=== PATIENT | female | born 1935 | race Caucasian/White ===

== ENCOUNTER 2019-06-01 08:58 | Outpatient (CLI) | payer MEDICARE, SELFPAY ==
--- NOTE | ~2019-06-01 | MM_ITS ---
EXAMINATION: MM screening corwin BI w jem HISTORY: Screening mammogram, history of ductal carcinoma in situ of the left breast. TECHNIQUE: Craniocaudal and mediolateral oblique 3-D tomosynthesis images were obtained and synthetic 2-D images were generated. CAD analysis was submitted and interpreted. COMPARISON: 05/30/2018, 12/28/2016, 07/21/2016 BREAST PARENCHYMAL COMPOSITION: There are scattered areas of fibroglandular density. FINDINGS: There is subtle architectural distortion in the left breast at the site of lumpectomy. Ther e is no evidence of suspicious mass, calcification, or architectural distortion to suggest malignancy in either breast. There has been no suspicious interval change. IMPRESSION: 1. No mammographic evidence of malignancy. 2. Recommend routine screening mammography while the patient remains in good health. BI-RADS Category 2: Benign finding(s). Reviewed, dictated and finalized at location A. [employer] IMPRESSION: 1. No mammographic evidence of malignancy. 2. Recommend routine screening mammography while the patient remains in good he alth. BI-RADS Category 2: Benign finding(s).
== END 2019-06-01 08:59 | disposition home or self-care (01) ==
LOC: ANHIMG 09:01
PROVIDERS: PCP Internal Medicine; Visit Provider Internal Medicine Hematology & Oncology
DX: Z12.31 Encounter for screening mammogram for malignant neoplasm of breast (principal)
CPT/HCPCS: 77063; 77067

== ENCOUNTER 2019-06-14 13:04 | Outpatient (CLI) | payer MEDICARE, SELFPAY ==
[2019-06-14 13:23] LABS: Basophils Absolute Auto 0.1 K/mm3 (0.0-0.1); Eosinophils Absolute Auto 0.2 K/mm3 (0-0.3); Hematocrit 38.2 % (37.0-47.0); Hemoglobin 12.6 g/dL (12.0-15.0); Immature Granulocyte Absolute 0.03 K/mm3 (0.00-0.031); Immature Granulocyte Percent A 0.3 % (0-0.5); Lymphocytes Absolute Auto 2.51 K/mm3 (0.9-3.2); Lymphocytes Percent Auto 27.3 % (18.3-44.2); Mean Corpuscular Hemoglobin 30.6 pg (26-34); Mean Corpuscular Volume 92.7 fl (80-100); Monocytes Absolute Auto 0.7 K/mm3 (0.1-0.6); Monocytes Percent Auto 7.7 % (2.6-8.5); Neutrophils Absolute Auto 5.7 K/mm3 (1.3-6.7); Neutrophils Percent Auto 61.7 % (45.5-73.1); Platelet Count Result 317 k/mm3 (150-375); Red Blood Count 4.12 M/mm3 (4.2-5.4); Red Cell Distribution Width 13.1 % (11.5-14.5); White Blood Count 9.2 K/mm3 (4.5-10.0)
[2019-06-14 13:26] LABS: Blood Urea Nitrogen 15 mg/dL (8-26); Carbon Dioxide 26 mmol/L (22-30); Chloride 102 mmol/L (98-109); Estimated Glomerular Filt Rate 53; Glucose 138 mg/dL (70-105); Potassium 3.7 mmol/L (3.5-4.9); Sodium 140 mmol/L (138-146)
[2019-06-14 17:23] LABS: Alanine Aminotransferase 18 U/L (4-35); Albumin Level 4.2 g/dL (3.5-5.1); Alkaline Phosphatase 43 U/L (38-126); Aspartate Amino Transferase 25 U/L (14-36); Bilirubin,Total 0.3 mg/dL (0.2-1.3); Blood Urea Nitrogen 15 mg/dL (7-17); Calcium 9.9 mg/dL (8.4-10.2); Carbon Dioxide 25 mmol/L (22-30); Chloride 100 mmol/L (98-107); Estimated Glomerular Filt Rate 60; Glucose 134 mg/dL (65-105); Potassium 4.1 mmol/L (3.4-5.0); Sodium 139 mmol/L (137-145)
== END 2019-06-14 13:05 | disposition home or self-care (01) ==
LOC: ANHLAB 13:07
PROVIDERS: PCP Internal Medicine; Visit Provider Internal Medicine Hematology & Oncology
DX: D05.12 Intraductal carcinoma in situ of left breast (principal)
CPT/HCPCS: 36415; 80048; 80053; 85025

== ENCOUNTER 2019-12-16 08:50 | Emergency (ER) | payer MEDICARE, SELFPAY ==
--- NOTE | 2019-12-16 08:54 | ED.GENADULT ---
HPI - General Adult General Chief complaint: Urogenital-Female Stated complaint: POS UTI Time Seen by Provider: 12/16/19 08:54 Source: patient Mode of arrival: ambulatory Limitations: no limitations History of Present Illness HPI narrative: 84-year-old female patient presents to the [facility] with complaints of urinary symptoms that started this morning. Patient states that she noticed that her blood was sent to the [facility]. Patient states she has had urgency, frequency and burning with urination. Patient denies any low back pain, fevers, body aches or chills. Related Data Home Medications Medication Instructions Recorded Confirmed albuterol sulfate [ProAir HFA] 2 puff INHALATION QID PRN 05/11/19 12/16/19 aspirin 81 mg PO DAILY 05/11/19 12/16/19 azelastine 137 mcg INTRANASAL Q12H 05/11/19 12/16/19 calcium carbonate [Calcium 600] 600 mg PO BID 05/11/19 12/16/19 cetirizine 10 mg PO QAM 05/11/19 12/16/19 diltiazem HCl [Cardizem CD] 120 mg PO DAILY 05/11/19 12/16/19 epinephrine [EpiPen] 0.3 mg IM PRN 05/11/19 12/16/19 esomeprazole magnesium [Nexium] 20 mg PO DAILY 05/11/19 12/16/19 fexofenadine 180 mg PO DAILY 05/11/19 12/16/19 isosorbide mononitrate 60 mg PO DAILY 05/11/19 12/16/19 magnesium oxide 250 mg PO BID 05/11/19 12/16/19 montelukast 10 mg PO DAILY 05/11/19 12/16/19 nitroglycerin 0.4 mg SUBLINGUAL Q5M PRN 05/11/19 12/16/19 tamoxifen 20 mg PO DAILY 05/11/19 12/16/19 Allergies Allergy/AdvReac Type Severity Reaction Status Date / Time bacitracin Allergy Unknown Unknown Verified 12/16/19 08:52 fentanyl Allergy Unknown Vomiting Verified 12/16/19 08:52 grass pollen Allergy Unknown Unknown Verified 12/16/19 08:52 Iodinated Contrast Media Allergy Unknown Stopped Verified 12/16/19 08:52 Breathing meperidine Allergy Unknown Unknown Verified 12/16/19 08:52 mold Allergy Unknown Unknown Verified 12/16/19 08:52 morphine Allergy Unknown Unknown Verified 12/16/19 08:52 neomycin Allergy Unknown RASH Unverified 12/16/19 08:52 Opioids-Meperidine and Allergy Unknown VOMITING Unverified 12/16/19 08:52 Related polymyxin B Allergy Unknown Unknown Verified 12/16/19 08:52 propoxyphene Allergy Unknown Unknown Verified 12/16/19 08:52 Contrast Media Allergy Severe Anaphylactic Uncoded 12/16/19 08:52 Shock ENVIRONMENTAL Allergy Unknown Unknown Uncoded 12/16/19 08:52 Review of Systems Review of Systems: Narrative: CONSTITUTIONAL: Denies fever, chills, or sweats. EYES: Denies visual changes, redness, or discharge. ENT: Denies rhinorrhea, congestion, sore throat, or otalgia. CARDIOVASCULAR: Denies chest pain, palpitations, or edema. RESPIRATORY: Denies cough or dyspnea. GASTROINTESTINAL: Denies abdominal pain, nausea, vomiting, or diarrhea. GENITOURINARY: Positive dysuria with hematuria. SKIN: Denies rash or itching. MUSCULOSKELETAL: Denies back pain, joint pain, or myalgia. NEUROLOGIC: Denies headache, numbness, or weakness. PSYCHIATRIC: Denies anxiety or depression. [facility] Past Medical History Medical History Angina at rest Asthma Bronchitis GERD (gastroesophageal reflux disease) Hypertension Peripheral neuropathy Pneumonia Seizures Surgical History Surgical History H/O cardiac catheterization H/O lumpectomy History of left-sided breast cancer History of appendectomy Hx of tonsillectomy Family History Family History Sibling Family history of allergic disorder Family history of malignant neoplasm Family history of diabetes mellitus in first degree relative Social History Social History Smoking status: Never smoker Alcohol intake: current Gender identity (if verbalized by the patient): Female Comments At the time of my signature I agree with nursing past medical history, surgical, soci
[2019-12-16 08:58] VITALS: BP 142/93; PULSE 85; RESP 16; TEMP 36.6; O2SAT 100
== END 2019-12-16 09:40 | disposition home or self-care (01) ==
PROVIDERS: Emergency Provider Nurse Practitioner Family; PCP Internal Medicine
DX: N30.01 Acute cystitis with hematuria (principal); I20.9 Angina pectoris, unspecified; J45.909 Unspecified asthma, uncomplicated; K21.9 Gastro-esophageal reflux disease without esophagitis; I10 Essential (primary) hypertension; G62.9 Polyneuropathy, unspecified; Z85.3 Personal history of malignant neoplasm of breast
CPT/HCPCS: 81003; 87086; 87088; 99213; G0463

== ENCOUNTER 2020-03-04 09:21 | Outpatient (CLI) | payer MEDICARE, SELFPAY ==
[2020-03-04 09:36] LABS: Basophils Absolute Auto 0.1 K/mm3 (0.0-0.1); Basophils Percent Auto 0.9 % (0.2-1.2); Eosinophils Absolute Auto 0.1 K/mm3 (0-0.3); Eosinophils Percent Auto 1.6 % (0-4.4); Hemoglobin 12.7 g/dL (12.0-15.0); Immature Granulocyte Absolute 0.02 K/mm3 (0.00-0.031); Immature Granulocyte Percent A 0.3 % (0-0.5); Lymphocytes Absolute Auto 2.48 K/mm3 (0.9-3.2); Lymphocytes Percent Auto 32.8 % (18.3-44.2); Mean Corpuscular HGB Conc 32.6 g/dl (32-36); Mean Corpuscular Hemoglobin 30.1 pg (26-34); Mean Corpuscular Volume 92.4 fl (80-100); Monocytes Absolute Auto 0.8 K/mm3 (0.1-0.6); Monocytes Percent Auto 10.7 % (2.6-8.5); Neutrophils Absolute Auto 4.1 K/mm3 (1.3-6.7); Neutrophils Percent Auto 53.7 % (45.5-73.1); Platelet Count Result 294 k/mm3 (150-375); Red Blood Count 4.22 M/mm3 (4.2-5.4); Red Cell Distribution Width 13.2 % (11.5-14.5); White Blood Count 7.6 K/mm3 (4.5-10.0)
[2020-03-04 09:39] LABS: Blood Urea Nitrogen 16 mg/dL (8-26); Carbon Dioxide 25 mmol/L (22-30); Chloride 105 mmol/L (98-109); Estimated Glomerular Filt Rate 53; Glucose 124 mg/dL (70-105); Potassium 4.2 mmol/L (3.5-4.9); Sodium 141 mmol/L (138-146)
[2020-03-04 11:23] LABS: Alanine Aminotransferase 15 U/L (4-35); Albumin Level 4.2 g/dL (3.5-5.1); Alkaline Phosphatase 42 U/L (38-126); Anion Gap 7 mmol/L (8-16); Aspartate Amino Transferase 25 U/L (14-36); Bilirubin,Total 0.3 mg/dL (0.2-1.3); Blood Urea Nitrogen 16 mg/dL (7-17); Calcium 9.3 mg/dL (8.4-10.2); Carbon Dioxide 29 mmol/L (22-30); Chloride 105 mmol/L (98-107); Estimated Glomerular Filt Rate 60; Glucose 124 mg/dL (65-105); Potassium 4.5 mmol/L (3.4-5.0); Sodium 141 mmol/L (137-145)
== END 2020-03-04 09:22 | disposition home or self-care (01) ==
LOC: ANHLAB 09:24
PROVIDERS: PCP Internal Medicine; Visit Provider Internal Medicine Hematology & Oncology
DX: D05.12 Intraductal carcinoma in situ of left breast (principal)
CPT/HCPCS: 36415; 80048; 80053; 85025

== ENCOUNTER 2020-05-21 13:31 | Outpatient (CLI) | payer MEDICARE, SELFPAY | END 2020-05-21 13:32 | disposition home or self-care (01) | LOC: ANHAUDIO 13:33 | PROVIDERS: PCP Internal Medicine; Visit Provider Internal Medicine | DX: H91.90 Unspecified hearing loss, unspecified ear (principal) | CPT/HCPCS: 99199 ==

== ENCOUNTER 2020-06-06 12:55 | Outpatient (CLI) | payer MEDICARE, SELFPAY | END 2020-06-06 12:56 | disposition home or self-care (01) | PROVIDERS: PCP Internal Medicine; Visit Provider Internal Medicine | DX: H91.90 Unspecified hearing loss, unspecified ear (principal) | CPT/HCPCS: 92557; 92567 ==

== ENCOUNTER 2020-08-25 07:30 | Outpatient (CLI) | payer MEDICARE, SELFPAY ==
--- NOTE | ~2020-08-25 | MM_ITS ---
EXAMINATION: MM screening corwin BI w jem HISTORY: Screening TECHNIQUE: Craniocaudal and mediolateral oblique 3-D tomosynthesis images were obtained and synthetic 2-D images were generated. CAD analysis was submitted and interpreted. COMPARISON: Comparison to multiple prior studies sequentially, with oldest reviewed study dated 08/2018. BREAST PARENCHYMAL COMPOSITION: Breast composed of scattered areas of fibroglandular density. FINDINGS: There is a developing mass in the lower inner quadrant of the right breast, located superfi cially and posteriorly. The left breast is stable without evidence for malignancy. IMPRESSION: 1. Developing right breast mass. 2. Additional mammographic views and possible breast ultrasound are recommended. BI-RADS Category 0: Incomplete: Needs additional imaging evaluation. Reviewed, dictated and finalized at location A. IMPRESSION: 1. Developing right breast mass. 2. Additional mammographic views and possible breast ultrasound are recommended . BI-RADS Category 0: Incomplete: Needs additional imaging evaluation.
== END 2020-08-25 07:31 | disposition home or self-care (01) ==
LOC: ANHIMG 07:33
PROVIDERS: PCP Internal Medicine; Visit Provider Internal Medicine Hematology & Oncology
DX: Z12.31 Encounter for screening mammogram for malignant neoplasm of breast (principal); R92.8 Other abnormal and inconclusive findings on diagnostic imaging of breast
CPT/HCPCS: 77063; 77067

== ENCOUNTER 2020-09-30 12:41 | Outpatient (CLI) | payer MEDICARE, SELFPAY ==
--- NOTE | ~2020-09-30 | MMUS_ITS ---
EXAMINATION: MM diagnostic mammo unilat RT, US breast RT limited HISTORY: Developing right breast mass reported in lower inner quadrant on 09/11/2020 screening mammogr am examination TECHNIQUE: Additional 3-D tomosynthesis images of the right breast with overlying skin marker were pe rformed and synthetic 2-D images were generated. CAD analysis was submitted and interpreted. High res olution targeted lower inner quadrant right breast ultrasound was performed. COMPARISON: 09/11/2020 bilateral digital screening mammogram FINDINGS: MAMMOGRAPHIC FINDINGS: There is a superficial circumscribed at least 9 mm mammographic opacity at the posterior aspect of th e lower inner quadrant of the right breast. Differential diagnosis includes cyst, sebaceous cyst, fib roadenoma, lymph node. Targeted ultrasound correlation was performed. ULTRASOUND: At the area of clinical complaint at 3:00 10 cm from the nipple there is a parallel circumscribed 9.6 x 5.5 x 11.2 mm hypoechoic lesion with peripheral color flow vascular signal at one margin and with through transmission and posterior enhancement. Consider fibroadenoma or lymph node. Ultrasound-guide d biopsy is recommended. IMPRESSION: 1. Circumscribed 3:00 11 mm hypoechoic mass with mild vascularity, with through transmission and post erior enhancement 2. Ultrasound-guided biopsy is recommended for right breast 3:00 lesion BI-RADS Category 4A: Suspicious abnormality; biopsy should be considered Dr. Stark telephoned the report and ultrasound-guided biopsy recommendation on 09/30/2020 at 1448 hours to [facility]. Reviewed, dictated and finalized at location A. IMPRESSION: 1. Circumscribed 3:00 11 mm hypoechoic mass with mild vascularity, with through transmission and posterior enhancement 2. Ultrasound-guided biopsy is recommended for right breast 3:00 lesion BI-RADS Category 4A: Suspicious abnormality; biopsy should be considered Dr. Stark telephoned the report and ultrasound-guided biopsy recommendation on at 1448 hours to [facility]. IMPRESSION: 1. Circumscribed 3:00 11 mm hypoechoic mass with mild vascularity, with through transmission and posterior enhancement 2. Ultrasound-guided biopsy is recommended for right breast 3:00 lesion BI-RADS Category 4A: Suspicious abnormality; biopsy should be considered Dr. Stark telephoned the report and ultrasound-guided biopsy recommendation on at 1448 hours to [facility].
== END 2020-09-30 12:42 | disposition home or self-care (01) ==
PROVIDERS: PCP Internal Medicine; Visit Provider Internal Medicine Hematology & Oncology
DX: R92.8 Other abnormal and inconclusive findings on diagnostic imaging of breast (principal)
CPT/HCPCS: 76642; 77065

== ENCOUNTER 2020-10-07 09:39 | Outpatient (CLI) | payer MEDICARE, SELFPAY ==
--- NOTE | ~2020-10-07 | US_ITS ---
EXAMINATION: Consultation US HISTORY: Patient presents for biopsy of a mass at the 3:00 location of the right breast. TECHNIQUE: Limited right breast ultrasound was performed at the 3:00 location 10 cm from the nipple. FINDINGS: There is a 10 mm x 5 mm oval, circumscribed, parallel, hypoechoic mass with no posterior fe atures or internal vascularity at the 3:00 location 10 cm from the nipple. With a standoff pad, a tra ct in the skin is demonstrated. Findings are most consistent with a sebaceous cyst. IMPRESSION: Sonographic findings consistent with a sebaceous cyst of the right breast. Clinical follow-up is janine mmended. BI-RADS Category 2: Benign finding(s). Reviewed, dictated and finalized at location A. IMPRESSION: Sonographic findings consistent with a sebaceous cyst of the right breast. Clin ical follow-up is recommended. BI-RADS Category 2: Benign finding(s).
== END 2020-10-07 09:40 | disposition home or self-care (01) ==
PROVIDERS: PCP Internal Medicine; Visit Provider Internal Medicine Hematology & Oncology
DX: R92.8 Other abnormal and inconclusive findings on diagnostic imaging of breast (principal)
CPT/HCPCS: 99199

== ENCOUNTER 2021-03-04 16:35 | Emergency (ER) | payer MEDICARE, SELFPAY ==
[2021-03-04 16:46] VITALS: BP 124/60; PULSE 80; RESP 16; TEMP 36.2; O2SAT 99
--- NOTE | 2021-03-04 16:46 | ED.ANIMALBIT ---
HPI - Animal Bite General Chief Complaint: Animal Bite Stated Complaint: DOG BITE TO NOSE Source: patient and RN notes reviewed Mode of arrival: ambulatory History of Present Illness HPI narrative: This is a 85-year-old female that presented to urgent care after being bit by a dog on Tuesday. Patient notes that the dog bit her was the size of a [place]. She notes while she was playing with the dog the dog got anxious when owners came around in bed to her in the face she does have a small healed puncture wound to the base of her nose. There is no obvious signs and symptoms of infection she noted that after the bite she bled a lot she also notes that dog has had his rabies shots. Patient has cleaned the site with soap and water .the patient denies SOB, CP, palpitation, extremity numbness, lightheadedness, dizziness, constipation, diarrhea, chills, or fever. She is here for tetanus shot MD complaint: animal bite Animal: dog Description of animal: household pet Mechanism: bite Location: face Related Data Home Medications Medication Instructions Recorded Confirmed albuterol sulfate [ProAir HFA] 2 puff INHALATION QID PRN 05/11/19 12/26/20 aspirin 81 mg PO DAILY 05/11/19 12/26/20 azelastine 137 mcg INTRANASAL Q12H 05/11/19 12/26/20 calcium carbonate [Calcium 600] 600 mg PO BID 05/11/19 12/26/20 cetirizine 10 mg PO QAM 05/11/19 12/26/20 diltiazem HCl [Cardizem CD] 120 mg PO DAILY 05/11/19 12/26/20 epinephrine [EpiPen] 0.3 mg IM PRN 05/11/19 12/26/20 esomeprazole magnesium [Nexium] 20 mg PO DAILY 05/11/19 12/26/20 fexofenadine 180 mg PO DAILY 05/11/19 12/26/20 isosorbide mononitrate 60 mg PO DAILY 05/11/19 12/26/20 magnesium oxide 250 mg PO BID 05/11/19 12/26/20 montelukast 10 mg PO DAILY 05/11/19 12/26/20 nitroglycerin 0.4 mg SUBLINGUAL Q5M PRN 05/11/19 12/26/20 tamoxifen 20 mg PO DAILY 05/11/19 12/26/20 citalopram 10 mg tablet 10 mg PO DAILY PRN 12/26/20 12/26/20 Allergies Allergy/AdvReac Type Severity Reaction Status Date / Time bacitracin Allergy Unknown Unknown Verified 12/26/20 11:03 fentanyl Allergy Unknown Vomiting Verified 12/26/20 11:03 grass pollen Allergy Unknown Unknown Verified 12/26/20 11:03 Iodinated Contrast Media Allergy Unknown Stopped Verified 12/26/20 11:03 Breathing meperidine Allergy Unknown Unknown Verified 12/26/20 11:03 mold Allergy Unknown Unknown Verified 12/26/20 11:03 morphine Allergy Unknown Unknown Verified 12/26/20 11:03 neomycin Allergy Unknown RASH Verified 12/26/20 11:03 Opioids-Meperidine and Allergy Unknown VOMITING Verified 12/26/20 11:03 Related polymyxin B Allergy Unknown Unknown Verified 12/26/20 11:03 propoxyphene Allergy Unknown Unknown Verified 12/26/20 11:03 Contrast Media Allergy Severe Anaphylactic Uncoded 08/08/20 10:59 Shock ENVIRONMENTAL Allergy Unknown Unknown Uncoded 08/08/20 10:59 Review of Systems Review of Systems: A 14 organ system Review of Systems was performed and pertinent positives included in the HPI, otherwise remaining ROS is negative. [facility] Past Medical History Medical History Angina at rest Anxiety Asthma Bronchitis GERD (gastroesophageal reflux disease) Hyperlipidemia Hypertension Peripheral neuropathy Pneumonia Seizures Surgical History Surgical History H/O cardiac catheterization H/O lumpectomy History of left-sided breast cancer H/O myomectomy 1977 H/O: hysterectomy 1977 History of appendectomy 1950 History of conization of cervix History of eye surgery 2020 Hx of tonsillectomy [place] teeth removed Family History Family History Sibling Family history of allergic disorder Family history of malignant neoplasm Family history of diabetes mellitus in first degree relative Diabetes mellitus Mother Breast cancer Father Cerebrovascular accident Gr
[2021-03-04] MEDS: TETANUS,DIPHTHERIA,AC PERTUSSIS ADULT (0.5 ML) BOOSTRIX IM (17:07)
== END 2021-03-04 17:12 | disposition home or self-care (01) ==
PROVIDERS: Emergency Provider Nurse Practitioner; PCP Internal Medicine
DX: S01.23XA Puncture wound without foreign body of nose, initial encounter (principal); W54.0XXA Bitten by dog, initial encounter; Z23 Encounter for immunization; I20.9 Angina pectoris, unspecified; F41.9 Anxiety disorder, unspecified; J45.909 Unspecified asthma, uncomplicated; K21.9 Gastro-esophageal reflux disease without esophagitis; E78.5 Hyperlipidemia, unspecified; I10 Essential (primary) hypertension; G40.909 Epilepsy, unspecified, not intractable, without status epilepticus; G62.9 Polyneuropathy, unspecified; Z85.3 Personal history of malignant neoplasm of breast; Z79.82 Long term (current) use of aspirin
CPT/HCPCS: 90471; 90715; 99212; G0463

== ENCOUNTER 2021-03-11 12:49 | Emergency (ER) | payer MEDICARE, SELFPAY ==
[2021-03-11 12:57] VITALS: BP 101/57; PULSE 92; RESP 16; TEMP 36.6; O2SAT 98
--- NOTE | 2021-03-11 13:08 | ED.URI ---
HPI - URI/Sore Throat General Chief Complaint: Upper Respiratory Infection Stated Complaint: SINUS CONGESTION/COUGH Time Seen by Provider: 03/11/21 13:00 Source: patient, family and RN notes reviewed History of Present Illness HPI Narrative: Patient is an 85-year-old female who presents the urgent care with a family friend with complaints of chronic allergies. Patient states it started 2 days ago and she has been taking her normal Zyrtec, Mallory and Flonase nasal spray. Patient states that she has chronic seasonal allergies and this is just like they have always been in the past . Patient has had of the [employer] vaccine and the Covid booster. Patient states that she has not been exposed to anyone with Covid however there was a concern. Patient denies of any fevers, nausea, vomiting. No other acute complaints. No acute distress noted. Patient aware of the plan of care. Some parts of this dictation were generated by voice recognition software and may contain typographical and/or grammatical inaccuracies. Related Data Home Medications Medication Instructions Recorded Confirmed albuterol sulfate [ProAir HFA] 2 puff INHALATION QID PRN 05/11/19 12/26/20 aspirin 81 mg PO DAILY 05/11/19 12/26/20 azelastine 137 mcg INTRANASAL Q12H 05/11/19 12/26/20 calcium carbonate [Calcium 600] 600 mg PO BID 05/11/19 12/26/20 cetirizine 10 mg PO QAM 05/11/19 12/26/20 diltiazem HCl [Cardizem CD] 120 mg PO DAILY 05/11/19 12/26/20 epinephrine [EpiPen] 0.3 mg IM PRN 05/11/19 12/26/20 esomeprazole magnesium [Nexium] 20 mg PO DAILY 05/11/19 12/26/20 fexofenadine 180 mg PO DAILY 05/11/19 12/26/20 isosorbide mononitrate 60 mg PO DAILY 05/11/19 12/26/20 magnesium oxide 250 mg PO BID 05/11/19 12/26/20 montelukast 10 mg PO DAILY 05/11/19 12/26/20 nitroglycerin 0.4 mg SUBLINGUAL Q5M PRN 05/11/19 12/26/20 tamoxifen 20 mg PO DAILY 05/11/19 12/26/20 citalopram 10 mg tablet 10 mg PO DAILY PRN 12/26/20 12/26/20 Allergies Allergy/AdvReac Type Severity Reaction Status Date / Time bacitracin Allergy Unknown Unknown Verified 12/26/20 11:03 fentanyl Allergy Unknown Vomiting Verified 12/26/20 11:03 grass pollen Allergy Unknown Unknown Verified 12/26/20 11:03 Iodinated Contrast Media Allergy Unknown Stopped Verified 12/26/20 11:03 Breathing meperidine Allergy Unknown Unknown Verified 12/26/20 11:03 mold Allergy Unknown Unknown Verified 12/26/20 11:03 morphine Allergy Unknown Unknown Verified 12/26/20 11:03 neomycin Allergy Unknown RASH Verified 12/26/20 11:03 Opioids-Meperidine and Allergy Unknown VOMITING Verified 12/26/20 11:03 Related polymyxin B Allergy Unknown Unknown Verified 12/26/20 11:03 propoxyphene Allergy Unknown Unknown Verified 12/26/20 11:03 Contrast Media Allergy Severe Anaphylactic Uncoded 08/08/20 10:59 Shock ENVIRONMENTAL Allergy Unknown Unknown Uncoded 08/08/20 10:59 Review of Systems Review of Systems: CONSTITUTIONAL: Denies fever, chills, or sweats. EYES: Denies visual changes, redness, or discharge. ENT: Reports of rhinorrhea, sinus congestion and postnasal drainage CARDIOVASCULAR: Denies chest pain, palpitations, or edema. RESPIRATORY: Reports a mild cough without dyspnea GASTROINTESTINAL: Denies abdominal pain, nausea, vomiting, or diarrhea. GENITOURINARY: Denies dysuria or hematuria. SKIN: Denies rash or itching. MUSCULOSKELETAL: Denies back pain, joint pain, or myalgia. NEUROLOGIC: Denies headache, numbness, or weakness. All other systems reviewed are negative, except as documented in HPI. [facility] Past Medical History Medical History Angina at rest Anxiety Asthma Bronchitis GERD (gastroesophageal reflux disease) Hyperlipidemia Hypertension Peripheral neuropathy Pneumonia Seizures Surgical History Surgical History H/O cardiac catheterization H/O lumpectomy History of left-sided breast cancer H/O myomectomy
== END 2021-03-11 13:21 | disposition home or self-care (01) ==
PROVIDERS: Emergency Provider Nurse Practitioner Family; PCP Internal Medicine
DX: J30.2 Other seasonal allergic rhinitis (principal); J45.909 Unspecified asthma, uncomplicated; K21.9 Gastro-esophageal reflux disease without esophagitis; E78.5 Hyperlipidemia, unspecified; I10 Essential (primary) hypertension; G62.9 Polyneuropathy, unspecified; Z85.3 Personal history of malignant neoplasm of breast
CPT/HCPCS: 99213; G0463

== ENCOUNTER 2021-07-20 16:46 | Emergency (ER) | payer MEDICARE, SELFPAY ==
[2021-07-20] VITALS (13 sets, daily range): BP systolic 144–171; BP diastolic 69–86; PULSE 74–90; RESP 13–21; TEMP 36.6; O2SAT 94–100
--- NOTE | ~2021-07-20 | CT_ITS ---
EXAMINATION: CT brain wo con DATE: 07/20/2021 17:47 INDICATION: Altered level of consciousness. Dysphasic. TECHNIQUE: Computed tomography (CT) of the head was performed without intravenous contrast. The mA wa s adjusted according to patient size. Iterative reconstruction technique was employed. Exam dose: 60 5.33 mGy-cm total exam DLP. COMPARISON: 03/24/2018 MRI brain/brainstem FINDINGS: There are prominent carotid siphon internal carotid artery calcifications. No intracranial mass lesion or hemorrhage or cerebrovascular accident. No midline shift or mass effec t. There is prominent cerebral and cerebellar volume loss. No subdural or epidural hematoma. No fracture or bone destruction of the cranial vault. The mastoid air cells and included paranasal si nuses are normally developed and aerated. IMPRESSION: Cerebral atherosclerosis and chronic small vessel ischemic changes of cerebral white mat ter Cerebral and cerebellar prominent volume loss No acute intracranial finding Reviewed, dictated and finalized at [facility]. Reviewed, dictated and finalized at location A. IMPRESSION: Cerebral atherosclerosis and chronic small vessel ischemic changes of cerebral white matter Cerebral and cerebellar prominent volume loss No acute intracranial finding
--- NOTE | ~2021-07-20 | XR_ITS ---
XR chest 2V DATE: 07/20/2021 17:53 INDICATION: Weakness TECHNIQUE: AP and lateral views COMPARISON: 01/22/2019 PA and lateral chest FINDINGS: Cardiomegaly. Aortic calcification and unfolding. No hilar or mediastinal enlargement. No pulmonary infiltrate or consolidation, pleural effusion or pulmonary vascular congestion or pneumo thorax. Diffuse osteopenia. Chronic mild anterior wedging of mid to upper thoracic vertebral bodies. IMPRESSION: No active pulmonary disease Cardiomegaly Aortic atherosclerosis Osteopenia Reviewed, dictated and finalized at location A.
--- NOTE | 2021-07-20 17:18 | ECG_ITS ---
Measurements Intervals [place] Rate: 77 P: [place]: 0 QRS: 19 QRSD: 80 T: 42 QT: 389 QTc: 442 Interpretive Statements SINUS RHYTHM WITH FREQUENT PACS NONSPECIFIC ST SEGMENT CHANGES COMPARED TO ECG 01/22/2019 23:15:36 MORE ATRIAL ECTOPIC ACTIVITY IS NOTED Electronically Signed On 07-21-2021 17:05:10 CDT by Sourav Wilson M.D.
[2021-07-20 17:31] LABS: Basophils Absolute Auto 0.1 K/mm3 (0.0-0.1); Eosinophils Absolute Auto 0.2 K/mm3 (0-0.3); Eosinophils Percent Auto 2.1 % (0-4.4); Hematocrit 35.9 % (37.0-47.0); Hemoglobin 11.7 g/dL (12.0-15.0); Immature Granulocyte Absolute 0.02 K/mm3 (0.00-0.031); Immature Granulocyte Percent A 0.2 % (0-0.5); Lymphocytes Absolute Auto 2.58 K/mm3 (0.9-3.2); Lymphocytes Percent Auto 31.3 % (18.3-44.2); Mean Corpuscular HGB Conc 32.6 g/dl (32-36); Mean Corpuscular Hemoglobin 30.7 pg (26-34); Mean Corpuscular Volume 94.2 fl (80-100); Monocytes Absolute Auto 1.1 K/mm3 (0.1-0.6); Monocytes Percent Auto 13.6 % (2.6-8.5); Neutrophils Absolute Auto 4.3 K/mm3 (1.3-6.7); Neutrophils Percent Auto 51.8 % (45.5-73.1); Platelet Count Result 290 k/mm3 (150-375); Red Blood Count 3.81 M/mm3 (4.2-5.4); Red Cell Distribution Width 13.6 % (11.5-14.5); White Blood Count 8.2 K/mm3 (4.5-10.0)
[2021-07-20 17:43] LABS: Alanine Aminotransferase 18 U/L (4-35); Alkaline Phosphatase 45 U/L (38-126); Anion Gap 5 mmol/L (8-16); Aspartate Amino Transferase 35 U/L (14-36); Bilirubin,Total 0.2 mg/dL (0.2-1.3); Blood Urea Nitrogen 20 mg/dL (7-17); Calcium 8.7 mg/dL (8.4-10.2); Carbon Dioxide 27 mmol/L (22-30); Chloride 105 mmol/L (98-107); Estimated Glomerular Filt Rate 59; Glucose 104 mg/dL (65-110); Potassium 4.1 mmol/L (3.4-5.0); Sodium 137 mmol/L (137-145)
--- NOTE | 2021-07-20 18:24 | ED.GENADULT ---
HPI - General Adult General Chief complaint: Unspecified Stated complaint: weakness Time Seen by Provider: 07/20/21 17:48 Source: patient and family Mode of arrival: EMS Limitations: no limitations History of Present Illness HPI narrative: This is an 86-year-old female that presents to the emergency department for confusion. Reports she has trouble with word finding. This has been going on for months. She has not been evaluated for this before as she has been somewhat isolated due to the pandemic. She had some dental work today and felt a little more off than usual which prompted her to be seen today. No other concerns. Denies vision changes, or focal numbness or weakness. Related Data Home Medications Medication Instructions Recorded Confirmed albuterol sulfate [ProAir HFA] 2 puff INHALATION QID PRN 05/11/19 07/07/21 aspirin 81 mg PO DAILY 05/11/19 07/07/21 azelastine 137 mcg INTRANASAL Q12H 05/11/19 07/07/21 calcium carbonate [Calcium 600] 600 mg PO BID 05/11/19 07/07/21 cetirizine 10 mg PO QAM 05/11/19 07/07/21 diltiazem HCl [Cardizem CD] 120 mg PO DAILY 05/11/19 07/07/21 epinephrine [EpiPen] 0.3 mg IM PRN 05/11/19 07/07/21 esomeprazole magnesium [Nexium] 20 mg PO DAILY 05/11/19 07/07/21 fexofenadine 180 mg PO DAILY 05/11/19 07/07/21 isosorbide mononitrate 60 mg PO DAILY 05/11/19 07/07/21 magnesium oxide 250 mg PO BID 05/11/19 07/07/21 montelukast 10 mg PO DAILY 05/11/19 07/07/21 nitroglycerin 0.4 mg SUBLINGUAL Q5M PRN 05/11/19 07/07/21 tamoxifen 20 mg PO DAILY 05/11/19 07/07/21 citalopram 10 mg tablet 10 mg PO DAILY PRN 12/26/20 07/07/21 Allergies Allergy/AdvReac Type Severity Reaction Status Date / Time bacitracin Allergy Unknown Unknown Verified 07/07/21 14:33 fentanyl Allergy Unknown Vomiting Verified 07/07/21 14:33 grass pollen Allergy Unknown Unknown Verified 07/07/21 14:33 Iodinated Contrast Media Allergy Unknown Stopped Verified 07/07/21 14:33 Breathing meperidine Allergy Unknown Unknown Verified 07/07/21 14:33 mold Allergy Unknown Unknown Verified 07/07/21 14:33 morphine Allergy Unknown Unknown Verified 07/07/21 14:33 neomycin Allergy Unknown RASH Verified 07/07/21 14:33 Opioids-Meperidine and Allergy Unknown VOMITING Verified 07/07/21 14:33 Related polymyxin B Allergy Unknown Unknown Verified 07/07/21 14:33 propoxyphene Allergy Unknown Unknown Verified 07/07/21 14:33 Contrast Media Allergy Severe Anaphylactic Uncoded 08/08/20 10:59 Shock ENVIRONMENTAL Allergy Unknown Unknown Uncoded 08/08/20 10:59 Review of Systems Review of Systems: CONSTITUTIONAL: Denies fever EYES: Denies visual changes CARDIOVASCULAR: Denies chest pain RESPIRATORY: Denies dyspnea. GASTROINTESTINAL: Denies vomiting GENITOURINARY: Denies dysuria NEUROLOGIC: Denies headache, numbness, or weakness. All systems reviewed & are unremarkable except as noted in HPI and below PMFSH Past Medical History Medical History Angina at rest Anxiety Asthma Bronchitis GERD (gastroesophageal reflux disease) Hyperlipidemia Hypertension Peripheral neuropathy Pneumonia Seizures Surgical History Surgical History H/O cardiac catheterization H/O lumpectomy History of left-sided breast cancer H/O myomectomy 1977 H/O: hysterectomy 1977 History of appendectomy 1950 History of conization of cervix History of eye surgery 2020 Hx of tonsillectomy [place] teeth removed Family History Family History Sibling Family history of allergic disorder Family history of malignant neoplasm Family history of diabetes mellitus in first degree relative Diabetes mellitus Mother Breast cancer Father Cerebrovascular accident Grandparent Diabetes mellitus Son Hodgkins disease Social History Social History (Reviewed 07/07/21 @ 14:34 by Caryl Frias
[2021-07-20 18:38] LABS: Add Urine Microscopic? YES; Appearance Urine Clear (Clear); Bacteria Urine Trace /hpf; Bilirubin Urine Negative (Negative); Blood Urine 1+ (Negative); Color Urine Straw (Yellow); Glucose Urine UA Negative (Negative); Ketones Urine Negative (Negative); Leukocyte Esterase Ur Negative LEU/UL (Negative); Mucus Urine Rare /lpf; Nitrate Urine Negative (Negative); Protein Urine Negative (Negative); RBC Urine 0-2 /hpf (0-2); Specific Grav Ur 1.008 (1.001-1.035); Squamous Epithelial Cell Urine Rare /hpf (Few); Urobilinogen Urine Negative mg/dL (<2.0); WBC Urine 0-3 /hpf
== END 2021-07-20 21:05 | disposition home or self-care (01) ==
PROVIDERS: Emergency Provider Emergency Medicine; PCP Internal Medicine
DX: R41.82 Altered mental status, unspecified (principal); J45.909 Unspecified asthma, uncomplicated; E78.5 Hyperlipidemia, unspecified; I10 Essential (primary) hypertension; G62.9 Polyneuropathy, unspecified; K21.9 Gastro-esophageal reflux disease without esophagitis; Z87.01 Personal history of pneumonia (recurrent); Z79.82 Long term (current) use of aspirin; I49.1 Atrial premature depolarization; I67.2 Cerebral atherosclerosis; I70.0 Atherosclerosis of aorta; I51.7 Cardiomegaly; M85.88 Other specified disorders of bone density and structure, other site
CPT/HCPCS: 36415; 70450; 71046; 80053; 81001; 85025; 93005; 99284

== ENCOUNTER 2021-10-16 10:32 | Outpatient (CLI) | payer MEDICARE, SELFPAY ==
[2021-10-16 11:21] LABS: Basophils Absolute Auto 0.1 K/mm3 (0.0-0.1); Basophils Percent Auto 1.1 % (0.2-1.2); Eosinophils Absolute Auto 0.1 K/mm3 (0-0.3); Eosinophils Percent Auto 0.9 % (0-4.4); Hemoglobin 12.4 g/dL (12.0-15.0); Immature Granulocyte Absolute 0.02 K/mm3 (0.00-0.031); Immature Granulocyte Percent A 0.3 % (0-0.5); Lymphocytes Absolute Auto 2.02 K/mm3 (0.9-3.2); Lymphocytes Percent Auto 26.7 % (18.3-44.2); Mean Corpuscular HGB Conc 31.8 g/dl (32-36); Mean Corpuscular Hemoglobin 30.1 pg (26-34); Mean Corpuscular Volume 94.7 fl (80-100); Monocytes Absolute Auto 0.9 K/mm3 (0.1-0.6); Monocytes Percent Auto 11.5 % (2.6-8.5); Neutrophils Absolute Auto 4.5 K/mm3 (1.3-6.7); Neutrophils Percent Auto 59.5 % (45.5-73.1); Platelet Count Result 299 k/mm3 (150-375); Red Blood Count 4.12 M/mm3 (4.2-5.4); Red Cell Distribution Width 13.5 % (11.5-14.5); White Blood Count 7.6 K/mm3 (4.5-10.0)
[2021-10-16 11:24] LABS: Blood Urea Nitrogen 17 mg/dL (8-26); Carbon Dioxide 26 mmol/L (22-30); Chloride 105 mmol/L (98-109); Estimated Glomerular Filt Rate 59; Glucose 97 mg/dL (70-105); Ionized Calcium (POC) 1.26 mmol/L (1.11-1.31); Potassium 4.2 mmol/L (3.5-4.9); Sodium 141 mmol/L (138-146)
[2021-10-16 13:22] LABS: Alanine Aminotransferase 17 U/L (6-35); Alkaline Phosphatase 45 U/L (38-126); Anion Gap 6 mmol/L (8-16); Aspartate Amino Transferase 25 U/L (14-36); Bilirubin,Total 0.2 mg/dL (0.2-1.3); Blood Urea Nitrogen 18 mg/dL (7-17); Calcium 8.9 mg/dL (8.4-10.2); Carbon Dioxide 25 mmol/L (22-30); Chloride 107 mmol/L (98-107); Estimated Glomerular Filt Rate > 60; Glucose 94 mg/dL (65-110); Potassium 4.2 mmol/L (3.4-5.0); Sodium 138 mmol/L (137-145)
== END 2021-10-16 10:33 | disposition home or self-care (01) ==
LOC: ANHLAB 10:34
PROVIDERS: PCP Internal Medicine; Visit Provider Internal Medicine Hematology & Oncology
DX: D05.12 Intraductal carcinoma in situ of left breast (principal)
CPT/HCPCS: 36415; 80047; 80053; 85025

== ENCOUNTER 2021-12-22 09:41 | Outpatient (CLI) | payer MEDICARE, SELFPAY ==
--- NOTE | ~2021-12-22 | MM_ITS ---
EXAMINATION: MM screening corwin BI w jem HISTORY: Screening mammogram, history of breast cancer TECHNIQUE: Craniocaudal and mediolateral oblique 3-D tomosynthesis images were obtained and synthetic 2-D images were generated. CAD analysis was submitted and interpreted. COMPARISON: 09/30/2020, 08/25/2020, 06/01/2019, 05/30/2018 BREAST PARENCHYMAL COMPOSITION: There are scattered areas of fibroglandular density. FINDINGS: RIGHT BREAST: There is a possible mass in the middle third of the central breast. LEFT BREAST: There is no suspicious mass, calcification, or architectural distortion to suggest malig rayray. There has been no significant interval change. IMPRESSION: 1. Possible right breast mass 2. Additional mammographic views and possible breast ultrasound are recommended. BI-RADS Category 0: Incomplete: Needs additional imaging evaluation. Reviewed, dictated and finalized at location A. IMPRESSION: 1. Possible right breast mass 2. Additional mammographic views and possible breast ultrasound are recommended . BI-RADS Category 0: Incomplete: Needs additional imaging evaluation.
== END 2021-12-22 09:42 | disposition home or self-care (01) ==
LOC: ANHIMG 09:43
PROVIDERS: PCP Internal Medicine; Visit Provider Internal Medicine Hematology & Oncology
DX: Z12.31 Encounter for screening mammogram for malignant neoplasm of breast (principal); R92.8 Other abnormal and inconclusive findings on diagnostic imaging of breast
CPT/HCPCS: 77063; 77067

== ENCOUNTER 2022-01-12 12:37 | Outpatient (CLI) | payer MEDICARE, SELFPAY ==
--- NOTE | ~2022-01-12 | MMUS_ITS ---
EXAMINATION: MM diagnostic corwin RT w jem, US breast RT limited HISTORY: Possible right breast mass TECHNIQUE: Additional 3-D tomosynthesis images of the right breast were performed and synthetic 2-D i mages were generated. CAD analysis was submitted and interpreted. High resolution limited right breas t ultrasound was performed. COMPARISON: 12/22/2021, 09/30/2020, 08/25/2020, 06/01/2019 FINDINGS: MAMMOGRAPHIC FINDINGS: There is a persistent asymmetry in the middle third of the inner right breast with spot compression. No definite architectural distortion or associated calcification are identified. ULTRASOUND: No sonographic correlate is identified for the right breast asymmetry. Again seen is a stable circums cribed mass of the far posterior breast. IMPRESSION: 1. Probably benign right breast asymmetry. 2. Recommend 6 month follow-up right diagnostic mammogram and possible ultrasound. BI-RADS category 3, probably benign findings. Reviewed, dictated and finalized at location A. IMPRESSION: 1. Probably benign right breast asymmetry. 2. Recommend 6 month follow-up right diagnostic mammogram and possible ultrasou nd. BI-RADS category 3, probably benign findings.
== END 2022-01-12 12:38 | disposition home or self-care (01) ==
PROVIDERS: PCP Internal Medicine; Visit Provider Internal Medicine
DX: R92.8 Other abnormal and inconclusive findings on diagnostic imaging of breast (principal); R60.1 Generalized edema
CPT/HCPCS: 76642; 77061; 77065; G0279

== ENCOUNTER 2022-02-04 10:03 | Outpatient (CLI) | payer MEDICARE, SELFPAY ==
--- NOTE | ~2022-02-04 | US_ITS ---
EXAMINATION:US venous doppler LE LT INDICATION:Leg edema TECHNIQUE: Multiple grayscale, color flow and Doppler images of the left lower extremity deep venous systems were obtained and reviewed. COMPARISON:No prior studies for comparison. FINDINGS: The common femoral, superficial femoral and popliteal veins demonstrate normal respiratory variation, augmentation and compressibility. Color flow is also seen within the posterior tibial, pe roneal, greater saphenous and profunda veins. IMPRESSION: 1: No lower extremity deep venous thrombosis. Reviewed, dictated and finalized at location A.
== END 2022-02-04 10:04 | disposition home or self-care (01) ==
PROVIDERS: PCP Internal Medicine; Visit Provider Internal Medicine Cardiovascular Disease
DX: R60.0 Localized edema (principal)
CPT/HCPCS: 93971

== ENCOUNTER 2022-06-11 09:33 | Inpatient (IN) | payer MEDICARE, SELFPAY ==
[2022-06-11] VITALS (27 sets, daily range): BP systolic 102–163; BP diastolic 42–94; PULSE 58–82; RESP 12–22; TEMP 36.1–37.1; O2SAT 96–100; BMI 25.0
--- NOTE | ~2022-06-11 | XR_ITS ---
XR hip RT 2V w AP pelvis 06/13/2022 10:30 Indication: Right hip pain Procedure: 3 views right hip Comparison: No prior studies for comparison. Findings: Pelvic rings are intact. There is a healed left superior pubic ramus fracture. Osteopenia. Mild osteoarthritis of the hips. No acute fracture or traumatic malalignment. Impression: 1: No acute fracture. Reviewed, dictated and finalized at location A. O TECHNICIAN Impression: 1: No acute fracture.
--- NOTE | ~2022-06-11 | US_ITS ---
EXAMINATION:US venous doppler LE BI INDICATION:Lower extremity edema TECHNIQUE: Multiple grayscale, color flow and Doppler images of the right and left lower extremity de ep venous systems were obtained and reviewed. COMPARISON:02/04/2022 FINDINGS: The common femoral, superficial femoral and popliteal veins demonstrate normal respiratory variation, augmentation and compressibility. Color flow is also seen within the posterior tibial, pe roneal, greater saphenous and profunda veins. IMPRESSION: 1: No lower extremity deep venous thrombosis. Reviewed, dictated and finalized at location A. CAL COORDINATOR PESTICIDE USE
--- NOTE | ~2022-06-11 | XR_ITS ---
EXAMINATION: XR chest 2V DATE: 06/11/2022 13:33 INDICATION: Weakness TECHNIQUE: AP and lateral views of the chest are obtained. COMPARISON: 07/20/2021 FINDINGS: There are small pleural effusions. There appears to be a loculated component on the left. T here are minimal bibasilar airspace opacities. No pneumothorax is identified. The cardiomediastinal s ilhouette is stable. There is moderate thoracic spondylosis. IMPRESSION: 1. Small pleural effusions. 2. Bibasilar airspace opacity, consistent with atelectasis versus pneumonia. Reviewed, dictated and finalized at location B. OSCIENTIST
--- NOTE | ~2022-06-11 | CT_ITS ---
EXAMINATION: CT brain wo con DATE: 06/11/2022 12:08 INDICATION: Left facial weakness. Cerebral vascular accident. TECHNIQUE: Computed tomography (CT) of the head was performed without intravenous contrast. The mA wa s adjusted according to patient size. Iterative reconstruction technique was employed. The dose-lengt h product was 605.33 mGy-cm. COMPARISON: Head CT 07/20/2021 FINDINGS: There is diffuse brain volume loss. There are scattered areas of low attenuation in the cer ebral white matter, which is within normal limits for the patient's age. There is no intracranial hem orrhage, acute infarction, or abnormal intracranial mass lesion. The ventricles are normal in size. T here is mild mucosal thickening in the paranasal sinuses. The mastoid air cells are normal. There are likely changes of ocular lens replacement surgeries. IMPRESSION: 1. Normal aging brain. Reviewed, dictated and finalized at location A. ER PILER IMPRESSION: 1. Normal aging brain.
--- NOTE | ~2022-06-11 | NM_ITS ---
EXAMINATION: NM avinash stress w perfusion DATE: 06/14/2022 10:59 LAN SPECIALIST INDICATION: Chest pain TECHNIQUE: Rest images were obtained following intravenous administration of 10.8 mCi Tc99m tetrofosm in (Myoview). The patient was infused intravenously with Lexiscan (regadenoson). Then, 35.3 mCi Tc99m tetrofosmin (Myoview) was administered intravenously, and stress images were obtained. Data was janine nstructed into short axis and horizontal and vertical long axis SPECT images. Gated SPECT images were also obtained. COMPARISON: None. FINDINGS: There is no definite reversible or fixed perfusion abnormality to suggest ischemia or infar ction. There is no segmental wall motion abnormality. Left ventricular ejection fraction measures 8 4%. IMPRESSION: 1. No definite ischemia or infarct. 2. Normal left ventricular ejection fraction measuring 84%. Reviewed, dictated and finalized at location B. SPECIALIST
--- NOTE | 2022-06-11 09:53 | ECG_ITS ---
Measurements Intervals [place] Rate: 77 P: 90 CT: 149 QRS: -9 QRSD: 80 T: -2 QT: 350 QTc: 398 Interpretive Statements SINUS RHYTHM WITH OCCASIONAL SUPRAVENTRICULAR PREMATURE COMPLEXES POOR R-WAVE PROGRESSION NONSPECIFIC T-WAVE ABNORMALITY ABNORMAL ECG COMPARED TO ECG 07/20/2021 17:26:05 NO SIGNIFICANT CHANGES Electronically Signed On 06-11-2022 15:28:40 [employer]EMAN by Sourav Wilson M.D.
[2022-06-11 10:32] LABS: Basophils Absolute Auto 0.1 K/mm3 (0.0-0.1); Basophils Percent Auto 1.5 % (0.2-1.2); Eosinophils Absolute Auto 0.3 K/mm3 (0-0.3); Eosinophils Percent Auto 3.5 % (0-4.4); Hematocrit 38.4 % (37.0-47.0); Hemoglobin 12.6 g/dL (12.0-15.0); Immature Granulocyte Absolute 0.03 K/mm3 (0.00-0.031); Immature Granulocyte Percent A 0.4 % (0-0.5); Lymphocytes Absolute Auto 1.72 K/mm3 (0.9-3.2); Lymphocytes Percent Auto 22.9 % (18.3-44.2); Mean Corpuscular HGB Conc 32.8 g/dl (32-36); Mean Corpuscular Hemoglobin 30.4 pg (26-34); Mean Corpuscular Volume 92.8 fl (80-100); Monocytes Absolute Auto 0.7 K/mm3 (0.1-0.6); Neutrophils Absolute Auto 4.7 K/mm3 (1.3-6.7); Neutrophils Percent Auto 62.7 % (45.5-73.1); Platelet Count Result 347 k/mm3 (150-375); Red Blood Count 4.14 M/mm3 (4.2-5.4); Red Cell Distribution Width 13.7 % (11.5-14.5); White Blood Count 7.5 K/mm3 (4.5-10.0)
[2022-06-11 10:44] LABS: Alanine Aminotransferase 24 U/L (6-35); Albumin Level 4.3 g/dL (3.5-5.1); Alkaline Phosphatase 44 U/L (38-126); Anion Gap 5 mmol/L (8-16); Aspartate Amino Transferase 31 U/L (14-36); Bilirubin,Total 0.4 mg/dL (0.2-1.3); Blood Urea Nitrogen 25 mg/dL (7-17); Calcium 8.7 mg/dL (8.4-10.2); Carbon Dioxide 26 mmol/L (22-30); Chloride 105 mmol/L (98-107); Estimated CRCL calculation 22 ml/min; Estimated Glomerular Filt Rate 39; Glucose 95 mg/dL (65-110); Potassium 4.3 mmol/L (3.4-5.0); Prothrombin Time 13.1 Seconds (11.1-14.7); Sodium 136 mmol/L (137-145)
[2022-06-11 10:45] LABS: Partial Thromboplastin Time 28.8 SECONDS (22.3-36.8)
[2022-06-11 10:55] LABS: Troponin I < 0.012 ng/mL (0.000-0.034)
--- NOTE | 2022-06-11 11:50 | ED.GENADULT ---
HPI - General Adult General Chief complaint: Chest Pain Stated complaint: cp last night none at this time Time Seen by Provider: 06/11/22 09:50 History of Present Illness HPI narrative: 86-year-old female with history of hypertension presented to the emergency department for evaluation of chest pain last night. Patient states that she was attempting to adjust the pillows to elevate her feet and she felt that this required some exertion. In response to that exertion she states she had onset of substernal chest pain and tightness that did radiate up to her jaw. Patient denies any current chest pain or tightness. Patient denies any current shortness of breath. Patient states she has had persistent leg edema over the last 3 months and they have been doing doses of Lasix. Patient was also concerned of having some drooping the left eyelid but denies any facial droop or other neurologic symptoms. Patient does have history of hypertension, high cholesterol. Patient does follow-up with Dr. Medina for cardiology. Patient has no prior history of CT. Related Data Home Medications Medication Instructions Recorded Confirmed albuterol sulfate 90 mcg/actuation 2 puff inhalation QID PRN 05/11/19 06/11/22 aerosol inhaler (ProAir HFA) Shortness Of Breath aspirin 81 mg chewable tablet 81 mg PO DAILY 05/11/19 06/11/22 azelastine 137 mcg (0.1 %) nasal 137 mcg intranasal Q12H 05/11/19 06/11/22 spray aerosol calcium carbonate 600 mg calcium 600 mg PO BID 05/11/19 06/11/22 (1,500 mg) tablet (Calcium) cetirizine 10 mg capsule 10 mg PO QAM 05/11/19 06/11/22 diltiazem HCl 120 mg 120 mg PO DAILY 05/11/19 06/11/22 capsule,extended release 24 hr (Cardizem CD) epinephrine 0.3 mg/0.3 mL 0.3 mg IM PRN 05/11/19 06/11/22 injection, auto-injector (EpiPen) isosorbide mononitrate 60 mg 60 mg PO DAILY 05/11/19 06/11/22 tablet,extended release 24 hr montelukast 10 mg tablet 10 mg PO DAILY 05/11/19 06/11/22 nitroglycerin 0.4 mg sublingual 0.4 mg sublingual Q5M PRN Chest 05/11/19 06/11/22 tablet Pain tamoxifen 20 mg tablet 20 mg PO DAILY 05/11/19 06/11/22 bupropion HCl 150 mg 24 hr tablet, 150 mg PO QAM 08/28/21 06/11/22 extended release fluticasone 100 mcg-salmeterol 50 1 inh inhalation Q12H 08/28/21 06/11/22 mcg/dose blistr powdr for inhalation (Advair Diskus) Allergies Allergy/AdvReac Type Severity Reaction Status Date / Time bacitracin Allergy Unknown Unknown Verified 06/11/22 10:01 fentanyl Allergy Unknown Vomiting Verified 06/11/22 10:01 grass pollen Allergy Unknown Unknown Verified 06/11/22 10:01 Iodinated Contrast Media Allergy Unknown Stopped Verified 06/11/22 10:01 Breathing meperidine Allergy Unknown Unknown Verified 06/11/22 10:01 mold Allergy Unknown Unknown Verified 06/11/22 10:01 morphine Allergy Unknown Unknown Verified 06/11/22 10:01 neomycin Allergy Unknown RASH Verified 06/11/22 10:01 Opioids-Meperidine and Allergy Unknown VOMITING Verified 06/11/22 10:01 Related polymyxin B Allergy Unknown Unknown Verified 06/11/22 10:01 propoxyphene Allergy Unknown Unknown Verified 06/11/22 10:01 Contrast Media Allergy Severe Anaphylactic Uncoded 06/11/22 10:01 Shock ENVIRONMENTAL Allergy Unknown Unknown Uncoded 06/11/22 10:01 Review of Systems Review of Systems: CONSTITUTIONAL: Denies fever, chills, or sweats. EYES: Denies visual changes, redness, or discharge. ENT: Denies rhinorrhea, congestion, sore throat, or otalgia. CARDIOVASCULAR: See HPI RESPIRATORY: Denies cough or dyspnea. GASTROINTESTINAL: Denies abdominal pain, nausea, vomiting, or diarrhea. GENITOURINARY: Denies dysuria or hematuria. SKIN: Denies rash or itching. MUSCULOSKELETAL: Denies back pain, joint pain, or myalgia. NEUROLOGIC: See HPI [facility] Past Medical History Medical History (Updated 06/11/22 @ 19:06 by Esa Dutton MD) Angina at rest Anxiety Asthma Bronchitis GERD (gastroesophageal reflux disease) History of shingles Hyperlipid
[2022-06-11 13:24] LABS: Troponin I < 0.012 ng/mL (0.000-0.034)
[2022-06-11 14:04] LABS: NT Pro B Type Natriuretic Pept 1700 pg/mL (19.9-100)
--- NOTE | 2022-06-11 14:05 | PM.IMHP ---
H&P: HPI History of Present Illness Date/Time: 06/11/22 14:05 Chief Complaint: Chest pain Narrative: This is an 86-year-old female patient who has a history of hypertension and hyperlipidemia. The patient stated that she had chest pain yesterday the only lasted for few minutes and it radiated to her total yesterday. She has no further complaints of any chest pain at this time. Her friend convinced her to come to the emergency room to be evaluated today. ( The patient stated that she has had a cardiac catheterization in the past but had no intervention) The patient recently had 2+ pitting edema to her lower extremities and she was given Lasix for 5 days which appeared to help and then she continued to have edema she was given an additional 5 more days of Lasix which she stated did not help at all. Patient denies having any history of having congestive heart failure. Her chest x-ray today shows small pleural effusion. Bibasilar airspace opacities consistent with atelectasis versus pneumonia. She also had head CT today that showed normal aging brain. Her creatinine is 1.3 and her last known was normal with a BUN of 25. GFR is now 39 and it was 59. However the only change has been that she has had 10 days of Lasix. Her BNP is 1700. Her last cardiac catheterization was on 05/14/2019 with no intervention. The patient had an echo at that time that showed impaired diastolic relaxation grade 1 with the EF around 65-70%. The patient was noted to have diffuse spasm in the mid to distal LAD. EKG today showed sinus rhythm with occasional supraventricular premature complexes. Poor R-wave progression. Her D-dimer was noted to be 0.60 sodium 136. Cardiac enzymes nonreactive x2. The patient was given a low-dose aspirin in the emergency room. The patient is being admitted to observation status on the date of service of 06/11/2022. Review of Systems Review of Systems: see HPI All systems reviewed & are unremarkable except as noted in HPI and below Constitutional: Constitutional: Reports as per HPI and Reports no additional constitutional complaints Eyes: Eyes: Reports as per HPI and Reports no additional eye complaints ENT: Reports system reviewed and no additional complaints, except as documented and Reports Normal hearing present Cardiovascular: Cardiovascular: Reports no additional cardiovascular complaints Respiratory: Respiratory: Reports no additional respiratory complaints and Reports no additional respiratory complaints Gastrointestinal: Gastrointestinal: Reports as per HPI and Reports no additional gastrointestinal complaints Musculoskeletal: Musculoskeletal: Reports no additional musculoskeletal complaints Integumentary/Breasts: Skin/Breast: Reports system reviewed and no additional complaints, except as docu and Reports as per HPI Neurologic: Reports system reviewed and no additional complaints, except as documented, Reports as per HPI and Reports Normal hearing present Psychiatric: Psychiatric: Reports no additional psychiatric complaints and Reports as per HPI Endocrine: Endocrine: Reports no additional endocrine complaints Hematologic/Lymphatic: Hematologic/Lymphatic: Reports no additional hematologic/lymphatic complaints Allergic/Immunologic: Allergic/Immunologic: Reports no additional allergic/immunologic complaints [facility] Past Medical History Medical History (Updated 06/11/22 @ 17:33 by Yue Sterling NP) 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
--- NOTE | 2022-06-11 15:02 | ADMGEN ---
This patient, Marina Bowling, was admitted to IMU Room 231-01. Patient/family oriented to hospital policies and general routines including ID bracelet, bed and alarms, visiting hours, pain management, procedures, bathroom and other care routines, personal items, smoking policy, room service/diet, and visiting hours. Information on how to activate the Rapid Response Team has been discussed. Patient/Family are encouraged to report perceived risks to care and to ask questions if they do not understand what they are told or what they should do.
[2022-06-11] MEDS: AZELASTINE HCL NASAL 0.1% 137 MCG/SPR 30 ML BTL 1 SPRAY NASAL (21:06)
[2022-06-11] MEDS: ACETAMINOPHEN 325 MG TABLET 650 MG PO (22:02)
[2022-06-12] VITALS (9 sets, daily range): BP systolic 110–149; BP diastolic 47–57; PULSE 52–84; RESP 12–20; TEMP 36.2–36.8; O2SAT 95–99
--- NOTE | 2022-06-12 | ECHO_ITS ---
Patient Info Name: Marina Bowling Age: 86 years : 1935 Gender: Female Ht: 62 in Wt: 137 lbs BSA: 1.66 m2 HR: 64 bpm Heart Rhythm: Sinus Rhythm Technical Quality: Good Exam Date: 06/12/2022 10:43 AM Exam Location: [facility] Pulmonary Patient Status: Inpatient Admit Date: 06/11/2022 Staff Ordering Physician: Yue Sterling NP Commercial Litigation Paralegal: Vianney Delgado RDCS Attending Provider: Marti Nicholas MD Referring Physician: Asher WHITE; Exam Type: CA echo doppler color flow Study Info Indications R07.9 - Chest pain, unspecified Complete two-dimensional, color flow and Doppler transthoracic echocardiogram is performed. Summary 1. Complete two-dimensional, color flow and Doppler transthoracic echocardiogram is performed. 2. Left ventricular chamber dimension is normal. 3. Left ventricular systolic function is normal, estimated at 60-65%. 4. There is no increased left ventricular wall thickness. 5. The left ventricular diastolic function is grade I diastolic dysfunction. 6. There is trace mitral valve regurgitation. 7. There is no aortic valve stenosis. Left Ventricle Left ventricular chamber dimension is normal. Left ventricular systolic function is normal, estimated at 60-65%. There is no increased left ventricular wall thickness. The left ventricular diastolic function is grade I diastolic dysfunction. Right Ventricle Right ventricular chamber dimension is normal. Right ventricular systolic function is normal. Left Atria Left atrial chamber dimension is normal. Right Atria Right atrial chamber dimension is normal. Aortic Valve The aortic valve is not well visualized. There is no aortic valve stenosis. There is trace aortic valve regurgitation. Pulmonic Valve The pulmonic valve is not well visualized. There is mild pulmonic regurgitation. Mitral Valve The mitral valve has thickened leaflets. There is trace mitral valve regurgitation. The mitral valve annulus is mildly calcified. Tricuspid Valve The tricuspid valve leaflets are normal. There is trace tricuspid valve regurgitation. No pulmonary hypertension, estimated pulmonary arterial systolic pressure is 21 mmHg. Pericardium/Pleural The pericardium appears normal. There is small pericardial effusion. Inferior Vena Cava Normal inferior vena cava with >50% collapse upon inspiration consistent with normal right atrial pressure, 5 mmHg. Aorta The aortic root size at the sinus of Valsalva is normal. Left Ventricular Outflow Tract Name Value Normal LVOT 2D LVOT Diameter 2.0 cm LVOT Doppler LVOT Peak Gradient 3 mmHg LVOT Mean Gradient 1 mmHg LVOT VTI 26 cm LVOT VTI/AV VTI Ratio 1.0 LVOT Stroke Volume 80 ml Pulmonic Valve Name Value Normal PV Doppler
[2022-06-12 06:11] LABS: Basophils Absolute Auto 0.1 K/mm3 (0.0-0.1); Basophils Percent Auto 1.3 % (0.2-1.2); Eosinophils Absolute Auto 0.3 K/mm3 (0-0.3); Eosinophils Percent Auto 4.2 % (0-4.4); Hematocrit 37.5 % (37.0-47.0); Hemoglobin 11.8 g/dL (12.0-15.0); Immature Granulocyte Absolute 0.02 K/mm3 (0.00-0.031); Immature Granulocyte Percent A 0.3 % (0-0.5); Lymphocytes Absolute Auto 1.83 K/mm3 (0.9-3.2); Lymphocytes Percent Auto 26.4 % (18.3-44.2); Mean Corpuscular HGB Conc 31.5 g/dl (32-36); Mean Corpuscular Volume 98.4 fl (80-100); Mean Platelet Volume 9.2 fl (7.4-10.4); Monocytes Absolute Auto 0.7 K/mm3 (0.1-0.6); Monocytes Percent Auto 10.5 % (2.6-8.5); Neutrophils Percent Auto 57.3 % (45.5-73.1); Platelet Count Result 284 k/mm3 (150-375); Red Blood Count 3.81 M/mm3 (4.2-5.4); Red Cell Distribution Width 13.7 % (11.5-14.5); White Blood Count 6.9 K/mm3 (4.5-10.0)
[2022-06-12 06:23] LABS: Alanine Aminotransferase 21 U/L (6-35); Albumin Level 3.4 g/dL (3.5-5.1); Alkaline Phosphatase 34 U/L (38-126); Anion Gap 3 mmol/L (8-16); Aspartate Amino Transferase 26 U/L (14-36); Bilirubin,Total 0.5 mg/dL (0.2-1.3); Blood Urea Nitrogen 20 mg/dL (7-17); Calcium 8.1 mg/dL (8.4-10.2); Carbon Dioxide 23 mmol/L (22-30); Chloride 109 mmol/L (98-107); Estimated CRCL calculation 25 ml/min; Estimated Glomerular Filt Rate 47; Glucose 89 mg/dL (65-110); Magnesium 2.3 mg/dL (1.6-2.3); Potassium 4.2 mmol/L (3.4-5.0); Sodium 135 mmol/L (137-145)
[2022-06-12] MEDS: AZELASTINE HCL NASAL 0.1% 137 MCG/SPR 30 ML BTL 1 SPRAY NASAL ×2 (09:11→20:32)
[2022-06-12] MEDS: ASPIRIN 81 MG CHEWABLE TABLET PO (09:11)
[2022-06-12] MEDS: TAMOXIFEN CITRATE (*CHEMO) 10 MG TABLET 20 MG PO (09:12)
[2022-06-12] MEDS: ENOXAPARIN 30 MG/0.3 ML SYRINGE SUB-Q (09:12)
[2022-06-12] MEDS: buPROPion HCL XL (24 HR) 150 MG TABCR PO (09:12)
[2022-06-12] MEDS: MONTELUKAST SODIUM 10 MG TABLET PO (09:12)
[2022-06-12] MEDS: ISOSORBIDE MONONITRATE 60 MG TAB.ER.24H PO (10:13)
--- NOTE | 2022-06-12 13:17 | PM.IMPN ---
Progress Note: A&P Assessment and Plan (1) Chest pain: Code(s): R07.9 - Chest pain, unspecified Status: Acute Assessment and Plan: Cardiac enzymes have been nonreactive x2 so far The patient has a history of Prinzmetal's angina and is on Imdur -continue to trend cardiac enzymes. -her pain started yesterday briefly and radiated to her upper neck. -the patient had a cardiac catheterization in 2019 and had no intervention at that time. -a stress test has been ordered for her. -of echo has been ordered for her as well. -the patient continues with an aspirin. -the patient no longer has any chest pain. 06/12/2022 interval history: 86-year-old female with dementia and confused presented with complaint of exertional chest unfortunately patient remains confused unable to provide detailed review of symptoms, patient 2 sets of cardiac enzymes are negative there are no acute changes on EKG to further evaluate patient had a lower extremity venous Doppler negative for DVT, cardiac echo is pending and patient will have Lexiscan to further evaluate on Tuesday, will continue to monitor and further recommendation to follow. (2) Prinzmetal's angina: Code(s): I20.1 - Angina pectoris with documented spasm Status: Acute Assessment and Plan: -continue with daily aspirin -continue with imdur (3) Asthma: Code(s): J45.909 - Unspecified asthma, uncomplicated Status: Acute Assessment and Plan: Continue with inhalers Continue with Singulair (4) Anxiety: Code(s): F41.9 - Anxiety disorder, unspecified Status: Acute Assessment and Plan: Continue with bupropion (5) Hypertension: Code(s): I10 - Essential (primary) hypertension Status: Acute Assessment and Plan: Continue with Cardizem Subjective Date/time seen: 06/12/22 13:17 Chest pain HPI-Narrative: This is an 86-year-old female patient who has a history of hypertension and hyperlipidemia.? The patient stated that she had chest pain yesterday the only lasted for few minutes and it radiated to her total yesterday.? She has no further complaints of any chest pain at this time.? Her friend convinced her to come to the emergency room to be evaluated today. ( The patient stated that she has had a cardiac catheterization in the past but had no intervention)? The patient recently had 2+ pitting edema to her lower extremities and she was given Lasix for 5 days which appeared to help and then she continued to have edema she was given an additional 5 more days of Lasix which she stated did not help at all.? Patient denies having any history of having congestive heart failure.? Her chest x-ray today shows small pleural effusion.? Bibasilar airspace opacities consistent with atelectasis versus pneumonia.? She also had head CT today that showed normal aging brain.? Her creatinine is 1.3 and her last known was normal with a BUN of 25.? GFR is now 39 and it was 59.? However the only change has been that she has had 10 days of Lasix.? Her BNP is 1700.? Her last cardiac catheterization was on 05/14/2019 with no intervention.? The patient had an echo at that time that showed impaired diastolic relaxation grade 1 with the EF around 65-70%.? The patient was noted to have diffuse spasm in the mid to distal LAD. EKG today showed sinus rhythm with occasional supraventricular premature complexes.? Poor R-wave progression.? Her D-dimer was noted to be 0.60 sodium 136.? Cardiac enzymes nonreactive x2.? The patient was given a low-dose aspirin in the emergency room. 06/12/2022 interval history: 86-year-old female with dementia and confused presented with complaint of exertional chest unfortunately patient remains confused unable to provide detailed review of symptoms, patient 2 sets of cardiac enzymes are negative there are no acute changes on EKG to further evaluate patient had a lower extremity venous Doppler negative for DVT, cardiac echo is pending and p
[2022-06-12] MEDS: ACETAMINOPHEN 325 MG TABLET 650 MG PO (18:34)
[2022-06-13] VITALS (8 sets, daily range): BP systolic 160–167; BP diastolic 69–70; PULSE 53–92; RESP 14–20; TEMP 36.5–36.6; O2SAT 98–99
[2022-06-13] MEDS: ACETAMINOPHEN 325 MG TABLET 650 MG PO ×2 (03:36→21:41)
[2022-06-13 06:14] LABS: Hematocrit 37.6 % (37.0-47.0); Hemoglobin 12.2 g/dL (12.0-15.0); Mean Corpuscular HGB Conc 32.4 g/dl (32-36); Mean Corpuscular Hemoglobin 30.4 pg (26-34); Mean Corpuscular Volume 93.8 fl (80-100); Mean Platelet Volume 9.3 fl (7.4-10.4); Platelet Count Result 280 k/mm3 (150-375); Red Blood Count 4.01 M/mm3 (4.2-5.4); Red Cell Distribution Width 13.4 % (11.5-14.5); White Blood Count 8.3 K/mm3 (4.5-10.0)
[2022-06-13 06:35] LABS: Anion Gap 5 mmol/L (8-16); Blood Urea Nitrogen 17 mg/dL (7-17); Carbon Dioxide 19 mmol/L (22-30); Chloride 110 mmol/L (98-107); Estimated CRCL calculation 31 ml/min; Estimated Glomerular Filt Rate 52; Glucose 102 mg/dL (65-110); Magnesium 2.4 mg/dL (1.6-2.3); Potassium 4.5 mmol/L (3.4-5.0); Sodium 134 mmol/L (137-145)
[2022-06-13] MEDS: ASPIRIN 81 MG CHEWABLE TABLET PO (09:04)
[2022-06-13] MEDS: buPROPion HCL XL (24 HR) 150 MG TABCR PO (09:04)
[2022-06-13] MEDS: AZELASTINE HCL NASAL 0.1% 137 MCG/SPR 30 ML BTL 1 SPRAY NASAL ×2 (09:04→21:38)
[2022-06-13] MEDS: TAMOXIFEN CITRATE (*CHEMO) 10 MG TABLET 20 MG PO (09:04)
[2022-06-13] MEDS: ENOXAPARIN 30 MG/0.3 ML SYRINGE SUB-Q (09:04)
[2022-06-13] MEDS: MONTELUKAST SODIUM 10 MG TABLET PO (09:04)
[2022-06-13] MEDS: ISOSORBIDE MONONITRATE 60 MG TAB.ER.24H PO (09:04)
--- NOTE | 2022-06-13 13:35 | PM.IMPN ---
Progress Note: A&P Assessment and Plan (1) Chest pain: Code(s): R07.9 - Chest pain, unspecified Status: Acute Assessment and Plan: Cardiac enzymes have been nonreactive x2 so far The patient has a history of Prinzmetal's angina and is on Imdur -continue to trend cardiac enzymes. -her pain started yesterday briefly and radiated to her upper neck. -the patient had a cardiac catheterization in 2019 and had no intervention at that time. -a stress test has been ordered for her. -of echo has been ordered for her as well. -the patient continues with an aspirin. -the patient no longer has any chest pain. 06/13/2022 interval history: 86-year-old female with dementia and confused presented with complaint of exertional chest unfortunately patient remains confused unable to provide detailed review of symptoms, patient 2 sets of cardiac enzymes are negative there are no acute changes on EKG to further evaluate patient had a lower extremity venous Doppler negative for DVT, cardiac echo is pending and patient will have Lexiscan to further evaluate on Tuesday, today patient complains of right hip pain denies any trauma to further evaluate hip x-ray was did not show any acute bony fracture patient does have osteoarthritis, will continue to monitor and further recommendation to follow. (2) Prinzmetal's angina: Code(s): I20.1 - Angina pectoris with documented spasm Status: Acute Assessment and Plan: -continue with daily aspirin -continue with imdur (3) Asthma: Code(s): J45.909 - Unspecified asthma, uncomplicated Status: Acute Assessment and Plan: Continue with inhalers Continue with Singulair (4) Anxiety: Code(s): F41.9 - Anxiety disorder, unspecified Status: Acute Assessment and Plan: Continue with bupropion (5) Hypertension: Code(s): I10 - Essential (primary) hypertension Status: Acute Assessment and Plan: Continue with Cardizem Subjective Date/time seen: 06/13/22 13:35 Cardiac enzymes have been nonreactive x2 so far The patient has a history of Prinzmetal's angina and is on Imdur -continue to trend cardiac enzymes. -her pain started yesterday briefly and radiated to her upper neck. -the patient had a cardiac catheterization in 2019 and had no intervention at that time. -a stress test has been ordered for her. -of echo has been ordered for her as well. -the patient continues with an aspirin. -the patient no longer has any chest pain. 06/13/2022 interval history: 86-year-old female with dementia and confused presented with complaint of exertional chest unfortunately patient remains confused unable to provide detailed review of symptoms, patient 2 sets of cardiac enzymes are negative there are no acute changes on EKG to further evaluate patient had a lower extremity venous Doppler negative for DVT, cardiac echo is pending and patient will have Lexiscan to further evaluate on Tuesday, today patient complains of right hip pain denies any trauma to further evaluate hip x-ray was did not show any acute bony fracture patient does have osteoarthritis, will continue to monitor and further recommendation to follow. Review of Systems Review of Systems: ROS unobtainable: Yes unobtainable due to mental status Exam Narrative: elderly frail Patient is comfortable, NAD HEENT: eyes are clear and none icteric LUNGS: normal respiratory effort ABD: not distended Lower extremities: no edema SKIN: nonjaundiced Neuro: grossly intact confused. Objective Data Vital Signs Vital Signs: Vital Signs - 24 hr 06/12/22 16:00 06/12/22 20:37 06/13/22 00:00 Temperature 98 F Pulse Rate 65 61 61 Respiratory Rate 18 Blood Pressure 114/56 L Pulse Oximetry 95 06/12/22 20:00 06/13/22 04:00 06/13/22 05:52 Temperature 97.9 F Pulse Rate 82 53 L 72 Respiratory Rate 20 Blood Pressure 167/69 H Pulse Oximetry 98 06/13/22 08:00 Temperature Puls
[2022-06-14] VITALS: PULSE 87
[2022-06-14 04:00] VITALS: PULSE 58
[2022-06-14 05:50] LABS: Hematocrit 35.8 % (37.0-47.0); Hemoglobin 11.6 g/dL (12.0-15.0); Mean Corpuscular HGB Conc 32.4 g/dl (32-36); Mean Corpuscular Hemoglobin 30.9 pg (26-34); Mean Corpuscular Volume 95.5 fl (80-100); Mean Platelet Volume 9.1 fl (7.4-10.4); Platelet Count Result 290 k/mm3 (150-375); Red Blood Count 3.75 M/mm3 (4.2-5.4); Red Cell Distribution Width 13.4 % (11.5-14.5); White Blood Count 8.4 K/mm3 (4.5-10.0)
[2022-06-14 05:53] LABS: Anion Gap 5 mmol/L (8-16); Blood Urea Nitrogen 14 mg/dL (7-17); Calcium 8.2 mg/dL (8.4-10.2); Carbon Dioxide 25 mmol/L (22-30); Chloride 107 mmol/L (98-107); Estimated CRCL calculation 31 ml/min; Estimated Glomerular Filt Rate 52; Glucose 108 mg/dL (65-110); Magnesium 2.1 mg/dL (1.6-2.3); Potassium 4.3 mmol/L (3.4-5.0); Sodium 137 mmol/L (137-145)
[2022-06-14 08:00] VITALS: PULSE 60
[2022-06-14] MEDS: AZELASTINE HCL NASAL 0.1% 137 MCG/SPR 30 ML BTL 1 SPRAY NASAL (11:00)
[2022-06-14] MEDS: ASPIRIN 81 MG CHEWABLE TABLET PO (11:00)
[2022-06-14] MEDS: buPROPion HCL XL (24 HR) 150 MG TABCR PO (11:00)
[2022-06-14] MEDS: ISOSORBIDE MONONITRATE 60 MG TAB.ER.24H PO (11:01)
[2022-06-14] MEDS: ENOXAPARIN 30 MG/0.3 ML SYRINGE SUB-Q (11:01)
[2022-06-14] MEDS: MONTELUKAST SODIUM 10 MG TABLET PO (11:02)
[2022-06-14] MEDS: TAMOXIFEN CITRATE (*CHEMO) 10 MG TABLET 20 MG PO (11:02)
[2022-06-14 12:00] VITALS: PULSE 63
[2022-06-14 14:00] VITALS: BP 123/59; PULSE 70; RESP 16; TEMP 37.3; O2SAT 98
--- NOTE | 2022-06-14 15:22 | PM.DS ---
DS: Admitting Diagnosis Discharge Date 06/14/2022 Admitting Diagnosis chest pain DS: Discharge Diagnosis Discharge Diagnosis (1) Chest pain: Code(s): R07.9 - Chest pain, unspecified Status: Acute Assessment and Plan: Cardiac enzymes have been nonreactive x2 so far The patient has a history of Prinzmetal's angina and is on Imdur -continue to trend cardiac enzymes. -her pain started yesterday briefly and radiated to her upper neck. -the patient had a cardiac catheterization in 2019 and had no intervention at that time. -a stress test has been ordered for her. -of echo has been ordered for her as well. -the patient continues with an aspirin. -the patient no longer has any chest pain. 06/13/2022 interval history: 86-year-old female with dementia and confused presented with complaint of exertional chest unfortunately patient remains confused unable to provide detailed review of symptoms, patient 2 sets of cardiac enzymes are negative there are no acute changes on EKG to further evaluate patient had a lower extremity venous Doppler negative for DVT, cardiac echo is pending and patient will have Lexiscan to further evaluate on Tuesday, today patient complains of right hip pain denies any trauma to further evaluate hip x-ray was did not show any acute bony fracture patient does have osteoarthritis, will continue to monitor and further recommendation to follow. (2) Prinzmetal's angina: Code(s): I20.1 - Angina pectoris with documented spasm Status: Acute Assessment and Plan: -continue with daily aspirin -continue with imdur (3) Asthma: Code(s): J45.909 - Unspecified asthma, uncomplicated Status: Acute Assessment and Plan: Continue with inhalers Continue with Singulair (4) Anxiety: Code(s): F41.9 - Anxiety disorder, unspecified Status: Acute Assessment and Plan: Continue with bupropion (5) Hypertension: Code(s): I10 - Essential (primary) hypertension Status: Acute Assessment and Plan: Continue with Cardizem DS: Summary Hospital Course Reason for hospitalization: Chest pain Narrative: This is an 86-year-old female patient who has a history of hypertension and hyperlipidemia.? The patient stated that she had chest pain yesterday the only lasted for few minutes and it radiated to her total yesterday.? She has no further complaints of any chest pain at this time.? Her friend convinced her to come to the emergency room to be evaluated today. ( The patient stated that she has had a cardiac catheterization in the past but had no intervention)? The patient recently had 2+ pitting edema to her lower extremities and she was given Lasix for 5 days which appeared to help and then she continued to have edema she was given an additional 5 more days of Lasix which she stated did not help at all.? Patient denies having any history of having congestive heart failure.? Her chest x-ray today shows small pleural effusion.? Bibasilar airspace opacities consistent with atelectasis versus pneumonia.? She also had head CT today that showed normal aging brain.? Her creatinine is 1.3 and her last known was normal with a BUN of 25.? GFR is now 39 and it was 59.? However the only change has been that she has had 10 days of Lasix.? Her BNP is 1700.? Her last cardiac catheterization was on 05/14/2019 with no intervention.? The patient had an echo at that time that showed impaired diastolic relaxation grade 1 with the EF around 65-70%.? The patient was noted to have diffuse spasm in the mid to distal LAD. EKG today showed sinus rhythm with occasional supraventricular premature complexes.? Poor R-wave progression.? Her D-dimer was noted to be 0.60 sodium 136.? Cardiac enzymes nonreactive x2.? The patient was given a low-dose aspirin in the emergency room.? The patient is being admitted to observation status on the date of service of 06/11/2022. Hospital Course: 86-year-old female with dem
--- NOTE | 2022-06-14 17:13 | EST_ITS ---
Patient Info Name: Marina Bowling Age: 86 years : 1935 Gender: Female Ht: 62 in Wt: 137 lbs BSA: 1.66 m2 HR: 60 bpm BP: 143 / 78 mmHg Heart Rhythm: Sinus Rhythm Exam Date: 06/14/2022 9:32 AM Exam Location: [facility] Stress Patient Status: Inpatient Admit Date: 06/12/2022 Staff Ordering Physician: Yue Sterling NP Attending Provider: Marti Nicholas MD Exercise Technologist: Liv Curtis, CT Nurse: AVINASH BARBOSA Exam Type: CA stress avinash w NM Study Info Indications R07.9 - Chest pain, unspecified A regadenoson stress test was performed. Summary 1. Sinus rhythm with poor R-wave progression. 2. No diagnostic ST segment changes following Lexiscan injection. 3. Clinically and electrocardiographically negative Lexiscan stress test. 4. Myocardial perfusion imaging study to be dictated by Radiology. Protocol: Lexiscan Stress ECG Details Stage: REST Duration (min): 0 min : 49 sec HR (bpm): 61 SBP (mmHg): 143 DBP (mmHg): 78 Stage: REST Duration (min): 4 min : 33 sec HR (bpm): 61 SBP (mmHg): 143 DBP (mmHg): 78 Stage: STAGE 1 Duration (min): 0 min : 59 sec HR (bpm): 86 SBP (mmHg): 141 DBP (mmHg): 72 Stage: RECOVERY Duration (min): 1 min : 0 sec HR (bpm): 97 SBP (mmHg): 141 DBP (mmHg): 72 Stage: RECOVERY Duration (min): 2 min : 0 sec HR (bpm): 98 SBP (mmHg): 141 DBP (mmHg): 72 Stage: RECOVERY Duration (min): 3 min : 0 sec HR (bpm): 92 SBP (mmHg): 163 DBP (mmHg): 70 Stage: RECOVERY Duration (min): 4 min : 0 sec HR (bpm): 87 SBP (mmHg): 163 DBP (mmHg): 70 Stage: RECOVERY Duration (min): 4 min : 58 sec HR (bpm): 86 SBP (mmHg): 152 DBP (mmHg): 58 Rest HR: 61 bpm Peak HR: 101 bpm Rest Sys BP: 143 mmHg Peak Sys BP: 163 mmHg Max Pred HR: 133 bpm % Max Pred HR: 76 % Target HR: 113 bpm Max RPP: 16,463 bpm*mmHg Total Time: 1 min : 0 sec Rest Arce BP: 78 mmHg Peak Arce BP: 70 mmHg Total Dose: 0.4 mg Resting ECG Sinus rhythm with poor R-wave progression. Stress ECG No diagnostic ST segment changes following Lexiscan injection. Report Signatures
== END 2022-06-14 17:00 | DRG 311 ==
LOC: ANHED 10:17 → ANHIMU 13:54 → ANH3MED 06-12 15:08
PROVIDERS: Nurse Practitioner; Admitting Provider Family Medicine; Emergency Provider Emergency Medicine; PCP Internal Medicine; Visit Provider Family Medicine
DX: I20.1 Angina pectoris with documented spasm (principal); I10 Essential (primary) hypertension; K21.9 Gastro-esophageal reflux disease without esophagitis; E78.5 Hyperlipidemia, unspecified; G62.9 Polyneuropathy, unspecified; F41.9 Anxiety disorder, unspecified; J45.909 Unspecified asthma, uncomplicated; F03.90 Unspecified dementia, unspecified severity, without behavioral disturbance, psychotic disturbance, mood disturbance, and anxiety; Z98.49 Cataract extraction status, unspecified eye; Z85.3 Personal history of malignant neoplasm of breast; Z90.49 Acquired absence of other specified parts of digestive tract; Z90.710 Acquired absence of both cervix and uterus; Z79.82 Long term (current) use of aspirin
CPT/HCPCS: 36415; 70450; 71046; 73502; 78452; 80048; 80053; 83735; 83880; 84443; 84484; 85025; 85027; 85380; 85610; 85730; 93005; 93017; 93306; 93970; 96372; 99285; A9270; A9502; G0378; J1650; J2785

== ENCOUNTER → 2022-07-27 09:04 | Outpatient (CLI) | payer MEDICARE, SELFPAY ==
--- NOTE | ~2022-07-27 | MMUS_ITS ---
EXAMINATION: MM diagnostic corwin RT w jem, US breast RT complete HISTORY: Six-month follow-up of probably benign right breast asymmetry TECHNIQUE: Additional 3-D tomosynthesis images of were performed and synthetic 2-D images were genera carla. CAD analysis was submitted and interpreted. High resolution breast ultrasound was performed. COMPARISON: 01/12/2022 diagnostic right mammogram and limited right breast ultrasound examination BREAST PARENCHYMAL COMPOSITION: The breasts are heterogeneously dense, which may obscure small masses . FINDINGS: MAMMOGRAPHIC FINDINGS: No interval suspicious mass, architectural distortion, malignant calcification, skin thickening or re traction is evident. ULTRASOUND: 3:00 9.5 cm from nipple: Parallel circumscribed complex 6.3 x 10.5 x 12.7 mm lesion with through cole smission posterior enhancement, with minimal internal vascularity. This has increased in size since , at which time it measured 5.5 x 9.6 x 11.2 mm. Given the interval increase in size, consider ultrasound-guided biopsy. IMPRESSION: 1. Mild interval increase size of right breast 3:00 lesion 2. Consider ultrasound-guided biopsy of slightly enlarged right breast mass at 3:00 BI-RADS category 4, suspicious findings. Reviewed, dictated and finalized at location A. IMPRESSION: 1. Mild interval increase size of right breast 3:00 lesion 2. Consider ultrasound-guided biopsy of slightly enlarged right breast mass at 3:00 BI-RADS category 4, suspicious findings.
== END ==
PROVIDERS: PCP Internal Medicine; Visit Provider Internal Medicine Hematology & Oncology
DX: R92.8 Other abnormal and inconclusive findings on diagnostic imaging of breast (principal); D05.12 Intraductal carcinoma in situ of left breast
CPT/HCPCS: 76641; 77061; 77065; G0279

== ENCOUNTER 2022-07-28 10:54 | Outpatient (CLI) | payer MEDICARE, SELFPAY ==
[2022-07-28 11:13] LABS: Basophils Absolute Auto 0.1 K/mm3 (0.0-0.1); Basophils Percent Auto 0.8 % (0.2-1.2); Eosinophils Absolute Auto 0.1 K/mm3 (0-0.3); Eosinophils Percent Auto 0.8 % (0-4.4); Hematocrit 37.4 % (37.0-47.0); Immature Granulocyte Absolute 0.02 K/mm3 (0.00-0.031); Immature Granulocyte Percent A 0.2 % (0-0.5); Lymphocytes Absolute Auto 1.56 K/mm3 (0.9-3.2); Lymphocytes Percent Auto 18.6 % (18.3-44.2); Mean Corpuscular HGB Conc 32.1 g/dl (32-36); Mean Corpuscular Hemoglobin 30.7 pg (26-34); Mean Corpuscular Volume 95.7 fl (80-100); Mean Platelet Volume 9.2 fl (7.4-10.4); Monocytes Absolute Auto 0.8 K/mm3 (0.1-0.6); Monocytes Percent Auto 9.2 % (2.6-8.5); Neutrophils Absolute Auto 5.9 K/mm3 (1.3-6.7); Neutrophils Percent Auto 70.4 % (45.5-73.1); Platelet Count Result 321 k/mm3 (150-375); Red Blood Count 3.91 M/mm3 (4.2-5.4); Red Cell Distribution Width 13.8 % (11.5-14.5); White Blood Count 8.4 K/mm3 (4.5-10.0)
[2022-07-28 12:06] LABS: Alanine Aminotransferase 21 U/L (6-35); Albumin Level 4.2 g/dL (3.5-5.1); Alkaline Phosphatase 48 U/L (38-126); Anion Gap 5 mmol/L (8-16); Aspartate Amino Transferase 26 U/L (14-36); Bilirubin,Total 0.4 mg/dL (0.2-1.3); Blood Urea Nitrogen 25 mg/dL (7-17); Calcium 8.9 mg/dL (8.4-10.2); Carbon Dioxide 29 mmol/L (22-30); Chloride 105 mmol/L (98-107); Estimated Glomerular Filt Rate 39; Glucose 105 mg/dL (65-110); Potassium 4.6 mmol/L (3.4-5.0); Sodium 139 mmol/L (137-145)
== END 2022-07-28 10:55 | disposition home or self-care (01) ==
LOC: ANHLAB 10:57
PROVIDERS: PCP Internal Medicine; Visit Provider Internal Medicine Hematology & Oncology
DX: D05.12 Intraductal carcinoma in situ of left breast (principal)
CPT/HCPCS: 36415; 80053; 85025

== ENCOUNTER 2022-11-19 12:35 | Inpatient (IN) | payer MEDICARE, SELFPAY ==
[2022-11-19] VITALS (7 sets, daily range): BP systolic 100–133; BP diastolic 52–70; PULSE 67–87; RESP 16–18; TEMP 36.4–36.8; O2SAT 98–100; BMI 27.3
--- NOTE | ~2022-11-19 | CT_ITS ---
EXAMINATION: CT pelvis wo con, CT hip LT wo con DATE: 11/19/2022 16:46 INDICATION: Left hip pain after fall TECHNIQUE: Computed tomography (CT) of the pelvis and left hip was performed without intravenous cont rast. The dose-length product was 604.22 (accession [id number]), 368.77 (accession [id number] ) mGy-cm. Automated exposure control and iterative reconstruction technique were employed. COMPARISON: None FINDINGS: There is severe lower lumbar spondylosis characterized by disc narrowing and grade 2 spondy lolisthesis at L4-5 secondary to facet hypertrophy. There is a pessary device in the pelvis. There is atherosclerosis. Small sclerotic lesion of the left ilium, likely benign bone island. Sacroiliac goldy nts are symmetric. No acute abnormality of the sacrum. The hips are symmetric with mild osteoarthriti s. No acute fracture or traumatic malalignment. IMPRESSION: 1. No acute fracture. Reviewed, dictated and finalized at location A. IMPRESSION: 1. No acute fracture. IMPRESSION: 1. No acute fracture.
--- NOTE | ~2022-11-19 | CT_ITS ---
EXAMINATION: CT brain wo con DATE: 11/19/2022 13:50 INDICATION: Altered mental status. Urinary tract infection. Frequent falls. TECHNIQUE: Computed tomography (CT) of the head was performed without intravenous contrast. Sagittal and coronal reconstructions were performed. The mA was adjusted according to patient size. Iterative reconstruction technique was employed. The dose-length product was 605.33 mGy-cm. COMPARISON: head CT dated 06/11/2022 FINDINGS: No fracture. No acute intracranial hemorrhage, acute infarction or abnormal extra axial fluid collect ion. There is mild scattered white matter hypoattenuation consistent with chronic small vessel ischem ic disease. Symmetric prominence of the sulci and subarachnoid spaces overlying the convexities consi stent with moderate age-appropriate diffuse cerebral volume loss. Ventricles are normal and symmetric . No mass/mass effect. Changes of bilateral intraocular lens replacement. The orbits and mastoid air cells are normal. Mild mucosal thickening the bilateral ethmoid and maxillary sinuses. IMPRESSION: 1. No fracture or acute intracranial process. 2. Age-related changes including moderate diffuse volume loss and mild scattered white matter hypoatt enuation consistent with chronic small vessel schema disease. Reviewed, dictated and finalized at location A. IMPRESSION: 1. No fracture or acute intracranial process. 2. Age-related changes including moderate diffuse volume loss and mild scattere d white matter hypoattenuation consistent with chronic small vessel schema dise ase.
--- NOTE | ~2022-11-19 | XR_ITS ---
XR chest 1V DATE: 11/19/2022 13:56 INDICATION: Confusion TECHNIQUE: AP chest COMPARISON: June 11, 2021 AP and lateral chest FINDINGS: This is a limited rotated single AP view. Cardiomegaly. Aortic calcification. No hilar or m ediastinal enlargement is evident. Minimal right and mild left basilar atelectasis or infiltrate is suggested. The lungs otherwise appea r clear. No pleural effusion or pulmonary vascular congestion or pneumothorax is detected. Osteopenia. IMPRESSION: Minimal right and mild left basilar infiltrate or atelectasis is suggested Cardiomegaly, aortic atherosclerosis Reviewed, dictated and finalized at location B. IMPRESSION: Minimal right and mild left basilar infiltrate or atelectasis is eugene ggested Cardiomegaly, aortic atherosclerosis
--- NOTE | ~2022-11-19 | MR_ITS ---
EXAMINATION: MR brain/brain stem wo con DATE: 11/21/2022 07:23 INDICATION: Altered mental status. TECHNIQUE: Magnetic resonance imaging (MRI) of the brain and brainstem was performed without intraven ous contrast. COMPARISON: Brain MRI 03/24/2018, head CT 11/19/2022 FINDINGS: There is chronic diffuse brain volume loss. There are scattered areas of nonspecific increa sed T2-weighted signal intensity in the cerebral white matter and juan. There is no intracranial hemo rrhage, acute infarction, or abnormal intracranial mass lesion. The ventricles are normal in size. Th ere are likely changes of ocular lens replacement surgeries. There is mild mucosal thickening in the paranasal sinuses. The mastoid air cells are normal. IMPRESSION: 1. Moderate nonspecific cerebral white matter disease and pontine disease, which likely represents ch ronic small vessel ischemic disease, worsened from 03/24/2018. Reviewed, dictated and finalized at location E. IMPRESSION: 1. Moderate nonspecific cerebral white matter disease and pontine disease, whic h likely represents chronic small vessel ischemic disease, worsened from 2017.
--- NOTE | 2022-11-19 12:44 | ECG_ITS ---
Measurements Intervals [place] Rate: 83 P: 25 MS: 150 QRS: -3 QRSD: 78 T: 32 QT: 344 QTc: 404 Interpretive Statements SINUS RHYTHM BORDERLINE R WAVE PROGRESSION, ANTERIOR LEADS CONSIDER INFERIOR INFARCT, AGE INDETERMINATE BORDERLINE ST-T WAVE ABNORMALITY- HIGH LATERAL LEADS BASELINE ARTIFACT- I, II, AVR, AVL, V3, V6 ABNORMAL ECG COMPARED TO ECG 06/11/2022 09:59:08 NO SIGNIFICANT CHANGES Electronically Signed On 11-19-2022 19:55:06 CDT by Jovan Yang D.O.
[2022-11-19 13:12] LABS: Basophils Absolute Auto 0.1 K/mm3 (0.0-0.1); Basophils Percent Auto 0.7 % (0.2-1.2); Eosinophils Absolute Auto 0.2 K/mm3 (0-0.3); Eosinophils Percent Auto 1.2 % (0-4.4); Hematocrit 33.6 % (37.0-47.0); Immature Granulocyte Absolute 0.03 K/mm3 (0.00-0.031); Immature Granulocyte Percent A 0.2 % (0-0.5); Lymphocytes Absolute Auto 1.42 K/mm3 (0.9-3.2); Lymphocytes Percent Auto 11.4 % (18.3-44.2); Mean Corpuscular HGB Conc 32.7 g/dl (32-36); Mean Corpuscular Hemoglobin 30.2 pg (26-34); Mean Corpuscular Volume 92.3 fl (80-100); Mean Platelet Volume 10.2 fl (7.4-10.4); Monocytes Absolute Auto 1.1 K/mm3 (0.1-0.6); Monocytes Percent Auto 8.7 % (2.6-8.5); Neutrophils Absolute Auto 9.7 K/mm3 (1.3-6.7); Neutrophils Percent Auto 77.8 % (45.5-73.1); Platelet Count Result 289 k/mm3 (150-375); Red Blood Count 3.64 M/mm3 (4.2-5.4); Red Cell Distribution Width 14.1 % (11.5-14.5); White Blood Count 12.5 K/mm3 (4.5-10.0)
--- NOTE | 2022-11-19 13:15 | ED.AMS ---
HPI - Altered Mental Status General Chief Complaint: Altered Mental Status Stated Complaint: Altered mental status Time Seen by Provider: 11/19/22 13:15 Source: patient and EMS Mode of arrival: EMS History of Present Illness HPI narrative: 87 years old white female came from assisting living with a chief complaint is waking up this morning unable to walk, and probably confused. After arrival to the ED I had a phone call from the assisted living reporting that patient went see her family physician yesterday and had x-ray of the pelvis which showed left superior pubic ramus fracture. The nurse at the senior care was not sure if the patient had a fall or not. Patient is awake, alert and oriented x4, denying any pain except at the left groin area. She denies any fever, chills, nausea, vomiting, headache, neck pain back pain. Patient arrived with a report of left hip and pelvis x-ray which was done on November 10, 2022 and showed Cortical irregularity left superior pubic ramus likely representing an acute fracture. Further evaluation of the pelvis and left hip with CT scan would be advised to evaluate further. Mild degenerative osteoarthritis of the bilateral hips and SI joints, and degenerative disc disease of the lumbar spine. Obviously the report from assisting living that the patient had x-ray yesterday is different than the x-ray report came with the patient which was done on November 11, 2019. Related Data Home Medications Medication Instructions Recorded Confirmed albuterol sulfate 90 mcg/actuation 2 puff inhalation QID PRN 05/11/19 11/04/22 aerosol inhaler (ProAir HFA) Shortness Of Breath aspirin 81 mg chewable tablet 81 mg PO DAILY 05/11/19 11/04/22 calcium carbonate 600 mg calcium 600 mg PO BID 05/11/19 11/04/22 (1,500 mg) tablet (Calcium) cetirizine 10 mg capsule 10 mg PO QAM 05/11/19 11/04/22 epinephrine 0.3 mg/0.3 mL 0.3 mg IM PRN 05/11/19 11/04/22 injection, auto-injector (EpiPen) isosorbide mononitrate 60 mg 60 mg PO DAILY 05/11/19 11/04/22 tablet,extended release 24 hr montelukast 10 mg tablet 10 mg PO DAILY 05/11/19 11/04/22 nitroglycerin 0.4 mg sublingual 0.4 mg sublingual Q5M PRN Chest 05/11/19 11/04/22 tablet Pain tamoxifen 20 mg tablet 20 mg PO DAILY 05/11/19 11/04/22 bupropion HCl 150 mg 24 hr tablet, 150 mg PO QAM 08/28/21 11/04/22 extended release fluticasone 100 mcg-salmeterol 50 1 inh inhalation Q12H 08/28/21 11/04/22 mcg/dose blistr powdr for inhalation (Advair Diskus) coenzyme Q10 200 mg capsule (Co 200 mg PO DAILY 07/21/22 11/04/22 Q-10) lisinopril 20 mg tablet 20 mg PO DAILY 07/21/22 11/04/22 magnesium 250 mg tablet 250 mg PO DAILY 07/21/22 11/04/22 memantine 5 mg tablet 5 mg PO QAM 07/21/22 11/04/22 multivitamin 1 tablet PO DAILY 07/21/22 11/04/22 omega 0-bwm-kph-fish oil 1,000 mg 1 cap PO DAILY 07/21/22 11/04/22 (120 mg-180 mg) capsule (Fish Oil) propylene glycol 0.6 % eye drops 1 drp EACH EYE DAILY PRN 07/21/22 11/04/22 (Systane Balance) Allergies Allergy/AdvReac Type Severity Reaction Status Date / Time bacitracin Allergy Unknown Unknown Verified 11/04/22 10:12 fentanyl Allergy Unknown Vomiting Verified 11/04/22 10:12 grass pollen Allergy Unknown Unknown Verified 11/04/22 10:12 Iodinated Contrast Media Allergy Unknown Stopped Verified 11/04/22 10:12 Breathing meperidine Allergy Unknown Unknown Verified 11/04/22 10:12 mold Allergy Unknown Unknown Verified 11/04/22 10:12 morphine Allergy Unknown Unknown Verified 11/04/22 10:12 neomycin Allergy Unknown RASH Verified 11/04/22 10:12 Opioids-Meperidine and Allergy Unknown VOMITING Verified 11/04/22 10:12 Related polymyxin B Allergy Unknown Unknown Verified 11/04/22 10:12 propoxyphene Allergy Unknown Unknown Verified 11/04/22 10:12 Contrast Media Allergy Severe Anaphylactic Uncoded 11/04/22 10:12 Shock ENVIRONMENTAL Allergy Unknown Unknown Uncoded 11/04/22 10:12 Review of Systems Review of Systems: All systems reviewed
[2022-11-19 13:18] LABS: Appearance Urine Clear (Clear); Bilirubin Urine Negative (Negative); Blood Urine Negative (Negative); Color Urine Yellow (Yellow); Glucose Urine UA Negative (Negative); Ketones Urine 1+ mg/dL (Negative); Leukocyte Esterase Ur Negative LEU/UL (Negative); Nitrate Urine Negative (Negative); Protein Urine Negative (Negative); Urobilinogen Urine 0.2 mg/dL (<2.0); pH Urine 5.5 (5.0-9.0)
--- NOTE | 2022-11-19 13:26 | PC.NURSE ---
PCP called to update on pt condition, stating she has potential pubic fx. states she will fax over reports.
[2022-11-19 13:27] LABS: Add Urine Microscopic? NO
[2022-11-19] MEDS: SODIUM CHLORIDE 0.9% IV 1,000 ML 500 ML IV CONT (13:28)
[2022-11-19 13:29] LABS: INR 1.1; Partial Thromboplastin Time 27.9 SECONDS (22.3-36.8); Prothrombin Time 14.4 Seconds (11.1-14.7)
[2022-11-19 13:41] LABS: Alanine Aminotransferase 31 U/L (6-35); Albumin Level 3.4 g/dL (3.5-5.1); Alkaline Phosphatase 29 U/L (38-126); Anion Gap 6 mmol/L (8-16); Aspartate Amino Transferase 67 U/L (14-36); Bilirubin,Total 0.5 mg/dL (0.2-1.3); Blood Urea Nitrogen 34 mg/dL (7-17); Calcium 7.9 mg/dL (8.4-10.2); Carbon Dioxide 22 mmol/L (22-30); Chloride 105 mmol/L (98-107); Estimated CRCL calculation 23 ml/min; Estimated Glomerular Filt Rate 39; Glucose 91 mg/dL (65-110); Potassium 4.3 mmol/L (3.4-5.0); Sodium 133 mmol/L (137-145)
--- NOTE | 2022-11-19 17:13 | PCCCNOTE ---
Called to ED for short term NH placement. Pt has fx pelvis and is having difficulty walking. Pt velazquez MCR A&B with no 3 night stay. I called son Domenic BYERS ([phone]) to discuss situation. He is not in this area but has family and friends in area. After discussing it he called friends and his wish is either [facility], [facility], or [place] as his first choices. He does not want [place]. [place] per day at [facility] is 225/day. Do to late start pt will be placed in obs for placement.
--- NOTE | 2022-11-19 18:09 | PC.NURSE ---
Pt visitor at bedside, Aurelia Goel, states she is a family friend that often visits the pt and can be reached at [phone].
--- NOTE | 2022-11-19 18:24 | ADMGEN ---
This patient, Marina Bowling, was admitted to Medical Room 258-. Patient/family oriented to hospital policies and general routines including ID bracelet, bed and alarms, visiting hours, pain management, procedures, bathroom and other care routines, personal items, smoking policy, room service/diet, and visiting hours. Information on how to activate the Rapid Response Team has been discussed. Patient/Family are encouraged to report perceived risks to care and to ask questions if they do not understand what they are told or what they should do.
--- NOTE | 2022-11-19 19:31 | PC.NURSE ---
call to [facility] to get med list for pt
--- NOTE | 2022-11-19 20:02 | PM.IMHP ---
H&P: HPI History of Present Illness Date/Time: 11/19/22 20:02 Chief Complaint: Altered mental status Narrative: This is an 79-year-old female patient who comes from [facility] living with complaints of not being able to walk. She was also confused. The ED provider called the program assistant living and they explained that the patient was seen by her primary care doctor yesterday and had an x-ray for effort pelvis. This showed left superior pubic ramus fracture. Patient had no witnessed fall. Patient is awake and answering questions. Her white count was 12.5 H&H is 11.0 and 33.6. Sodium is 133. BUN is 34 creatinine 1.3. GFR 39. Calcium 7.9. Head CT was read asNo fracture or acute intracranial process. 2. Age-related changes including moderate diffuse volume loss and mild scattered white matter hypoattenuation consistent with chronic small vessel schema disease. Chest x-ray was read asMinimal right and mild left basilar infiltrate or atelectasis is suggested Cardiomegaly, aortic atherosclerosis. Hip CT no acute fracture. Pelvis CT was read as no acute fracture. Chest x-ray was read asMinimal right and mild left basilar infiltrate or atelectasis is suggested Cardiomegaly, aortic atherosclerosis? Head CT read as?No fracture or acute intracranial process. 2. Age-related changes including moderate diffuse volume loss and mild scattered white matter hypoattenuation consistent with chronic small vessel schema disease. The report from today was very different from the report that the patient had with her from November 10, 2022(Patient arrived with a report of left hip and pelvis x-ray which was done on November 10, 2022 and showed Cortical irregularity left superior pubic ramus likely representing an acute fracture.? Further evaluation of the pelvis and left hip with CT scan would be advised to evaluate further. Mild degenerative osteoarthritis of the bilateral hips and SI joints, and degenerative disc disease of the lumbar spine.) The patient is not complaining of any discomfort at this time. The patient was given Tylenol and IV fluids in the emergency room. The patient was placed in observation status on the date of service is 11/19/2022 Review of Systems Review of Systems: All systems reviewed & are unremarkable except as noted in HPI and below Constitutional: Constitutional: Reports as per HPI and Reports no additional constitutional complaints Eyes: Eyes: Reports as per HPI and Reports no additional eye complaints ENT: Reports system reviewed and no additional complaints, except as documented and Reports Normal hearing present Cardiovascular: Cardiovascular: Reports no additional cardiovascular complaints Respiratory: Respiratory: Reports no additional respiratory complaints and Reports no additional respiratory complaints Gastrointestinal: Gastrointestinal: Reports as per HPI and Reports no additional gastrointestinal complaints Musculoskeletal: Musculoskeletal: Reports no additional musculoskeletal complaints Integumentary/Breasts: Skin/Breast: Reports system reviewed and no additional complaints, except as docu and Reports as per HPI Neurologic: Reports system reviewed and no additional complaints, except as documented, Reports as per HPI and Reports Normal hearing present Psychiatric: Psychiatric: Reports no additional psychiatric complaints and Reports as per HPI Endocrine: Endocrine: Reports no additional endocrine complaints Hematologic/Lymphatic: Hematologic/Lymphatic: Reports no additional hematologic/lymphatic complaints Allergic/Immunologic: Allergic/Immunologic: Reports no additional allergic/immunologic complaints [facility] Past Medical History Medical History Angina at rest Anxiety Asthma Bronchitis Dementia GERD (gastroesophageal reflux disease) History of shingles Hyperlipidemia Hypertension Peripheral neuropathy Pneumonia Prinzmetal's angina Seizures Surgical Histo
[2022-11-20 04:35] VITALS: BP 113/89; PULSE 79; RESP 18; TEMP 36.6; O2SAT 95
[2022-11-20 10:15] VITALS: BP 144/58; PULSE 74; RESP 16; O2SAT 99
[2022-11-20] MEDS: MEMANTINE 5 MG TABLET PO ×2 (10:19→18:56)
[2022-11-20] MEDS: buPROPion HCL XL (24 HR) 150 MG TABCR 300 MG PO (10:19)
[2022-11-20] MEDS: ISOSORBIDE MONONITRATE 30 MG TAB.ER.24H 60 MG PO (10:19)
[2022-11-20] MEDS: MONTELUKAST SODIUM 10 MG TABLET PO (10:19)
[2022-11-20] MEDS: LORATADINE 10 MG TABLET PO (10:20)
[2022-11-20] MEDS: OMEGA 3 POLYUNSAT FATTY ACIDS 1 GM CAP PO (10:20)
[2022-11-20] MEDS: MAGNESIUM OXIDE 200 MG TABLET PO (10:20)
[2022-11-20] MEDS: lisinopriL 20 MG TABLET PO (10:20)
[2022-11-20] MEDS: FUROSEMIDE 20 MG TABLET PO (10:20)
[2022-11-20] MEDS: MULTIVITAMINS THERAPEUTIC TAB (*BKC) 1 TABLET PO (10:21)
[2022-11-20] MEDS: ASPIRIN 81 MG CHEWABLE TABLET PO (10:21)
[2022-11-20] MEDS: TAMOXIFEN CITRATE (*CHEMO) 10 MG TABLET 20 MG PO (10:31)
[2022-11-20] MEDS: ARTIFICIAL TEARS OPHTH SOLN 15 ML BOTTLE 1 DROP EACH EYE (11:53)
--- NOTE | 2022-11-20 13:55 | PM.IMPN ---
Progress Note: A&P Assessment and Plan (1) Unable to ambulate: Code(s): R26.2 - Difficulty in walking, not elsewhere classified Status: Acute Assessment and Plan: CT pelvis w/o fx CT brain with volume loss Neuro exam nonfocal 11/20 MRI brain PT/OT (2) TRISTIN (acute kidney injury): Code(s): N17.9 - Acute kidney failure, unspecified Status: Acute Assessment and Plan: Possibly due to dehydration due to decreased mobility, furosemide, lisinopril, ibuprofen 11/20 check FEurea, give IV NS 75 ml/hr x 1 liter, f/u renal panel (3) Hypertension: Qualifiers: Hypertension type: unspecified Qualified Code(s): I10 - Essential (primary) hypertension Code(s): I10 - Essential (primary) hypertension Status: Acute Assessment and Plan: Hold furosemide and lisinopril due to TRISTIN Monitor BP (4) Asthma: Qualifiers: Asthma persistence: unspecified Asthma complication type: unspecified Asthma severity: unspecified severity Qualified Code(s): J45.909 - Unspecified asthma, uncomplicated Code(s): J45.909 - Unspecified asthma, uncomplicated Status: Acute Assessment and Plan: Continue albuterol.continue singular (5) Anemia: Qualifiers: Anemia type: unspecified type Qualified Code(s): D64.9 - Anemia, unspecified Code(s): D64.9 - Anemia, unspecified Status: Acute Assessment and Plan: Check iron, B12, stool for blood (6) Prinzmetal's angina: Code(s): I20.1 - Angina pectoris with documented spasm Status: Acute Assessment and Plan: Continue isosorbide mononitrate (7) Anxiety: Code(s): F41.9 - Anxiety disorder, unspecified Status: Acute Assessment and Plan: Continue bupropion Subjective Date/time seen: 11/20/22 13:55 Interval history: 87-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 She does not recall passing out or hitting her head. Her son is at bedside and states her mental status seems to be at baseline. Her other son, Myke, was on the phone on speaker and concurred with that. Since her 1st fall she had been taking Advil, she thinks only one but is unsure. She also takes Lasix and lisinopril. Today she has been out of bed once to transfer and denied pain at that time. Tolerated diet. She denies any other pain. However short-term memory is poor. Her son recalls that there was another memory medicine that had been tried and it gave her nightmares so they stopped that drug. Exam Narrative: HEENT: PERRL, sclerae nonicteric, pharyngeal mucosa pink and intact NECK: No JVD, adenopathy, or thyromegaly CHEST: Clear to auscultation. Normal effort. HEART: NL S1/S2, regular, no murmur ABDOMEN: BS+, soft, nontender, no mass, no bruits EXTREMITIES: No cyanosis, edema, or clubbing NEUROLOGIC: CN intact and symmetric to inspection, tone and strength symmetric, DTR's 2+ BTK, trace ankles, symmetric, Babinski's negative. Speech hesitant with word finding issues but well articulated. MUSCULOSKELETAL: Tone and strength symmetric. PSYCH: Alert. Oriented to person. Objective Data Vital Signs Vital Signs: Vital Signs - 24 hr 11/19/22 14:29 11/19/22 16:59 11/19/22 17:54 Temperature Pulse Rate 80 79 71 Respiratory Rate 17 17 17 Blood Pressure 126/64 133/69 115/54 L Pulse Oximetry 100 100 98 Oxygen Delivery 11/19/22 18:03 11/19/22 19:52 11/19/22 20:00 Temperature 98.3 F Pulse Rate 67 75 75 Respiratory Rate 16 18 18 Blood Pressure 100/70 104/52 L Pulse Oximetry 98 100 100 Oxygen Delivery Room Air 11/20/22 04:35 11/20/22 10:15 11/20/22 10:20 Temperature 97.9 F Pulse Rate 79 74 Respiratory Rate 18 16 Blood Pressure 113/89 144/58 H Pulse Oximetry 95 99
[2022-11-20 14:00] VITALS: BP 112/59; PULSE 87; RESP 18; TEMP 36.6; O2SAT 100
[2022-11-20 14:57] LABS: Hematocrit 34.3 % (37.0-47.0); Hemoglobin 11.3 g/dL (12.0-15.0); Mean Corpuscular HGB Conc 32.9 g/dl (32-36); Mean Corpuscular Hemoglobin 30.8 pg (26-34); Mean Corpuscular Volume 93.5 fl (80-100); Platelet Count Result 296 k/mm3 (150-375); Red Blood Count 3.67 M/mm3 (4.2-5.4); Red Cell Distribution Width 13.9 % (11.5-14.5); White Blood Count 8.9 K/mm3 (4.5-10.0)
[2022-11-20 15:26] LABS: Albumin Level 3.5 g/dL (3.5-5.1); Anion Gap 7 mmol/L (8-16); Blood Urea Nitrogen 26 mg/dL (7-17); Calcium 8.5 mg/dL (8.4-10.2); Carbon Dioxide 24 mmol/L (22-30); Chloride 105 mmol/L (98-107); Estimated CRCL calculation 23 ml/min; Estimated Glomerular Filt Rate 39; Glucose 131 mg/dL (65-110); Phosphorus 4.1 mg/dL (2.5-4.5); Potassium 4.4 mmol/L (3.4-5.0); Sodium 136 mmol/L (137-145)
[2022-11-20] MEDS: DEXTROSE 5%/0.9% SOD CHL 1,000 ML 75 ML IV CONT (15:36)
[2022-11-20 15:40] LABS: Iron 40 ug/dL (37-170)
[2022-11-20 15:50] LABS: Percent Iron Saturation 14 % (20-50)
[2022-11-20 15:52] LABS: Procalcitonin 0.1 ng/mL
[2022-11-20 16:31] LABS: Folic Acid > 20.0 ng/mL (2.76->20)
[2022-11-20 20:00] VITALS: PULSE 93; RESP 18; O2SAT 97
[2022-11-20] MEDS: FLUTICASONE/SALMETEROL 45-21 MCG INHALER 1 PUFF 2 PUFF INHALATION (20:44)
[2022-11-20 20:50] VITALS: BP 113/77; PULSE 93; RESP 18; TEMP 36.5; O2SAT 97
[2022-11-21 00:01] LABS: Creatinine Urine 51.1 mg/dL; Urea Random Urine 430 MG/DL
[2022-11-21 05:51] LABS: Hematocrit 29.7 % (37.0-47.0); Hemoglobin 9.8 g/dL (12.0-15.0); Mean Corpuscular Hemoglobin 30.8 pg (26-34); Mean Corpuscular Volume 93.4 fl (80-100); Mean Platelet Volume 9.1 fl (7.4-10.4); Platelet Count Result 275 k/mm3 (150-375); Red Blood Count 3.18 M/mm3 (4.2-5.4); Red Cell Distribution Width 13.9 % (11.5-14.5); White Blood Count 7.8 K/mm3 (4.5-10.0)
[2022-11-21 06:00] VITALS: BP 104/47; PULSE 71; RESP 18; TEMP 36.7; O2SAT 96
[2022-11-21 06:04] LABS: Albumin Level 3.1 g/dL (3.5-5.1); Anion Gap 3 mmol/L (8-16); Blood Urea Nitrogen 20 mg/dL (7-17); Calcium 8.1 mg/dL (8.4-10.2); Carbon Dioxide 24 mmol/L (22-30); Chloride 110 mmol/L (98-107); Estimated CRCL calculation 27 ml/min; Estimated Glomerular Filt Rate 47; Glucose 109 mg/dL (65-110); Phosphorus 3.9 mg/dL (2.5-4.5); Potassium 4.1 mmol/L (3.4-5.0); Sodium 137 mmol/L (137-145)
[2022-11-21] MEDS: FLUTICASONE/SALMETEROL 45-21 MCG INHALER 1 PUFF 2 PUFF INHALATION (08:11)
[2022-11-21 08:14] VITALS: O2SAT 98
--- NOTE | 2022-11-21 09:28 | PC.NURSE ---
called son Domenic to ask about patient code status. Explained full code, modified code, and DNR to son. Patient is still not oriented so I am not comfortable reviewing this with her. Son is to call me back by 11 am.
[2022-11-21 09:34] VITALS: BP 134/58; PULSE 73; RESP 16; O2SAT 100
[2022-11-21] MEDS: MULTIVITAMINS THERAPEUTIC TAB (*BKC) 1 TABLET PO (09:38)
[2022-11-21] MEDS: TAMOXIFEN CITRATE (*CHEMO) 10 MG TABLET 20 MG PO (09:38)
[2022-11-21] MEDS: buPROPion HCL XL (24 HR) 150 MG TABCR 300 MG PO (09:38)
[2022-11-21] MEDS: ASPIRIN 81 MG CHEWABLE TABLET PO (09:39)
[2022-11-21] MEDS: MEMANTINE 5 MG TABLET PO ×2 (09:39→18:19)
[2022-11-21] MEDS: LORATADINE 10 MG TABLET PO (09:39)
[2022-11-21] MEDS: ISOSORBIDE MONONITRATE 30 MG TAB.ER.24H 60 MG PO (09:39)
[2022-11-21] MEDS: ARTIFICIAL TEARS OPHTH SOLN 15 ML BOTTLE 1 DROP EACH EYE (09:39)
[2022-11-21] MEDS: MONTELUKAST SODIUM 10 MG TABLET PO (09:39)
--- NOTE | 2022-11-21 11:47 | PM.IMPN ---
Progress Note: A&P Assessment and Plan (1) Unable to ambulate: Code(s): R26.2 - Difficulty in walking, not elsewhere classified Status: Acute Assessment and Plan: CT pelvis w/o fx CT brain with volume loss Neuro exam nonfocal 11/20 MRI ordered and completed 11/21 with results pending Suspect a combination of dehydration, TRISTIN, soft tissue injury, and dementia Seems to be improving with hydration, PT/OT, time PT/OT (2) TRISTIN (acute kidney injury): Code(s): N17.9 - Acute kidney failure, unspecified Status: Acute Assessment and Plan: Possibly due to dehydration due to decreased mobility, furosemide, lisinopril, ibuprofen 11/20 creatinine 1.3, check FEurea, give IV NS 75 ml/hr x 1 liter 11/21 creatinine decreased to 1.1 (baseline is 1.0) (3) Hypertension: Qualifiers: Hypertension type: unspecified Qualified Code(s): I10 - Essential (primary) hypertension Code(s): I10 - Essential (primary) hypertension Status: Acute Assessment and Plan: Hold furosemide and lisinopril due to TRISTIN 11/21/22 BP 130/58 off lisinopril and furosemide (4) Asthma: Qualifiers: Asthma severity: unspecified severity Asthma persistence: unspecified Asthma complication type: unspecified Qualified Code(s): J45.909 - Unspecified asthma, uncomplicated Code(s): J45.909 - Unspecified asthma, uncomplicated Status: Acute Assessment and Plan: Continue albuterol.continue singular (5) Anemia: Qualifiers: Anemia type: unspecified type Qualified Code(s): D64.9 - Anemia, unspecified Code(s): D64.9 - Anemia, unspecified Status: Acute Assessment and Plan: Hgb 11/20 11.3, 11/21 9.8 (after hydration) Iron in low NL range with low %sat and transferring in low NL range, suggesting ACD, ferritin pending B12 in low NL range, folate NL, MMA pending Stool for occult blood pending (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 She does not recall passing out or hitting her head. Since her 1st fall she had been taking Advil, she thinks only one but is unsure. She also takes Lasix and lisinopril. All of these are currently on hold as of 11/20/22. At the her facility, there was another memory medicine that was tried and it gave her nightmares so they stopped that drug. She tolerates memantine. Tolerated diet today. Tolerating ambulating to BR with assist from PCT. She denies any other pain, sob, gi/gu issues, bleeding, or weakness. However short-term memory is poor. Review of Systems Review of Systems: All systems reviewed & are unremarkable except as noted in HPI and below Exam Narrative: HEENT: PERRL, sclerae nonicteric, pharyngeal mucosa pink and intact NECK: No JVD, adenopathy, or thyromegaly CHEST: Clear to auscultation. Normal effort. HEART: NL S1/S2, regular, no murmur ABDOMEN: BS+, soft, nontender, no mass, no bruits EXTREMITIES: No cyanosis, edema, or clubbing NEUROLOGIC: CN intact and symmetric to inspection, tone and strength symmetric, DTR's 2+ BTK, trace ankles, symmetric, Babinski's negative. FTN intact. Speech hesitant with word finding issues but well articulated. MUSCULOSKELETAL: Tone and strength symmetric. PSYCH: Alert. Oriented to person. Objective Data Vital Signs Vital Signs: Vital Signs - 24 hr 11/20/22 15:09 11/20/22 15:25 11/20/22 14:00 Temperature 97.9
[2022-11-21 14:00] VITALS: BP 119/50; PULSE 76; RESP 16; TEMP 36.6; O2SAT 98
[2022-11-21 20:00] VITALS: PULSE 80; RESP 17; O2SAT 97
[2022-11-21] MEDS: ACETAMINOPHEN 325 MG TABLET 650 MG PO (21:39)
[2022-11-21 22:00] VITALS: BP 142/60; PULSE 80; RESP 17; TEMP 36.9; O2SAT 97
[2022-11-22 04:53] VITALS: BP 115/47; PULSE 62; RESP 17; TEMP 36.5; O2SAT 96
[2022-11-22 05:37] LABS: Albumin Level 3.2 g/dL (3.5-5.1); Anion Gap 1 mmol/L (8-16); Blood Urea Nitrogen 15 mg/dL (7-17); Calcium 8.4 mg/dL (8.4-10.2); Carbon Dioxide 25 mmol/L (22-30); Chloride 108 mmol/L (98-107); Estimated CRCL calculation 25 ml/min; Estimated Glomerular Filt Rate 42; Glucose 94 mg/dL (65-110); Phosphorus 4.1 mg/dL (2.5-4.5); Potassium 4.1 mmol/L (3.4-5.0); Sodium 134 mmol/L (137-145)
[2022-11-22 05:44] LABS: Hematocrit 32.9 % (37.0-47.0); Hemoglobin 10.5 g/dL (12.0-15.0); Mean Corpuscular HGB Conc 31.9 g/dl (32-36); Mean Corpuscular Hemoglobin 29.7 pg (26-34); Mean Corpuscular Volume 92.9 fl (80-100); Mean Platelet Volume 9.2 fl (7.4-10.4); Platelet Count Result 299 k/mm3 (150-375); Red Blood Count 3.54 M/mm3 (4.2-5.4); Red Cell Distribution Width 13.8 % (11.5-14.5); White Blood Count 7.8 K/mm3 (4.5-10.0)
--- NOTE | 2022-11-22 07:54 | P.PNIM_ITS ---
Progress Note: A&P Assessment and Plan (1) Unable to ambulate: Code(s): R26.2 - Difficulty in walking, not elsewhere classified Status: Acute Assessment and Plan: * Presented to the ED with complaints of inability to ambulate * CT pelvis w/o fx * CT brain with volume loss * Neuro exam nonfocal * 11/20 MRI moderate cerebral white matter disease and pontine disease worsened since 03/24/18 * Suspect a combination of dehydration, TRISTIN, soft tissue injury, and dementia * Seems to be improving with hydration, PT/OT (2) TRISTIN (acute kidney injury): Code(s): N17.9 - Acute kidney failure, unspecified Status: Acute Assessment and Plan: * Possibly due to dehydration due to decreased mobility, furosemide, lisinopril, ibuprofen * 11/20 creatinine 1.3, check FEurea, give IV NS 75 ml/hr x 1 liter * 11/21 creatinine decreased to 1.1 (baseline is 1.0) * Continues to be elevated at 1.20 * Continue to trend * Continue IV fluids * trend urine output * Stable (3) Hypertension: Qualifiers: Hypertension type: unspecified Qualified Code(s): I10 - Essential (primary) hypertension Code(s): I10 - Essential (primary) hypertension Status: Acute Assessment and Plan: * Hold furosemide and lisinopril due to TRISTIN * 11/21/22 BP 130/58 off lisinopril and furosemide * BP remains stable at 115/47 * Continue to trend BP * Restart home medication as appropriate (4) Asthma: Qualifiers: Asthma complication type: unspecified Asthma persistence: unspecified Asthma severity: unspecified severity Qualified Code(s): J45.909 - Unspecified asthma, uncomplicated Code(s): J45.909 - Unspecified asthma, uncomplicated Status: Acute Assessment and Plan: * Continue albuterol and singular * Stable * Saturations above 90% (5) Anemia: Qualifiers: Anemia type: unspecified type Qualified Code(s): D64.9 - Anemia, unspecified Code(s): D64.9 - Anemia, unspecified Status: Acute Assessment and Plan: * Hgb 11/20 11.3, 11/21 9.8, 11/22 10.5 * Iron in low NL range with low %sat and transferring in low NL range, suggesting ACD, ferritin pending * B12 in low NL range, folate NL, MMA pending * Stool for occult blood still not collected * Continue to trend H/H * Transfuse as indicated (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 She does not recall passing out or hitting her head. Since her 1st fall she had been taking Advil, she thinks only one
--- NOTE | 2022-11-22 07:54 | PM.IMPN ---
Progress Note: A&P Assessment and Plan (1) Unable to ambulate: Code(s): R26.2 - Difficulty in walking, not elsewhere classified Status: Acute Assessment and Plan: Presented to the ED with complaints of inability to ambulate CT pelvis w/o fx CT brain with volume loss Neuro exam nonfocal 11/20 MRI moderate cerebral white matter disease and pontine disease worsened since 03/24/18 Suspect a combination of dehydration, TRISTIN, soft tissue injury, and dementia Seems to be improving with hydration, PT/OT (2) TRISTIN (acute kidney injury): Code(s): N17.9 - Acute kidney failure, unspecified Status: Acute Assessment and Plan: Possibly due to dehydration due to decreased mobility, furosemide, lisinopril, ibuprofen 11/20 creatinine 1.3, check FEurea, give IV NS 75 ml/hr x 1 liter 11/21 creatinine decreased to 1.1 (baseline is 1.0) Continues to be elevated at 1.20 Continue to trend Continue IV fluids trend urine output Stable (3) Hypertension: Qualifiers: Hypertension type: unspecified Qualified Code(s): I10 - Essential (primary) hypertension Code(s): I10 - Essential (primary) hypertension Status: Acute Assessment and Plan: Hold furosemide and lisinopril due to TRISTIN 11/21/22 BP 130/58 off lisinopril and furosemide BP remains stable at 115/47 Continue to trend BP Restart home medication as appropriate (4) Asthma: Qualifiers: Asthma complication type: unspecified Asthma persistence: unspecified Asthma severity: unspecified severity Qualified Code(s): J45.909 - Unspecified asthma, uncomplicated Code(s): J45.909 - Unspecified asthma, uncomplicated Status: Acute Assessment and Plan: Continue albuterol and singular Stable Saturations above 90% (5) Anemia: Qualifiers: Anemia type: unspecified type Qualified Code(s): D64.9 - Anemia, unspecified Code(s): D64.9 - Anemia, unspecified Status: Acute Assessment and Plan: Hgb 11/20 11.3, 11/21 9.8, 11/22 10.5 Iron in low NL range with low %sat and transferring in low NL range, suggesting ACD, ferritin pending B12 in low NL range, folate NL, MMA pending Stool for occult blood still not collected Continue to trend H/H Transfuse as indicated (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 She does not recall passing out or hitting her head. Since her 1st fall she had been taking Advil, she thinks only one but is unsure. She also takes Lasix and lisinopril. All of these are currently on hold as of 11/20/22. At the her facility, there was another memory medicine that was tried and it gave her nightmares so they stopped that drug. She tolerates memantine. Tolerated diet today. Tolerating ambulating to BR with assist from PCT. She denies any other pain, sob, gi/gu issues, bleeding, or weakness. However short-term memory is poor. 11/20/22? 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
[2022-11-22] MEDS: LORATADINE 10 MG TABLET PO (08:49)
[2022-11-22] MEDS: buPROPion HCL XL (24 HR) 150 MG TABCR 300 MG PO (08:49)
[2022-11-22] MEDS: MONTELUKAST SODIUM 10 MG TABLET PO (08:49)
[2022-11-22] MEDS: ISOSORBIDE MONONITRATE 30 MG TAB.ER.24H 60 MG PO (08:49)
[2022-11-22] MEDS: ASPIRIN 81 MG CHEWABLE TABLET PO (08:49)
[2022-11-22] MEDS: MEMANTINE 5 MG TABLET PO (08:49)
[2022-11-22] MEDS: MULTIVITAMINS THERAPEUTIC TAB (*BKC) 1 TABLET PO (08:49)
[2022-11-22] MEDS: TAMOXIFEN CITRATE (*CHEMO) 10 MG TABLET 20 MG PO (08:49)
[2022-11-22] MEDS: FLUTICASONE PROPIONATE 0.05% NA SPR 16 GM BTL (*BKC) 2 SPRAY NASAL (08:50)
[2022-11-22 09:10] VITALS: PULSE 68; RESP 18; O2SAT 97
[2022-11-22] MEDS: FLUTICASONE/SALMETEROL 45-21 MCG INHALER 1 PUFF 2 PUFF INHALATION (09:10)
--- NOTE | 2022-11-22 12:25 | P.DS_ITS ---
DS: Admitting Diagnosis Discharge Date 11/22/22 1200 Admitting Diagnosis TRISTIN, Generalized weakness DS: Discharge Diagnosis Discharge Diagnosis (1) Unable to ambulate: Code(s): R26.2 - Difficulty in walking, not elsewhere classified Status: Acute Assessment and Plan: * Presented to the ED with complaints of inability to ambulate * CT pelvis w/o fx * CT brain with volume loss * Neuro exam nonfocal * 11/20 MRI moderate cerebral white matter disease and pontine disease worsened since 03/24/18 * Suspect a combination of dehydration, TRISTIN, soft tissue injury, and dementia * Seems to be improving with hydration, PT/OT (2) TRISTIN (acute kidney injury): Code(s): N17.9 - Acute kidney failure, unspecified Status: Acute Assessment and Plan: * Possibly due to dehydration due to decreased mobility, furosemide, lisinopril, ibuprofen * 11/20 creatinine 1.3, check FEurea, give IV NS 75 ml/hr x 1 liter * 11/21 creatinine decreased to 1.1 (baseline is 1.0) * Continues to be elevated at 1.20 * Continue to trend * Continue IV fluids * trend urine output * Stable (3) Hypertension: Qualifiers: Hypertension type: unspecified Qualified Code(s): I10 - Essential (primary) hypertension Code(s): I10 - Essential (primary) hypertension Status: Acute Assessment and Plan: * Hold furosemide and lisinopril due to TRISTIN * 11/21/22 BP 130/58 off lisinopril and furosemide * BP remains stable at 115/47 * Continue to trend BP * Restart home medication as appropriate (4) Asthma: Qualifiers: Asthma complication type: unspecified Asthma persistence: unspecified Asthma severity: unspecified severity Qualified Code(s): J45.909 - Unspecified asthma, uncomplicated Code(s): J45.909 - Unspecified asthma, uncomplicated Status: Acute Assessment and Plan: * Continue albuterol and singular * Stable * Saturations above 90% (5) Anemia: Qualifiers: Anemia type: unspecified type Qualified Code(s): D64.9 - Anemia, unspecified Code(s): D64.9 - Anemia, unspecified Status: Acute Assessment and Plan: * Hgb 11/20 11.3, 11/21 9.8, 11/22 10.5 * Iron in low NL range with low %sat and transferring in low NL range, suggesting ACD, ferritin pending * B12 in low NL range, folate NL, MMA pending * Stool for occult blood still not collected * Continue to trend H/H * Transfuse as indicated (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 Head CT was performed and showed no acute fracture or intracranial process, chest x-ray was performed showed minimal right and mild left bibasilar infiltrates suggesting cardiomegaly, hip CT showed no acute fracture, pelvic CT showed no acute fracture, b
--- NOTE | 2022-11-22 12:25 | PM.DS ---
DS: Admitting Diagnosis Discharge Date 11/22/22 1200 Admitting Diagnosis TRISTIN, Generalized weakness DS: Discharge Diagnosis Discharge Diagnosis (1) Unable to ambulate: Code(s): R26.2 - Difficulty in walking, not elsewhere classified Status: Acute Assessment and Plan: Presented to the ED with complaints of inability to ambulate CT pelvis w/o fx CT brain with volume loss Neuro exam nonfocal 11/20 MRI moderate cerebral white matter disease and pontine disease worsened since 03/24/18 Suspect a combination of dehydration, TRISTIN, soft tissue injury, and dementia Seems to be improving with hydration, PT/OT (2) TRISTIN (acute kidney injury): Code(s): N17.9 - Acute kidney failure, unspecified Status: Acute Assessment and Plan: Possibly due to dehydration due to decreased mobility, furosemide, lisinopril, ibuprofen 11/20 creatinine 1.3, check FEurea, give IV NS 75 ml/hr x 1 liter 11/21 creatinine decreased to 1.1 (baseline is 1.0) Continues to be elevated at 1.20 Continue to trend Continue IV fluids trend urine output Stable (3) Hypertension: Qualifiers: Hypertension type: unspecified Qualified Code(s): I10 - Essential (primary) hypertension Code(s): I10 - Essential (primary) hypertension Status: Acute Assessment and Plan: Hold furosemide and lisinopril due to TRISTIN 11/21/22 BP 130/58 off lisinopril and furosemide BP remains stable at 115/47 Continue to trend BP Restart home medication as appropriate (4) Asthma: Qualifiers: Asthma complication type: unspecified Asthma persistence: unspecified Asthma severity: unspecified severity Qualified Code(s): J45.909 - Unspecified asthma, uncomplicated Code(s): J45.909 - Unspecified asthma, uncomplicated Status: Acute Assessment and Plan: Continue albuterol and singular Stable Saturations above 90% (5) Anemia: Qualifiers: Anemia type: unspecified type Qualified Code(s): D64.9 - Anemia, unspecified Code(s): D64.9 - Anemia, unspecified Status: Acute Assessment and Plan: Hgb 11/20 11.3, 11/21 9.8, 11/22 10.5 Iron in low NL range with low %sat and transferring in low NL range, suggesting ACD, ferritin pending B12 in low NL range, folate NL, MMA pending Stool for occult blood still not collected Continue to trend H/H Transfuse as indicated (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 Head CT was performed and showed no acute fracture or intracranial process, chest x-ray was performed showed minimal right and mild left bibasilar infiltrates suggesting cardiomegaly, hip CT showed no acute fracture, pelvic CT showed no acute fracture, brain MRI showed moderate cerebral white matter disease and pontine disease representing small-vessel disease worsened from 03/24/2018. Patient has worked with PT and OT and has been able to walk around and is doing well. It was noted the patient did have an TRISTIN and fluids were given. Currently kidney function is near baseline at 1.20 creatinine. Anemia labs were performed and are stable at this time. H&H is also 10.5/32.9. Son and [id number] are both present in the room and feel comfortable for the patient to return back to [facility] for rehab. Currently she is denying any chest pain, shortness a breath, norris
[2022-11-22] MEDS: ACETAMINOPHEN 325 MG TABLET 650 MG PO (13:44)
[2022-11-25 05:44] LABS: Methylmalonic Acid 153 nmol/L (87-318)
== END 2022-11-22 14:00 | DRG 556 ==
LOC: ANHED 17:19 → ANH2MED 17:50
PROVIDERS: Internal Medicine; Admitting Provider Chiropractor; Emergency Provider Emergency Medicine; PCP Internal Medicine; Visit Provider Nurse Practitioner
DX: R26.2 Difficulty in walking, not elsewhere classified (principal); N17.9 Acute kidney failure, unspecified; I20.1 Angina pectoris with documented spasm; I10 Essential (primary) hypertension; J45.909 Unspecified asthma, uncomplicated; E86.0 Dehydration; E78.5 Hyperlipidemia, unspecified; D64.9 Anemia, unspecified; K21.9 Gastro-esophageal reflux disease without esophagitis; G62.9 Polyneuropathy, unspecified; F03.90 Unspecified dementia, unspecified severity, without behavioral disturbance, psychotic disturbance, mood disturbance, and anxiety; F41.9 Anxiety disorder, unspecified; Z79.810 Long term (current) use of selective estrogen receptor modulators (SERMs); Z79.82 Long term (current) use of aspirin; Z85.3 Personal history of malignant neoplasm of breast
CPT/HCPCS: 36415; 70450; 70551; 71045; 72192; 73700; 80053; 80069; 81003; 82570; 82607; 82728; 82746; 83540; 83550; 83921; 84145; 84443; 84540; 85025; 85027; 85610; 85730; 87040; 93005; 94640; 96360; 97110; 97116; 97161; 97165; 97530; 97535; 99285; A9270; G0378; J7030; J7042

== ENCOUNTER 2022-11-26 11:15 | Emergency (ER) | payer MEDICARE, SELFPAY ==
[2022-11-26] VITALS (7 sets, daily range): BP systolic 150–156; BP diastolic 62–89; PULSE 21–86; RESP 17–20; TEMP 36.7; O2SAT 97–100
--- NOTE | ~2022-11-26 | CT_ITS ---
Non-contrast Head CT History: Trauma COMPARISON: 11/11/2022 Technique: Axial non-contrast imaging of the brain was performed. Dose reduction technique was used on this scan by utilizing automated exposure control and iterative reconstruction technique. The dose -length product (DLP) was 605.33 mGy-cm. Findings: There is no evidence of intracranial hemorrhage, mass lesion, or acute infarct. Brain par enchyma appears normal. The ventricles and subarachnoid spaces are dilated. The calvarium appears n ormal. The visualized paranasal sinuses and mastoid air cells are clear. Impression: No acute abnormality seen. Mild generalized atrophy. Reviewed, dictated and finalized at location . Impression: No acute abnormality seen. Mild generalized atrophy.
--- NOTE | ~2022-11-26 | XR_ITS ---
EXAMINATION: XR hip LT 2V w AP pelvis DATE: 11/26/2022 12:38 INDICATION: Left hip pain. TECHNIQUE: An anteroposterior view of the pelvis and 2 views of left hip were obtained. COMPARISON: Pelvis radiograph 06/13/2022 FINDINGS: There is lumbar dextrocurvature and severe spondylosis. No fracture. There is mild osteoart hritis of the hips. IMPRESSION: 1. Mild osteoarthritis of the hips. Reviewed, dictated and finalized at location B.
--- NOTE | 2022-11-26 12:26 | ED.FALL ---
HPI - Fall General Chief Complaint: Fall Stated Complaint: AMS, GLF Time Seen by Provider: 11/26/22 11:23 History of Present Illness HPI Narrative: 87-year-old female presented the emergency department from a local memory care unit for evaluation after having a ground-level fall. Patient does recall a fall but denies any significant pain or injury from the fall. Patient was unsure if she struck her head but states she did strike her left hip. Patient reports he does have chronic pain in that left hip. Related Data Home Medications Medication Instructions Recorded Confirmed albuterol sulfate 90 mcg/actuation 2 puff inhalation QID PRN 05/11/19 11/19/22 aerosol inhaler (ProAir HFA) Shortness Of Breath aspirin 81 mg chewable tablet 81 mg PO DAILY 05/11/19 11/19/22 cetirizine 10 mg capsule 10 mg PO QAM 05/11/19 11/19/22 epinephrine 0.3 mg/0.3 mL 0.3 mg IM PRN PRN Allergic Symptoms 05/11/19 11/20/22 injection, auto-injector (EpiPen) isosorbide mononitrate 60 mg 60 mg PO DAILY 05/11/19 11/19/22 tablet,extended release 24 hr montelukast 10 mg tablet 10 mg PO DAILY 05/11/19 11/19/22 nitroglycerin 0.4 mg sublingual 0.4 mg sublingual Q5M PRN Chest 05/11/19 11/19/22 tablet Pain tamoxifen 20 mg tablet 20 mg PO DAILY 05/11/19 11/19/22 bupropion HCl 150 mg 24 hr tablet, 300 mg PO QAM 08/28/21 11/19/22 extended release fluticasone 100 mcg-salmeterol 50 1 inh inhalation Q12H 08/28/21 11/20/22 mcg/dose blistr powdr for inhalation (Advair Diskus) coenzyme Q10 200 mg capsule (Co 200 mg PO DAILY 07/21/22 11/19/22 Q-10) lisinopril 20 mg tablet 20 mg PO DAILY 07/21/22 11/19/22 magnesium 250 mg tablet 250 mg PO BID 07/21/22 11/20/22 memantine 5 mg tablet 5 mg PO BID 07/21/22 11/19/22 multivitamin 1 tablet PO DAILY 07/21/22 11/19/22 omega 3-nbm-dmt-fish oil 1,000 mg 1 cap PO DAILY 07/21/22 11/19/22 (120 mg-180 mg) capsule (Fish Oil) propylene glycol 0.6 % eye drops 1 drp EACH EYE DAILY 07/21/22 11/19/22 (Systane Balance) calcium carbonate 600 mg-vitamin 1 tablet PO DAILY 11/19/22 11/19/22 D3 10 mcg (400 unit) tablet (Calcium 600 + D(3)) fluticasone propionate 50 2 spray intranasal QAM 11/20/22 11/20/22 mcg/actuation nasal spray,suspension Allergies Allergy/AdvReac Type Severity Reaction Status Date / Time bacitracin Allergy Unknown Unknown Verified 11/19/22 19:30 fentanyl Allergy Unknown Vomiting Verified 11/19/22 19:30 grass pollen Allergy Unknown Unknown Verified 11/19/22 19:30 Iodinated Contrast Media Allergy Unknown Stopped Verified 11/19/22 19:30 Breathing meperidine Allergy Unknown Unknown Verified 11/19/22 19:30 mold Allergy Unknown Unknown Verified 11/19/22 19:30 morphine Allergy Unknown Unknown Verified 11/19/22 19:30 neomycin Allergy Unknown RASH Verified 11/19/22 19:30 Opioids-Meperidine and Allergy Unknown VOMITING Verified 11/19/22 19:30 Related polymyxin B Allergy Unknown Unknown Verified 11/19/22 19:30 propoxyphene Allergy Unknown Unknown Verified 11/19/22 19:30 Contrast Media Allergy Severe Anaphylactic Uncoded 11/19/22 19:30 Shock ENVIRONMENTAL Allergy Unknown Unknown Uncoded 11/19/22 19:30 Review of Systems Review of Systems: All systems reviewed & are unremarkable except as noted in HPI and below PMFSH Past Medical History Medical History Angina at rest Anxiety Asthma Bronchitis Dementia GERD (gastroesophageal reflux disease) History of shingles Hyperlipidemia Hypertension Peripheral neuropathy Pneumonia Prinzmetal's angina Seizures Surgical History Surgical History Cataract extraction status H/O cardiac catheterization H/O lumpectomy History of left-sided breast cancer H/O myomectomy 1977 H/O: hysterectomy 1977 History of appendectomy 1950 History of conization of cervix History of eye surgery 2020 History of removal of pigmented skin lesion
[2022-11-26 12:27] LABS: Basophils Absolute Auto 0.1 K/mm3 (0.0-0.1); Eosinophils Absolute Auto 0.3 K/mm3 (0-0.3); Eosinophils Percent Auto 2.7 % (0-4.4); Hematocrit 31.2 % (37.0-47.0); Hemoglobin 10.1 g/dL (12.0-15.0); Immature Granulocyte Absolute 0.03 K/mm3 (0.00-0.031); Immature Granulocyte Percent A 0.3 % (0-0.5); Lymphocytes Absolute Auto 1.71 K/mm3 (0.9-3.2); Lymphocytes Percent Auto 18.4 % (18.3-44.2); Mean Corpuscular HGB Conc 32.4 g/dl (32-36); Mean Corpuscular Hemoglobin 30.3 pg (26-34); Mean Corpuscular Volume 93.7 fl (80-100); Mean Platelet Volume 8.9 fl (7.4-10.4); Monocytes Absolute Auto 1.1 K/mm3 (0.1-0.6); Monocytes Percent Auto 11.7 % (2.6-8.5); Neutrophils Absolute Auto 6.1 K/mm3 (1.3-6.7); Neutrophils Percent Auto 65.9 % (45.5-73.1); Platelet Count Result 323 k/mm3 (150-375); Red Blood Count 3.33 M/mm3 (4.2-5.4); Red Cell Distribution Width 13.9 % (11.5-14.5); White Blood Count 9.3 K/mm3 (4.5-10.0)
[2022-11-26 12:31] LABS: Appearance Urine Clear (Clear); Bacteria Urine None Seen /hpf; Bilirubin Urine Negative (Negative); Blood Urine Negative (Negative); Color Urine Yellow (Yellow); Glucose Urine UA Negative (Negative); Ketones Urine Trace mg/dL (Negative); Leukocyte Esterase Ur 2+ LEU/UL (Negative); Nitrate Urine Negative (Negative); Non Pathogenic Casts 0-2; Protein Urine Negative (Negative); RBC Urine 0-2 /hpf (0-2); Specific Grav Ur 1.013 (1.001-1.035); Squamous Epithelial Cell Urine Occasional /hpf (Few); Urobilinogen Urine 0.2 mg/dL (<2.0)
[2022-11-26 12:36] LABS: Add Urine Microscopic? YES
[2022-11-26 12:38] LABS: Alanine Aminotransferase 44 U/L (6-35); Albumin Level 3.9 g/dL (3.5-5.1); Alkaline Phosphatase 38 U/L (38-126); Anion Gap 6 mmol/L (8-16); Aspartate Amino Transferase 47 U/L (14-36); Bilirubin,Total 0.4 mg/dL (0.2-1.3); Blood Urea Nitrogen 27 mg/dL (7-17); Calcium 8.5 mg/dL (8.4-10.2); Carbon Dioxide 25 mmol/L (22-30); Chloride 102 mmol/L (98-107); Estimated CRCL calculation 25 ml/min; Estimated Glomerular Filt Rate 42; Glucose 95 mg/dL (65-110); Potassium 4.5 mmol/L (3.4-5.0); Sodium 133 mmol/L (137-145)
--- NOTE | 2022-11-26 13:04 | PC.NURSE ---
Rachel at [facility] updated about patient progress.
--- NOTE | 2022-11-26 13:08 | PC.NURSE ---
Patient ambulated around nurses station with +1 assist.
--- NOTE | 2022-11-26 13:18 | PC.NURSE ---
Updated Shanti JOHNS at [facility] regarding patient return.
== END 2022-11-26 14:17 ==
PROVIDERS: Emergency Provider Emergency Medicine; PCP Nurse Practitioner Family
DX: S79.912A Unspecified injury of left hip, initial encounter (principal); J45.909 Unspecified asthma, uncomplicated; F03.90 Unspecified dementia, unspecified severity, without behavioral disturbance, psychotic disturbance, mood disturbance, and anxiety; E78.5 Hyperlipidemia, unspecified; I10 Essential (primary) hypertension; G62.9 Polyneuropathy, unspecified; K21.9 Gastro-esophageal reflux disease without esophagitis; F41.9 Anxiety disorder, unspecified; Z87.01 Personal history of pneumonia (recurrent); Z98.49 Cataract extraction status, unspecified eye; Z90.710 Acquired absence of both cervix and uterus; R82.998 Other abnormal findings in urine; M16.0 Bilateral primary osteoarthritis of hip; W18.30XA Fall on same level, unspecified, initial encounter
CPT/HCPCS: 36415; 70450; 73502; 80053; 81001; 85025; 87086; 87088; 99284

== ENCOUNTER 2022-12-05 10:26 | Observation (INO) | payer MEDICARE, SELFPAY ==
[2022-12-05] VITALS (13 sets, daily range): BP systolic 119–155; BP diastolic 60–99; PULSE 79–92; RESP 12–24; TEMP 36.2–37.3; O2SAT 94–100; BMI 27.2
--- NOTE | ~2022-12-05 | MR_ITS ---
EXAMINATION: MR brain/brain stem wo con DATE: 12/06/2022 13:55 INDICATION: Altered mental status. TECHNIQUE: Magnetic resonance imaging (MRI) of the brain and brainstem was performed without intraven ous contrast. COMPARISON: Brain MRI 11/21/2022 FINDINGS: There is diffuse brain volume loss. There are scattered areas of nonspecific increased T2-w eighted signal intensity in the cerebral white matter and juan. There is no intracranial hemorrhage, acute infarction, or abnormal intracranial mass lesion. The ventricles are normal in size. There is m ild mucosal thickening in the paranasal sinuses. There are likely changes of ocular lens replacement surgeries. The mastoid air cells are normal. IMPRESSION: 1. Stable moderate nonspecific cerebral white matter disease and pontine disease, which likely repres ents chronic small vessel ischemic disease. Reviewed, dictated and finalized at location A. IMPRESSION: 1. Stable moderate nonspecific cerebral white matter disease and pontine diseas e, which likely represents chronic small vessel ischemic disease.
--- NOTE | ~2022-12-05 | US_ITS ---
EXAMINATION: US venous doppler [facility] DATE: 12/06/2022 10:35 INDICATION: Bilateral lower limb edema TECHNIQUE: Montgomery scale images without and with compression and Doppler images of the bilateral lower e xtremity veins were obtained. COMPARISON: 06/12/2022 FINDINGS: The right common femoral vein, profunda femoral vein, femoral vein, popliteal vein, peroneal trunk, p osterior tibial veins, and greater saphenous vein are patent. The left common femoral vein, profunda femoral vein, femoral vein, popliteal vein, peroneal trunk, po sterior tibial veins, and greater saphenous vein are patent. IMPRESSION: 1. Patent bilateral lower extremity veins. No evidence of deep venous thrombosis. Reviewed, dictated and finalized at location B. IMPRESSION: 1. Patent bilateral lower extremity veins. No evidence of deep venous thrombosi s.
--- NOTE | ~2022-12-05 | XR_ITS ---
EXAMINATION: XR hand RT min 3V INDICATION: Left hand pain TECHNIQUE: Three views of the left hand are obtained. COMPARISON: None available FINDINGS: Bone alignment is normal. There is no fracture. There is moderate osteoarthritis at the fir st carpometacarpal joint. Mild osteoarthritis is noted in multiple interphalangeal joints. IMPRESSION: 1. No acute osseous abnormality. Reviewed, dictated and finalized at location A.
--- NOTE | ~2022-12-05 | CT_ITS ---
EXAMINATION: CT brain wo con INDICATION: Headache COMPARISON: 11/26/2022 TECHNIQUE: Standard unenhanced head CT. The dose-length product (DLP) was 605.33 mGy-cm. The mA was a djusted according to patient size. Iterative reconstruction technique was employed. FINDINGS: There is no acute intraparenchymal hemorrhage. No evidence of mass lesion. No evidence of a cute infarction. There is mild periventricular and subcortical hypodensity probably related to small vessel ischemic disease. There is mild prominence of the sulci and ventricles related to cerebral atr ophy. Intracranial calcified cerebral atherosclerosis is noted. There are no extra-axial collections. There is no mass effect or midline shift. Changes in the globes are likely from ocular lens surgery. The visualized sinuses and mastoid air cells are well aerated. IMPRESSION: 1. No acute intracranial abnormality. 2. Age related findings. Reviewed, dictated and finalized at location A.
--- NOTE | ~2022-12-05 | US_ITS ---
EXAMINATION: US carotid duplex BI DATE: 12/06/2022 10:35 INDICATION: vertigo TECHNIQUE: Grayscale, color Doppler, and pulsed Doppler images of the cervical carotid arteries were obtained. The degree of vessel stenosis is placed in one of the following categories: normal, <50%, 5 0-69%, >=70% but less than near-occlusion, near-occlusion, or total occlusion. Note that percent sten osis relative to normal distal artery lumen diameter is indirectly measured from velocity measurement s as described by Roberto, et al. Radiology 2003; 229:340-346. COMPARISON: 03/24/2018 FINDINGS: RIGHT: The right common carotid artery (CCA) peak systolic velocity (PSV) is 52 cm/s. The right internal car otid artery (ICA) PSV is 64 cm/s. The right ICA end-diastolic velocity (EDV) is 13 cm/s. The right IC A/CCA PSV ratio is 1.2. Grayscale and color Doppler images yield an estimate of <50% diameter reducti on from plaque in the ICA. The external carotid artery (ECA) PSV is 65 cm/s. There is antegrade flow in the right vertebral artery. LEFT: The left CCA PSV is 64 cm/s. The left ICA PSV is 58 cm/s. The left ICA EDV is 14 cm/s. The left ICA/C CA PSV ratio is 0.9. Grayscale and color Doppler images yield an estimate of <50% diameter reduction from plaque in the ICA. The ECA PSV is 78 cm/s. There is antegrade flow in the left vertebral artery. IMPRESSION: 1. <50% stenosis in the right internal carotid artery. 2. <50% stenosis in the left internal carotid artery. Reviewed, dictated and finalized at location A.
--- NOTE | ~2022-12-05 | CT_ITS ---
EXAMINATION: CT cervical spine wo con DATE: 12/05/2022 11:30 INDICATION: Neck pain TECHNIQUE: Computed tomography (CT) of the cervical spine was performed without intravenous contrast. The dose-length product (DLP) was 89.96 mGy-cm. Automated exposure control and iterative reconstruct ion technique were employed. COMPARISON: None FINDINGS: There are 2 mm of anterolisthesis of C4 on C5, C6 and C7 and C7 on T1. The vertebral body h eights are maintained. There is severe loss of intervertebral disc space height at C5-6 and C6-7. The odontoid process is intact. Small degenerative osteophytes project from the anterior endplates of mu ltiple vertebral bodies. There is multilevel severe facet and uncovertebral joint osteoarthritis. IMPRESSION: 1. Severe cervical spondylosis without acute findings. Reviewed, dictated and finalized at location A.
--- NOTE | ~2022-12-05 | XR_ITS ---
EXAMINATION: XR knee LT min 4V DATE: 12/05/2022 11:00 INDICATION: Left knee pain TECHNIQUE: Four views of the left knee were obtained. COMPARISON: None. FINDINGS: Alignment is normal. No fracture or osteochondral lesion. Subtle linear calcification in th e medial joint space likely represents calcification of the meniscus. There is mild tricompartmental osteoarthritis characterized by tiny marginal osteophytes. No joint effusion/synovitis. Soft tissues are unremarkable. IMPRESSION: 1. No acute osseous abnormality. Reviewed, dictated and finalized at location A.
--- NOTE | 2022-12-05 10:41 | ECG_ITS ---
Measurements Intervals [place] Rate: 82 P: -24 SD: 150 QRS: -9 QRSD: 80 T: 21 QT: 344 QTc: 404 Interpretive Statements SINUS RHYTHM POSSIBLE ANTERIOR MYOCARDIAL INFARCTION , PROBABLY OLD [30 ms Q WAVE IN V3/V4, OR R < 0.2 mV IN V4] NONSPECIFIC T-WAVE ABNORMALITY ABNORMAL ECG COMPARED TO ECG 11/19/2022 12:45:57 NO SIGNIFICANT CHANGES Electronically Signed On 12-05-2022 12:10:36 CDT by Jay Medina M.D.
--- NOTE | 2022-12-05 11:02 | ED.FALL ---
HPI - Fall General Chief Complaint: Fall <Shalini Morel PA-C - Last Filed: 12/05/22 16:38> Stated Complaint: witnessed fall <CHARLEY Cohen Last Filed: 12/05/22 16:38> Source: patient, EMS, RN notes reviewed and old records reviewed <Shalini Morel PA-C - Last Filed: 12/05/22 16:38> Mode of arrival: EMS <CHARLEY Cohen Last Filed: 12/05/22 16:38> Limitations: dementia <CHARLEY Cohen Last Filed: 12/05/22 16:38> History of Present Illness HPI Narrative: Patient is an 87-year-old female who presents to the ED via EMS with report of a fall. Patient is a resident at [facility]. She has history of dementia and is a poor historian at baseline. Per EMS and skilled nursing staff, patient was sitting at the dining room table with her boyfriend this morning when she fell asleep in her recliner and fell forward out of the chair. She did hit her head and sustained a small contusion to her forehead. No LOC. She was sent here for further evaluation. Patient is unable to tell me exactly how the fall occurred. She complains of mild pain to her left knee, denies any other areas of pain or injury. She does have several areas of bruising from recent falls. <Shalini Morel PA-C - Last Filed: 12/05/22 16:38> Related Data Home Medications: Home Medications Medication Instructions Recorded Confirmed albuterol sulfate 90 mcg/actuation 2 puff inhalation QID PRN 05/11/19 11/19/22 aerosol inhaler (ProAir HFA) Shortness Of Breath aspirin 81 mg chewable tablet 81 mg PO DAILY 05/11/19 11/19/22 cetirizine 10 mg capsule 10 mg PO QAM 05/11/19 11/19/22 epinephrine 0.3 mg/0.3 mL 0.3 mg IM PRN PRN Allergic Symptoms 05/11/19 11/20/22 injection, auto-injector (EpiPen) isosorbide mononitrate 60 mg 60 mg PO DAILY 05/11/19 11/19/22 tablet,extended release 24 hr montelukast 10 mg tablet 10 mg PO DAILY 05/11/19 11/19/22 nitroglycerin 0.4 mg sublingual 0.4 mg sublingual Q5M PRN Chest 05/11/19 11/19/22 tablet Pain tamoxifen 20 mg tablet 20 mg PO DAILY 05/11/19 11/19/22 bupropion HCl 150 mg 24 hr tablet, 300 mg PO QAM 08/28/21 11/19/22 extended release fluticasone 100 mcg-salmeterol 50 1 inh inhalation Q12H 08/28/21 11/20/22 mcg/dose blistr powdr for inhalation (Advair Diskus) coenzyme Q10 200 mg capsule (Co 200 mg PO DAILY 07/21/22 11/19/22 Q-10) lisinopril 20 mg tablet 20 mg PO DAILY 07/21/22 11/19/22 magnesium 250 mg tablet 250 mg PO BID 07/21/22 11/20/22 memantine 5 mg tablet 5 mg PO BID 07/21/22 11/19/22 multivitamin 1 tablet PO DAILY 07/21/22 11/19/22 omega 6-pbe-wda-fish oil 1,000 mg 1 cap PO DAILY 07/21/22 11/19/22 (120 mg-180 mg) capsule (Fish Oil) propylene glycol 0.6 % eye drops 1 drp EACH EYE DAILY 07/21/22 11/19/22 (Systane Balance) calcium carbonate 600 mg-vitamin 1 tablet PO DAILY 11/19/22 11/19/22 D3 10 mcg (400 unit) tablet (Calcium 600 + D(3)) fluticasone propionate 50 2 spray intranasal QAM 11/20/22 11/20/22 mcg/actuation nasal spray,suspension <Shalini Morel PA-C - Last Filed: 12/05/22 16:38> Allergies/Adverse Reactions: Allergies Allergy/AdvReac Type Severity Reaction Status Date / Time bacitracin Allergy Unknown Unknown Verified 11/19/22 19:30 fentanyl Allergy Unknown Vomiting Verified 11/19/22 19:30 grass pollen Allergy Unknown Unknown Verified 11/19/22 19:30 Iodinated Contrast Media Allergy Unknown Stopped Verified 11/19/22 19:30 Breathing meperidine Allergy Unknown Unknown Verified 11/19/22 19:30 mold Allergy Unknown Unknown Verified 11/19/22 19:30 morphine Allergy Unknown Unknown Verified 11/19/22 19:30 neomycin Allergy Unknown RASH Verified 11/19/22 19:30 Opioids-Meperidine and Allergy Unknown VOMITING Verified 11/19/22 19:30 Related polymyxin B Allergy Unknown Unknown Verified 11/19/22 19:30 propoxyphene Allergy Unknown Unknown Verified 11/19/22 19:30 C
[2022-12-05 12:01] LABS: Basophils Absolute Auto 0.1 K/mm3 (0.0-0.1); Basophils Percent Auto 0.7 % (0.2-1.2); Eosinophils Absolute Auto 0.1 K/mm3 (0-0.3); Eosinophils Percent Auto 0.6 % (0-4.4); Hematocrit 30.8 % (37.0-47.0); Immature Granulocyte Absolute 0.03 K/mm3 (0.00-0.031); Immature Granulocyte Percent A 0.3 % (0-0.5); Lymphocytes Absolute Auto 1.06 K/mm3 (0.9-3.2); Lymphocytes Percent Auto 9.5 % (18.3-44.2); Mean Corpuscular HGB Conc 32.5 g/dl (32-36); Mean Corpuscular Hemoglobin 30.6 pg (26-34); Mean Corpuscular Volume 94.2 fl (80-100); Mean Platelet Volume 8.9 fl (7.4-10.4); Monocytes Absolute Auto 1.2 K/mm3 (0.1-0.6); Monocytes Percent Auto 11.1 % (2.6-8.5); Neutrophils Absolute Auto 8.7 K/mm3 (1.3-6.7); Neutrophils Percent Auto 77.8 % (45.5-73.1); Platelet Count Result 362 k/mm3 (150-375); Red Blood Count 3.27 M/mm3 (4.2-5.4); Red Cell Distribution Width 13.9 % (11.5-14.5); White Blood Count 11.2 K/mm3 (4.5-10.0)
[2022-12-05 12:12] LABS: Appearance Urine Clear (Clear); Bilirubin Urine Negative (Negative); Blood Urine Negative (Negative); Color Urine Yellow (Yellow); Glucose Urine UA Negative (Negative); Ketones Urine 1+ mg/dL (Negative); Leukocyte Esterase Ur Negative LEU/UL (Negative); Nitrate Urine Negative (Negative); Protein Urine Negative (Negative); Specific Grav Ur 1.014 (1.001-1.035); Urobilinogen Urine 0.2 mg/dL (<2.0); pH Urine 5.5 (5.0-9.0)
[2022-12-05 12:14] LABS: Add Urine Microscopic? NO
[2022-12-05 12:14] LABS: Alanine Aminotransferase 35 U/L (6-35); Albumin Level 3.8 g/dL (3.5-5.1); Alkaline Phosphatase 38 U/L (38-126); Anion Gap 4 mmol/L (8-16); Aspartate Amino Transferase 40 U/L (14-36); Bilirubin,Total 0.6 mg/dL (0.2-1.3); Blood Urea Nitrogen 20 mg/dL (7-17); Calcium 8.7 mg/dL (8.4-10.2); Carbon Dioxide 24 mmol/L (22-30); Chloride 100 mmol/L (98-107); Estimated Glomerular Filt Rate 42; Glucose 108 mg/dL (65-110); Potassium 4.3 mmol/L (3.4-5.0); Sodium 128 mmol/L (137-145)
[2022-12-05] MEDS: SODIUM CHLORIDE 0.9% IV 1,000 ML 999 ML IV CONT (12:46)
[2022-12-05 16:44] LABS: Anion Gap 3 mmol/L (8-16); Blood Urea Nitrogen 18 mg/dL (7-17); Calcium 8.4 mg/dL (8.4-10.2); Carbon Dioxide 24 mmol/L (22-30); Chloride 104 mmol/L (98-107); Estimated Glomerular Filt Rate 52; Glucose 100 mg/dL (65-110); Potassium 4.5 mmol/L (3.4-5.0); Sodium 131 mmol/L (137-145)
--- NOTE | 2022-12-05 17:55 | PM.IMHP ---
H&P: HPI History of Present Illness Date/Time: 12/05/22 16:30 Chief Complaint: Fall. Narrative: This is a pleasant 87-year-old female with history of dementia, hypertension, asthma, anxiety, and breast cancer who presented to the emergency department via EMS from [facility] for evaluation after a witnessed fall. The patient provides the following history however she is a bit forgetful and some of the following is supplemented via a review of her EMR. She was admitted to the hospital 2 weeks ago with acute kidney injury after presenting with confusion and difficulties walking. With hydration her renal function improved and she was up and ambulating without issue. She was seen in the ED several days after discharge for evaluation after a ground level fall where imaging of her head and hip/pelvis were negative. She was able to be discharged back to the facility and it sounds as though she has had several falls since that time. The patient believe her falls are due to a spinning sensation that she has been feeling with standing and looking down. Today however she slid out of her chair at the dining room table after falling asleep. With further questioning she does mention that she falls asleep easily, sometimes while reading or after eating. She has no known history of sleep apnea but was told that her oxygen levels drop at nighttime and she is supposed to be started on oxygen while sleeping. She has some mild discomfort of her right hand from a fall the other day but has no other complaints at the time my evaluation. She denies headache, visual changes, facial droop, difficulties speaking and swallowing, focal weakness, paresthesias, chest and pleuritic pain, shortness a breath, nausea, vomiting, diarrhea, and dysuria. She was afebrile on arrival to the emergency department with stable vital signs. Labs were significant for a WBC count of 11.2, stable hemoglobin/hematocrit, sodium 128, BUN 20, creatinine 1.20. UA was unremarkable aside from 1+ ketones. CT of the head and neck did not show any acute findings. Right hand and left knee x-rays did not show any acute findings. She received a L of normal saline in the ED and she is being admitted for further treatment evaluation of hyponatremia and frequent falls. Review of Systems Review of Systems: Twelve systems were reviewed. She denies fever, chills, and sweats. No recent cold or flu symptoms. Denies dysuria. No nausea, vomiting, or diarrhea. She has chronic lower extremity edema which she states is unchanged. Except as documented, all other systems were reviewed and are negative. [facility] Past Medical History Medical History (Updated 12/05/22 @ 20:13 by Akiko Bonds PA-C) Anxiety Asthma Dementia Gastroesophageal reflux disease History of left breast cancer History of shingles Hyperlipidemia Hypertension Peripheral neuropathy Pneumonia Prinzmetal's angina Seizures Surgical History Surgical History (Updated 12/05/22 @ 20:08 by Akiko Bonds PA-C) History of appendectomy (1950) History of bilateral cataract extraction History of cardiac catheterization History of conization of cervix History of hysterectomy (1977) History of lumpectomy of left breast History of removal of pigmented skin lesion History of tonsillectomy History of wisdom tooth extraction Family History Family History Sibling Family history of allergic disorder Family history of malignant neoplasm Family history of diabetes mellitus in first degree relative Diabetes mellitus Mother Breast cancer Father Cerebrovascular accident Grandparent Diabetes mellitus Son Hodgkins disease Social History Social History (Updated 12/05/22 @ 20:09 by Akiko Bonds PA-C) Social History: Surrogate medical decision maker: Domenic Julio, malissa. Code status: Full code. Smoking status: Never smoker Alcohol intake: current Juan
--- NOTE | 2022-12-05 18:13 | ADMGEN ---
This patient, Marina Bowling, was admitted to [facility] Surg Room 305-01. Patient/family oriented to hospital policies and general routines including ID bracelet, bed and alarms, visiting hours, pain management, procedures, bathroom and other care routines, personal items, smoking policy, room service/diet, and visiting hours. Information on how to activate the Rapid Response Team has been discussed. Patient/Family are encouraged to report perceived risks to care and to ask questions if they do not understand what they are told or what they should do.
[2022-12-05 20:41] LABS: Creatinine Urine 111.1 mg/dL; Sodium Urine Random 25 meq/L
[2022-12-05] MEDS: ACETAMINOPHEN 325 MG TABLET 650 MG PO (22:56)
[2022-12-05 23:23] LABS: Urea Random Urine 305 MG/DL
[2022-12-06] VITALS (12 sets, daily range): BP systolic 109–152; BP diastolic 40–87; PULSE 51–102; RESP 14–22; TEMP 36.4–36.8; O2SAT 94–98; BMI 27.3
[2022-12-06 06:36] LABS: Hematocrit 35.7 % (37.0-47.0); Hemoglobin 10.9 g/dL (12.0-15.0); Mean Corpuscular HGB Conc 30.5 g/dl (32-36); Mean Corpuscular Hemoglobin 30.5 pg (26-34); Mean Platelet Volume 9.5 fl (7.4-10.4); Platelet Count Result 330 k/mm3 (150-375); Red Blood Count 3.57 M/mm3 (4.2-5.4); Red Cell Distribution Width 13.8 % (11.5-14.5); White Blood Count 7.6 K/mm3 (4.5-10.0)
--- NOTE | 2022-12-06 10:01 | PCOTNOTE ---
Attempted to see pt. for occupational therapy evaluation. Pt. not present in room at this time. Nursing aware. Following.
--- NOTE | 2022-12-06 11:27 | PM.IMPN ---
Progress Note: A&P Assessment and Plan (1) Hyponatremia: Code(s): E87.1 - Hypo-osmolality and hyponatremia Status: Acute Assessment and Plan: Improving on IVF (2) Frequent falls: Code(s): R29.6 - Repeated falls Status: Acute Assessment and Plan: PT/OT pending (3) Vertigo: Code(s): R42 - Dizziness and giddiness Status: Acute (4) Hypersomnolence: Code(s): G47.10 - Hypersomnia, unspecified Status: Acute Assessment and Plan: ApneaLink (5) Hypertension: Qualifiers: Hypertension type: unspecified Qualified Code(s): I10 - Essential (primary) hypertension Code(s): I10 - Essential (primary) hypertension Status: Acute Assessment and Plan: Blood pressure reviewed 12/06 (6) Dementia: Qualifiers: Dementia behavioral or psychological symptom: unspecified whether behavioral, psychotic, or mood disturbance or anxiety Dementia severity: unspecified severity Dementia type: unspecified type Qualified Code(s): F03.90 - Unspecified dementia, unspecified severity, without behavioral disturbance, psychotic disturbance, mood disturbance, and anxiety Code(s): F03.90 - Unspecified dementia, unspecified severity, without behavioral disturbance, psychotic disturbance, mood disturbance, and anxiety Status: Acute Assessment and Plan: Monitor, stable (7) Asthma: Qualifiers: Asthma complication type: unspecified Asthma persistence: unspecified Asthma severity: unspecified severity Qualified Code(s): J45.909 - Unspecified asthma, uncomplicated Code(s): J45.909 - Unspecified asthma, uncomplicated Status: Acute Assessment and Plan: Does not appear to be in exacerbation Plan DVT prophylaxis with SCDs GI prophylaxis not indicated Code status full code Subjective Date/time seen: 12/06/22 11:27 Interval history: 87-year-old female with history of dementia, hypertension and breast cancer among other comorbidities is presenting from assisted living facility after having a witnessed fall. No overnight events noted. No chest pain or shortness of breath. No nausea, vomiting or diarrhea. No fevers or chills. Review of Systems Review of Systems: ROS unobtainable: Yes unobtainable due to mental status Exam Narrative: General: No acute distress, alert and oriented per baseline HEENT: Atraumatic, normocephalic, mucous membranes moist CV: Regular rate and rhythm, S1, S2 Lungs: Clear to auscultation bilaterally, no rales or crackles noted, no wheezes, good air entry Abdomen: Soft, nontender, nondistended Extremities: Normal to inspection Skin: No rashes noted, no lesions or wounds seen Psych: Euthymic, normal affect Objective Data Vital Signs Vital Signs: Vital Signs - 24 hr 12/05/22 12:02 12/05/22 13:07 12/05/22 14:00 Temperature 97.3 F L Pulse Rate 86 79 80 Respiratory Rate 20 15 16 Blood Pressure 148/75 H 136/74 142/68 H Pulse Oximetry 99 Oxygen Delivery 12/05/22 14:09 12/05/22 14:26 12/05/22 14:31 Temperature Pulse Rate 92 86 89 Respiratory Rate 19 24 H 17 Blood Pressure 119/62 155/76 H 130/89 Pulse Oximetry Oxygen Delivery 12/05/22 15:15 12/05/22 16:00 12/05/22 14:36 Temperature 97.8 F 97.2 F L Pulse Rate 79 90 Respiratory Rate 18 12 Blood Pressure 128/86 134/99 H Pulse Oximetry 97 100 Oxygen Delivery Room Air 12/05/22 20:48 12/05/22 22:28 12/05/22 20:35 Temperature 99.1 F Pulse Rate 80 Respiratory Rate 16 Blood Pressure 132/66 Pulse Oximetry 99 94 Oxygen Delivery Room Air Room Air 12/06/22 00:00 12/06/22 04:00 12/06/22 06:00 Temperature 97.5 F L Pulse Rate 89 74 70 Respiratory Rate 16 Blood Pressure 152/87 H Pulse Oximetry 94 Oxygen Delivery 12/06/22 09:22 12/06/22 08:00 Temperature Pulse Rate 70 Respiratory Rate Blood Pressure
[2022-12-06 11:59] LABS: Anion Gap 6 mmol/L (8-16); Blood Urea Nitrogen 14 mg/dL (7-17); Calcium 8.5 mg/dL (8.4-10.2); Carbon Dioxide 26 mmol/L (22-30); Chloride 101 mmol/L (98-107); Estimated CRCL calculation 34 ml/min; Estimated Glomerular Filt Rate 59; Glucose 126 mg/dL (65-110); Magnesium 2.6 mg/dL (1.6-2.3); Potassium 4.3 mmol/L (3.4-5.0); Sodium 133 mmol/L (137-145)
[2022-12-07] VITALS: PULSE 82
[2022-12-07 04:00] VITALS: PULSE 72
[2022-12-07 05:14] VITALS: BP 131/65; PULSE 72; RESP 17; TEMP 36.7; O2SAT 99
[2022-12-07 06:14] LABS: Basophils Absolute Auto 0.1 K/mm3 (0.0-0.1); Basophils Percent Auto 0.9 % (0.2-1.2); Eosinophils Absolute Auto 0.2 K/mm3 (0-0.3); Immature Granulocyte Absolute 0.02 K/mm3 (0.00-0.031); Immature Granulocyte Percent A 0.2 % (0-0.5); Lymphocytes Absolute Auto 1.49 K/mm3 (0.9-3.2); Lymphocytes Percent Auto 17.4 % (18.3-44.2); Mean Corpuscular HGB Conc 32.3 g/dl (32-36); Mean Corpuscular Hemoglobin 30.7 pg (26-34); Mean Corpuscular Volume 95.1 fl (80-100); Monocytes Absolute Auto 1.1 K/mm3 (0.1-0.6); Monocytes Percent Auto 12.8 % (2.6-8.5); Neutrophils Absolute Auto 5.7 K/mm3 (1.3-6.7); Neutrophils Percent Auto 66.7 % (45.5-73.1); Platelet Count Result 404 k/mm3 (150-375); Red Blood Count 3.26 M/mm3 (4.2-5.4); Red Cell Distribution Width 13.8 % (11.5-14.5); White Blood Count 8.5 K/mm3 (4.5-10.0)
[2022-12-07 06:22] LABS: Potassium 4.5 mmol/L (3.4-5.0)
[2022-12-07 06:23] LABS: Alanine Aminotransferase 30 U/L (6-35); Albumin Level 3.3 g/dL (3.5-5.1); Alkaline Phosphatase 35 U/L (38-126); Anion Gap 5 mmol/L (8-16); Aspartate Amino Transferase 32 U/L (14-36); Bilirubin,Total 0.5 mg/dL (0.2-1.3); Blood Urea Nitrogen 14 mg/dL (7-17); Calcium 8.2 mg/dL (8.4-10.2); Carbon Dioxide 26 mmol/L (22-30); Chloride 104 mmol/L (98-107); Estimated CRCL calculation 31 ml/min; Estimated Glomerular Filt Rate 52; Glucose 96 mg/dL (65-110); Sodium 135 mmol/L (137-145)
[2022-12-07 08:00] VITALS: PULSE 69
--- NOTE | 2022-12-07 10:22 | PM.IMPN ---
Progress Note: A&P Assessment and Plan (1) Hyponatremia: Code(s): E87.1 - Hypo-osmolality and hyponatremia Status: Acute Assessment and Plan: resolved (2) Frequent falls: Code(s): R29.6 - Repeated falls Status: Acute Assessment and Plan: PT/OT stable for d/c (3) Vertigo: Code(s): R42 - Dizziness and giddiness Status: Acute (4) Hypersomnolence: Code(s): G47.10 - Hypersomnia, unspecified Status: Acute Assessment and Plan: ApneaLink (5) Hypertension: Qualifiers: Hypertension type: unspecified Qualified Code(s): I10 - Essential (primary) hypertension Code(s): I10 - Essential (primary) hypertension Status: Acute Assessment and Plan: Blood pressure reviewed 12/07 (6) Dementia: Qualifiers: Dementia behavioral or psychological symptom: unspecified whether behavioral, psychotic, or mood disturbance or anxiety Dementia severity: unspecified severity Dementia type: unspecified type Qualified Code(s): F03.90 - Unspecified dementia, unspecified severity, without behavioral disturbance, psychotic disturbance, mood disturbance, and anxiety Code(s): F03.90 - Unspecified dementia, unspecified severity, without behavioral disturbance, psychotic disturbance, mood disturbance, and anxiety Status: Acute Assessment and Plan: Monitor, stable (7) Asthma: Qualifiers: Asthma severity: unspecified severity Asthma persistence: unspecified Asthma complication type: unspecified Qualified Code(s): J45.909 - Unspecified asthma, uncomplicated Code(s): J45.909 - Unspecified asthma, uncomplicated Status: Acute Assessment and Plan: Does not appear to be in exacerbation Plan DVT prophylaxis with SCDs GI prophylaxis not indicated Code status full code Subjective Date/time seen: 12/07/22 10:22 Interval history: 87-year-old female with history of dementia, hypertension and breast cancer among other comorbidities is presenting from assisted living facility after having a witnessed fall. No overnight events noted. No chest pain or shortness of breath. No nausea, vomiting or diarrhea. No fevers or chills. Review of Systems Review of Systems: 12 point review of systems was assessed and was negative except as noted in the HPI Exam Narrative: General: No acute distress, alert and oriented per baseline HEENT: Atraumatic, normocephalic, mucous membranes moist CV: Regular rate and rhythm, S1, S2 Lungs: Clear to auscultation bilaterally, no rales or crackles noted, no wheezes, good air entry Abdomen: Soft, nontender, nondistended Extremities: Normal to inspection Skin: No rashes noted, no lesions or wounds seen Psych: Euthymic, normal affect Objective Data Vital Signs Vital Signs: Vital Signs - 24 hr 12/06/22 12:00 12/06/22 14:00 12/06/22 16:00 Temperature 97.7 F Pulse Rate 88 92 102 H Respiratory Rate 14 Blood Pressure 122/53 L Pulse Oximetry 97 Oxygen Delivery 12/06/22 16:51 12/06/22 20:00 12/06/22 20:06 Temperature 97.5 F L 98.3 F 98.3 F Pulse Rate 51 L 73 96 Respiratory Rate 14 17 20 Blood Pressure 113/48 L 144/72 H 124/64 Pulse Oximetry 96 98 96 Oxygen Delivery 12/06/22 20:07 12/06/22 21:16 12/06/22 20:00 Temperature 98.3 F 98.3 F Pulse Rate 93 73 Respiratory Rate 22 H 17 Blood Pressure 109/40 L 144/72 H Pulse Oximetry 97 98 Oxygen Delivery Room Air 12/07/22 05:14 12/06/22 20:00 12/07/22 00:00 Temperature 98.1 F Pulse Rate 72 86 82 Respiratory Rate 17 Blood Pressure 131/65 Pulse Oximetry 99 Oxygen Delivery 12/07/22 04:00 Temperature Pulse Rate 72 Respiratory Rate Blood Pressure Pulse Oximetry Oxygen Delivery Intake/Output Intake/Output: Intake & Output 12/04/22 12/05/22 12/06/22 12/07/22 23:59 23:59 23:59 23:59 Intake Total 1050 6
--- NOTE | 2022-12-07 10:25 | PM.DS ---
DS: Admitting Diagnosis Discharge Date 12/07/22 Admitting Diagnosis fall DS: Discharge Diagnosis Discharge Diagnosis (1) Hyponatremia: Code(s): E87.1 - Hypo-osmolality and hyponatremia Status: Acute Assessment and Plan: resolved (2) Frequent falls: Code(s): R29.6 - Repeated falls Status: Acute Assessment and Plan: PT/OT stable for d/c (3) Vertigo: Code(s): R42 - Dizziness and giddiness Status: Acute (4) Hypersomnolence: Code(s): G47.10 - Hypersomnia, unspecified Status: Acute Assessment and Plan: ApneaLink (5) Hypertension: Qualifiers: Hypertension type: unspecified Qualified Code(s): I10 - Essential (primary) hypertension Code(s): I10 - Essential (primary) hypertension Status: Acute Assessment and Plan: Blood pressure reviewed 12/07 (6) Dementia: Qualifiers: Dementia behavioral or psychological symptom: unspecified whether behavioral, psychotic, or mood disturbance or anxiety Dementia severity: unspecified severity Dementia type: unspecified type Qualified Code(s): F03.90 - Unspecified dementia, unspecified severity, without behavioral disturbance, psychotic disturbance, mood disturbance, and anxiety Code(s): F03.90 - Unspecified dementia, unspecified severity, without behavioral disturbance, psychotic disturbance, mood disturbance, and anxiety Status: Acute Assessment and Plan: Monitor, stable (7) Asthma: Qualifiers: Asthma complication type: unspecified Asthma persistence: unspecified Asthma severity: unspecified severity Qualified Code(s): J45.909 - Unspecified asthma, uncomplicated Code(s): J45.909 - Unspecified asthma, uncomplicated Status: Acute Assessment and Plan: Does not appear to be in exacerbation Plan DVT prophylaxis with SCDs GI prophylaxis not indicated Code status full code DS: Summary Hospital Course Hospital Course: 87-year-old female with history of dementia, hypertension and breast cancer among other comorbidities is presenting from assisted living facility after having a witnessed fall. Hyponatremia noted, resolved with IV fluids. PT/OT eval completed, patient deemed stable for discharge. Please see above and med rec for details. Time Spent with Patient Time attestation: Total time spent providing and/or coordinating discharge services: Exam Narrative: General: No acute distress, alert and oriented per baseline HEENT: Atraumatic, normocephalic, mucous membranes moist CV: Regular rate and rhythm, S1, S2 Lungs: Clear to auscultation bilaterally, no rales or crackles noted, no wheezes, good air entry Abdomen: Soft, nontender, nondistended Extremities: Normal to inspection Skin: No rashes noted, no lesions or wounds seen Psych: Euthymic, normal affect DS: Data Data Completed and Pending Labs on day of discharge: Labs from last 24 hours 12/07/22 12/06/22 05:22 09:53 WBC 8.5 RBC 3.26 L Hgb 10.0 L Hct 31.0 L MCV 95.1 MCH 30.7 MCHC 32.3 RDW 13.8 Plt Count 404 H MPV 9.0 Immature Gran % (Auto) 0.2 Neut % (Auto) 66.7 Lymph % (Auto) 17.4 L Braxton % (Auto) 12.8 H Eos % (Auto) 2.0 Baso % (Auto) 0.9 Lymph # (Auto) 1.49 Braxton # (Auto) 1.1 H Eos # (Auto) 0.2 Baso # (Auto) 0.1 Abs Immat Gran (auto) 0.02 Absolute Neuts (auto) 5.7 Absolute Nucleated RBC 0.0 Nucleated RBC % 0.0 Sodium 135 L 133 L Potassium 4.5 4.3 Chloride 104 101 Carbon Dioxide 26 26 Anion Gap 5 L 6 L BUN 14 14 Creatinine 1.00 0.90 Estim Creat Clear Calc 31 34 Estimated GFR 52 L 59 Glucose 96 126 H Calcium 8.2 L 8.5 Magnesium 2.6 H Total Bilirubin 0.5 AST 32 ALT 30 Alkaline Phosphatase 35 L Total Protein 6.0 L Albumin 3.3 L Discharge Plan Discharge Attending physician on discharge: Mary Keene
[2022-12-08 13:23] LABS: Osmolality, Urine 420 mOsm/kg (50-1200)
== END 2022-12-07 14:20 ==
LOC: ANHED 14:20 → ANH3MEDSUR 16:38
PROVIDERS: Physician Assistant; Admitting Provider Chiropractor; Emergency Provider Physician Assistant; PCP Nurse Practitioner Family; Visit Provider Student in an Organized Health Care Education/Training Program
DX: E87.1 Hypo-osmolality and hyponatremia (principal); S09.90XA Unspecified injury of head, initial encounter; G47.10 Hypersomnia, unspecified; W07.XXXA Fall from chair, initial encounter; F03.90 Unspecified dementia, unspecified severity, without behavioral disturbance, psychotic disturbance, mood disturbance, and anxiety; R29.6 Repeated falls; I10 Essential (primary) hypertension; I65.23 Occlusion and stenosis of bilateral carotid arteries; R60.0 Localized edema; R42 Dizziness and giddiness; E78.5 Hyperlipidemia, unspecified; J45.909 Unspecified asthma, uncomplicated; F41.9 Anxiety disorder, unspecified; K21.9 Gastro-esophageal reflux disease without esophagitis; G62.9 Polyneuropathy, unspecified; I20.1 Angina pectoris with documented spasm; Z85.3 Personal history of malignant neoplasm of breast; Z79.51 Long term (current) use of inhaled steroids; Z79.82 Long term (current) use of aspirin; Z79.810 Long term (current) use of selective estrogen receptor modulators (SERMs)
CPT/HCPCS: 36415; 70450; 70551; 72125; 73130; 73564; 80048; 80053; 81003; 82570; 83735; 83930; 83935; 84300; 84443; 84540; 85025; 85027; 93005; 93880; 93970; 94762; 97161; 97165; 99285; A9270; G0378; J7030

== ENCOUNTER 2022-12-12 04:15 | Emergency (ER) | payer MEDICARE, SELFPAY ==
[2022-12-12] VITALS (27 sets, daily range): BP systolic 124–158; BP diastolic 58–115; PULSE 70–91; RESP 14–25; TEMP 36.7; O2SAT 98–100
--- NOTE | ~2022-12-12 | CT_ITS ---
EXAMINATION: CT cervical spine wo con DATE: 12/12/2022 05:36 INDICATION: Head injury. TECHNIQUE: Computed tomography (CT) of the cervical spine was performed without intravenous contrast. Automated exposure control and iterative reconstruction technique were employed. The dose-length pro duct was 116.94 mGy-cm. COMPARISON: CT cervical spine 12/05/2022 FINDINGS: There is mild scarring at the lung apices. There is 7 degrees levocurvature of cervicothora cic spine. There is 2 mm anterolisthesis of C4 on C5, C6 on C7, and C7 on T1. Vertebral body heights are normal. There is mildly decreased disc height at C2-C3, C3-C4, and C4-C5, severely decreased disc height at C5-C6 and C6-C7, and mildly decreased disc height at C7-T1. The following disc levels are specifically discussed: C2-C3: There is no uncovertebral joint osteoarthritis. There is severe bilateral facet joint osteoart hritis. There is no neural foraminal stenosis. There is no central canal stenosis. C3-C4: There is moderate bilateral uncovertebral joint osteoarthritis. There is severe bilateral face t joint osteoarthritis. There is mild bilateral neural foraminal stenosis. There is no central canal stenosis. C4-C5: There is moderate right and severe left uncovertebral joint osteoarthritis. There is severe bi lateral facet joint osteoarthritis. There is mild right and moderate left neural foraminal stenosis. There is no central canal stenosis. C5-C6: There is severe bilateral uncovertebral joint osteoarthritis. There is severe bilateral facet joint osteoarthritis. There is moderate right and mild left neural foraminal stenosis. There is mild central canal stenosis. C6-C7: There is severe bilateral uncovertebral joint osteoarthritis. There is severe bilateral facet joint osteoarthritis. There is mild bilateral neural foraminal stenosis. There is mild central canal stenosis. C7-T1: There is mild bilateral uncovertebral joint osteoarthritis. There is severe bilateral facet toney int osteoarthritis. There is moderate right and mild left neural foraminal stenosis. There is mild ce ntral canal stenosis. IMPRESSION: 1. No fracture. 2. Severe cervical spondylosis. Reviewed, dictated and finalized at location E.
--- NOTE | ~2022-12-12 | XR_ITS ---
EXAMINATION: XR chest 1V portable DATE: 12/12/2022 04:54 INDICATION: Weakness. TECHNIQUE: A single frontal view of the chest was obtained on 2 radiographs. COMPARISON: Chest one view 11/19/2022 FINDINGS: There is no pneumonia, pleural effusion, or pneumothorax. Cardiomegaly is noted. There are old healed left rib fractures. IMPRESSION: 1. Cardiomegaly. Reviewed, dictated and finalized at location A. IMPRESSION: 1. Cardiomegaly.
--- NOTE | ~2022-12-12 | CT_ITS ---
EXAMINATION: CT brain wo con DATE: 12/12/2022 05:31 INDICATION: Dizziness. Head injury. TECHNIQUE: Computed tomography (CT) of the head was performed without intravenous contrast. The mA wa s adjusted according to patient size. Iterative reconstruction technique was employed. The dose-lengt h product was 605.33 mGy-cm. COMPARISON: Head CT 12/05/2022 FINDINGS: There is diffuse brain volume loss. There is no intracranial hemorrhage, acute infarction, or abnormal intracranial mass lesion. The ventricles are normal in size. There is mild mucosal thicke mirna in the paranasal sinuses. The mastoid air cells are normal. There are likely changes of ocular l ens replacement surgeries. There is a superior scalp laceration. IMPRESSION: 1. Normal aging brain. Reviewed, dictated and finalized at location E. IMPRESSION: 1. Normal aging brain.
--- NOTE | 2022-12-12 04:24 | ECG_ITS ---
Measurements Intervals [place] Rate: 81 P: 44 [place]: 163 QRS: 0 QRSD: 73 T: 33 QT: 358 QTc: 417 Interpretive Statements SINUS RHYTHM POOR R-WAVE PROGRESSION BORDERLINE ECG COMPARED TO ECG 12/05/2022 10:50:30 NO SIGNIFICANT CHANGES Electronically Signed On 12-12-2022 7:17:30 CDT by Sourav Wilson M.D.
[2022-12-12 04:51] LABS: Basophils Absolute Auto 0.1 K/mm3 (0.0-0.1); Basophils Percent Auto 0.9 % (0.2-1.2); Eosinophils Absolute Auto 0.1 K/mm3 (0-0.3); Hematocrit 32.1 % (37.0-47.0); Hemoglobin 10.1 g/dL (12.0-15.0); Immature Granulocyte Absolute 0.04 K/mm3 (0.00-0.031); Immature Granulocyte Percent A 0.4 % (0-0.5); Lymphocytes Percent Auto 12.7 % (18.3-44.2); Mean Corpuscular HGB Conc 31.5 g/dl (32-36); Mean Corpuscular Hemoglobin 30.1 pg (26-34); Mean Corpuscular Volume 95.8 fl (80-100); Mean Platelet Volume 8.7 fl (7.4-10.4); Monocytes Percent Auto 9.7 % (2.6-8.5); Neutrophils Absolute Auto 7.7 K/mm3 (1.3-6.7); Neutrophils Percent Auto 75.3 % (45.5-73.1); Platelet Count Result 447 k/mm3 (150-375); Red Blood Count 3.35 M/mm3 (4.2-5.4); Red Cell Distribution Width 13.9 % (11.5-14.5); White Blood Count 10.2 K/mm3 (4.5-10.0)
[2022-12-12 05:01] LABS: Alanine Aminotransferase 40 U/L (6-35); Albumin Level 3.8 g/dL (3.5-5.1); Alkaline Phosphatase 50 U/L (38-126); Anion Gap 3 mmol/L (8-16); Aspartate Amino Transferase 40 U/L (14-36); Bilirubin,Total 0.6 mg/dL (0.2-1.3); Blood Urea Nitrogen 24 mg/dL (7-17); Calcium 8.7 mg/dL (8.4-10.2); Carbon Dioxide 25 mmol/L (22-30); Chloride 103 mmol/L (98-107); Estimated CRCL calculation 24 ml/min; Estimated Glomerular Filt Rate 39; Glucose 103 mg/dL (65-110); Lactic Acid Reflex 1.1 mmol/L (0.7-2.0); Magnesium 2.6 mg/dL (1.6-2.3); Potassium 4.3 mmol/L (3.4-5.0); Sodium 131 mmol/L (137-145)
[2022-12-12 05:14] LABS: NT Pro B Type Natriuretic Pept 2490 pg/mL (19.9-100); Troponin I 0.029 ng/mL (0.000-0.034)
[2022-12-12 05:34] LABS: Appearance Urine Clear (Clear); Bacteria Urine None Seen /hpf; Bilirubin Urine Negative (Negative); Blood Urine Negative (Negative); Color Urine Yellow (Yellow); Glucose Urine UA Negative (Negative); Ketones Urine 1+ mg/dL (Negative); Leukocyte Esterase Ur Negative LEU/UL (Negative); Need Manual Microscopic Reviewed; Nitrate Urine Negative (Negative); Non Pathogenic Casts 0-2; Protein Urine 1+ mg/dL (Negative); Specific Grav Ur 1.013 (1.001-1.035); Squamous Epithelial Cell Urine None seen /hpf (Few); Urobilinogen Urine 0.2 mg/dL (<2.0); WBC Urine 0-5 /hpf; pH Urine 6.5 (5.0-9.0)
[2022-12-12 05:35] LABS: Add Urine Microscopic? YES
--- NOTE | 2022-12-12 06:50 | ED.GENADULT ---
HPI - General Adult General Chief complaint: Fall Stated complaint: fall Time Seen by Provider: 12/12/22 04:18 History of Present Illness HPI narrative: Patient 87-year-old female who presents emergency department with chief complaint of head injury. Patient is from a local memory care unit and fell striking her head with a scalp laceration. The patient was found sitting on the floor and said that she had some episodes of feeling dizzy. Patient denies chest pain denies any other injuries. Related Data Home Medications Medication Instructions Recorded Confirmed albuterol sulfate 90 mcg/actuation 2 puff inhalation DAILY 05/11/19 12/06/22 aerosol inhaler (ProAir HFA) aspirin 81 mg chewable tablet 81 mg PO DAILY 05/11/19 12/06/22 cetirizine 10 mg capsule 10 mg PO 1200 05/11/19 12/06/22 epinephrine 0.3 mg/0.3 mL 0.3 mg IM PRN PRN Allergic Symptoms 05/11/19 12/06/22 injection, auto-injector (EpiPen) isosorbide mononitrate 60 mg 60 mg PO DAILY 05/11/19 12/06/22 tablet,extended release 24 hr montelukast 10 mg tablet 10 mg PO 1200 05/11/19 12/06/22 nitroglycerin 0.4 mg sublingual 0.4 mg sublingual Q5M PRN Chest 05/11/19 12/06/22 tablet Pain tamoxifen 20 mg tablet 20 mg PO DAILY 05/11/19 12/06/22 bupropion HCl 150 mg 24 hr tablet, 300 mg PO QAM 08/28/21 12/06/22 extended release coenzyme Q10 200 mg capsule (Co 200 mg PO 119907/21/22 12/06/22 Q-10) magnesium 250 mg tablet 250 mg PO BID 07/21/22 12/06/22 memantine 5 mg tablet 5 mg PO BID 07/21/22 12/06/22 multivitamin 1 tablet PO 119907/21/22 12/06/22 omega 1-jsm-eqq-fish oil 1,000 mg 1 cap PO 1200 07/21/22 12/06/22 (120 mg-180 mg) capsule (Fish Oil) propylene glycol 0.6 % eye drops 1 drp EACH EYE QID 07/21/22 12/06/22 (Systane Balance) calcium carbonate 600 mg-vitamin 1 tablet PO DAILY 11/19/22 12/06/22 D3 10 mcg (400 unit) tablet (Calcium 600 + D(3)) fluticasone propionate 50 2 spray intranasal QAM 11/20/22 12/06/22 mcg/actuation nasal spray,suspension Allergies Allergy/AdvReac Type Severity Reaction Status Date / Time bacitracin Allergy Unknown Unknown Verified 11/19/22 19:30 fentanyl Allergy Unknown Vomiting Verified 11/19/22 19:30 grass pollen Allergy Unknown Unknown Verified 11/19/22 19:30 Iodinated Contrast Media Allergy Unknown Stopped Verified 11/19/22 19:30 Breathing meperidine Allergy Unknown Unknown Verified 11/19/22 19:30 mold Allergy Unknown Unknown Verified 11/19/22 19:30 morphine Allergy Unknown Unknown Verified 11/19/22 19:30 neomycin Allergy Unknown RASH Verified 11/19/22 19:30 Opioids-Meperidine and Allergy Unknown VOMITING Verified 11/19/22 19:30 Related polymyxin B Allergy Unknown Unknown Verified 11/19/22 19:30 propoxyphene Allergy Unknown Unknown Verified 11/19/22 19:30 Contrast Media Allergy Severe Anaphylactic Uncoded 11/19/22 19:30 Shock ENVIRONMENTAL Allergy Unknown Unknown Uncoded 11/19/22 19:30 Review of Systems Review of Systems: A 10 system review of systems was completed on the patient and is negative except for what is stated in the HPI. Nursing and ancillary documentation was reviewed. [facility] Past Medical History Medical History Anxiety Asthma Dementia Gastroesophageal reflux disease History of left breast cancer History of shingles Hyperlipidemia Hypertension Peripheral neuropathy Pneumonia Prinzmetal's angina Seizures Surgical History Surgical History History of appendectomy (1950) History of bilateral cataract extraction History of cardiac catheterization History of conization of cervix History of hysterectomy (1977) History of lumpectomy of left breast History of removal of pigmented skin lesion History of tonsillectomy History of wisdom tooth extraction Family History Family History Sib
[2022-12-12 08:45] LABS: Troponin I 0.032 ng/mL (0.000-0.034)
== END 2022-12-12 09:30 ==
PROVIDERS: Emergency Medicine; Emergency Provider Student in an Organized Health Care Education/Training Program; PCP Nurse Practitioner Family
DX: S01.01XA Laceration without foreign body of scalp, initial encounter (principal); W19.XXXA Unspecified fall, initial encounter; E78.5 Hyperlipidemia, unspecified; I10 Essential (primary) hypertension; K21.9 Gastro-esophageal reflux disease without esophagitis
CPT/HCPCS: 12001; 36415; 70450; 71045; 72125; 80053; 81001; 83605; 83735; 83880; 84484; 85025; 93005; 99284

== ENCOUNTER 2023-02-15 08:57 | Inpatient (IN) | payer MEDICARE, SELFPAY ==
[2023-02-15] VITALS (20 sets, daily range): BP systolic 131–173; BP diastolic 67–83; PULSE 67–83; RESP 15–25; TEMP 35.8–36.4; O2SAT 77–100; BMI 22.9
--- NOTE | ~2023-02-15 | XR_ITS ---
AP view of the pelvis and AP and lateral views of the bilateral hips Clinical history: Pain Findings: No acute fracture or dislocation is seen. Osseous alignment is anatomic. Bilateral hip and SI joint spaces are preserved. Soft tissues are unremarkable. Impression: No significant abnormality is seen. Reviewed, dictated and finalized at location . Impression: No significant abnormality is seen.
--- NOTE | ~2023-02-15 | CT_ITS ---
Non-contrast Head CT History: Altered mental status COMPARISON: 12/12/2022 Technique: Axial non-contrast imaging of the brain was performed. Dose reduction technique was used on this scan by utilizing automated exposure control and iterative reconstruction technique. The dose -length product (DLP) was 605.33 mGy-cm. Findings: There is no evidence of intracranial hemorrhage, mass lesion, or acute infarct. Brain par enchyma appears normal. The ventricles and subarachnoid spaces are dilated. The calvarium appears n ormal. The visualized paranasal sinuses and mastoid air cells are clear. Impression: No acute abnormality seen. Mild to moderate generalized atrophy. Reviewed, dictated and finalized at location . Impression: No acute abnormality seen. Mild to moderate generalized atrophy.
--- NOTE | ~2023-02-15 | US_ITS ---
EXAMINATION:US venous doppler LE BI INDICATION:Leg swelling TECHNIQUE: Multiple grayscale, color flow and Doppler images of the right and left lower extremity de ep venous systems were obtained and reviewed. COMPARISON:12/06/2022 FINDINGS: The common femoral, superficial femoral and popliteal veins demonstrate normal respiratory variation, augmentation and compressibility. Color flow is also seen within the posterior tibial, pe roneal, greater saphenous and profunda veins. IMPRESSION: 1: No lower extremity deep venous thrombosis. Reviewed, dictated and finalized at location L.
--- NOTE | ~2023-02-15 | XR_ITS ---
EXAMINATION: XR chest 1V portable DATE: 02/15/2023 10:11 INDICATION: Stupor. Transient alteration of awareness. TECHNIQUE: frontal view of the chest was obtained. COMPARISON: Chest radiograph dated 12/12/2022 FINDINGS: Opacity medial right upper lung zone likely artifact of the esophagus to result from some rightward r otation of the patient. Airspace opacities at the medial right lower lung zone and along the right josef ng base. Left lung remains clear. No pulmonary edema, pneumothorax or left pleural effusion. And poss ible very small right pleural effusion. Cardiomegaly. Mild to moderate thoracic spondylosis. IMPRESSION: 1. Opacities in the right lower lung zone which could represent atelectasis or pneumonia. 2. Possible small right pleural effusion. 3. Cardiomegaly. Reviewed, dictated and finalized at location A.
--- NOTE | 2023-02-15 09:13 | ECG_ITS ---
Measurements Intervals [place] Rate: 68 P: -17 [place]: 138 QRS: -3 QRSD: 77 T: 18 QT: 388 QTc: 414 Interpretive Statements SINUS RHYTHM POOR R-WAVE PROGRESSION COMPARED TO ECG 12/12/2022 04:32:09 NO SIGNIFICANT CHANGES Electronically Signed On 02-15-2023 19:54:42 CDT by Desiree Cardona M.D.
[2023-02-15 09:40] LABS: Basophils Absolute Auto 0.1 K/mm3 (0.0-0.1); Basophils Percent Auto 0.7 % (0.2-1.2); Eosinophils Percent Auto 0.5 % (0-4.4); Hematocrit 38.6 % (37.0-47.0); Hemoglobin 11.8 g/dL (12.0-15.0); Immature Granulocyte Absolute 0.02 K/mm3 (0.00-0.031); Immature Granulocyte Percent A 0.2 % (0-0.5); Lymphocytes Absolute Auto 1.47 K/mm3 (0.9-3.2); Lymphocytes Percent Auto 17.1 % (18.3-44.2); Mean Corpuscular HGB Conc 30.6 g/dl (32-36); Mean Corpuscular Hemoglobin 28.3 pg (26-34); Mean Corpuscular Volume 92.6 fl (80-100); Mean Platelet Volume 9.6 fl (7.4-10.4); Monocytes Absolute Auto 0.8 K/mm3 (0.1-0.6); Monocytes Percent Auto 9.3 % (2.6-8.5); Neutrophils Absolute Auto 6.2 K/mm3 (1.3-6.7); Neutrophils Percent Auto 72.2 % (45.5-73.1); Platelet Count Result 348 k/mm3 (150-375); Red Blood Count 4.17 M/mm3 (4.2-5.4); Red Cell Distribution Width 16.2 % (11.5-14.5); White Blood Count 8.6 K/mm3 (4.5-10.0)
[2023-02-15 09:47] LABS: Appearance Urine Cloudy (Clear); Bacteria Urine None Seen /hpf; Bilirubin Urine Negative (Negative); Blood Urine Trace (Negative); Color Urine Yellow (Yellow); Glucose Urine UA Negative (Negative); Ketones Urine 2+ mg/dL (Negative); Leukocyte Esterase Ur Trace LEU/UL (Negative); Nitrate Urine Negative (Negative); Non Pathogenic Casts 0-2; Protein Urine Negative (Negative); RBC Urine 0-2 /hpf (0-2); Specific Grav Ur 1.015 (1.001-1.035); Squamous Epithelial Cell Urine None seen /hpf (Few); Urobilinogen Urine 0.2 mg/dL (<2.0); WBC Urine 0-5 /hpf; pH Urine 6.5 (5.0-9.0)
[2023-02-15 09:50] LABS: Add Urine Microscopic? YES
[2023-02-15 09:52] LABS: Alanine Aminotransferase 31 U/L (6-35); Albumin Level 3.7 g/dL (3.5-5.1); Alkaline Phosphatase 62 U/L (38-126); Anion Gap 8 mmol/L (8-16); Aspartate Amino Transferase 38 U/L (14-36); Bilirubin,Total 0.6 mg/dL (0.2-1.3); Blood Urea Nitrogen 25 mg/dL (7-17); Calcium 8.6 mg/dL (8.4-10.2); Carbon Dioxide 24 mmol/L (22-30); Chloride 105 mmol/L (98-107); Estimated CRCL calculation 34 ml/min; Estimated Glomerular Filt Rate 59; Glucose 88 mg/dL (65-110); INR 1.1; Partial Thromboplastin Time 32.2 SECONDS (22.3-36.8); Potassium 4.2 mmol/L (3.4-5.0); Prothrombin Time 14.6 Seconds (11.1-14.7); Sodium 137 mmol/L (137-145)
--- NOTE | 2023-02-15 10:30 | ED.AMS ---
HPI - Altered Mental Status General Chief Complaint: Altered Mental Status <Toshia Spangler PA-C - Last Filed: 02/15/23 13:00> Stated Complaint: AMS, lethargic <Toshia Spangler PA-C - Last Filed: 02/15/23 13:00> Time Seen by Provider: 02/15/23 09:13 <Toshia Spangler PA-C - Last Filed: 02/15/23 13:00> Source: patient <Toshia Spangler PA-C - Last Filed: 02/15/23 13:00> Mode of arrival: EMS <Toshia Spangler PA-C - Last Filed: 02/15/23 13:00> Limitations: dementia <Toshia Spangler PA-C - Last Filed: 02/15/23 13:00> History of Present Illness HPI narrative: This is an 87-year-old female that presents to the emergency department for altered mental status from assisted living facility. They reported she seemed more lethargic than usual today. Patient at baseline is alert and oriented to person. She reports bilateral hip pain. Otherwise has no complaints. <Toshia Spangler PA-C - Last Filed: 02/15/23 13:00> Related Data Home Medications: Home Medications Medication Instructions Recorded Confirmed albuterol sulfate 90 mcg/actuation 2 puff inhalation DAILY 05/11/19 02/15/23 aerosol inhaler (ProAir HFA) aspirin 81 mg chewable tablet 81 mg PO DAILY 05/11/19 02/15/23 cetirizine 10 mg capsule 10 mg PO 1200 05/11/19 02/15/23 isosorbide mononitrate 60 mg 60 mg PO DAILY 05/11/19 02/15/23 tablet,extended release 24 hr montelukast 10 mg tablet 10 mg PO 1200 05/11/19 02/15/23 tamoxifen 20 mg tablet 20 mg PO DAILY 05/11/19 02/15/23 bupropion HCl 150 mg 24 hr tablet, 300 mg PO QAM 08/28/21 02/15/23 extended release coenzyme Q10 200 mg capsule (Co 200 mg PO 1200 07/21/22 02/15/23 Q-10) magnesium 250 mg tablet 250 mg PO BID 07/21/22 02/15/23 memantine 5 mg tablet 5 mg PO BID 07/21/22 02/15/23 multivitamin 1 tablet PO 1200 07/21/22 02/15/23 omega 7-wya-uin-fish oil 1,000 mg 1 cap PO 1200 07/21/22 02/15/23 (120 mg-180 mg) capsule (Fish Oil) calcium carbonate 600 mg-vitamin 1 tablet PO DAILY 11/19/22 02/15/23 D3 10 mcg (400 unit) tablet (Calcium 600 + D(3)) fluticasone propionate 50 2 spray intranasal QAM 11/20/22 02/15/23 mcg/actuation nasal spray,suspension furosemide 20 mg tablet (Lasix) 20 mg PO DAILY PRN weight gain, 02/15/23 02/15/23 edema <Toshia Spangler PA-C - Last Filed: 02/15/23 13:00> Allergies/Adverse Reactions: Allergies Allergy/AdvReac Type Severity Reaction Status Date / Time bacitracin Allergy Unknown Unknown Verified 02/15/23 09:16 grass pollen Allergy Unknown Unknown Verified 02/15/23 09:16 Iodinated Contrast Media Allergy Unknown Stopped Verified 02/15/23 09:16 Breathing meperidine Allergy Unknown Unknown Verified 02/15/23 09:16 mold Allergy Unknown Unknown Verified 02/15/23 09:16 morphine Allergy Unknown Unknown Verified 02/15/23 09:16 neomycin Allergy Unknown RASH Verified 02/15/23 09:16 polymyxin B Allergy Unknown Unknown Verified 02/15/23 09:16 propoxyphene Allergy Unknown Unknown Verified 11/19/22 19:30 fentanyl AdvReac Unknown Vomiting Verified 02/15/23 12:04 Opioids-Meperidine and AdvReac Unknown VOMITING Verified 02/15/23 12:04 Related Contrast Media Allergy Severe Anaphylactic Uncoded 11/19/22 19:30 Shock ENVIRONMENTAL Allergy Unknown Unknown Uncoded 11/19/22 19:30 <Toshia Spangler PA-C - Last Filed: 02/15/23 13:00> Review of Systems Review of Systems: ROS unobtainable: Yes unobtainable due to medical condition <Toshia Spangler PA-C - Last Filed: 02/15/23 13:00> [facility] Past Medical History Medical History: Medical History Anxiety Asthma Dementia Gastroesophageal reflux disease History of left breast cancer History of shingles Hyperlipidemia Hypertension Peripheral neuropathy Pneumonia Prinzmetal's angina Seizures <Toshia Spangler PA-C - Last Filed: 02/15/23 13:00> Surgical History Surgical History: Surgical History (
[2023-02-15 11:24] LABS: Influenza A QL RT-PCR Negative (Negative); Influenza B QL RT-PCR Negative (Negative); SARS-CoV-2 RNA PCR Negative (Negative)
[2023-02-15 11:29] LABS: NT Pro B Type Natriuretic Pept 830 pg/mL (19.9-100)
[2023-02-15] MEDS: AZITHROMYCIN 500 MG/NS 250 ML 500 MG/250 ML BAG 250 MG IVPB (11:47)
--- NOTE | 2023-02-15 11:54 | PC.NURSE ---
deandra from [facility] updated on patient's admission and diagnosis
--- NOTE | 2023-02-15 16:32 | ADMGEN ---
This patient, Marina Bowling, was admitted to [facility] Surg Room [id number]. Patient/family oriented to hospital policies and general routines including ID bracelet, bed and alarms, visiting hours, pain management, procedures, bathroom and other care routines, personal items, smoking policy, room service/diet, and visiting hours. Information on how to activate the Rapid Response Team has been discussed. Patient/Family are encouraged to report perceived risks to care and to ask questions if they do not understand what they are told or what they should do.
--- NOTE | 2023-02-15 17:09 | PM.IMHP ---
H&P: HPI History of Present Illness Date/Time: 02/15/23 17:09 Chief Complaint: Fatigue Narrative: 87-year-old female presents here with altered mental status and increased lethargy with past medical history of dementia, GERD, breast cancer, HTN, HLD, neuropathy, and seizures. Patient presents here from her assisted living facility after staff noticed that patient was more altered. She is alert and orientated to self at baseline. Report given to EMS from the facility was that she appeared more lethargic today. Patient reports feeling more tired as well. Only discomfort she can identify is her IV site near her hand. Otherwise she does not endorse any other discomfort or pain. She denies fever, body aches, or chills. She is currently back to baseline, alert and orientated to self. Appears in good spirits. Otherwise cannot provide any further history due to mentation. HPI obtained from patient, chart review, and ED provider report. Review of Systems Review of Systems: All systems reviewed & are unremarkable except as noted in HPI and below PMFSH Past Medical History Medical History Anxiety Asthma Dementia Gastroesophageal reflux disease History of left breast cancer History of shingles Hyperlipidemia Hypertension Peripheral neuropathy Pneumonia Prinzmetal's angina Seizures Surgical History Surgical History History of appendectomy (1950) History of bilateral cataract extraction History of cardiac catheterization History of conization of cervix History of hysterectomy (1977) History of lumpectomy of left breast History of removal of pigmented skin lesion History of tonsillectomy History of wisdom tooth extraction Family History Family History Sibling Family history of allergic disorder Family history of malignant neoplasm Family history of diabetes mellitus in first degree relative Diabetes mellitus Mother Breast cancer Father Cerebrovascular accident Grandparent Diabetes mellitus Son Hodgkins disease Social History Social History Social History: Surrogate medical decision maker: Domenic Julio, malissa. Code status: Full code. Smoking status: Never smoker Alcohol intake: current Drinks per week: 1 Substance use: never Lack of Transportation: No Lack of Food: Never True Current Housing: I Have Housing Concerned About Future Housing: No Difficulty Paying Gas/Electric Bills: No Difficulty Paying for Meds: No Currently Unemployed: No Education: High School Diploma/GED Difficulty w/ Childcare or Family Care: No Additional living arrangements comments: Lives at [facility]. She had 3 sons, 1 has . Additional occupation/education comments: Retired nurse. Spiritual care concerns: No Meds Home Medications and Allergies Home Medications Medication Instructions Recorded Confirmed Type albuterol sulfate 90 mcg/actuation 2 puff inhalation DAILY 05/11/19 02/15/23 History aerosol inhaler (ProAir HFA) aspirin 81 mg chewable tablet 81 mg PO DAILY 05/11/19 02/15/23 History cetirizine 10 mg capsule 10 mg PO 1200 05/11/19 02/15/23 History isosorbide mononitrate 60 mg 60 mg PO DAILY 05/11/19 02/15/23 History tablet,extended release 24 hr montelukast 10 mg tablet 10 mg PO 1200 05/11/19 02/15/23 History tamoxifen 20 mg tablet 20 mg PO DAILY 05/11/19 02/15/23 History bupropion HCl 150 mg 24 hr tablet, 300 mg PO QAM 08/28/21 02/15/23 History extended release coenzyme Q10 200 mg capsule (Co 200 mg PO 1200 07/21/22 02/15/23 History Q-10) magnesium 250 mg tablet 250 mg PO BID 07/21/22 02/15/23 History memantine 5 mg tablet 5 mg PO BID 07/21/22 02/15/23 History multivitamin 1 tablet PO 1200
[2023-02-15] MEDS: CEFEPIME 2 GM/NS 50 ML 2 GM/50 ML BAG IVPB (20:54)
[2023-02-16] VITALS: BP 120/39; PULSE 73; RESP 18; TEMP 36.1; O2SAT 96
[2023-02-16 04:00] VITALS: BP 152/61; PULSE 76; RESP 18; TEMP 36; O2SAT 96
[2023-02-16 06:01] LABS: Hematocrit 36.4 % (37.0-47.0); Hemoglobin 11.1 g/dL (12.0-15.0); Mean Corpuscular HGB Conc 30.5 g/dl (32-36); Mean Corpuscular Hemoglobin 28.5 pg (26-34); Mean Corpuscular Volume 93.3 fl (80-100); Mean Platelet Volume 9.8 fl (7.4-10.4); Platelet Count Result 328 k/mm3 (150-375); Red Cell Distribution Width 16.4 % (11.5-14.5); White Blood Count 10.4 K/mm3 (4.5-10.0)
[2023-02-16 07:14] LABS: Anion Gap 6 mmol/L (8-16); Blood Urea Nitrogen 19 mg/dL (7-17); Calcium 8.6 mg/dL (8.4-10.2); Carbon Dioxide 22 mmol/L (22-30); Chloride 107 mmol/L (98-107); Estimated CRCL calculation 38 ml/min; Estimated Glomerular Filt Rate > 60; Glucose 84 mg/dL (65-110); Magnesium 2.2 mg/dL (1.6-2.3); Potassium 4.1 mmol/L (3.4-5.0); Sodium 135 mmol/L (137-145)
[2023-02-16 08:00] VITALS: BP 130/68; PULSE 75; RESP 16; TEMP 36.7; O2SAT 98
[2023-02-16] MEDS: NONFORMULARY NUTRITIONAL SUPPLEMENT 1 EACH XX (08:03)
[2023-02-16] MEDS: ENOXAPARIN 40 MG/0.4 ML SYRINGE SUB-Q (08:44)
[2023-02-16] MEDS: ASPIRIN 81 MG CHEWABLE TABLET PO (08:44)
[2023-02-16] MEDS: buPROPion HCL XL (24 HR) 150 MG TABCR 300 MG PO (08:44)
[2023-02-16] MEDS: MEMANTINE 5 MG TABLET PO ×2 (08:45→17:05)
[2023-02-16] MEDS: MAGNESIUM 13.5 MG TABLET (250 MG MAG GLUCONATE) PO ×2 (08:45→17:05)
[2023-02-16] MEDS: TAMOXIFEN CITRATE (*CHEMO) 10 MG TABLET 20 MG PO (08:45)
[2023-02-16] MEDS: ISOSORBIDE MONONITRATE 60 MG TAB.ER.24H PO (08:45)
[2023-02-16] MEDS: FLUTICASONE PROPIONATE 0.05% NA SPR 16 GM BTL (*BKC) 2 SPRAY NASAL (08:51)
--- NOTE | 2023-02-16 08:55 | P.PNIM_ITS ---
Progress Note: A&P Assessment and Plan (1) Pneumonia: Qualifiers: Laterality: right Lung location: lower lobe of lung Pneumonia type: due to unspecified organism Qualified Code(s): J18.9 - Pneumonia, unspecified organism Code(s): J18.9 - Pneumonia, unspecified organism Status: Acute Assessment and Plan: Patient presents with AMS and lethargy. * CXR 1. Opacities in the right lower lung zone which could represent atelect asis or pneumonia. 2. Possible small right pleural effusion. 3. Cardiomegaly. * sputum culture ordered * Viral PCR - negative for flu, RSV, COVID * continue home albuterol inhalers daily * Rocephin was changed to cefepime. Stop Rocephin. Resume azithromycin. * Follow-up on culture results. (2) Altered mental status: Qualifiers: Altered mental status type: unspecified Qualified Code(s): R41.82 - Altered mental status, unspecified Code(s): R41.82 - Altered mental status, unspecified Status: Acute Assessment and Plan: Patient presents with AMS.Head CT shows no acute abnormalities but does show mild -moderate generalized atrophy. She does have underlying dementia. Unclear on baseline mental status. continue to monitor. Neuro checks ordered (3) Fatigue: Code(s): R53.83 - Other fatigue Status: Acute Assessment and Plan: Patient with lethargy. * CBC: hgb 11.8, MCV 92.6 * faculty research physician: 0.9, previously 1.3 * glucose 88 * EKG Sinus rhythm Possible anterior VT of indeterminate age Compared to EKG on 12/12/2022 no significant changes * BNP 830, previously 2,490 * UA: cloudy, 2+ ketones, trace leuks. Did not prompt urine culture. * Blood cultures pending. * Hip/Pelvis CT: No significant abnormality seen * up with assistance and fall precautions * start PT and OT (4) Leg edema: Code(s): R60.0 - Localized edema Status: Acute Assessment and Plan: patient also has leg edema * BNP improved from prior * US venous - bilat LE: negative for DVT * continue diuresis: lasix PO Plan Breast cx: continue tamoxifen HTN: monitor bp. continue home - Imdur, aspirin, Lasix Arthritis: continue TYL prn Dementia: continue home Wellbutrin, memantine Diet: heart healthy GI Prophylaxis: not currently indicated DVT Prophylaxis: SCDs, Lovenox 40 Code Status: Full Code. Subjective Date/time seen: 02/16/23 08:55 Interval history: 87yo female with dementia and HTN here for AMS and lethargy. Assuming care. Chart reviewed. Patient is alert but confused. History is unreliable. Review of Systems Review of Systems: ROS unobtainable: Yes unobtainable due to mental status Exam Narrative: AF 98.1 130/68 75 16 98% ra Gen - NARD Chest - clear anteriroly and in the flanks. CV - RRR S1/S2 Abd - Soft, NT/ND, Positive BS Ext - trace pedal edema Neuro - Alert and oriented to her name and location ut not month, year or Ofelia name. Psych - Nml mood and affect. pleeasant and cooperative Skin - Warm and dry Objective Data Vital Signs Vital Signs: Vital Signs - 24 hr 02/15/23 09:02 02/15/23 09:11 02/15/23 09:15 Temperature 97.6 F Pulse Rate 70 67 Respiratory Rate 16 Blood Pressure 159/75 H Pulse Oximetry 100 100 Oxygen Delivery Room Air Room A
--- NOTE | 2023-02-16 08:55 | PM.IMPN ---
Progress Note: A&P Assessment and Plan (1) Pneumonia: Qualifiers: Laterality: right Lung location: lower lobe of lung Pneumonia type: due to unspecified organism Qualified Code(s): J18.9 - Pneumonia, unspecified organism Code(s): J18.9 - Pneumonia, unspecified organism Status: Acute Assessment and Plan: Patient presents with AMS and lethargy. CXR 1. Opacities in the right lower lung zone which could represent atelectasis or pneumonia. 2. Possible small right pleural effusion. 3. Cardiomegaly. sputum culture ordered Viral PCR - negative for flu, RSV, COVID continue home albuterol inhalers daily Rocephin was changed to cefepime. Stop Rocephin. Resume azithromycin. Follow-up on culture results. (2) Altered mental status: Qualifiers: Altered mental status type: unspecified Qualified Code(s): R41.82 - Altered mental status, unspecified Code(s): R41.82 - Altered mental status, unspecified Status: Acute Assessment and Plan: Patient presents with AMS.Head CT shows no acute abnormalities but does show mild -moderate generalized atrophy. She does have underlying dementia. Unclear on baseline mental status. continue to monitor. Neuro checks ordered (3) Fatigue: Code(s): R53.83 - Other fatigue Status: Acute Assessment and Plan: Patient with lethargy. CBC: hgb 11.8, MCV 92.6 band salvager: 0.9, previously 1.3 glucose 88 EKG Sinus rhythm Possible anterior NJ of indeterminate age Compared to EKG on 12/12/2022 no significant changes BNP 830, previously 2,490 UA: cloudy, 2+ ketones, trace leuks. Did not prompt urine culture. Blood cultures pending. Hip/Pelvis CT: No significant abnormality seen up with assistance and fall precautions start PT and OT (4) Leg edema: Code(s): R60.0 - Localized edema Status: Acute Assessment and Plan: patient also has leg edema BNP improved from prior US venous - bilat LE: negative for DVT continue diuresis: lasix PO Plan Breast cx: continue tamoxifen HTN: monitor bp. continue home - Imdur, aspirin, Lasix Arthritis: continue TYL prn Dementia: continue home Wellbutrin, memantine Diet: heart healthy GI Prophylaxis: not currently indicated DVT Prophylaxis: SCDs, Lovenox 40 Code Status: Full Code. Subjective Date/time seen: 02/16/23 08:55 Interval history: 87yo female with dementia and HTN here for AMS and lethargy. Assuming care. Chart reviewed. Patient is alert but confused. History is unreliable. Review of Systems Review of Systems: ROS unobtainable: Yes unobtainable due to mental status Exam Narrative: AF 98.1 130/68 75 16 98% ra Gen - NARD Chest - clear anteriroly and in the flanks. CV - RRR S1/S2 Abd - Soft, NT/ND, Positive BS Ext - trace pedal edema Neuro - Alert and oriented to her name and location ut not month, year or Ofelia name. Psych - Nml mood and affect. pleeasant and cooperative Skin - Warm and dry Objective Data Vital Signs Vital Signs: Vital Signs - 24 hr 02/15/23 09:02 02/15/23 09:11 02/15/23 09:15 Temperature 97.6 F Pulse Rate 70 67 Respiratory Rate 16 Blood Pressure 159/75 H Pulse Oximetry 100 100 Oxygen Delivery Room Air Room Air 02/15/23 10:15 02/15/23 10:19 02/15/23 10:20 Temperature Pulse Rate 68 77 74 Respiratory Rate 16 20 17 Blood Pressure 161/70 H 161/70 H Pulse Oximetry 98 77 L Oxygen Delivery 02/15/23 10:30 02/15/23 10:31 02/15/23 10:45 Temperature Pulse Rate 83 74 72 Respiratory Rate 25 H 18 19 Blood Pressure 159/83 H Pulse Oximetry 100 100 Oxygen Delivery 02/15/23 11:00 02/15/23 11:15 02/15/23 11:30 Temperature Pulse Rate 80 73 75 Respiratory Rate 18 17 15 Blood Pressure Pulse Oximetry Oxygen Delivery 02/15/23 11:45 02/15/23 11:50 02/15/23 11:51 Temperature Pulse Rate 76 81 74 Respiratory Rate 22
--- NOTE | 2023-02-16 10:44 | PC.NURSE ---
[employer] called [facility] and left voicemail in regards to patient's IV and PO antibiotics.
[2023-02-16] MEDS: CEFEPIME 2 GM/NS 50 ML 2 GM/50 ML BAG IVPB ×2 (11:13→19:55)
[2023-02-16] MEDS: AZITHROMYCIN 250 MG TABLET PO (11:13)
[2023-02-16] MEDS: MULTIVITAMINS THERAPEUTIC TAB (*BKC) 1 TABLET PO (11:17)
[2023-02-16] MEDS: LORATADINE 10 MG TABLET PO (11:17)
[2023-02-16] MEDS: OMEGA 3 POLYUNSAT FATTY ACIDS 1 GM CAP PO (11:17)
[2023-02-16] MEDS: MONTELUKAST SODIUM 10 MG TABLET PO (11:17)
[2023-02-16 12:00] VITALS: BP 139/63; PULSE 87; RESP 16; TEMP 37; O2SAT 100
--- NOTE | 2023-02-16 13:51 | PC.NURSE ---
Floor Space Allocator spoke with son Domenic via telephone and gave him on update on patient status
[2023-02-16 16:00] VITALS: BP 134/68; PULSE 86; RESP 18; TEMP 36.2; O2SAT 96
[2023-02-16 20:00] VITALS: BP 126/99; PULSE 83; PULSE 86; RESP 16; RESP 18; TEMP 36.2; O2SAT 96; O2SAT 99
[2023-02-17] VITALS: BP 100/60; PULSE 72; RESP 18; TEMP 36.5; O2SAT 93
[2023-02-17 04:00] VITALS: BP 133/54; PULSE 70; RESP 18; TEMP 36.2; O2SAT 94
[2023-02-17 08:00] VITALS: BP 150/72; PULSE 84; RESP 20; TEMP 36.7; O2SAT 100
[2023-02-17] MEDS: CEFEPIME 2 GM/NS 50 ML 2 GM/50 ML BAG IVPB (08:45)
[2023-02-17] MEDS: MAGNESIUM 13.5 MG TABLET (250 MG MAG GLUCONATE) PO ×2 (08:54→17:01)
[2023-02-17] MEDS: ISOSORBIDE MONONITRATE 60 MG TAB.ER.24H PO (08:54)
[2023-02-17] MEDS: MEMANTINE 5 MG TABLET PO ×2 (08:54→17:01)
[2023-02-17] MEDS: buPROPion HCL XL (24 HR) 150 MG TABCR 300 MG PO (08:54)
[2023-02-17] MEDS: ASPIRIN 81 MG CHEWABLE TABLET PO (08:54)
[2023-02-17] MEDS: TAMOXIFEN CITRATE (*CHEMO) 10 MG TABLET 20 MG PO (08:55)
[2023-02-17] MEDS: AZITHROMYCIN 250 MG TABLET PO (08:55)
[2023-02-17] MEDS: FLUTICASONE PROPIONATE 0.05% NA SPR 16 GM BTL (*BKC) 2 SPRAY NASAL (08:58)
[2023-02-17] MEDS: ENOXAPARIN 40 MG/0.4 ML SYRINGE SUB-Q (09:01)
[2023-02-17] MEDS: ALBUTEROL SULFATE (*SP) AEROSOL 1 PUFF 2 PUFF INHALATION (10:04)
[2023-02-17] MEDS: ACETAMINOPHEN 500 MG TABLET PO (10:44)
[2023-02-17 12:00] VITALS: BP 119/50; PULSE 85; RESP 18; TEMP 36.6; O2SAT 96
[2023-02-17] MEDS: MONTELUKAST SODIUM 10 MG TABLET PO (12:37)
[2023-02-17] MEDS: OMEGA 3 POLYUNSAT FATTY ACIDS 1 GM CAP PO (12:37)
[2023-02-17] MEDS: MULTIVITAMINS THERAPEUTIC TAB (*BKC) 1 TABLET PO (12:37)
--- NOTE | 2023-02-17 15:11 | PM.DS ---
DS: Admitting Diagnosis Discharge Date 02/17/23 Admitting Diagnosis AMS and lethargy DS: Discharge Diagnosis Discharge Diagnosis (1) Pneumonia: Qualifiers: Laterality: right Lung location: lower lobe of lung Pneumonia type: due to unspecified organism Qualified Code(s): J18.9 - Pneumonia, unspecified organism Code(s): J18.9 - Pneumonia, unspecified organism Status: Acute (2) Altered mental status: Qualifiers: Altered mental status type: unspecified Qualified Code(s): R41.82 - Altered mental status, unspecified Code(s): R41.82 - Altered mental status, unspecified Status: Acute (3) Fatigue: Code(s): R53.83 - Other fatigue Status: Acute (4) Leg edema: Code(s): R60.0 - Localized edema Status: Acute DS: Summary Hospital Course Reason for hospitalization: 87yo female with dementia and HTN here for AMS and lethargy. Please see H&P for details. Hospital Course: Patient presents with AMS. Head CT shows no acute abnormalities but does show mild -moderate generalized atrophy.? She does have underlying dementia.? Unclear on baseline mental status. CXR showing opacities in the right lower lung zone which could represent atelectasis or pneumonia and possible small right pleural effusion with CMG. Influenza, RSV, COVID PCR negative. Concern for PNA so started on IV abx. She did not have orthopnea or hypoxia. CBC with normal WBC and Hgb 11.8. Cr 0.9 but BUN 25. Cr previously 1.3. EKG showing no change from prior. She had leg edema but BNP 830 (previously 2490). UA: cloudy, 2+ ketones, trace leuks but this did not prompt urine culture. Blood cultures NGTD. Hip/Pelvis CT showing no significant abnormality seen. US venous doppler bilat LE negative for DVT. She had clinical improvement and remained stable. She did well with PT/OT. She was able to be discharged back to the assisted living on 02/17/23. Status at Discharge Cognitive/behavioral status at discharge: status Time Spent with Patient Time attestation: Total time spent providing and/or coordinating discharge services: 36 minutes Time spent: Greater than 30 minutes Exam Narrative: AF 97.8 119/50 85 18 96% ra Gen - NARD Chest - CTA bilaterally. nml RR CV - RRR S1/S2 Abd - Soft, NT/ND, Positive BS Ext - trace pedal edema Neuro - Alert but confused Psych - Nml mood and affect Skin - Warm and dry DS: Data Data Completed and Pending Labs on day of discharge: Preliminary micro results at discharge 02/16/23 08:44 Blood Culture - Preliminary Blood 02/16/23 08:59 Blood Culture - Preliminary Blood Discharge Plan Discharge Attending physician on discharge: Russ Adrian Consulting providers: Toshia Spangler Discharging Clinician: Russ Adrian Anticipated Discharge Date/Time: 02/17/23 15:22 Patient Disposition: NH [facility] Activity: as tolerated Diet: heart healthy Discharge Instructions: Check blood pressure 1 to 2 times a day. Record for the doctor's review. Take precautions to avoid falls. Rise slowly from a lying or sitting position. Pause before standing or walking. Check daily morning weights after voiding. Call the doctor if the patient gains more than 3 lb in 2 days or 5 lb in 1 week. Contact the doctor if the patient has any lightheadedness with standing or other worrisome symptoms. Avoid NSAIDs (ibuprofen, naproxen, Aleve). Tylenol is safe to take. Compression hose on in the morning and off at night. Follow-up with the provider at the facility. Thank you for using [facility] for your health care needs. Patient Instructions: Antibiotic Form Stand Alone Forms: General Discharge Information Follow-up/Referrals: Aydin,DOT Wagoner [Primary Care Provider] - Call for Appointment Discharge Medications: New cefdinir 300 mg capsule 300 mg PO Q12H Qty: 9 0RF azithromycin [Zithr
[2023-02-17 16:00] VITALS: BP 135/59; PULSE 79; RESP 20; TEMP 36.6; O2SAT 96
--- NOTE | 2023-02-22 09:26 | PC.NURSE ---
Blood cx show no growth. Dr. Nguyễn eubanks.
== END 2023-02-17 17:25 | DRG 195 ==
LOC: ANHED 11:46 → ANH3MEDSUR 12:24
PROVIDERS: Student in an Organized Health Care Education/Training Program; Admitting Provider Internal Medicine; Emergency Provider Physician Assistant; PCP Nurse Practitioner Family; Visit Provider Internal Medicine
DX: J18.9 Pneumonia, unspecified organism (principal); J45.909 Unspecified asthma, uncomplicated; I10 Essential (primary) hypertension; E78.5 Hyperlipidemia, unspecified; K21.9 Gastro-esophageal reflux disease without esophagitis; R60.0 Localized edema; F03.90 Unspecified dementia, unspecified severity, without behavioral disturbance, psychotic disturbance, mood disturbance, and anxiety; F41.9 Anxiety disorder, unspecified; Z20.822 Contact with and (suspected) exposure to COVID-19; Z85.3 Personal history of malignant neoplasm of breast; Z79.82 Long term (current) use of aspirin; Z79.810 Long term (current) use of selective estrogen receptor modulators (SERMs)
CPT/HCPCS: 36415; 70450; 71045; 73521; 80048; 80053; 81001; 83735; 83880; 85025; 85027; 85610; 85730; 87040; 87636; 93005; 93970; 94640; 96365; 96366; 96367; 96372; 96375; 97161; 97165; 99285; A9270; G0378; J0456; J0692; J0696; J1650

== ENCOUNTER 2023-03-14 15:32 | Emergency (ER) | payer MEDICARE, SELFPAY ==
--- NOTE | ~2023-03-14 | CT_ITS ---
EXAMINATION: CT brain wo con INDICATION: Head injury COMPARISON: 02/15/2023 TECHNIQUE: Standard unenhanced head CT. The dose-length product (DLP) was 605.33 mGy-cm. The mA was a djusted according to patient size. Iterative reconstruction technique was employed. FINDINGS: No acute intraparenchymal hemorrhage. No evidence of mass lesion. No evidence of acute infa rction. There is mild periventricular and subcortical hypodensity probably related to small vessel is chemic disease. There is mild prominence of the sulci and ventricles related to cerebral atrophy. Int racranial calcified cerebral atherosclerosis is noted. No extra-axial collections. No mass effect or midline shift. Changes in the globes are likely from ocular lens surgery. The visualized sinuses and mastoid air cells are well aerated. IMPRESSION: 1. No acute intracranial abnormality. 2. Age related findings. Reviewed, dictated and finalized at location F. Y ROLLER
--- NOTE | ~2023-03-14 | XR_ITS ---
XR hip LT 2V w AP pelvis 03/14/2023 16:32 Indication: Left hip pain Procedure: AP pelvis and 2 views left hip Comparison: 02/15/2023 Findings: Pelvic rings are intact. Mild osteoarthritis of the hips. There is heterotopic ossification adjacent to the proximal aspect of the left femur. No significant soft tissue abnormality. No foreig n bodies. No fracture or traumatic malalignment. Impression: 1: Mild osteoarthritis of the hips with heterotopic soft tissue ossification adjacent to the proximal aspect of the left femur medially. Reviewed, dictated and finalized at location B. RATING SUPERVISOR Impression: 1: Mild osteoarthritis of the hips with heterotopic soft tissue ossification ad jacent to the proximal aspect of the left femur medially.
[2023-03-14 15:32] VITALS: BP 193/92; PULSE 78; RESP 16; TEMP 36.7; O2SAT 100
--- NOTE | 2023-03-14 16:03 | ED.FALL ---
HPI - Fall General Chief Complaint: Fall Stated Complaint: fall - hip pain Time Seen by Provider: 03/14/23 15:53 Source: patient and other (charge entry clerk) Limitations: dementia History of Present Illness HPI Narrative: This is an 87 yo female who presents after report of a fall. She is complaining of left hip pain. Denies paresthesias, abdominal pain. Denies loss of consciousness. Denies being on anticoagulation. States she lives at home. Denies living at a nuring home but then states she lives with 1 or 2 other people, not family. History limited given patient's dementia. Did not present with long term documentation thus PMH/PSH and medications unknown except as reviewed in EMR. Related Data Home Medications Medication Instructions Recorded Confirmed albuterol sulfate 90 mcg/actuation 2 puff inhalation DAILY 05/11/19 02/15/23 aerosol inhaler (ProAir HFA) aspirin 81 mg chewable tablet 81 mg PO DAILY 05/11/19 02/15/23 cetirizine 10 mg capsule 10 mg PO 1200 05/11/19 02/15/23 isosorbide mononitrate 60 mg 60 mg PO DAILY 05/11/19 02/15/23 tablet,extended release 24 hr montelukast 10 mg tablet 10 mg PO 1200 05/11/19 02/15/23 tamoxifen 20 mg tablet 20 mg PO DAILY 05/11/19 02/15/23 bupropion HCl 150 mg 24 hr tablet, 300 mg PO QAM 08/28/21 02/15/23 extended release coenzyme Q10 200 mg capsule (Co 200 mg PO 119907/21/22 02/15/23 Q-10) magnesium 250 mg tablet 250 mg PO BID 07/21/22 02/15/23 memantine 5 mg tablet 5 mg PO BID 07/21/22 02/15/23 multivitamin 1 tablet PO 1200 07/21/22 02/15/23 omega 6-ato-kib-fish oil 1,000 mg 1 cap PO 1200 07/21/22 02/15/23 (120 mg-180 mg) capsule (Fish Oil) calcium carbonate 600 mg-vitamin 1 tablet PO DAILY 11/19/22 02/15/23 D3 10 mcg (400 unit) tablet (Calcium 600 + D(3)) fluticasone propionate 50 2 spray intranasal QAM 11/20/22 02/15/23 mcg/actuation nasal spray,suspension furosemide 20 mg tablet (Lasix) 20 mg PO DAILY PRN weight gain, 02/15/23 02/15/23 edema Allergies Allergy/AdvReac Type Severity Reaction Status Date / Time bacitracin Allergy Unknown Unknown Verified 03/14/23 15:42 grass pollen Allergy Unknown Unknown Verified 03/14/23 15:42 Iodinated Contrast Media Allergy Unknown Stopped Verified 03/14/23 15:42 Breathing meperidine Allergy Unknown Unknown Verified 03/14/23 15:42 mold Allergy Unknown Unknown Verified 03/14/23 15:42 morphine Allergy Unknown Unknown Verified 03/14/23 15:42 neomycin Allergy Unknown RASH Verified 03/14/23 15:42 polymyxin B Allergy Unknown Unknown Verified 03/14/23 15:42 propoxyphene Allergy Unknown Unknown Verified 03/14/23 15:42 fentanyl AdvReac Unknown Vomiting Verified 03/14/23 15:42 Opioids-Meperidine and AdvReac Unknown VOMITING Verified 02/28/23 10:41 Related Contrast Media Allergy Severe Anaphylactic Uncoded 02/28/23 10:41 Shock ENVIRONMENTAL Allergy Unknown Unknown Uncoded 02/28/23 10:41 PMFSH Past Medical History Medical History Anxiety Asthma Dementia Gastroesophageal reflux disease History of left breast cancer History of shingles Hyperlipidemia Hypertension Peripheral neuropathy Pneumonia Prinzmetal's angina Seizures Surgical History Surgical History History of appendectomy (1950) History of bilateral cataract extraction History of cardiac catheterization History of conization of cervix History of hysterectomy (1977) History of lumpectomy of left breast History of removal of pigmented skin lesion History of tonsillectomy History of wisdom tooth extraction Family History Family History Sibling Family history of allergic disorder Family history of malignant neoplasm Family history of diabetes mellitus in first degree relative Diabetes mellitus Mother Breast cancer Father Cerebrovascular accident Grandparent Diabetes me
[2023-03-14 17:19] LABS: Basophils Absolute Auto 0.1 K/mm3 (0.0-0.1); Basophils Percent Auto 0.8 % (0.2-1.2); Eosinophils Absolute Auto 0.1 K/mm3 (0-0.3); Eosinophils Percent Auto 1.8 % (0-4.4); Hematocrit 34.2 % (37.0-47.0); Hemoglobin 10.8 g/dL (12.0-15.0); Immature Granulocyte Absolute 0.02 K/mm3 (0.00-0.031); Immature Granulocyte Percent A 0.3 % (0-0.5); Lymphocytes Absolute Auto 1.99 K/mm3 (0.9-3.2); Lymphocytes Percent Auto 25.5 % (18.3-44.2); Mean Corpuscular HGB Conc 31.6 g/dl (32-36); Mean Corpuscular Hemoglobin 28.1 pg (26-34); Mean Corpuscular Volume 88.8 fl (80-100); Mean Platelet Volume 9.1 fl (7.4-10.4); Monocytes Absolute Auto 0.9 K/mm3 (0.1-0.6); Monocytes Percent Auto 10.9 % (2.6-8.5); Neutrophils Absolute Auto 4.8 K/mm3 (1.3-6.7); Neutrophils Percent Auto 60.7 % (45.5-73.1); Platelet Count Result 322 k/mm3 (150-375); Red Blood Count 3.85 M/mm3 (4.2-5.4); Red Cell Distribution Width 17.3 % (11.5-14.5); White Blood Count 7.8 K/mm3 (4.5-10.0)
[2023-03-14 17:29] LABS: Alanine Aminotransferase 20 U/L (6-35); Albumin Level 3.5 g/dL (3.5-5.1); Alkaline Phosphatase 62 U/L (38-126); Anion Gap 6 mmol/L (8-16); Aspartate Amino Transferase 26 U/L (14-36); Bilirubin,Total 0.4 mg/dL (0.2-1.3); Blood Urea Nitrogen 28 mg/dL (7-17); Calcium 8.5 mg/dL (8.4-10.2); Carbon Dioxide 24 mmol/L (22-30); Chloride 108 mmol/L (98-107); Estimated CRCL calculation 35 ml/min; Estimated Glomerular Filt Rate 52; Glucose 97 mg/dL (65-110); Potassium 4.3 mmol/L (3.4-5.0); Sodium 138 mmol/L (137-145)
[2023-03-14 17:56] LABS: Appearance Urine Clear (Clear); Bilirubin Urine Negative (Negative); Blood Urine Negative (Negative); Color Urine Yellow (Yellow); Glucose Urine UA Negative (Negative); Ketones Urine Negative (Negative); Leukocyte Esterase Ur Negative LEU/UL (Negative); Nitrate Urine Negative (Negative); Protein Urine Negative (Negative); Specific Grav Ur 1.021 (1.001-1.035); Urobilinogen Urine 0.2 mg/dL (<2.0)
[2023-03-14 18:11] LABS: Add Urine Microscopic? NO
[2023-03-14 18:12] LABS: Prothrombin Time 13.6 Seconds (11.1-14.7)
[2023-03-14 18:13] LABS: Partial Thromboplastin Time 32.1 SECONDS (22.3-36.8)
--- NOTE | 2023-03-14 19:15 | PC.NURSE ---
Assumed care of pt. Report from ANDREAS Shah. Pt awaiting EMS ride back home. Anxious to get back to facility. Convinced pt to get back into bed. Water provided.
[2023-03-14 19:20] VITALS: BP 163/84; PULSE 80; RESP 16; O2SAT 97
--- NOTE | 2023-03-14 19:27 | PC.NURSE ---
Attempted to give report to [facility] at this time. Spoke with corn sheller operator, who states someone will call back for report.
== END 2023-03-14 22:24 ==
PROVIDERS: Emergency Provider Student in an Organized Health Care Education/Training Program; PCP Nurse Practitioner Family
DX: S79.912A Unspecified injury of left hip, initial encounter (principal); F03.90 Unspecified dementia, unspecified severity, without behavioral disturbance, psychotic disturbance, mood disturbance, and anxiety; J45.909 Unspecified asthma, uncomplicated; E78.5 Hyperlipidemia, unspecified; I10 Essential (primary) hypertension; G62.9 Polyneuropathy, unspecified; K21.9 Gastro-esophageal reflux disease without esophagitis; F41.9 Anxiety disorder, unspecified; Z98.42 Cataract extraction status, left eye; Z98.41 Cataract extraction status, right eye; Z85.3 Personal history of malignant neoplasm of breast; Z87.01 Personal history of pneumonia (recurrent); Z90.710 Acquired absence of both cervix and uterus; Z79.82 Long term (current) use of aspirin; M16.0 Bilateral primary osteoarthritis of hip; W19.XXXA Unspecified fall, initial encounter
CPT/HCPCS: 36415; 70450; 73502; 80053; 81003; 85025; 85610; 85730; 99284

== ENCOUNTER 2023-11-20 05:54 | Emergency (ER) | payer MEDICARE, SELFPAY ==
--- NOTE | ~2023-11-20 | CT_ITS ---
EXAMINATION: CT brain wo con DATE: 11/20/2023 06:49 INDICATION: Fall. Head laceration. TECHNIQUE: Computed tomography (CT) of the head was performed without intravenous contrast. The mA wa s adjusted according to patient size. Iterative reconstruction technique was employed. Exam dose: 11 3.45 mGy-cm total exam DLP. COMPARISON: 03/14/2023 CT head FINDINGS: Examination is limited due to motion artifact despite 2 sets of images. There is symmetric prominent cerebral cortical atrophy. Cerebellar atrophy. Bilateral carotid siphon internal carotid artery calcifications. No intracranial mass lesion or hemorrhage or recent cerebrovascular accident is noted. Subacute or ch ronic left thalamic lacunar infarct is suggested. No midline shift or mass effect. No subdural or epidural hematoma is detected. No skull fracture is noted. Mild focal mucoperiosteal thickening of the maxillary sinuses, ethmoid air cells, small mucous retent ion and minimal focal mucoperiosteal thickening of the right sphenoid sinus. No paranasal sinus fluid levels. The mastoid air cells are normally developed and aerated. There are skin maci at a clinically reported laceration along the posterior right parietal area. N o coup or contrecoup intracranial injury is noted. No skull fracture is detected. IMPRESSION: Posterior right parietal scalp laceration; no coup or contrecoup intracranial injury is n oted. No skull fracture. Cerebral and cerebellar atrophy Intracranial cerebral atherosclerosis No acute intracranial finding is detected Reviewed, dictated and finalized at [facility]. Reviewed, dictated and finalized at location [facility]. IMPRESSION: Posterior right parietal scalp laceration; no coup or contrecoup in tracranial injury is noted. No skull fracture. Cerebral and cerebellar atrophy Intracranial cerebral atherosclerosis No acute intracranial finding is detected
--- NOTE | ~2023-11-20 | CT_ITS ---
EXAMINATION: CT cervical spine wo con DATE: 11/20/2023 06:49 INDICATION: Fall TECHNIQUE: Computed tomography (CT) of the cervical spine was performed without intravenous contrast. Automated exposure control and iterative reconstruction technique were employed. Exam dose: 113.45 mGy-cm total exam DLP. COMPARISON: 12/12/2022 CT cervical spine FINDINGS: Normal alignment at the atlantoaxial joints. C1 and C2 are normally aligned and the odontoid process is intact. There is 2 mm anterolisthesis at C4-5. There is severe degenerative disc disease at C5-6 and C6-7 there is 2 mm anterolisthesis at C6-7 and C7-T1. This prominent degenerative change at the facet joints throughout the cervical spine. Uncovertebral j oint spurring is noted particularly on the right at C3-4 and bilaterally at C5-6 and C6-7. No fracture or dislocation or locked facet Very large right pleural effusion. Smaller left pleural effusion. Probable old anterior right third rib fracture. IMPRESSION: Severe cervical spondylosis; no fracture, dislocation or locked facet is evident Very large right and smaller left pleural effusions Reviewed, dictated and finalized at [facility]. Reviewed, dictated and finalized at location [facility]. IMPRESSION: Severe cervical spondylosis; no fracture, dislocation or locked fa cet is evident Very large right and smaller left pleural effusions
[2023-11-20 05:57] VITALS: BP 162/73; PULSE 72; RESP 22; TEMP 36.5; O2SAT 95
--- NOTE | 2023-11-20 06:13 | ED.FALL ---
HPI - Fall General Chief Complaint: Fall Stated Complaint: fall, head injury Time Seen by Provider: 11/20/23 06:11 Source: patient and EMS Mode of arrival: EMS Limitations: dementia History of Present Illness HPI Narrative: Patient presents with a head laceration after an unwitnessed fall. Patient has dimension is at baseline alert and oriented x1. C-collar placed by EMS. Not on anticoagulation according to EMS is review medication list. Patient's dementia limits history. She denies any complaints. Related Data Home Medications Medication Instructions Recorded Confirmed albuterol sulfate 90 mcg/actuation 2 puff inhalation DAILY 05/11/19 11/10/23 aerosol inhaler (ProAir HFA) aspirin 81 mg chewable tablet 81 mg PO DAILY 05/11/19 11/10/23 cetirizine 10 mg capsule 10 mg PO 1200 05/11/19 11/10/23 isosorbide mononitrate 60 mg 60 mg PO DAILY 05/11/19 11/10/23 tablet,extended release 24 hr montelukast 10 mg tablet 10 mg PO 1200 05/11/19 11/10/23 tamoxifen 20 mg tablet 20 mg PO DAILY 05/11/19 11/10/23 bupropion HCl 150 mg 24 hr tablet, 300 mg PO QAM 08/28/21 11/10/23 extended release coenzyme Q10 200 mg capsule (Co 200 mg PO 1200 07/21/22 11/10/23 Q-10) magnesium 250 mg tablet 250 mg PO BID 07/21/22 11/10/23 memantine 5 mg tablet 5 mg PO BID 07/21/22 11/10/23 multivitamin 1 tablet PO 1200 07/21/22 11/10/23 omega 4-jld-ogo-fish oil 1,000 mg 1 cap PO 1200 07/21/22 11/10/23 (120 mg-180 mg) capsule (Fish Oil) calcium carbonate 600 mg-vitamin 1 tablet PO DAILY 11/19/22 11/10/23 D3 10 mcg (400 unit) tablet (Calcium 600 + D(3)) fluticasone propionate 50 2 spray intranasal QAM 11/20/22 11/10/23 mcg/actuation nasal spray,suspension furosemide 20 mg tablet (Lasix) 20 mg PO DAILY PRN weight gain, 02/15/23 11/10/23 edema Allergies Allergy/AdvReac Type Severity Reaction Status Date / Time bacitracin Allergy Unknown Unknown Verified 11/10/23 11:12 grass pollen Allergy Unknown Unknown Verified 11/10/23 11:12 Iodinated Contrast Media Allergy Unknown Stopped Verified 11/10/23 11:12 Breathing meperidine Allergy Unknown Unknown Verified 11/10/23 11:12 mold Allergy Unknown Unknown Verified 11/10/23 11:12 morphine Allergy Unknown Unknown Verified 11/10/23 11:12 neomycin Allergy Unknown RASH Verified 11/10/23 11:12 polymyxin B Allergy Unknown Unknown Verified 11/10/23 11:12 propoxyphene Allergy Unknown Unknown Verified 11/10/23 11:12 fentanyl AdvReac Unknown Vomiting Verified 11/10/23 11:12 Opioids-Meperidine and AdvReac Unknown VOMITING Verified 11/10/23 11:12 Related Contrast Media Allergy Severe Anaphylactic Uncoded 11/10/23 11:12 Shock ENVIRONMENTAL Allergy Unknown Unknown Uncoded 11/10/23 11:12 PMFSH Past Medical History Medical History Anxiety Asthma Dementia Gastroesophageal reflux disease History of left breast cancer History of shingles Hyperlipidemia Hypertension Peripheral neuropathy Pneumonia Prinzmetal's angina Seizures Surgical History Surgical History History of appendectomy (1950) History of bilateral cataract extraction History of cardiac catheterization History of conization of cervix History of hysterectomy (1977) History of lumpectomy of left breast History of removal of pigmented skin lesion History of tonsillectomy History of wisdom tooth extraction Family History Family History Sibling Family history of allergic disorder Family history of malignant neoplasm Family history of diabetes mellitus in first degree relative Diabetes mellitus Mother Breast cancer Father Cerebrovascular accident Grandparent Diabetes mellitus Son Hodgkins disease Social History Social History Social History: Surrogate medical decision maker: Domenic
[2023-11-20] MEDS: HYDROcodone/acetaminophen (*CRX) 5-325 MG TABLET 1 TAB PO (06:53)
[2023-11-20 07:22] VITALS: BP 140/68; PULSE 71; RESP 18; O2SAT 94
--- NOTE | 2023-11-20 07:23 | PC.NURSE ---
c-collar removed per MD fink
--- NOTE | 2023-11-20 07:47 | PC.NURSE ---
attempted to call report to brightly yasmine carbon at this time without answer.
--- NOTE | 2023-11-20 08:08 | PC.NURSE ---
Report given to Brightly about patient return. all questions answered at time of report.
[2023-11-20 08:50] VITALS: BP 99/63; PULSE 72; RESP 21; O2SAT 94
[2023-11-20 11:08] VITALS: BP 114/98; PULSE 76; RESP 21; O2SAT 97
[2023-11-20 12:31] VITALS: BP 137/69; PULSE 77; RESP 19; O2SAT 95
== END 2023-11-20 12:32 ==
PROVIDERS: Emergency Provider Student in an Organized Health Care Education/Training Program; PCP Nurse Practitioner Family
DX: S01.01XA Laceration without foreign body of scalp, initial encounter (principal); J90 Pleural effusion, not elsewhere classified; M47.812 Spondylosis without myelopathy or radiculopathy, cervical region; F03.90 Unspecified dementia, unspecified severity, without behavioral disturbance, psychotic disturbance, mood disturbance, and anxiety; J45.909 Unspecified asthma, uncomplicated; I10 Essential (primary) hypertension; E78.5 Hyperlipidemia, unspecified; G62.9 Polyneuropathy, unspecified; K21.9 Gastro-esophageal reflux disease without esophagitis; F41.9 Anxiety disorder, unspecified; Z98.42 Cataract extraction status, left eye; Z98.41 Cataract extraction status, right eye; Z85.3 Personal history of malignant neoplasm of breast; Z87.01 Personal history of pneumonia (recurrent); Z90.710 Acquired absence of both cervix and uterus; Z79.82 Long term (current) use of aspirin; Z79.899 Other long term (current) drug therapy; I67.2 Cerebral atherosclerosis; W19.XXXA Unspecified fall, initial encounter
CPT/HCPCS: 12002; 70450; 72125; 99284; A9270

== ENCOUNTER 2023-12-05 12:51 | Inpatient (IN) | payer MEDICARE, SELFPAY ==
[2023-12-05] VITALS (18 sets, daily range): BP systolic 112–174; BP diastolic 56–117; PULSE 68–169; RESP 18–30; TEMP 36.4–36.7; O2SAT 90–100; BMI 22.4
--- NOTE | ~2023-12-05 | US_ITS ---
EXAMINATION: US thoracentesis DATE: 12/06/2023 16:59 INDICATION: Right pleural effusion TECHNIQUE: The procedure and its risks and benefits were discussed with the patient. Potential risks discussed included bleeding, infection, and pneumothorax. The patient understood the risks and agreed to proceed. The skin was prepped and draped in sterile fashion. 1% lidocaine was used for local anes thesia. Under ultrasound guidance, a 5 Fr catheter with trochar was advanced into the right pleural e ffusion. Fluid was aspirated. The catheter was removed, and a dressing was applied. There were no imm ediate complications. FINDINGS: Ultrasound images demonstrate a moderate-sized right pleural effusion and the catheter within the flu id. IMPRESSION: 1. Successful ultrasound-guided thoracentesis yielding 1000 mL of yellowish fluid. Reviewed, dictated and finalized at location A. IMPRESSION: 1. Successful ultrasound-guided thoracentesis yielding 1000 mL of yellowish fl uid.
--- NOTE | ~2023-12-05 | XR_ITS ---
EXAMINATION: [id number] DATE: 12/06/2023 16:38 INDICATION: Thoracentesis TECHNIQUE: frontal and lateral views of the chest were obtained. COMPARISON: Chest CT dated 12/06/2023 FINDINGS: Small bilateral pleural effusions, without significant change in the left and significantly decreased on the right post right-sided thoracentesis. Additional airspace opacities in the bilateral mid and lower lung zones consistent with associated atelectasis versus less likely pneumonia. No pulmonary ed moses or pneumothorax. Heart size is normal. IMPRESSION: 1. Small bilateral pleural effusions, significantly decreased on the right post right thoracentesis. 2. Opacities in bilateral mid and lower lung zones consistent with associated atelectasis and/or pneu monia. Reviewed, dictated and finalized at location A. IMPRESSION: 1. Small bilateral pleural effusions, significantly decreased on the right post right thoracentesis. 2. Opacities in bilateral mid and lower lung zones consistent with associated a telectasis and/or pneumonia.
--- NOTE | ~2023-12-05 | XR_ITS ---
EXAMINATION: XR chest 1V portable DATE: 12/05/2023 14:39 INDICATION: Shortness of breath. TECHNIQUE: A single frontal view of the chest was obtained. COMPARISON: Chest single view 02/15/2023 FINDINGS: There are moderate-sized right and small left pleural effusions. There are airspace opaciti es in right lung and left mid and lower lung zones with a basilar predominance. No pneumothorax. Card iomegaly is noted. IMPRESSION: 1. Moderate-sized right and small left pleural effusions. 2. Airspace opacities in right lung and left mid and lower lung zones with a basilar predominance, co nsistent with atelectasis versus pneumonia. 3. Cardiomegaly. Reviewed, dictated and finalized at location A. IMPRESSION: 1. Moderate-sized right and small left pleural effusions. 2. Airspace opacities in right lung and left mid and lower lung zones with a ba silar predominance, consistent with atelectasis versus pneumonia. 3. Cardiomegaly.
--- NOTE | ~2023-12-05 | US_ITS ---
EXAMINATION: US thoracentesis DATE: 12/09/2023 11:29 INDICATION: pleural effusion TECHNIQUE: The patient's son provided informed consent. The skin was prepped and draped in sterile fa shion. 1% lidocaine was used for local anesthesia. Under ultrasound guidance, a 5 Fr catheter with tr ochar was advanced into the left pleural effusion. Fluid was aspirated. The catheter was removed, and a dressing was applied. There were no immediate complications. FINDINGS: Ultrasound images demonstrate a left pleural effusion and the catheter within the fluid. IMPRESSION: 1. Successful ultrasound-guided thoracentesis yielding 500 mL of clear, yellow fluid. Reviewed, dictated and finalized at location A.
--- NOTE | ~2023-12-05 | XR_ITS ---
EXAMINATION: XR chest 2V DATE: 12/09/2023 14:07 INDICATION: Pneumothorax. TECHNIQUE: Frontal and lateral views of the chest were obtained. COMPARISON: Chest 2 views 12/09/2023, chest CT 12/06/2023 FINDINGS: There are moderate-sized right and small left pleural effusions. There are airspace opaciti es in right mid and lower lung zones and left lower lung zone. No pneumothorax. The heart size is nor mal. IMPRESSION: 1. No pneumothorax. 2. Moderate-sized right and small left pleural effusions. 3. Airspace opacities in right mid and lower lung zones and left lower lung zone, consistent with ate lectasis versus pneumonia. Reviewed, dictated and finalized at location A. IMPRESSION: 1. No pneumothorax. 2. Moderate-sized right and small left pleural effusions. 3. Airspace opacities in right mid and lower lung zones and left lower lung zon e, consistent with atelectasis versus pneumonia.
--- NOTE | ~2023-12-05 | XR_ITS ---
[id number] Ordering provider: Juanita Bennett MD History: 88 years Female with . post thoracentesis . Comparison: December 06, 2023 FINDINGS: MEDIASTINUM: The cardiac silhouette is slightly enlarged. Congestive alexandro. LUNGS: Minimal right apical pneumothorax is highly suggestive. Follow-up advised.. Opacification both lung bases more on the right side with atelectasis versus pneumonia and right pleural effusion. OTHER: No free air under the diaphragm. Degenerative spine. IMPRESSION: Possible minimal right apical pneumothorax. Repeat exam in 2 hours is advised. Bibasilar atelectasis versus pneumonia more on the right side with right pleural effusion. Physician: Juanita Bennett MD Was notified with the result of the patient at 11:48 AM on December 09, 2023 Reviewed, dictated and finalized at location A. IMPRESSION: Possible minimal right apical pneumothorax. Repeat exam in 2 hours is advised. Bibasilar atelectasis versus pneumonia more on the right side with right pleura l effusion. Physician: Juanita Bennett MD Was notified with the result of the patient at 11:48 AM on December 09, 2023
--- NOTE | ~2023-12-05 | CT_ITS ---
EXAMINATION:CT diagnostic chest wo con DATE: 12/06/2023 09:04 INDICATION: Pleural effusion. TECHNIQUE: Computed tomography (CT) of the chest was performed without intravenous contrast. Automate d exposure control and iterative reconstruction technique were employed. The dose-length product (DLP ) was 207.56 mGy-cm. COMPARISON: Chest single view 12/05/2023 FINDINGS: There are large right and moderate-sized left pleural effusions. There is bilateral atelect asis with a dependent predominance. The heart size is normal. There is a small pericardial effusion. Body wall edema is noted. There is severe thoracic spondylosis. There is a chronic compression fractu re of T5. IMPRESSION: 1. Large right and moderate-sized left pleural effusions. 2. Small pericardial effusion. Reviewed, dictated and finalized at location A.
--- NOTE | 2023-12-05 13:05 | ECG_ITS ---
Test Date: 2023-12-05 13:12:28 Measurements Intervals Advance Rate: P: 0 AK: 0 QRS: 0 QRSD: 0 T: 0 QT: 0 QTc: 0 Interpretive Statements SUPRAVENTRICULAR TACHYCARDIA VERSES ATYPICAL ATRIAL FLUTTER NONSPECIFIC ST AND T ABNORMALITY LOW QRS VOLTAGE ABNORMAL ECG No previous ECG available for comparison Electronically Signed On 12-05-2023 14:50:53 CDT by Sourav Wilson M.D.
[2023-12-05] MEDS: SODIUM CHLORIDE 0.9% IV 1,000 ML 999 ML IV CONT (13:23)
[2023-12-05] MEDS: ADENOSINE IV SOLN 6 MG/2 ML VIAL IV PUSH (13:25)
[2023-12-05] MEDS: MAGNESIUM SULF 2 GM/WATER 50ML 2 GM/50 ML BAG IVPB (13:58)
[2023-12-05 14:07] LABS: Alanine Aminotransferase 28 U/L (6-35); Albumin Level 3.6 g/dL (3.5-5.1); Alkaline Phosphatase 60 U/L (38-126); Anion Gap 12 mmol/L (4-12); Aspartate Amino Transferase 35 U/L (14-36); Bilirubin,Total 0.8 mg/dL (0.2-1.3); Blood Urea Nitrogen 23 mg/dL (7-17); Calcium 8.3 mg/dL (8.4-10.2); Carbon Dioxide 20 mmol/L (22-30); Chloride 104 mmol/L (98-107); Estimated CRCL calculation 32 ml/min; Estimated Glomerular Filt Rate 59; Glucose 118 mg/dL (65-110); Potassium 4.2 mmol/L (3.4-5.0); Sodium 136 mmol/L (137-145)
--- NOTE | 2023-12-05 14:10 | ECG_ITS ---
Test Date: 2023-12-05 13:27:49 Measurements Intervals [place] Rate: 93 P: -17 IA: 100 QRS: 29 QRSD: 79 T: 24 QT: 335 QTc: 418 Interpretive Statements SINUS RHYTHM WITH FREQUENT PREMATURE ATRIAL CONTRACTIONS LOW QRS VOLTAGE POOR R-WAVE PROGRESSION NONSPECIFIC ST ABNORMALITY ABNORMAL ECG Compared to ECG 12/05/2023 13:12:28 SINUS RHYTHM HAS BEEN RESTORED Electronically Signed On 12-05-2023 14:51:58 CDT by Sourav Wilson M.D.
--- NOTE | 2023-12-05 14:45 | PC.NURSE ---
Hemodialysis Patient Care Specialist called to help draw labs. Will be down.
[2023-12-05 16:03] LABS: Basophils Absolute Auto 0.1 K/mm3 (0.0-0.1); Basophils Percent Auto 0.6 % (0.2-1.2); Hematocrit 41.1 % (37.0-47.0); Hemoglobin 13.1 g/dL (12.0-15.0); Immature Granulocyte Absolute 0.07 K/mm3 (0.00-0.031); Immature Granulocyte Percent A 0.5 % (0-0.5); Lymphocytes Absolute Auto 0.96 K/mm3 (0.9-3.2); Lymphocytes Percent Auto 6.8 % (18.3-44.2); Mean Corpuscular HGB Conc 31.9 g/dl (32-36); Mean Corpuscular Volume 94.1 fl (80-100); Monocytes Absolute Auto 0.5 K/mm3 (0.1-0.6); Monocytes Percent Auto 3.5 % (2.6-8.5); Neutrophils Absolute Auto 12.6 K/mm3 (1.3-6.7); Neutrophils Percent Auto 88.6 % (45.5-73.1); Platelet Count Result 450 k/mm3 (150-375); Red Blood Count 4.37 M/mm3 (4.2-5.4); Red Cell Distribution Width 13.3 % (11.5-14.5); White Blood Count 14.2 K/mm3 (4.5-10.0)
--- NOTE | 2023-12-05 17:10 | ED.WEAKNESS ---
HPI - Weakness General Chief complaint: Weakness Stated complaint: lethargic Time Seen by Provider: 12/05/23 13:05 History of Present Illness HPI Narrative: This is an 88-year-old female with a past medical history significant for hypertension, hyperlipidemia, peripheral neuropathy, advanced dementia. Patient is normally only alert and oriented to her name. Patient is very pleasant. Today she presents from her skilled care facility for concerns of generalized weakness and significant tachycardia. Patient was at lunch when she began losing color in her face and the staff noted that she became more lethargic than normal. Patient normally ambulates with a walker typically. EMS was called and noted that she had a heart rate in the 160s. Patient was awake alert and able to answer questions but at her baseline mentation which is only alert to herself. On my initial encounter with the patient she does have significant tachycardia but is awake and answering questions. Patient is pleasantly demented and denies any chest pain, shortness a breath, headache, vision changes, nausea, vomiting. Related Data Home Medications Medication Instructions Recorded Confirmed albuterol sulfate 90 mcg/actuation 2 puff inhalation DAILY 05/11/19 11/10/23 aerosol inhaler (ProAir HFA) aspirin 81 mg chewable tablet 81 mg PO DAILY 05/11/19 11/10/23 cetirizine 10 mg capsule 10 mg PO 1200 05/11/19 11/10/23 isosorbide mononitrate 60 mg 60 mg PO DAILY 05/11/19 11/10/23 tablet,extended release 24 hr montelukast 10 mg tablet 10 mg PO 1200 05/11/19 11/10/23 tamoxifen 20 mg tablet 20 mg PO DAILY 05/11/19 11/10/23 bupropion HCl 150 mg 24 hr tablet, 300 mg PO QAM 08/28/21 11/10/23 extended release coenzyme Q10 200 mg capsule (Co 200 mg PO 119907/21/22 11/10/23 Q-10) magnesium 250 mg tablet 250 mg PO BID 07/21/22 11/10/23 memantine 5 mg tablet 5 mg PO BID 07/21/22 11/10/23 multivitamin 1 tablet PO 1200 07/21/22 11/10/23 omega 1-mal-oqb-fish oil 1,000 mg 1 cap PO 1200 07/21/22 11/10/23 (120 mg-180 mg) capsule (Fish Oil) calcium carbonate 600 mg-vitamin 1 tablet PO DAILY 11/19/22 11/10/23 D3 10 mcg (400 unit) tablet (Calcium 600 + D(3)) fluticasone propionate 50 2 spray intranasal QAM 11/20/22 11/10/23 mcg/actuation nasal spray,suspension furosemide 20 mg tablet (Lasix) 20 mg PO DAILY PRN weight gain, 02/15/23 11/10/23 edema Allergies Allergy/AdvReac Type Severity Reaction Status Date / Time bacitracin Allergy Unknown Unknown Verified 11/10/23 11:12 grass pollen Allergy Unknown Unknown Verified 11/10/23 11:12 Iodinated Contrast Media Allergy Unknown Stopped Verified 11/10/23 11:12 Breathing meperidine Allergy Unknown Unknown Verified 11/10/23 11:12 mold Allergy Unknown Unknown Verified 11/10/23 11:12 morphine Allergy Unknown Unknown Verified 11/10/23 11:12 neomycin Allergy Unknown RASH Verified 11/10/23 11:12 polymyxin B Allergy Unknown Unknown Verified 11/10/23 11:12 propoxyphene Allergy Unknown Unknown Verified 11/10/23 11:12 fentanyl AdvReac Unknown Vomiting Verified 11/10/23 11:12 Opioids-Meperidine and AdvReac Unknown VOMITING Verified 11/10/23 11:12 Related Contrast Media Allergy Severe Anaphylactic Uncoded 11/10/23 11:12 Shock ENVIRONMENTAL Allergy Unknown Unknown Uncoded 11/10/23 11:12 Review of Systems Review of Systems: As reviewed above in the HPI [facility] Past Medical History Medical History Anxiety Asthma Dementia Gastroesophageal reflux disease History of left breast cancer History of shingles Hyperlipidemia Hypertension Peripheral neuropathy Pneumonia Prinzmetal's angina Seizures Surgical History Surgical History History of appendectomy (195) History of bilateral cataract extraction History of cardiac catheterization History of conization of cervix History of hysterectom
[2023-12-05 17:12] LABS: Troponin I 0.052 ng/mL (0.000-0.034)
[2023-12-05] MEDS: ASPIRIN 325 MG TABLET PO (17:48)
[2023-12-05 18:00] LABS: Lactic Acid Reflex 0.6 mmol/L (0.7-2.0)
[2023-12-05 18:18] LABS: Troponin I 0.093 ng/mL (0.000-0.034)
[2023-12-05 18:23] LABS: Influenza A QL RT-PCR Negative (Negative); Influenza B QL RT-PCR Negative (Negative); RSV RNA, RT-PCR Negative (Negative); SARS-CoV-2 RNA PCR Negative (Negative)
[2023-12-05] MEDS: DOXYCYCLINE 100 MG/NS 100 ML 100 MG/100 ML BAG IVPB (18:23)
--- NOTE | 2023-12-05 18:50 | PC.NURSE ---
called Carmela at [facility] @1843 and gave patient update about admission and current status.
--- NOTE | 2023-12-05 18:51 | ECG_ITS ---
Test Date: 2023-12-05 19:15:42 Measurements Intervals [place] Rate: 76 P: 9 NE: 133 QRS: 21 QRSD: 82 T: 12 QT: 385 QTc: 435 Interpretive Statements SINUS RHYTHM LOW QRS VOLTAGE IN EXTREMITY LEADS [QRS DEFLECTION < 0.5 mV IN LIMB LEADS] POOR R WAVE PROGRESSION Compared to ECG 12/05/2023 13:27:49 NO SIGNIFICANT CHANGES Electronically Signed On 12-06-2023 08:51:59 CDT by Joelle Pollard M.D.
[2023-12-05 18:59] LABS: MRSA (PCR) NOT DETECTED (NOT DETECTE)
--- NOTE | 2023-12-05 19:40 | PC.NURSE ---
called patients son/POA Domenic @1939 to give patient update and inform them of where/when they can visit patient tomorrow.
--- OUTSIDE RECORDS SUMMARY | 2023-12-05 19:42 | XMS_ITS ---
Author Name Unknown Organization [facility] Address [address] [place] [address] Care Team Providers Care Leadite Worker Name Role Phone Aniket Garrett MD Primary Care Provider Unavail able Ana Maria Gentile Unavailable [phone] Migration, Provider Unavailable Unavailable Allergies Allergen (clinical drug ingredient) Drug/Non Drug Allergy documented on EMR Reaction Allergy Type Onset Date Status DARVOCET N 50 (uncoded) Vomiting, weakness Allergy Active DARVON (uncoded) Vomiting, weakness Allergy Active DEMEROL HCL (uncoded) Vomiting, weakness Allergy Active fentanyl fentaNYL Vomiting, weakness Drug Allergy Active morphine Morphine Vomiting, weakness Drug Allergy Active REASON FOR VISIT [facility] Conversion Encounter Medications Medication SIG (Take, Route, Frequency, Duration) Notes Start Date End Date Status Cetirizine HCl 10 MG 1 tab(s) orally once a day for 90 days Active NASAL WASHES N/A DIRECTED INTRANASALLY NEEDED *Please review for potential replacement for e-prescription and drug interaction check*
--- OUTSIDE RECORDS SUMMARY | 2023-12-05 19:42 | XMS_ITS | Patient Health Record ---
Author Name Unknown Organization [facility] Address [address] [place] [address] Care Team Providers Care Aeronautical Test Engineer Name Role Phone Aniket Garrett MD Primary Care Provider Unavail able Ana Maria Gentile Unavailable [phone] Migration, Provider Unavailable Unavailable Allergies Allergen (clinical drug ingredient) Drug/Non Drug Allergy documented on EMR Reaction Allergy Type Onset Date Status DARVOCET N 50 (uncoded) Vomiting, weakness Allergy Active DARVON (uncoded) Vomiting, weakness Allergy Active DEMEROL HCL (uncoded) Vomiting, weakness Allergy Active fentanyl fentaNYL Vomiting, weakness Drug Allergy Active morphine Morphine Vomiting, weakness Drug Allergy Active Reason For Referral No Information Medications Medication SIG (Take, Route, Frequency, Duration) Notes Start Date End Date Status Cetirizine HCl 10 MG 1 tab(s) orally once a day for 90 days Active NASAL WASHES N/A DIRECTED INTRANASALLY NEEDED *Please review for potential replacement for e-prescription and drug interaction check* A
--- NOTE | 2023-12-05 20:51 | PM.IMHP ---
H&P: HPI History of Present Illness Date/Time: 12/05/23 20:51 Chief Complaint: ams Narrative: This is an 88-year-old female with a past medical history significant for hypertension, hyperlipidemia, peripheral neuropathy, advanced dementia. Patient lives [facility] a local [facility] today she was brought to ED due to staff concerns for generalized weakness and been tachycardic. At lunch time it was noted the patient was turning pale in her face she became lethargic .At the time of my visit patient was awake alert oriented to person only was not able to tell me where she was at was giving random answers and incoherent , normally ambulates with a walker as an aid . EMS was called and found that she had a heart rate in the 160s. Patient was awake alert and able to answer questions but at her baseline mentation which is only alert to herself. Preliminary work up was significant for chest xr with infiltrate and pleural effusion. Patient has been admitted for further evaluation, management and treat ment. EXAMINATION: XR chest 1V portable DATE: 12/05/2023 14:39 INDICATION: Shortness of breath. TECHNIQUE: A single frontal view of the chest was obtained. COMPARISON: Chest single view 02/15/2023 FINDINGS: There are moderate-sized right and small left pleural effusions. There are airspace opacities in right lung and left mid and lower lung zones with a basilar predominance. No pneumothorax. Cardiomegaly is noted. IMPRESSION: 1. Moderate-sized right and small left pleural effusions. 2. Airspace opacities in right lung and left mid and lower lung zones with a basilar predominance, consistent with atelectasis versus pneumonia. 3. Cardiomegaly. [facility] Past Medical History Medical History Anxiety Asthma Dementia Gastroesophageal reflux disease History of left breast cancer History of shingles Hyperlipidemia Hypertension Peripheral neuropathy Pneumonia Prinzmetal's angina Seizures Surgical History Surgical History History of appendectomy (1950) History of bilateral cataract extraction History of cardiac catheterization History of conization of cervix History of hysterectomy (1977) History of lumpectomy of left breast History of removal of pigmented skin lesion History of tonsillectomy History of wisdom tooth extraction Family History Family History Sibling Family history of allergic disorder Family history of malignant neoplasm Family history of diabetes mellitus in first degree relative Diabetes mellitus Mother Breast cancer Father Cerebrovascular accident Grandparent Diabetes mellitus Son Hodgkins disease Social History Social History Social History: Surrogate medical decision maker: Domenic Julio, son. Code status: Full code. Smoking status: Never smoker Alcohol intake: current Drinks per week: 1 Substance use: never Lack of Transportation: No Lack of Food: Never True Current Housing: I Have Housing Concerned About Future Housing: No Difficulty Paying Gas/Electric Bills: No Difficulty Paying for Meds: No Currently Unemployed: No Education: High School Diploma/GED Difficulty w/ Childcare or Family Care: No Additional living arrangements comments: Lives at [facility]. She had 3 sons, 1 has . Additional occupation/education comments: Retired nurse. Spiritual care concerns: No Meds Home Medications and Allergies Home Medications Medication Instructions Recorded Confirmed Type albuterol sulfate 90 mcg/actuation 2 puff inhalation DAILY 05/11/19 12/05/23 History aerosol inhaler (ProAir HFA) cetirizine 10 mg capsule 10 mg PO DAILY 05/11/19 12/05/23 History isosorbide mononitrate 60 mg
[2023-12-05 21:11] LABS: Troponin I 0.107 ng/mL (0.000-0.034)
[2023-12-05 21:48] LABS: Procalcitonin 0.1 ng/mL
--- NOTE | 2023-12-05 22:48 | ADMGEN ---
This patient, Marina Bowling, was admitted to IMU Room 207-01. Patient/family oriented to hospital policies and general routines including ID bracelet, bed and alarms, visiting hours, pain management, procedures, bathroom and other care routines, personal items, smoking policy, room service/diet, and visiting hours. Information on how to activate the Rapid Response Team has been discussed. Patient/Family are encouraged to report perceived risks to care and to ask questions if they do not understand what they are told or what they should do.
[2023-12-06] VITALS (19 sets, daily range): BP systolic 132–154; BP diastolic 52–75; PULSE 66–80; RESP 18–22; TEMP 36.2–36.9; O2SAT 91–99
[2023-12-06] MEDS: CEFEPIME 1 GM/NS 50 ML 1 GM/50 ML BAG IVPB ×2 (05:18→17:41)
[2023-12-06] MEDS: AZITHROMYCIN 500 MG/NS 250 ML 500 MG/250 ML BAG 250 MG IVPB (05:18)
[2023-12-06 05:30] LABS: Basophils Absolute Auto 0.1 K/mm3 (0.0-0.1); Basophils Percent Auto 0.9 % (0.2-1.2); Eosinophils Absolute Auto 0.1 K/mm3 (0-0.3); Eosinophils Percent Auto 0.7 % (0-4.4); Hematocrit 36.3 % (37.0-47.0); Hemoglobin 11.7 g/dL (12.0-15.0); Immature Granulocyte Absolute 0.03 K/mm3 (0.00-0.031); Immature Granulocyte Percent A 0.3 % (0-0.5); Lymphocytes Absolute Auto 1.67 K/mm3 (0.9-3.2); Lymphocytes Percent Auto 17.8 % (18.3-44.2); Mean Corpuscular HGB Conc 32.2 g/dl (32-36); Mean Corpuscular Hemoglobin 29.7 pg (26-34); Mean Corpuscular Volume 92.1 fl (80-100); Mean Platelet Volume 8.8 fl (7.4-10.4); Monocytes Absolute Auto 0.9 K/mm3 (0.1-0.6); Monocytes Percent Auto 9.6 % (2.6-8.5); Neutrophils Absolute Auto 6.6 K/mm3 (1.3-6.7); Neutrophils Percent Auto 70.7 % (45.5-73.1); Platelet Count Result 446 k/mm3 (150-375); Red Blood Count 3.94 M/mm3 (4.2-5.4); Red Cell Distribution Width 13.2 % (11.5-14.5); White Blood Count 9.4 K/mm3 (4.5-10.0)
[2023-12-06 05:38] LABS: Alanine Aminotransferase 24 U/L (6-35); Albumin Level 3.5 g/dL (3.5-5.1); Alkaline Phosphatase 57 U/L (38-126); Anion Gap 10 mmol/L (4-12); Aspartate Amino Transferase 27 U/L (14-36); Bilirubin,Total 0.5 mg/dL (0.2-1.3); Blood Urea Nitrogen 21 mg/dL (7-17); Calcium 8.4 mg/dL (8.4-10.2); Carbon Dioxide 20 mmol/L (22-30); Chloride 106 mmol/L (98-107); Estimated CRCL calculation 32 ml/min; Estimated Glomerular Filt Rate 59; Glucose 96 mg/dL (65-110); Magnesium 2.6 mg/dL (1.6-2.3); Potassium 4.4 mmol/L (3.4-5.0); Sodium 136 mmol/L (137-145)
[2023-12-06 05:57] LABS: Procalcitonin 0.1 ng/mL
--- NOTE | 2023-12-06 06:45 | PM.IMPN ---
Progress Note: A&P Assessment and Plan (1) Paroxysmal supraventricular tachycardia: Code(s): I47.10 - Supraventricular tachycardia, unspecified Status: Acute Assessment and Plan: EKG in the ED showed SVT with rate dependent ischemia (ST depressions in the lateral leads V4 and V5 the ST segment elevations or reciprocal changes). 6 mg of IV adenosine followed by 20 cc of normal saline and converted to sinus tachycardia and then normal sinus rhythm. Repeat EKG was obtained which showed resolution of the ST segment changes seen prior. Likely secondary to patients pneumonia and pleural effusions. Pericardial effusion likely to resolve with lasix treatment. -Troponin elevated to 0.107, likely demand ischemia. Repeat troponin downtrended. -Mg 3 on admission, now 2.6 on am labs -HR remains rate controlled - Discussed patient with cardiology [employer]. Will start on low dose metoprolol 12.5 mg BID as this appears to be a first time occurrence of SVT. If recurrence occurs will consult. -Telemetry (2) Community acquired pneumonia: Code(s): J18.9 - Pneumonia, unspecified organism Status: Acute Assessment and Plan: - CXR: Moderate-sized right and small left pleural effusions. Airspace opacities in right lung and left mid and lower lung zones with a basilar predominance, consistent with atelectasis versus pneumonia.Cardiomegaly. - CT chest: Large right and moderate-sized left pleural effusions. Small pericardial effusion. - Risk Factors: tomoxifen, senior care - antibiotics: cefepime and azithromycin - MRSA negative - Viral PCR: negative for Flu/COVID/RSV - Sputum cultures ordered - Echo ordered. - Thoracentesis ordered, not on chronic anticoagulation - Blood cultures obtained on 12/04: pending - no supplemental O2 requirement - Monitor vital signs, I&Os, neuro status and patient is a fall risk - Follow WBC, serum electrolytes, temperature curves and cultures - Pulmonology consulted (3) Hypertension: Qualifiers: Hypertension type: unspecified Qualified Code(s): I10 - Essential (primary) hypertension Code(s): I10 - Essential (primary) hypertension Status: Acute Assessment and Plan: Chronic, continue home medications. - Imdur 60 mg daily - Lasix 20 mg daily - Metoprolol 12.5 mg BID - Monitor (4) Dementia: Qualifiers: Dementia behavioral or psychological symptom: unspecified whether behavioral, psychotic, or mood disturbance or anxiety Dementia severity: unspecified severity Dementia type: unspecified type Qualified Code(s): F03.90 - Unspecified dementia, unspecified severity, without behavioral disturbance, psychotic disturbance, mood disturbance, and anxiety Code(s): F03.90 - Unspecified dementia, unspecified severity, without behavioral disturbance, psychotic disturbance, mood disturbance, and anxiety Status: Acute Assessment and Plan: AOx self at baseline. Currently AOx0 likely related to underlying infection and worsening dementia as she is in a new environment. Plan Chronic medical issues: Breast cancer: continue tamoxifen Diet: heart healthy GI Prophylaxis: not currently indicated DVT Prophylaxis: SCDs, Lovenox 40 Code Status: Full Code. Time Spent With Patient Time with patient: 25 - 35 minutes Subjective Date/time seen: 12/06/23 06:45 Interval history: 88-year-old female with a past medical history significant for breast cancer, hypertension, hyperlipidemia, peripheral neuropathy, advanced dementia (AOxself baseline) presents from the longterm facility for generalized weakness and significant tachycardia. Patient is pleasantly confused lying in bed. She is currently AOx0 unable to answer questions as she continues to go off on tangents. Her heart rate remains rate controlled at this time. Chest CT showing large right and moderate-sized left pleural effusions with small pericardial effusion. Thoracentesis ordered. A
[2023-12-06] MEDS: VANCOMYCIN 1,500 MG/NS 500 ML 1,500 MG/500 ML BAG 250 MG IVPB ×2 (06:51→20:17)
[2023-12-06] MEDS: CALCIUM/VITAMIN D 500 MG/5 MCG (200 I.U.) TABLET PO (08:08)
[2023-12-06] MEDS: LORATADINE 10 MG TABLET PO (08:08)
[2023-12-06] MEDS: MONTELUKAST SODIUM 10 MG TABLET PO (08:08)
[2023-12-06] MEDS: FUROSEMIDE 20 MG TABLET PO (08:08)
[2023-12-06] MEDS: ISOSORBIDE MONONITRATE 60 MG TAB.ER.24H PO (08:08)
[2023-12-06] MEDS: TAMOXIFEN CITRATE (*CHEMO) 10 MG TABLET 20 MG PO (08:09)
[2023-12-06] MEDS: FLUTICASONE PROPIONATE 0.05% NA SPR 16 GM BTL (*BKC) 2 SPRAY NASAL (08:09)
[2023-12-06 08:19] LABS: Troponin I 0.054 ng/mL (0.000-0.034)
[2023-12-06] MEDS: ALBUTEROL SULFATE (*SP) AEROSOL 1 PUFF 2 PUFF INHALATION (08:32)
[2023-12-06 13:13] LABS: INR 1.1; Prothrombin Time 15.1 Seconds (11.1-14.7)
[2023-12-06 13:14] LABS: Partial Thromboplastin Time 30.1 Seconds (22.3-36.8)
[2023-12-06 13:21] LABS: Albumin Level 3.6 g/dL (3.5-5.1); Amylase 62 U/L (30-110); Bilirubin,Total 0.4 mg/dL (0.2-1.3); Cholesterol 164 mg/dL (0-200); Lactate Dehydrogenase 181 U/L (120-246); Triglycerides 110 mg/dL (<150)
--- NOTE | 2023-12-06 14:26 | PC.NURSE ---
Patient's family member called. Verified with family member code status wishes. Family member states that the patient is to be a No CPR, No intubation .
[2023-12-06 16:55] LABS: pH Pleural Fluid > 7.500 (7.210-7.500)
[2023-12-06 17:22] LABS: Appearance Pleural Fluid Clear (Clear); Color Pleural Fluid Yellow (Colorless); Pleural fluid source Pleural fluid
[2023-12-06 17:23] LABS: Lymphocytes Pleural Fluid 75 %; Macrophages Pleural Fluid 13 %; Monocytes Pleural Fluid 7 %; Neutrophils Pleural Fluid 5 % (0-25); Nucleated Cell Pleural Fluid 367 /uL (0-1000); RBC Pleural Fluid < 2000 /uL (0-10000)
--- NOTE | 2023-12-06 19:13 | PM.CNPUL ---
Assessment and Plan Assessment and plan (1) Bilateral pleural effusion: Code(s): J90 - Pleural effusion, not elsewhere classified Status: Acute Assessment and Plan: Right greater than left; had 1 L removed today from the right pleural space; fluid was clear, pH is pending, fewer than 2000 RBCs, 367 white blood cells, differential showed 75% lymphocytes, 13% macrophages in 5% neutrophils. Protein, LDH, glucose pending. Gram stain showed many WBC, few Gram positive cocci. This indicates an parapneumonic effusion with Gram positive cocci in the pleural space, likely Staph or Strep species. She does not appear to have sepsis, WBC is 9.4 with a Left shift, no fever, normal heart rate, normal oxygenation on room air, normal renal function, no evidence of end organ damage. She should continue IV vancomycin even with a negative MRSA swab, until growth on the pleural fluid is complete. We will review the outstanding results from the pleural fluid, repeat imaging in a few days, consider repeat tap if needed. She appears stable at this time. I was not able to look at her teeth for signs of infection. Odontogenic source for pneumonia and parapneumonic effusion can occur with aspiration. She is not able to cooperate with allowing me to look inside her mouth. She would not be able to have a swallow evaluation due to dementia. Thank you for allowing me to see this pleasant patient. I will follow wiht you. (2) Community acquired pneumonia: Code(s): J18.9 - Pneumonia, unspecified organism Status: Acute Assessment and Plan: History of Present Illness History of Present Illness Consult date: 12/06/23 Requesting physician: Tiffany Wilkinson PA-C Chief complaint: SVT/Community Acquired Pneumonia Narrative: Dec 05 @ 20:50 Room 207-1 NEW: Marina Bowling is an 88 yo female with dementia admitted with paroxysmal atrial fibrillation and community-acquired pneumonia, I chest CT December 04 with a large right and moderate left pleural effusion. December 05 she had a right thoracentesis with 1 L of fluid removed, clear, pH is pending, fewer than 2000 RBCs, 367 white blood cells, differential showed 75% lymphocytes, 13% macrophages in 5% neutrophils. The chemistries are also pending.She has been treated with IV vancomycin and azithromycin. She received Rocephin, doxycycline and Cefepime which were stopped. There is a Gram stain on her pleural fluid with a message that the lab called the the floor to report seeing many WBC and few Gram positive cocci, concerning as the pleural space should not have organisms. Staph and strep are the most likely organisms. She remains on vancomycin for now. She is not requiring O2, BP is acceptable, she does not appear toxic. She has baseline dementia, cannot answer questions or cooperate with exam. She will not open her mouth in order to allow me to look at her dentition; she did allow me to listen to her lung meadows. DATA * 12/06/23 post thoracentesis 1000 ml off right side Small bilateral pleural effusions, without significant change in the left and significantly decreased on the right post right-sided thoracentesis. Additional airspace opacities in the bilateral mid and lower lung zones consistent with associated atelectasis versus less likely pneumonia. No pulmonary edema or pneumothorax. Heart size is normal. IMPRESSION: 1. Small bilateral pleural effusions, significantly decreased on the right post right thoracentesis. 2. Opacities in bilateral mid and lower lung zones consistent with associated atelectasis and/or pneumonia. * 12/05/[address] ; large right and moderate left pleural effusion; this image was before the thoracentesis on the right side * 12/06/23 pleural fluid;pH is pending, fewer than 2000 RBCs, 367 white blood cells, differential showed 75% lymphocytes, 13% mac
[2023-12-06 19:53] LABS: MRSA (PCR) NOT DETECTED (NOT DETECTE)
[2023-12-06] MEDS: METOPROLOL TARTRATE 12.5 MG TABLET PO (20:18)
[2023-12-07] VITALS (17 sets, daily range): BP systolic 100–142; BP diastolic 50–61; PULSE 60–80; RESP 16–20; TEMP 36.5–36.9; O2SAT 91–97
--- NOTE | 2023-12-07 | ECHO_ITS ---
Patient Info Name: Marina Bowling Age: 88 years : 1935 Gender: Female Ht: 64 in Wt: 116 lbs BSA: 1.54 m2 HR: 60 bpm BP: 131 / 50 mmHg Technical Quality: Poor Exam Date: 12/07/2023 9:44 AM Exam Location: Echo Lab Patient Status: Inpatient Admit Date: 12/05/2023 Staff Ordering Physician: Garrison Mulligan APRN Prick Stitcher: Iron Stanford RDCS Attending Provider: Tiffany Wilkinson PA-C Referring Physician: Isaak BAER; Exam Type: CA echo doppler color flow Study Info Indications - SVT, cardiomegaly, elevated troponin Complete two-dimensional, color flow and Doppler transthoracic echocardiogram is performed. Reason for Poor Study: poor patient cooperation Summary 1. Technically difficult study due to poor patient cooperation. 2. Left ventricular chamber dimension is normal. 3. Left ventricular systolic function is normal, estimated at 60-65%. 4. There is mildly increased left ventricular wall thickness. 5. The left ventricular diastolic function is grade I diastolic dysfunction. 6. Right ventricular chamber dimension is moderately enlarged. 7. Right ventricular systolic function is normal. 8. Left atrial chamber dimension is severely enlarged. 9. Right atrial chamber dimension is moderately enlarged. 10. There is mild aortic valve regurgitation. 11. There is mild mitral valve regurgitation. 12. There is mild tricuspid valve regurgitation. 13. There is small anterior pericardial effusion. No echocardiographic evidence of tamponade. 14. Left pleural effusion is present. Left Ventricle Left ventricular chamber dimension is normal. Left ventricular systolic function is normal, estimated at 60-65%. There is mildly increased left ventricular wall thickness. The left ventricular diastolic function is grade I diastolic dysfunction. Right Ventricle Right ventricular chamber dimension is moderately enlarged. Right ventricular systolic function is normal. Left Atria Left atrial chamber dimension is severely enlarged. Right Atria Right atrial chamber dimension is moderately enlarged. Atrial Septum Intact interatrial septum visualized by color flow imaging. Aortic Valve There is no aortic valve stenosis. There is mild aortic valve regurgitation. There is moderate aortic valve calcification. Pulmonic Valve The pulmonic valve is not well visualized. There is no pulmonic regurgitation. Mitral Valve There is mild mitral valve regurgitation. Tricuspid Valve There is mild tricuspid valve regurgitation. Pericardium/Pleural Left pleural effusion is present. There is small anterior pericardial effusion. No echocardiographic evidence of tamponade. Inferior Vena Cava Normal inferior vena cava with >50% collapse upon inspiration consistent with normal right atrial pressure, 3 mmHg. Aorta The aortic root size at the sinus of Valsalva is normal. Left Ventricular Outflow Tract Name Value Normal LVOT 2D LVOT Diameter 1.9 cm LVOT Doppler LVOT Peak Gradient 3 mmHg LVOT Mean Gradient 2 mmHg LVOT VTI 21 cm LVOT VTI/AV VTI Ratio 0.9 LVOT Stroke Volume
[2023-12-07] MEDS: CEFEPIME 1 GM/NS 50 ML 1 GM/50 ML BAG IVPB (03:37)
[2023-12-07] MEDS: AZITHROMYCIN 500 MG/NS 250 ML 500 MG/250 ML BAG 250 MG IVPB (03:38)
[2023-12-07 04:17] LABS: Basophils Absolute Auto 0.1 K/mm3 (0.0-0.1); Eosinophils Absolute Auto 0.1 K/mm3 (0-0.3); Eosinophils Percent Auto 1.3 % (0-4.4); Hematocrit 35.6 % (37.0-47.0); Hemoglobin 10.9 g/dL (12.0-15.0); Immature Granulocyte Absolute 0.03 K/mm3 (0.00-0.031); Immature Granulocyte Percent A 0.3 % (0-0.5); Lymphocytes Percent Auto 18.6 % (18.3-44.2); Mean Corpuscular HGB Conc 30.6 g/dl (32-36); Mean Corpuscular Hemoglobin 29.1 pg (26-34); Mean Corpuscular Volume 95.2 fl (80-100); Mean Platelet Volume 8.8 fl (7.4-10.4); Monocytes Percent Auto 10.1 % (2.6-8.5); Neutrophils Percent Auto 68.7 % (45.5-73.1); Platelet Count Result 392 k/mm3 (150-375); Red Blood Count 3.74 M/mm3 (4.2-5.4); Red Cell Distribution Width 13.2 % (11.5-14.5); White Blood Count 10.2 K/mm3 (4.5-10.0)
[2023-12-07 04:29] LABS: Alanine Aminotransferase 21 U/L (6-35); Alkaline Phosphatase 46 U/L (38-126); Anion Gap 8 mmol/L (4-12); Aspartate Amino Transferase 26 U/L (14-36); Bilirubin,Total 0.4 mg/dL (0.2-1.3); Blood Urea Nitrogen 17 mg/dL (7-17); Calcium 7.9 mg/dL (8.4-10.2); Carbon Dioxide 21 mmol/L (22-30); Chloride 107 mmol/L (98-107); Estimated CRCL calculation 36 ml/min; Estimated Glomerular Filt Rate > 60; Glucose 96 mg/dL (65-110); Magnesium 2.3 mg/dL (1.6-2.3); Potassium 3.7 mmol/L (3.4-5.0); Sodium 136 mmol/L (137-145)
[2023-12-07 04:59] LABS: Procalcitonin 0.1 ng/mL
--- NOTE | 2023-12-07 05:06 | PCRCNOTE ---
patient was not alert to submit a sputum sample
[2023-12-07] MEDS: ALBUTEROL SULFATE (*SP) AEROSOL 1 PUFF 2 PUFF INHALATION (07:14)
[2023-12-07] MEDS: METOPROLOL TARTRATE 12.5 MG TABLET PO ×2 (08:20→20:32)
[2023-12-07] MEDS: CALCIUM/VITAMIN D 500 MG/5 MCG (200 I.U.) TABLET PO (08:20)
[2023-12-07] MEDS: FUROSEMIDE 20 MG TABLET PO (08:20)
[2023-12-07] MEDS: MONTELUKAST SODIUM 10 MG TABLET PO (08:20)
[2023-12-07] MEDS: LORATADINE 10 MG TABLET PO (08:20)
[2023-12-07] MEDS: TAMOXIFEN CITRATE (*CHEMO) 10 MG TABLET 20 MG PO (08:20)
[2023-12-07] MEDS: FLUTICASONE PROPIONATE 0.05% NA SPR 16 GM BTL (*BKC) 2 SPRAY NASAL (08:24)
[2023-12-07] MEDS: ISOSORBIDE MONONITRATE 60 MG TAB.ER.24H PO (08:24)
--- NOTE | 2023-12-07 09:56 | PM.IMPN ---
Progress Note: A&P Assessment and Plan (1) Paroxysmal supraventricular tachycardia: Code(s): I47.10 - Supraventricular tachycardia, unspecified Status: Acute Assessment and Plan: EKG in the ED showed SVT with rate dependent ischemia (ST depressions in the lateral leads V4 and V5 the ST segment elevations or reciprocal changes). 6 mg of IV adenosine followed by 20 cc of normal saline and converted to sinus tachycardia and then normal sinus rhythm. Repeat EKG was obtained which showed resolution of the ST segment changes seen prior. Likely secondary to patients pneumonia and pleural effusions. Pericardial effusion likely to resolve with lasix treatment. -Troponin elevated to 0.107, likely demand ischemia. Repeat troponin downtrended. -Mg 3 on admission, now 2.6 on am labs -HR remains rate controlled - Discussed patient with cardiology [employer]ER. Will start on low dose metoprolol 12.5 mg BID as this appears to be a first time occurrence of SVT. If recurrence occurs will consult. -Telemetry 12/06- on metoprolol- HR had been stable (2) Community acquired pneumonia: Code(s): J18.9 - Pneumonia, unspecified organism Status: Acute Assessment and Plan: - CXR: Moderate-sized right and small left pleural effusions. Airspace opacities in right lung and left mid and lower lung zones with a basilar predominance, consistent with atelectasis versus pneumonia.Cardiomegaly. - CT chest: Large right and moderate-sized left pleural effusions. Small pericardial effusion. - Risk Factors: tomoxifen, detention - antibiotics: cefepime and azithromycin - MRSA negative - Viral PCR: negative for Flu/COVID/RSV - Sputum cultures ordered - Echo ordered. - Thoracentesis ordered, not on chronic anticoagulation - Blood cultures obtained on 12/04: pending - no supplemental O2 requirement - Monitor vital signs, I&Os, neuro status and patient is a fall risk - Follow WBC, serum electrolytes, temperature curves and cultures - Pulmonology consulted 12/06- s/p thoracentesis- cultures pending- on antibiotics (will switch to oral as pt pulled IV out) (3) Hypertension: Qualifiers: Hypertension type: unspecified Qualified Code(s): I10 - Essential (primary) hypertension Code(s): I10 - Essential (primary) hypertension Status: Acute Assessment and Plan: Chronic, continue home medications. - Imdur 60 mg daily - Lasix 20 mg daily - Metoprolol 12.5 mg BID - Monitor (4) Dementia: Qualifiers: Dementia behavioral or psychological symptom: unspecified whether behavioral, psychotic, or mood disturbance or anxiety Dementia severity: unspecified severity Dementia type: unspecified type Qualified Code(s): F03.90 - Unspecified dementia, unspecified severity, without behavioral disturbance, psychotic disturbance, mood disturbance, and anxiety Code(s): F03.90 - Unspecified dementia, unspecified severity, without behavioral disturbance, psychotic disturbance, mood disturbance, and anxiety Status: Acute Assessment and Plan: AOx self at baseline. Currently AOx0 likely related to underlying infection and worsening dementia as she is in a new environment. (5) Bilateral pleural effusion: Code(s): J90 - Pleural effusion, not elsewhere classified Status: Acute Assessment and Plan: -pulm was consulted- appreciate recommendation: Right greater than left; had 1 L removed today from the right pleural space; fluid was clear, pH is pending, fewer than 2000 RBCs, 367 white blood cells, differential showed 75% lymphocytes, 13% macrophages in 5% neutrophils. Protein, LDH, glucose pending. Gram stain showed many WBC, few Gram positive cocci. This indicates an parapneumonic effusion with Gram positive cocci in the pleural space, likely Staph or Strep species. She does not appear to have sepsis, WBC is 9.4 with a Left shift, no fever, normal heart rate, normal oxygenation on room air, normal renal
[2023-12-07] MEDS: levoFLOXacin 750 MG TABLET PO (15:02)
--- NOTE | 2023-12-07 16:41 | PC.NURSE ---
This patient, Marina Bowling, was transferred to [facility] on 12/07/23 at 1624. Personal belongings sent with patient. Report given to Donnie. Appropriate documentation sent with patient.
--- NOTE | 2023-12-07 17:13 | PC.NURSE ---
This patient, Marina Bowling, was received from IMU on 12/07/23 at 1641. Patient/family oriented to unit policies and routines
--- NOTE | 2023-12-07 18:20 | PC.NURSE ---
RN spoke with Rachel JOHNS from IMU via telephone about patient not having IV access. Rachel JOHNS stated that she spoke with Pepper the hospitalist and it is okay for patient to NOT have an IV due to the mentation status and patient pulling several IV's out.
[2023-12-08] VITALS (12 sets, daily range): BP systolic 108–129; BP diastolic 56–71; PULSE 66–96; RESP 16–20; TEMP 36.2–36.7; O2SAT 94–100
[2023-12-08 05:48] LABS: Basophils Absolute Auto 0.1 K/mm3 (0.0-0.1); Basophils Percent Auto 0.9 % (0.2-1.2); Eosinophils Absolute Auto 0.1 K/mm3 (0-0.3); Eosinophils Percent Auto 1.1 % (0-4.4); Hematocrit 34.4 % (37.0-47.0); Immature Granulocyte Absolute 0.04 K/mm3 (0.00-0.031); Immature Granulocyte Percent A 0.4 % (0-0.5); Lymphocytes Absolute Auto 1.64 K/mm3 (0.9-3.2); Lymphocytes Percent Auto 16.2 % (18.3-44.2); Mean Corpuscular Hemoglobin 29.5 pg (26-34); Mean Corpuscular Volume 92.2 fl (80-100); Mean Platelet Volume 9.2 fl (7.4-10.4); Monocytes Absolute Auto 1.1 K/mm3 (0.1-0.6); Monocytes Percent Auto 10.4 % (2.6-8.5); Neutrophils Absolute Auto 7.2 K/mm3 (1.3-6.7); Platelet Count Result 406 k/mm3 (150-375); Red Blood Count 3.73 M/mm3 (4.2-5.4); Red Cell Distribution Width 13.2 % (11.5-14.5); White Blood Count 10.1 K/mm3 (4.5-10.0)
[2023-12-08 06:09] LABS: Alanine Aminotransferase 21 U/L (6-35); Albumin Level 3.1 g/dL (3.5-5.1); Alkaline Phosphatase 47 U/L (38-126); Anion Gap 7 mmol/L (4-12); Aspartate Amino Transferase 27 U/L (14-36); Bilirubin,Total 0.4 mg/dL (0.2-1.3); Blood Urea Nitrogen 16 mg/dL (7-17); Calcium 8.4 mg/dL (8.4-10.2); Carbon Dioxide 23 mmol/L (22-30); Chloride 106 mmol/L (98-107); Estimated CRCL calculation 31 ml/min; Estimated Glomerular Filt Rate 59; Glucose 92 mg/dL (65-110); Potassium 3.7 mmol/L (3.4-5.0); Sodium 136 mmol/L (137-145)
[2023-12-08 06:22] LABS: Procalcitonin 0.1 ng/mL
--- NOTE | 2023-12-08 06:57 | PCRCNOTE ---
patient is unable to submit a sputum sample
[2023-12-08] MEDS: ALBUTEROL SULFATE (*SP) AEROSOL 1 PUFF 2 PUFF INHALATION (09:30)
[2023-12-08] MEDS: FUROSEMIDE 20 MG TABLET PO (09:47)
[2023-12-08] MEDS: LINEZOLID 600 MG TABLET PO ×2 (09:47→20:57)
[2023-12-08] MEDS: FLUTICASONE PROPIONATE 0.05% NA SPR 16 GM BTL (*BKC) 2 SPRAY NASAL (09:47)
[2023-12-08] MEDS: MONTELUKAST SODIUM 10 MG TABLET PO (09:47)
[2023-12-08] MEDS: CALCIUM/VITAMIN D 500 MG/5 MCG (200 I.U.) TABLET PO (09:47)
[2023-12-08] MEDS: TAMOXIFEN CITRATE (*CHEMO) 10 MG TABLET 20 MG PO (09:48)
--- NOTE | 2023-12-08 09:52 | P.PNIM_ITS ---
Progress Note: A&P Assessment and Plan (1) Paroxysmal supraventricular tachycardia: Code(s): I47.10 - Supraventricular tachycardia, unspecified Status: Acute Assessment and Plan: EKG in the ED showed SVT with rate dependent ischemia (ST depressions in the lateral leads V4 and V5 the ST segment elevations or reciprocal changes). 6 mg of IV adenosine followed by 20 cc of normal saline and converted to sinus tachycardia and then normal sinus rhythm. Repeat EKG was obtained which showed resolution of the ST segment changes seen prior. Likely secondary to patients pneumonia and pleural effusions. Pericardial effusion likely to resolve with lasix treatment. -Troponin elevated to 0.107, likely demand ischemia. Repeat troponin downtrended. -Mg 3 on admission, now 2.6 on am labs -HR remains rate controlled - Discussed patient with cardiology [employer]. Will start on low dose metoprolol 12.5 mg BID as this appears to be a first time occurrence of SVT. If recurrence occurs will consult. -Telemetry 12/06- on metoprolol- HR had been stable (2) Community acquired pneumonia: Code(s): J18.9 - Pneumonia, unspecified organism Status: Acute Assessment and Plan: - CXR: Moderate-sized right and small left pleural effusions. Airspace opacities in right lung and left mid and lower lung zones with a basilar predominance, consistent with atelectasis versus pneumonia.Cardiomegaly. - CT chest: Large right and moderate-sized left pleural effusions. Small perica rdial effusion. - Risk Factors: tomoxifen, [facility] - antibiotics: cefepime and azithromycin - MRSA negative - Viral PCR: negative for Flu/COVID/RSV - Sputum cultures ordered - Echo ordered. - Thoracentesis ordered, not on chronic anticoagulation - Blood cultures obtained on 12/04: pending - no supplemental O2 requirement - Monitor vital signs, I&Os, neuro status and patient is a fall risk - Follow WBC, serum electrolytes, temperature curves and cultures - Pulmonology consulted 12/06- s/p thoracentesis- cultures pending- on antibiotics (will switch to oral as pt pulled IV out) (3) Hypertension: Qualifiers: Hypertension type: unspecified Qualified Code(s): I10 - Essential (primary) hypertension Code(s): I10 - Essential (primary) hypertension Status: Acute Assessment and Plan: Chronic, continue home medications. - Imdur 60 mg daily - Lasix 20 mg daily - Metoprolol 12.5 mg BID - Monitor (4) Dementia: Qualifiers: Dementia behavioral or psychological symptom: unspecified whether behavioral, psychotic, or mood disturbance or anxiety Dementia severity: unspecified severity Dementia type: unspecified type Qualified Code(s): F03.90 - Unspecified dementia, unspecified severity, without behavioral disturbance, psychotic disturbance, mood disturbance, and anxiety Code(s): F03.90 - Unspecified dementia, unspecified severity, without behavioral disturbance, psychotic disturbance, mood disturbance, and anxiety Status: Acute Assessment and Plan: AOx self at baseline. Currently AOx0 likely related to underlying infection and worsening dementia as she is in a new environment. (5) Bilateral pleural effusion: Code(s): J90 - Pleural effusion, not elsewhere classified Status: Acute Assessment and Plan: -pulm was consulted- appreciate recommendation: Right greater than left; had 1 L removed today from the right pleural space; fluid was clear, pH is pending, fewer than 2000 RBCs, 367 white blood cells, differential showed 75% lymphocytes, 13% macrophages in 5% neutrophils.
[2023-12-08] MEDS: ISOSORBIDE MONONITRATE 60 MG TAB.ER.24H PO (10:17)
[2023-12-08] MEDS: METOPROLOL TARTRATE 12.5 MG TABLET PO ×2 (10:18→20:57)
[2023-12-08] MEDS: LORATADINE 10 MG TABLET PO (10:18)
--- NOTE | 2023-12-08 13:10 | PM.PNPUL ---
Progress Note: A&P Assessment and Plan (1) Bilateral pleural effusion: Code(s): J90 - Pleural effusion, not elsewhere classified Status: Acute Assessment and Plan: Thoracentesis Dec 06, 2023, 1000 ml from the right pleural space; fluid was clear, pH never returned; fewer than 2000 RBCs, 367 white blood cells, differential showed 75% lymphocytes, 13% macrophages in 5% neutrophils. Protein, LDH, glucose pending. These values are probably not going to return. No cultures were sent other than Gram stain. Gram stain showed many WBC, few Gram positive cocci. Nothing grew on aerobic and aerobic culture. I thought she had a parapneumonic effusion with Gram positive cocci in the pleural space, possibly likely Staph or Strep species. However, growth was negative. Good news. She does not have sepsis. WBC was 9.4 with a Left shift, no fever, normal heart rate, normal oxygenation on room air, normal renal function, no evidence of end organ damage. The cause of the effusion is not known, and if family wishes, she can have a repeat tap with additional labs, including definitely pH, cytology, She needs to have cytology on the next tap. I had a long discussion with her son, Domenic, explained the pleural fluid findings, and in my estimation this is probably malignancy. It is definitely not a transudate. This is an exudate. We like to have the chemistries back in the pH is always helpful but we do not always have complete information. At her age she would be a poor candidate for any treatment for lung cancer. Best case scenario if she had cancer she may be able to have a PleurX catheter but I do not place those. She would need an Oncology consultation and a referral to a chest person, possibly thoracic surgeon or may be Interventional pulmonology. We do not have these services at [place]. (2) Community acquired pneumonia: Code(s): J18.9 - Pneumonia, unspecified organism Status: Acute Assessment and Plan: Per hospitalist, the patient had huge effusions especially on the right and had compressive atelectasis, possible pneumonia but cannot tell because all of the lung tissue was compressed. Antibiotics are low risk, possibly have a positive impact. Plan If family wants more evaluation, repeat thoracentesis is recommended with additional labs. If discharge is planned, that is completely acceptable. Consider hospice. She can have a follow up pulmonary visit if desires, although with limited mobility and living in memory care, virtual visit may be an option. Subjective Date/time seen: 12/08/23 13:10 Interval history: 12/08/23; hospital follow up, Marina Bowling is 88 years old, walking back to chair from bathroom. She is pleasant, not in distress. She is on room air, sat 91-97%. I spoke with her son, showed him the chest CT, pleural fluid results, and is likely having a malignant effusion. This fluid is going to re-accumulate, and she will become more short of breath. We can re-tap here this visit, or let her go to her NH, repeat later, and add additional testing including pH, chemistry, AFB, more accurate cell count.This one says <2000 rbc however I am pretty sure that it means more than 2000 rbc. Less than 2000 is not an exact amount, and why would that be reported? Her CXR is better after the tap, however she will re-accumulate fluid because we have done nothing to address the underlying process. We do not know what is driving this; lymphocytic effusion with RBC = malignancy, infarction or TB. SHe never had TB. She has not had a PE, so does not have a pulmonary infarction. 12/06/23, new consult, Marina Bowling is an 88 yo female with dementia admitted with paroxysmal atrial fibrillation and community-acquired pneumonia, chest CT December 04 with a large right and moderate left
[2023-12-08 16:53] LABS: Lactate Dehydrogenase 176 U/L (120-246)
[2023-12-09] VITALS (8 sets, daily range): BP systolic 108–119; BP diastolic 54–74; PULSE 69–78; RESP 18–20; TEMP 36.1–36.6; O2SAT 94–98
[2023-12-09 05:33] LABS: Basophils Absolute Auto 0.1 K/mm3 (0.0-0.1); Basophils Percent Auto 0.6 % (0.2-1.2); Eosinophils Percent Auto 0.4 % (0-4.4); Hemoglobin 10.8 g/dL (12.0-15.0); Immature Granulocyte Absolute 0.04 K/mm3 (0.00-0.031); Immature Granulocyte Percent A 0.4 % (0-0.5); Lymphocytes Absolute Auto 1.81 K/mm3 (0.9-3.2); Lymphocytes Percent Auto 16.2 % (18.3-44.2); Mean Corpuscular HGB Conc 32.7 g/dl (32-36); Mean Corpuscular Hemoglobin 29.5 pg (26-34); Mean Corpuscular Volume 90.2 fl (80-100); Mean Platelet Volume 8.9 fl (7.4-10.4); Monocytes Absolute Auto 1.4 K/mm3 (0.1-0.6); Monocytes Percent Auto 12.3 % (2.6-8.5); Neutrophils Absolute Auto 7.9 K/mm3 (1.3-6.7); Neutrophils Percent Auto 70.1 % (45.5-73.1); Platelet Count Result 399 k/mm3 (150-375); Red Blood Count 3.66 M/mm3 (4.2-5.4); Red Cell Distribution Width 13.3 % (11.5-14.5); White Blood Count 11.2 K/mm3 (4.5-10.0)
[2023-12-09 05:46] LABS: Alanine Aminotransferase 19 U/L (6-35); Albumin Level 3.2 g/dL (3.5-5.1); Alkaline Phosphatase 46 U/L (38-126); Anion Gap 8 mmol/L (4-12); Aspartate Amino Transferase 22 U/L (14-36); Bilirubin,Total 0.4 mg/dL (0.2-1.3); Blood Urea Nitrogen 18 mg/dL (7-17); Calcium 8.1 mg/dL (8.4-10.2); Carbon Dioxide 25 mmol/L (22-30); Chloride 104 mmol/L (98-107); Estimated CRCL calculation 29 ml/min; Estimated Glomerular Filt Rate 52; Glucose 104 mg/dL (65-110); Potassium 3.5 mmol/L (3.4-5.0); Sodium 137 mmol/L (137-145)
--- NOTE | 2023-12-09 06:42 | PCRCNOTE ---
patient is unable to submit a sputum sample
--- NOTE | 2023-12-09 07:36 | PM.IMPN ---
Progress Note: A&P Assessment and Plan (1) Paroxysmal supraventricular tachycardia: Code(s): I47.10 - Supraventricular tachycardia, unspecified Status: Acute Assessment and Plan: EKG in the ED showed SVT with rate dependent ischemia (ST depressions in the lateral leads V4 and V5 the ST segment elevations or reciprocal changes). 6 mg of IV adenosine followed by 20 cc of normal saline and converted to sinus tachycardia and then normal sinus rhythm. Repeat EKG was obtained which showed resolution of the ST segment changes seen prior. Likely secondary to patients pneumonia and pleural effusions. Pericardial effusion likely to resolve with lasix treatment. -Troponin elevated to 0.107, likely demand ischemia. Repeat troponin downtrended. -Mg 3 on admission, now 2.6 on am labs -HR remains rate controlled - Discussed patient with cardiology [employer] RE[employer]ENTATIVE. Will start on low dose metoprolol 12.5 mg BID as this appears to be a first time occurrence of SVT. If recurrence occurs will consult. -Telemetry 12/06- on metoprolol- HR had been stable 12/08- remains stable- monitor (2) Community acquired pneumonia: Code(s): J18.9 - Pneumonia, unspecified organism Status: Acute Assessment and Plan: - CXR: Moderate-sized right and small left pleural effusions. Airspace opacities in right lung and left mid and lower lung zones with a basilar predominance, consistent with atelectasis versus pneumonia.Cardiomegaly. - CT chest: Large right and moderate-sized left pleural effusions. Small pericardial effusion. - Risk Factors: tomoxifen, fpc - antibiotics: cefepime and azithromycin - MRSA negative - Viral PCR: negative for Flu/COVID/RSV - Sputum cultures ordered - Echo ordered. - Thoracentesis ordered, not on chronic anticoagulation - Blood cultures obtained on 12/04: pending - no supplemental O2 requirement - Monitor vital signs, I&Os, neuro status and patient is a fall risk - Follow WBC, serum electrolytes, temperature curves and cultures - Pulmonology consulted 12/06- s/p thoracentesis- cultures pending- on antibiotics (will switch to oral as pt pulled IV out) 12/08- finish the course (3) Hypertension: Qualifiers: Hypertension type: unspecified Qualified Code(s): I10 - Essential (primary) hypertension Code(s): I10 - Essential (primary) hypertension Status: Acute Assessment and Plan: Chronic, continue home medications. - Imdur 60 mg daily - Lasix 20 mg daily - Metoprolol 12.5 mg BID - Monitor (4) Dementia: Qualifiers: Dementia behavioral or psychological symptom: unspecified whether behavioral, psychotic, or mood disturbance or anxiety Dementia severity: unspecified severity Dementia type: unspecified type Qualified Code(s): F03.90 - Unspecified dementia, unspecified severity, without behavioral disturbance, psychotic disturbance, mood disturbance, and anxiety Code(s): F03.90 - Unspecified dementia, unspecified severity, without behavioral disturbance, psychotic disturbance, mood disturbance, and anxiety Status: Acute Assessment and Plan: AOx self at baseline. Currently AOx0 likely related to underlying infection and worsening dementia as she is in a new environment. (5) Bilateral pleural effusion: Code(s): J90 - Pleural effusion, not elsewhere classified Status: Acute Assessment and Plan: -pulm was consulted- appreciate recommendation: Right greater than left; had 1 L removed today from the right pleural space; fluid was clear, pH is pending, fewer than 2000 RBCs, 367 white blood cells, differential showed 75% lymphocytes, 13% macrophages in 5% neutrophils. Protein, LDH, glucose pending. Gram stain showed many WBC, few Gram positive cocci. This indicates an parapneumonic effusion with Gram positive cocci in the pleural space, likely Staph or Strep species. She does not appear to have sepsis, WBC is 9.4 with a Left shift, no fever, normal he
[2023-12-09] MEDS: ALBUTEROL SULFATE (*SP) AEROSOL 1 PUFF 2 PUFF INHALATION (09:15)
[2023-12-09 11:37] LABS: pH Pleural Fluid > 7.500 (7.210-7.500)
[2023-12-09 12:16] LABS: Pleural fluid source Pleural fluid
[2023-12-09 12:18] LABS: Appearance Pleural Fluid Clear (Clear); Color Pleural Fluid Yellow (Colorless)
[2023-12-09 12:21] LABS: Nucleated Cell Pleural Fluid 412 /uL (0-1000); RBC Pleural Fluid < 2000 /uL (0-10000)
[2023-12-09 12:24] LABS: Lymphocytes Pleural Fluid 85 %; Macrophages Pleural Fluid 1 %; Mesothelial Cells Pleural Flui 5 %; Monocytes Pleural Fluid 2 %; Neutrophils Pleural Fluid 7 % (0-25)
--- NOTE | 2023-12-09 13:32 | PM.PNPUL ---
Progress Note: A&P Assessment and Plan (1) Bilateral pleural effusion: Code(s): J90 - Pleural effusion, not elsewhere classified Status: Acute Assessment and Plan: 12/09/23: Repeat thoracentesis today, small ptx seen at 11:45; repeat CXR is ordered now to see if there is any change. 14:20 repeat CXR Dec 08 = no pneumothorax. She is stable for discharge to her facility today. Results are pending. Repeat thoracentesis will give her a longer interval without fluid reaccumulation for the family to make arrangements. Son Domenic told me yesterday that he plans to have her move closer to his home, [place], [place]. 12/08/23: Thoracentesis Dec 06, 2023, 1000 ml from the right pleural space; fluid was clear, pH never returned; fewer than 2000 RBCs, 367 white blood cells, differential showed 75% lymphocytes, 13% macrophages in 5% neutrophils. Protein, LDH, glucose pending. These values are probably not going to return. No cultures were sent other than Gram stain. Gram stain showed many WBC, few Gram positive cocci. Nothing grew on aerobic and aerobic culture. I thought she had a parapneumonic effusion with Gram positive cocci in the pleural space, possibly likely Staph or Strep species. However, growth was negative. Good news. She does not have sepsis. WBC was 9.4 with a Left shift, no fever, normal heart rate, normal oxygenation on room air, normal renal function, no evidence of end organ damage. The cause of the effusion is not known, and if family wishes, she can have a repeat tap with additional labs, including definitely pH, cytology, previous cytology was negative. Plan Ok for discharge to her facility. No follow up planned with our office. Subjective Date/time seen: 12/09/23 13:32 Interval history: 12/09/23; radiologist called 11:45 today after thoracentesis, saw possible small ptx after the tap, recommends a repeat CXR in 2 hours. She is sitting up in a chair, on room air, not in distress. ................................. 12/08/23; hospital follow up, Marina Bowling is 88 years old, walking back to chair from bathroom. She is pleasant, not in distress. She is on room air, sat 91-97%. I spoke with her son, showed him the chest CT, pleural fluid results, and is likely having a malignant effusion. This fluid is going to re-accumulate, and she will become more short of breath. We can re-tap here this visit, or let her go to her [place], repeat later, and add additional testing including pH, chemistry, AFB, more accurate cell count.This one says <2000 rbc however I am pretty sure that it means more than 2000 rbc. Less than 2000 is not an exact amount, and why would that be reported? Her CXR is better after the tap, however she will re-accumulate fluid because we have done nothing to address the underlying process. We do not know what is driving this; lymphocytic effusion with RBC = malignancy, infarction or TB. SHe never had TB. She has not had a PE, so does not have a pulmonary infarction. 12/06/23, new consult, Marina Bowling is an 88 yo female with dementia admitted with paroxysmal atrial fibrillation and community-acquired pneumonia, chest CT December 04 with a large right and moderate left pleural effusion. December 05 she had a right thoracentesis with 1 L of fluid removed, clear, pH is pending, fewer than 2000 RBCs, 367 white blood cells, differential showed 75% lymphocytes, 13% macrophages in 5% neutrophils. The chemistries are also pending.She has been treated with IV vancomycin and azithromycin. She received Rocephin, doxycycline and Cefepime which were stopped. There is a Gram stain on her pleural fluid with a message that the lab called the the floor to report seeing many WBC and few Gram positive cocci, concerning as the pleural space should not have organisms. Staph and strep are the most likely organisms. She remains on vancomycin for now. She is
--- NOTE | 2023-12-09 14:02 | PM.DS ---
DS: Admitting Diagnosis Discharge Date 12/08 Admitting Diagnosis ams DS: Discharge Diagnosis Discharge Diagnosis (1) Paroxysmal supraventricular tachycardia: Code(s): I47.10 - Supraventricular tachycardia, unspecified Status: Acute Assessment and Plan: EKG in the ED showed SVT with rate dependent ischemia (ST depressions in the lateral leads V4 and V5 the ST segment elevations or reciprocal changes). 6 mg of IV adenosine followed by 20 cc of normal saline and converted to sinus tachycardia and then normal sinus rhythm. Repeat EKG was obtained which showed resolution of the ST segment changes seen prior. Likely secondary to patients pneumonia and pleural effusions. Pericardial effusion likely to resolve with lasix treatment. -Troponin elevated to 0.107, likely demand ischemia. Repeat troponin downtrended. -Mg 3 on admission, now 2.6 on am labs -HR remains rate controlled - Discussed patient with cardiology [employer] C[employer] THERAPIST. Will start on low dose metoprolol 12.5 mg BID as this appears to be a first time occurrence of SVT. If recurrence occurs will consult. -Telemetry 12/06- on metoprolol- HR had been stable 12/08- remains stable- monitor (2) Community acquired pneumonia: Code(s): J18.9 - Pneumonia, unspecified organism Status: Acute Assessment and Plan: - CXR: Moderate-sized right and small left pleural effusions. Airspace opacities in right lung and left mid and lower lung zones with a basilar predominance, consistent with atelectasis versus pneumonia.Cardiomegaly. - CT chest: Large right and moderate-sized left pleural effusions. Small pericardial effusion. - Risk Factors: tomoxifen, shelter - antibiotics: cefepime and azithromycin - MRSA negative - Viral PCR: negative for Flu/COVID/RSV - Sputum cultures ordered - Echo ordered. - Thoracentesis ordered, not on chronic anticoagulation - Blood cultures obtained on 12/04: pending - no supplemental O2 requirement - Monitor vital signs, I&Os, neuro status and patient is a fall risk - Follow WBC, serum electrolytes, temperature curves and cultures - Pulmonology consulted 12/06- s/p thoracentesis- cultures pending- on antibiotics (will switch to oral as pt pulled IV out) 12/08- finish the course (3) Hypertension: Qualifiers: Hypertension type: unspecified Qualified Code(s): I10 - Essential (primary) hypertension Code(s): I10 - Essential (primary) hypertension Status: Acute Assessment and Plan: Chronic, continue home medications. - Imdur 60 mg daily - Lasix 20 mg daily - Metoprolol 12.5 mg BID - Monitor (4) Dementia: Qualifiers: Dementia behavioral or psychological symptom: unspecified whether behavioral, psychotic, or mood disturbance or anxiety Dementia severity: unspecified severity Dementia type: unspecified type Qualified Code(s): F03.90 - Unspecified dementia, unspecified severity, without behavioral disturbance, psychotic disturbance, mood disturbance, and anxiety Code(s): F03.90 - Unspecified dementia, unspecified severity, without behavioral disturbance, psychotic disturbance, mood disturbance, and anxiety Status: Acute Assessment and Plan: AOx self at baseline. Currently AOx0 likely related to underlying infection and worsening dementia as she is in a new environment. (5) Bilateral pleural effusion: Code(s): J90 - Pleural effusion, not elsewhere classified Status: Acute Assessment and Plan: -pulm was consulted- appreciate recommendation: Right greater than left; had 1 L removed today from the right pleural space; fluid was clear, pH is pending, fewer than 2000 RBCs, 367 white blood cells, differential showed 75% lymphocytes, 13% macrophages in 5% neutrophils. Protein, LDH, glucose pending. Gram stain showed many WBC, few Gram positive cocci. This indicates an parapneumonic effusion with Gram positive cocci in the pleural space, likely Staph or Strep species. She [place]
[2023-12-09] MEDS: CALCIUM/VITAMIN D 500 MG/5 MCG (200 I.U.) TABLET PO (14:16)
[2023-12-09] MEDS: ISOSORBIDE MONONITRATE 60 MG TAB.ER.24H PO (14:16)
[2023-12-09] MEDS: MONTELUKAST SODIUM 10 MG TABLET PO (14:16)
[2023-12-09] MEDS: levoFLOXacin 750 MG TABLET PO (14:16)
[2023-12-09] MEDS: TAMOXIFEN CITRATE (*CHEMO) 10 MG TABLET 20 MG PO (14:16)
[2023-12-09] MEDS: LORATADINE 10 MG TABLET PO (14:17)
[2023-12-09] MEDS: LINEZOLID 600 MG TABLET PO (14:17)
[2023-12-09] MEDS: FUROSEMIDE 20 MG TABLET PO (14:17)
[2023-12-09] MEDS: FLUTICASONE PROPIONATE 0.05% NA SPR 16 GM BTL (*BKC) 2 SPRAY NASAL (14:17)
[2023-12-09 17:44] LABS: Pneumococcal Antigen Urine DETECTED
--- NOTE | 2023-12-09 19:04 | PC.NURSE ---
Call made to son ZEESHAN. New lab came back positive. Medications sent to [facility].
[2023-12-10 21:49] LABS: Legionella pneumophila Ag Ur NOT DETECTED
[2023-12-10 22:08] LABS: Albumin Pleural Fluid 1.4 g/dL; Amylase, Pleural Fluid 30 U/L; Glucose Pleural Fluid 152 mg/dL; LDH Pleural Fluid 61 U/L; Total Protein Pleural Fluid <3.0 g/dL
== END 2023-12-09 18:12 | disposition home or self-care (01) | DRG 194 ==
LOC: ANHED 13:37 → ANHIMU 19:40 → ANH3MED 12-09 14:18 → ANHIMU 12-12 09:40
PROVIDERS: Internal Medicine Critical Care Medicine; Nurse Practitioner; Student in an Organized Health Care Education/Training Program; Admitting Provider Internal Medicine; Emergency Provider Student in an Organized Health Care Education/Training Program; PCP Nurse Practitioner Family; Visit Provider Nurse Practitioner
DX: J13 Pneumonia due to Streptococcus pneumoniae (principal); I47.10 Supraventricular tachycardia, unspecified; J91.8 Pleural effusion in other conditions classified elsewhere; I10 Essential (primary) hypertension; J45.909 Unspecified asthma, uncomplicated; E78.5 Hyperlipidemia, unspecified; K21.9 Gastro-esophageal reflux disease without esophagitis; G62.9 Polyneuropathy, unspecified; F03.90 Unspecified dementia, unspecified severity, without behavioral disturbance, psychotic disturbance, mood disturbance, and anxiety; F41.9 Anxiety disorder, unspecified; Z20.822 Contact with and (suspected) exposure to COVID-19; Z85.3 Personal history of malignant neoplasm of breast; Z79.82 Long term (current) use of aspirin
CPT/HCPCS: 32555; 36415; 71045; 71046; 71250; 80053; 82040; 82042; 82150; 82247; 82465; 82945; 83605; 83615; 83735; 83986; 84145; 84155; 84157; 84311; 84478; 84484; 85025; 85610; 85730; 87015; 87040; 87070; 87075; 87102; 87116; 87205; 87206; 87449; 87637; 87641; 87899; 88108; 88305; 88342; 89051; 93005; 93306; 94640; 96365; 96366; 96375; 99285; A9270; J0153; J0456; J0692; J0696; J3370; J3475; J7030

== ENCOUNTER 2024-01-04 15:19 | Inpatient (IN) | payer MEDICARE, SELFPAY ==
[2024-01-04] VITALS (9 sets, daily range): BP systolic 110–158; BP diastolic 55–80; PULSE 61–88; RESP 16–23; TEMP 36.4–36.9; O2SAT 94–99; BMI 23.5
--- NOTE | ~2024-01-04 | XR_ITS ---
EXAMINATION: XR chest 2V DATE: 01/04/2024 16:21 INDICATION: Shortness of breath TECHNIQUE: frontal and lateral views of the chest were obtained. COMPARISON: Chest radiograph dated 12/09/2023 FINDINGS: Increasing large right pleural effusion with opacification of the entire right middle and lower hemit horax. There is also been increase in size of a moderate-sized left pleural effusion with opacificati on of the caudal half of the left hemithorax. There is associated atelectasis although pneumonia is n ot excludable. No pulmonary edema in the aerated portions of the lung. No pneumothorax. Cardiac silho uette is obscured by the effusions. Mild to moderate thoracic spondylosis. IMPRESSION: 1. Increasing large right and moderate-sized left pleural effusions with associated atelectasis and/o r pneumonia. Reviewed, dictated and finalized at location B. IMPRESSION: 1. Increasing large right and moderate-sized left pleural effusions with associ ated atelectasis and/or pneumonia.
--- NOTE | ~2024-01-04 | CT_ITS ---
CT diagnostic chest wo con Ordering provider: Shalini Morel PA-C History: 88 years Female with . manjit pleural effusions . Comparison: December 06, 2023 Technique: CT chest without IV contrast. FINDINGS: VISUALIZED THORACIC INLET: Normal. Radiation reduction technique utilized. DLP is 116.72 mGy-cm. MEDIASTINUM: Aorta/coronary arteries: Mild atheromatous disease. Heart/other: The heart is not enlarged. Moderate sized hiatal hernia. Lymph nodes: No mediastinal or hilar adenopathy. Narrowing of the main bronchi in the area of the lucille LUNGS: No pulmonary nodules or masses. Large right pleural effusion with moderate left. Atelectasis i n the right lung upper and lower lobes and left lung lower lobe. No pneumothorax. VISUALIZED UPPER ABDOMEN: Otherwise, the visualized upper abdomen is normal. MUSCULOSKELETAL: Soft tissues: The superficial soft tissues are normal. Bones: Age appropriate degenerative changes of the spine. IMPRESSION: 1. Bilateral pleural effusion larger on the right side with adjacent atelectasis in the right lung u pper and lower lobe and left lower lobe. 2. Bsdt-ae-llyoxxad pericardial effusion. Reviewed, dictated and finalized at location A. IMPRESSION: 1. Bilateral pleural effusion larger on the right side with adjacent atelectas is in the right lung upper and lower lobe and left lower lobe. 2. Xjfn-gc-evsbyxtc pericardial effusion.
--- NOTE | ~2024-01-04 | XR_ITS ---
EXAMINATION: [id number] DATE: 01/05/2024 11:26 INDICATION: Right pleural effusion status post thoracentesis. TECHNIQUE: Frontal and lateral views of the chest were obtained. COMPARISON: Chest 2 views 01/04/2024, chest CT 01/04/2024 FINDINGS: There are moderate-sized bilateral pleural effusions. There are airspace opacities at the l liliane bases. No pneumothorax. Cardiomegaly is noted. IMPRESSION: 1. Moderate-sized pleural effusions with improvement on the right status post thoracentesis. 2. Airspace opacities at the lung bases, consistent with atelectasis versus pneumonia. 3. Cardiomegaly. Reviewed, dictated and finalized at location A. IMPRESSION: 1. Moderate-sized pleural effusions with improvement on the right status post t horacentesis. 2. Airspace opacities at the lung bases, consistent with atelectasis versus pne umonia. 3. Cardiomegaly.
--- NOTE | ~2024-01-04 | US_ITS ---
EXAMINATION: US thoracentesis DATE: 01/05/2024 11:32 INDICATION: pleural effusion TECHNIQUE: Consent was provided by the patient's family member. The skin was prepped and draped in st erile fashion. 1% lidocaine was used for local anesthesia. Under ultrasound guidance, a 5 Fr catheter with trochar was advanced into the right pleural effusion. Fluid was aspirated. The catheter was rem randa, and a dressing was applied. There were no immediate complications. FINDINGS: Ultrasound images demonstrate a right pleural effusion and the catheter within the fluid. IMPRESSION: 1. Successful ultrasound-guided thoracentesis yielding 1000 mL of clear, yellow fluid. Reviewed, dictated and finalized at location A. IMPRESSION: 1. Successful ultrasound-guided thoracentesis yielding 1000 mL of clear, yello w fluid.
--- NOTE | 2024-01-04 15:30 | ECG_ITS ---
Test Date: 2024-01-04 15:32:25 Measurements Intervals [place] Rate: 63 P: 32 WA: 145 QRS: -38 QRSD: 76 T: 43 QT: 390 QTc: 401 Interpretive Statements SINUS RHYTHM LEFT AXIS DEVIATION CONSIDER ANTERIOR INFARCT, AGE INDETERMINATE BASELINE ARTIFACT- I, II, III, AVR, AVL, AVF, V1-V6 ABNORMAL ECG Compared to ECG 12/05/2023 19:15:42 NO SIGNIFICANT CHANGE Electronically Signed On 01-04-2024 15:38:10 CDT by Jovan Yang D.O.
[2024-01-04 16:05] LABS: Basophils Absolute Auto 0.1 K/mm3 (0.0-0.1); Basophils Percent Auto 0.9 % (0.2-1.2); Eosinophils Absolute Auto 0.2 K/mm3 (0-0.3); Eosinophils Percent Auto 1.7 % (0-4.4); Hematocrit 39.4 % (37.0-47.0); Hemoglobin 12.5 g/dL (12.0-15.0); Immature Granulocyte Absolute 0.03 K/mm3 (0.00-0.031); Immature Granulocyte Percent A 0.3 % (0-0.5); Lymphocytes Absolute Auto 1.83 K/mm3 (0.9-3.2); Lymphocytes Percent Auto 20.8 % (18.3-44.2); Mean Corpuscular HGB Conc 31.7 g/dl (32-36); Mean Corpuscular Hemoglobin 28.6 pg (26-34); Mean Corpuscular Volume 90.2 fl (80-100); Mean Platelet Volume 8.8 fl (7.4-10.4); Monocytes Absolute Auto 0.9 K/mm3 (0.1-0.6); Monocytes Percent Auto 10.3 % (2.6-8.5); Neutrophils Absolute Auto 5.8 K/mm3 (1.3-6.7); Platelet Count Result 460 k/mm3 (150-375); Red Blood Count 4.37 M/mm3 (4.2-5.4); Red Cell Distribution Width 14.5 % (11.5-14.5); White Blood Count 8.8 K/mm3 (4.5-10.0)
[2024-01-04 16:18] LABS: Prothrombin Time 13.7 Seconds (11.1-14.7)
[2024-01-04 16:19] LABS: Partial Thromboplastin Time 30.1 Seconds (22.3-36.8)
[2024-01-04 16:20] LABS: Alanine Aminotransferase 17 U/L (6-35); Albumin Level 3.8 g/dL (3.5-5.1); Alkaline Phosphatase 55 U/L (38-126); Anion Gap 8 mmol/L (4-12); Aspartate Amino Transferase 28 U/L (14-36); Bilirubin,Total 0.3 mg/dL (0.2-1.3); Blood Urea Nitrogen 25 mg/dL (7-17); Calcium 8.9 mg/dL (8.4-10.2); Carbon Dioxide 27 mmol/L (22-30); Chloride 102 mmol/L (98-107); Estimated CRCL calculation 22 ml/min; Estimated Glomerular Filt Rate 47; Glucose 105 mg/dL (65-110); Potassium 4.6 mmol/L (3.4-5.0); Sodium 137 mmol/L (137-145)
[2024-01-04 16:31] LABS: NT Pro B Type Natriuretic Pept 1740 pg/mL (19.9-100)
[2024-01-04 16:33] LABS: Troponin I < 0.012 ng/mL (0.000-0.034)
--- NOTE | 2024-01-04 17:39 | ED.SOB ---
HPI - SOB/Dyspnea General Chief Complaint: Shortness of Breath/Dyspnea <Shalini Morel PA-C - Last Filed: 01/04/24 21:22> Stated Complaint: sob <CHARLEY Cohen Last Filed: 01/04/24 21:22> Time Seen by Provider: 01/04/24 16:58 <CHARLEY Cohen Last Filed: 01/04/24 21:22> Source: patient, family and old records reviewed <CHARLEY Cohen Last Filed: 01/04/24 21:22> Mode of arrival: ambulatory <CHARLEY Cohen Last Filed: 01/04/24 21:22> Limitations: dementia <CHARLEY Cohen Last Filed: 01/04/24 21:22> History of Present Illness HPI Narrative: Patient is an 88-year-old female, with past medical history of dementia, who presents the ED with report of shortness breath. Patient is a resident of [facility]. Son at bedside assisted in providing information. Reports patient was recently admitted here around 1 month ago for fluid overload. Required thoracentesis X2. Seen by Dr. Bennett at that time, unknown cause to effusion. Was covered with abx for possible PNA. Son states today he was sitting with the patient when she suddenly became short of breath and had a coughing fit. She had difficulty recovering from this and was brought here for further evaluation. Patient was noted to be hypoxic at the shelter down to 88% on room air. She was stable on room air here. She is unable to provide any further information. Son denies known sick contacts. Denies known fevers. <CHARLEY Cohen Last Filed: 01/04/24 21:22> Related Data Home Medications: Home Medications Medication Instructions Recorded Confirmed Advair HFA 115 mcg inhalation BID 01/04/24 01/04/24 Eucerin Intensive Repair 1 applic topical BID 01/04/24 01/04/24 Lac-Hydrin Five 1 applic topical BID 01/04/24 01/04/24 OptiChamber [facility] 01/04/24 01/04/24 citalopram 10 mg PO DAILY 01/04/24 01/04/24 iron aspgl and ps cmplx 150 mg-vit 1 cap PO BIDWMEAL 01/04/24 01/04/24 C 50 mg-succinic acid 50 mg capsule (Ferrex) <Shalini Morel PA-C - Last Filed: 01/04/24 21:22> Allergies/Adverse Reactions: Allergies Allergy/AdvReac Type Severity Reaction Status Date / Time bacitracin Allergy Unknown Unknown Verified 11/10/23 11:12 grass pollen Allergy Unknown Unknown Verified 11/10/23 11:12 Iodinated Contrast Media Allergy Unknown Stopped Verified 11/10/23 11:12 Breathing meperidine Allergy Unknown Unknown Verified 11/10/23 11:12 mold Allergy Unknown Unknown Verified 11/10/23 11:12 morphine Allergy Unknown Unknown Verified 11/10/23 11:12 neomycin Allergy Unknown RASH Verified 11/10/23 11:12 polymyxin B Allergy Unknown Unknown Verified 11/10/23 11:12 propoxyphene Allergy Unknown Unknown Verified 11/10/23 11:12 fentanyl AdvReac Unknown Vomiting Verified 11/10/23 11:12 Opioids-Meperidine and AdvReac Unknown VOMITING Verified 11/10/23 11:12 Related Contrast Media Allergy Severe Anaphylactic Uncoded 11/10/23 11:12 Shock ENVIRONMENTAL Allergy Unknown Unknown Uncoded 11/10/23 11:12 <Shalini Morel PA-C - Last Filed: 01/04/24 21:22> Review of Systems Review of Systems: All systems reviewed & are unremarkable except as noted in HPI. <Shalini Morel PA-C - Last Filed: 01/04/24 21:22> All systems reviewed & are unremarkable except as noted in HPI and below <Shalini Morel PA-C - Last Filed: 01/04/24 21:22> [facility] Past Medical History Medical History: Medical History Anxiety Asthma Dementia Gastroesophageal reflux disease History of left breast cancer History of shingles Hyperlipidemia Hypertension Peripheral neuropathy Pneumonia Prinzmetal's angina Seizures <Shalini Morel PA-C - Last Filed: 01/04/24 21:22> Surgical History Surgical History: Surgical History (Reviewed 01/04/24 @ 17:48 by Shalini
[2024-01-04] MEDS: FUROSEMIDE INJ 40 MG/4 ML VIAL IV PUSH (18:18)
[2024-01-04 18:27] LABS: Influenza A QL RT-PCR Negative (Negative); Influenza B QL RT-PCR Negative (Negative); RSV RNA, RT-PCR Negative (Negative); SARS-CoV-2 RNA PCR Negative (Negative)
--- NOTE | 2024-01-04 20:00 | PM.IMHP ---
H&P: HPI History of Present Illness Date/Time: 01/04/24 20:00 Chief Complaint: sob Narrative: This is an 88-year-old female with past medical history significant for advanced dementia, patient is a [facility] resident. Past medical history significant for breast CA currently on tamoxifen, patient with recent large pleural effusion comes back with recurrent pleural effusion episode of shortness of breath and oxygen desaturation currently on supplemental oxygen by nasal cannula. History has been obtained from medical records patient is pleasantly demented unable to give any meaningful history. Preliminary workup was significant for chest x-ray with large right-sided pleural effusion and possible pneumonia. Patient has been admitted for further evaluation management and treatment. EXAMINATION: XR chest 2V DATE: 01/04/2024 16:21 INDICATION: Shortness of breath TECHNIQUE: frontal and lateral views of the chest were obtained. COMPARISON: Chest radiograph dated 12/09/2023 FINDINGS: Increasing large right pleural effusion with opacification of the entire right middle and lower hemithorax. There is also been increase in size of a moderate-sized left pleural effusion with opacification of the caudal half of the left hemithorax. There is associated atelectasis although pneumonia is not excludable. No pulmonary edema in the aerated portions of the lung. No pneumothorax. Cardiac silhouette is obscured by the effusions. Mild to moderate thoracic spondylosis. IMPRESSION: 1. Increasing large right and moderate-sized left pleural effusions with associated atelectasis and/or pneumonia. CT diagnostic chest wo con Ordering provider: Shalini Morel PA-C History: 88 years Female with . manjit pleural effusions . Comparison: December 06, 2023 Technique: CT chest without IV contrast. FINDINGS: VISUALIZED THORACIC INLET: Normal. Radiation reduction technique utilized. DLP is 116.72 mGy-cm. MEDIASTINUM: Aorta/coronary arteries: Mild atheromatous disease. Heart/other: The heart is not enlarged. Moderate sized hiatal hernia. Lymph nodes: No mediastinal or hilar adenopathy. Narrowing of the main bronchi in the area of the lucille LUNGS: No pulmonary nodules or masses. Large right pleural effusion with moderate left. Atelectasis in the right lung upper and lower lobes and left lung lower lobe. No pneumothorax. VISUALIZED UPPER ABDOMEN: Otherwise, the visualized upper abdomen is normal. MUSCULOSKELETAL: Soft tissues: The superficial soft tissues are normal. Bones: Age appropriate degenerative changes of the spine. IMPRESSION: 1. Bilateral pleural effusion larger on the right side with adjacent atelectasis in the right lung upper and lower lobe and left lower lobe. 2. [id number] pericardial effusion. Review of Systems Review of Systems: ROS unobtainable: Yes other (advanced dementia) [facility] Past Medical History Medical History Anxiety Asthma Dementia Gastroesophageal reflux disease History of left breast cancer History of shingles Hyperlipidemia Hypertension Peripheral neuropathy Pneumonia Prinzmetal's angina Seizures Surgical History Surgical History History of appendectomy (1950) History of bilateral cataract extraction History of cardiac catheterization History of conization of cervix History of hysterectomy (1977) History of lumpectomy of left breast History of removal of pigmented skin lesion History of tonsillectomy History of wisdom tooth extraction Family History Family History Sibling Family history of allergic disorder Family history of malignant neoplasm Family history of diabetes mellitus in first degree relative Diabetes mellitus Mother Breast cancer Father Cerebrovascular accident Grandparent
--- NOTE | 2024-01-04 22:02 | ADMGEN ---
This patient, Marina Bowling, was admitted to [facility] Surg Room 331-01. Patient/family oriented to hospital policies and general routines including ID bracelet, bed and alarms, visiting hours, pain management, procedures, bathroom and other care routines, personal items, smoking policy, room service/diet, and visiting hours. Information on how to activate the Rapid Response Team has been discussed. Patient/Family are encouraged to report perceived risks to care and to ask questions if they do not understand what they are told or what they should do.
[2024-01-05] MEDS: AZITHROMYCIN 500 MG/NS 250 ML 500 MG/250 ML BAG 250 MG IVPB (00:46)
[2024-01-05] MEDS: CEFEPIME 1 GM/NS 50 ML 1 GM/50 ML BAG IVPB (02:13)
[2024-01-05] MEDS: VANCOMYCIN 1,250 MG/NS 250 ML 1,250 MG/250 ML BAG 166.67 MG IVPB (02:54)
[2024-01-05 05:36] VITALS: BP 144/72; PULSE 64; RESP 20; TEMP 36.8; O2SAT 97
[2024-01-05] MEDS: FLUTICASONE/SALMETEROL 115-21 MCG INHALER 1 PUFF 2 PUFF INHALATION ×2 (08:35→20:31)
[2024-01-05] MEDS: CITALOPRAM HYDROBROMIDE 10 MG TABLET PO (08:36)
[2024-01-05] MEDS: MONTELUKAST SODIUM 10 MG TABLET PO (08:36)
[2024-01-05] MEDS: TAMOXIFEN CITRATE (*CHEMO) 10 MG TABLET 20 MG PO (08:36)
[2024-01-05] MEDS: ISOSORBIDE MONONITRATE 60 MG TAB.ER.24H PO (08:36)
[2024-01-05 08:38] VITALS: O2SAT 92
[2024-01-05 09:28] LABS: Basophils Absolute Auto 0.1 K/mm3 (0.0-0.1); Basophils Percent Auto 0.9 % (0.2-1.2); Eosinophils Absolute Auto 0.1 K/mm3 (0-0.3); Eosinophils Percent Auto 1.3 % (0-4.4); Hematocrit 37.6 % (37.0-47.0); Hemoglobin 11.9 g/dL (12.0-15.0); Immature Granulocyte Absolute 0.02 K/mm3 (0.00-0.031); Immature Granulocyte Percent A 0.2 % (0-0.5); Lymphocytes Absolute Auto 1.49 K/mm3 (0.9-3.2); Lymphocytes Percent Auto 18.2 % (18.3-44.2); Mean Corpuscular HGB Conc 31.6 g/dl (32-36); Mean Corpuscular Hemoglobin 28.5 pg (26-34); Monocytes Absolute Auto 0.6 K/mm3 (0.1-0.6); Monocytes Percent Auto 7.3 % (2.6-8.5); Neutrophils Absolute Auto 5.9 K/mm3 (1.3-6.7); Neutrophils Percent Auto 72.1 % (45.5-73.1); Platelet Count Result 433 k/mm3 (150-375); Red Blood Count 4.18 M/mm3 (4.2-5.4); Red Cell Distribution Width 14.5 % (11.5-14.5); White Blood Count 8.2 K/mm3 (4.5-10.0)
[2024-01-05 10:17] LABS: MRSA (PCR) NOT DETECTED (NOT DETECTE)
[2024-01-05 10:21] LABS: Alanine Aminotransferase 15 U/L (6-35); Albumin Level 3.5 g/dL (3.5-5.1); Alkaline Phosphatase 49 U/L (38-126); Anion Gap 9 mmol/L (4-12); Aspartate Amino Transferase 25 U/L (14-36); Bilirubin,Total 0.4 mg/dL (0.2-1.3); Blood Urea Nitrogen 22 mg/dL (7-17); Calcium 8.3 mg/dL (8.4-10.2); Carbon Dioxide 23 mmol/L (22-30); Chloride 102 mmol/L (98-107); Estimated CRCL calculation 27 ml/min; Estimated Glomerular Filt Rate 59; Glucose 138 mg/dL (65-110); Magnesium 2.4 mg/dL (1.6-2.3); Sodium 134 mmol/L (137-145)
[2024-01-05] MEDS: FLUTICASONE PROPIONATE 0.05% NA SPR 16 GM BTL (*BKC) 2 SPRAY NASAL (10:43)
[2024-01-05 11:43] LABS: pH Pleural Fluid > 7.500 (7.210-7.500)
[2024-01-05 12:51] LABS: Appearance Pleural Fluid Clear (Clear); Color Pleural Fluid Yellow (Colorless); Pleural fluid source Pleural fluid
[2024-01-05 12:52] LABS: Nucleated Cell Pleural Fluid 415 /uL (0-1000); RBC Pleural Fluid < 2000 /uL (0-10000)
[2024-01-05 12:56] LABS: Lymphocytes Pleural Fluid 78 %; Macrophages Pleural Fluid 6 %; Monocytes Pleural Fluid 12 %; Neutrophils Pleural Fluid 2 % (0-25)
[2024-01-05 12:57] LABS: Other Cells Pleural Fluid 2 %
--- NOTE | 2024-01-05 13:39 | PM.IMPN ---
Progress Note: A&P Assessment and Plan (1) Acute hypoxic respiratory failure: Code(s): J96.01 - Acute respiratory failure with hypoxia Status: Acute Assessment and Plan: Improved. SaO2 99% RA. BNP 1740. Patient responded well to Lasix 40 mg IVP x1. Echocardiogram ordered. (2) Pleural effusion, bilateral: Code(s): J90 - Pleural effusion, not elsewhere classified Status: Acute Assessment and Plan: Showed many WBC seen. No organisms seen. Patient seen by journeyman painter today that recommended stopping the antibiotics, antibiotics discontinued. Internal Revenue Agent reported It appears as though the pleural effusions have been chronic with a chest x-ray back in January of 2023 showing a small pleural effusion. On on recent thoracentesis the right pleural effusion was transudate based on high pleural fluid albumin to serum gradient. Cytology was negative on previous thoracentesis. There is no evidence of infection the patient does not look septic. Subjective Date/time seen: 01/05/24 13:39 Interval history: Chief Complaint: sob Narrative: Patient is an 88-year-old female with past medical history significant for advanced dementia, patient is a shelter resident. Past medical history significant for breast CA currently on tamoxifen, patient with recent large pleural effusion comes back with recurrent pleural effusion episode of shortness of breath and oxygen desaturation currently on supplemental oxygen by nasal cannula. History has been obtained from medical records patient is pleasantly demented unable to give any meaningful history. Preliminary workup was significant for chest x-ray with large right-sided pleural effusion and possible pneumonia. Patient has been admitted for further evaluation management and treatment. Patient denies pain, sob, palpitations, headache, cough, or dizziness. EXAMINATION: XR chest 2V DATE: 01/04/2024 16:21 INDICATION: Shortness of breath TECHNIQUE: frontal and lateral views of the chest were obtained. COMPARISON: Chest radiograph dated 12/09/2023 FINDINGS: Increasing large right pleural effusion with opacification of the entire right middle and lower hemithorax. There is also been increase in size of a moderate-sized left pleural effusion with opacification of the caudal half of the left hemithorax. There is associated atelectasis although pneumonia is not excludable. No pulmonary edema in the aerated portions of the lung. No pneumothorax. Cardiac silhouette is obscured by the effusions. Mild to moderate thoracic spondylosis. IMPRESSION: 1. Increasing large right and moderate-sized left pleural effusions with associated atelectasis and/or pneumonia. CT diagnostic chest wo con Ordering provider: Shalini Morel PA-C History: 88 years Female with . manjit pleural effusions . Comparison: December 06, 2023 Technique: CT chest without IV contrast. FINDINGS: VISUALIZED THORACIC INLET: Normal. Radiation reduction technique utilized. DLP is 116.72 mGy-cm. MEDIASTINUM: Aorta/coronary arteries: Mild atheromatous disease. Heart/other: The heart is not enlarged. Moderate sized hiatal hernia. Lymph nodes: No mediastinal or hilar adenopathy. Narrowing of the main bronchi in the area of the lucille LUNGS: No pulmonary nodules or masses. Large right pleural effusion with moderate left. Atelectasis in the right lung upper and lower lobes and left lung lower lobe. No pneumothorax. VISUALIZED UPPER ABDOMEN: Otherwise, the visualized upper abdomen is normal. MUSCULOSKELETAL: Soft tissues: The superficial soft tissues are normal. Bones: Age appropriate degenerative changes of the spine. IMPRESSION: 1. Bilateral pleural effusion larger on the right side with adjacent atelectasis in the right lung upper and lower lobe and left lower lobe. 2. Ejlp-sc-zdxwmknh pericardial effusion. 01/05/24: WBC 8.2, H&H 11.9/37.6, Albumin 3.5. Review of Systems Review o
[2024-01-05 13:48] VITALS: BP 119/54; PULSE 69; RESP 18; TEMP 36.2; O2SAT 99
--- NOTE | 2024-01-05 14:03 | PM.CNPUL ---
Assessment and Plan Assessment and plan (1) Acute hypoxic respiratory failure: Code(s): J96.01 - Acute respiratory failure with hypoxia Status: Acute (2) Pleural effusion, bilateral: Code(s): J90 - Pleural effusion, not elsewhere classified Status: Acute Assessment and Plan: This 88-year-old female with advanced dementia has had bilateral pleural effusions which are symmetrical. It appears as though the pleural effusions have been chronic with a chest x-ray back in January of 2023 showing a small pleural effusion. On on recent thoracentesis the right pleural effusion was transudate based on high pleural fluid albumin to serum gradient. Cytology was negative on previous thoracentesis. There is no evidence of infection the patient does not look septic. Plan: I would discontinue antibiotics as there is no evidence of empyema or lower respiratory tract infection. The patient has no leukocytosis. Pleural fluid analysis pending; patient should be treated for congestive heart failure as before. Will continue to monitor the patient along with you (3) Shortness of breath: Code(s): R06.02 - Shortness of breath Status: Acute History of Present Illness History of Present Illness Consult date: 01/05/24 Chief complaint: SOB with Hypoxia/[place] Pleural Effusions Narrative: This 88-year-old female with a history of dementia was brought into the hospital because of increasing shortness of breath. The patient has advanced dementia and was unable to provide any details of her illness. This report is based on information obtained after reviewing the patient's chart. The patient's history is also significant for breast cancer. The patient was hospitalized in November of this year with bilateral pleural effusions, she underwent a right thoracentesis. A on fluid analysis the effusion was transudate based on low albumin and low LDH. Effusion was lymphocytic but cytology showed no evidence of malignancy. Since then she had 2 more thoracentesis with the latest 1 today with removal of approximately 1 L of clear fluid. A new chest CT showed bilateral pleural effusion with associated lower lobe atelectasis greater on right. The patient has been on antibiotics for possible lower respiratory tract infection. She had no leukocytosis. On today's thoracentesis the pleural fluid pH was 7.5 which makes empyema extremely unlikely, with lymphocyte predominance. Review of Systems Review of Systems: All systems reviewed & are unremarkable except as noted in HPI and below (HPI and below) [facility] Past Medical History Medical History Anxiety Asthma Dementia Gastroesophageal reflux disease History of left breast cancer History of shingles Hyperlipidemia Hypertension Peripheral neuropathy Pneumonia Prinzmetal's angina Seizures Surgical History Surgical History History of appendectomy (1950) History of bilateral cataract extraction History of cardiac catheterization History of conization of cervix History of hysterectomy (1977) History of lumpectomy of left breast History of removal of pigmented skin lesion History of tonsillectomy History of wisdom tooth extraction Family History Family History Sibling Family history of allergic disorder Family history of malignant neoplasm Family history of diabetes mellitus in first degree relative Diabetes mellitus Mother Breast cancer Father Cerebrovascular accident Grandparent Diabetes mellitus Son Hodgkins disease Social History Social History Social History: Surrogate medical decision maker: Domenic Julio, son. Code status: Full code. Smoking status: Never smoker Alcohol intake: current Drinks per week: 1 Substance
[2024-01-05 20:15] VITALS: BP 97/68; PULSE 84; RESP 20; TEMP 37; O2SAT 95
[2024-01-05 20:31] VITALS: O2SAT 96
[2024-01-06 05:45] VITALS: BP 109/50; PULSE 67; RESP 18; TEMP 37.2; O2SAT 96
[2024-01-06 08:04] LABS: Basophils Absolute Auto 0.1 K/mm3 (0.0-0.1); Basophils Percent Auto 0.6 % (0.2-1.2); Eosinophils Absolute Auto 0.1 K/mm3 (0-0.3); Eosinophils Percent Auto 0.9 % (0-4.4); Hematocrit 33.6 % (37.0-47.0); Hemoglobin 10.7 g/dL (12.0-15.0); Immature Granulocyte Absolute 0.03 K/mm3 (0.00-0.031); Immature Granulocyte Percent A 0.3 % (0-0.5); Lymphocytes Absolute Auto 1.34 K/mm3 (0.9-3.2); Lymphocytes Percent Auto 15.5 % (18.3-44.2); Mean Corpuscular HGB Conc 31.8 g/dl (32-36); Mean Corpuscular Hemoglobin 28.5 pg (26-34); Mean Corpuscular Volume 89.6 fl (80-100); Mean Platelet Volume 8.9 fl (7.4-10.4); Monocytes Absolute Auto 0.9 K/mm3 (0.1-0.6); Monocytes Percent Auto 10.8 % (2.6-8.5); Neutrophils Absolute Auto 6.2 K/mm3 (1.3-6.7); Neutrophils Percent Auto 71.9 % (45.5-73.1); Platelet Count Result 391 k/mm3 (150-375); Red Blood Count 3.75 M/mm3 (4.2-5.4); Red Cell Distribution Width 14.3 % (11.5-14.5); White Blood Count 8.6 K/mm3 (4.5-10.0)
[2024-01-06] MEDS: FLUTICASONE/SALMETEROL 115-21 MCG INHALER 1 PUFF 2 PUFF INHALATION (08:07)
[2024-01-06 08:10] VITALS: PULSE 94; RESP 20; O2SAT 95
[2024-01-06] MEDS: ISOSORBIDE MONONITRATE 60 MG TAB.ER.24H PO (09:34)
[2024-01-06] MEDS: MONTELUKAST SODIUM 10 MG TABLET PO (09:34)
[2024-01-06] MEDS: CITALOPRAM HYDROBROMIDE 10 MG TABLET PO (09:34)
[2024-01-06] MEDS: FLUTICASONE PROPIONATE 0.05% NA SPR 16 GM BTL (*BKC) 2 SPRAY NASAL (09:36)
[2024-01-06] MEDS: TAMOXIFEN CITRATE (*CHEMO) 10 MG TABLET 20 MG PO (09:36)
[2024-01-06 11:10] LABS: Alanine Aminotransferase 13 U/L (6-35); Alkaline Phosphatase 46 U/L (38-126); Anion Gap 5 mmol/L (4-12); Aspartate Amino Transferase 21 U/L (14-36); Bilirubin,Total 0.4 mg/dL (0.2-1.3); Blood Urea Nitrogen 22 mg/dL (7-17); Calcium 8.3 mg/dL (8.4-10.2); Carbon Dioxide 28 mmol/L (22-30); Chloride 101 mmol/L (98-107); Estimated CRCL calculation 24 ml/min; Estimated Glomerular Filt Rate 52; Glucose 94 mg/dL (65-110); Potassium 4.2 mmol/L (3.4-5.0); Sodium 134 mmol/L (137-145)
--- NOTE | 2024-01-06 12:05 | PM.DS ---
DS: Admitting Diagnosis Discharge Date 01/06/24 Admitting Diagnosis Acute hypoxic respiratory failure Pleural effusion, bilateral Paroxysmal supraventricular tachycardia GERD DS: Summary Hospital Course Reason for hospitalization: Acute hypoxic respiratory failure Pleural effusion, bilateral Paroxysmal supraventricular tachycardia GERD Hospital Course: This is an 88 year old female who presented to the hospital on 01/04/24 with increased shortness of breath. Work up in the hospital included CT of chest shown bilateral pleural effusion larger on the right side, mild to moderate pericardial effusion. CXR shown increasing large right and moderate left pleural effusion. Patient had thoracentesis done yielding 1L of fluid removed. Pleural fluid labs and cultures were obtained. She was initially started on antibiotics however there was no signs of infection per staffing consultant and IV antibiotics (Cefepime, Azithromycin) were discontinued. Patient is currently on room air. She is confused at baseline so not able to get a true review of systems. She is stable for discharge at this time. She will need to follow up with her primary care doctor in 1 week and the staffing consultant in 2 weeks. Final diagnosis: Bilateral pleural effusion, acute hypoxic respiratory failure Status at Discharge Cognitive/behavioral status at discharge: Alert and oriented x4 Functional status at discharge: uses cane/walker Overall status at discharge: patient is progressing back to baseline Time Spent with Patient Time attestation: Total time spent providing and/or coordinating discharge services: Time spent: Greater than 30 minutes Exam Narrative: General: In no acute distress, well nourished Head: atraumatic, no encephalopathy Eyes: EOMI, PERRLA, sclera clear ENT: moist mucous membranes, nasal passages clear Neck: supple, no JVD, no adenopathy, trachea midline Cardiac: Normal S1 and S2. No murmur, gallops or friction rubs, peripheral pulses intact. Respiratory: Lungs clear to auscultation, no adventitious lung sounds Gastrointestinal: soft, non-distended, non-tender, normoactive bowel sounds. : voiding without difficulty. Extremities: moves all extremities well, no edema, good ROM, strength 5/5 Skin: clean, dry, intact. No wounds or lesions. Neuro: Alert and oriented x4, cranial nerves intact, no neuro deficits. Psych: normal mood, normal affect, interactive DS: Data Data Completed and Pending Completed studies during hospitalization: Pending at discharge 01/04/24 20:21 Cytology [PTH] Routine Pending studies at discharge: Pleural fluid cultures Blood cultures Labs on day of discharge: Labs from last 24 hours 01/06/24 01/05/24 07:55 11:00 WBC 8.6 RBC 3.75 L Hgb 10.7 L Hct 33.6 L MCV 89.6 MCH 28.5 MCHC 31.8 L RDW 14.3 Plt Count 391 H MPV 8.9 Immature Gran % (Auto) 0.3 Neut % (Auto) 71.9 Lymph % (Auto) 15.5 L Beadle % (Auto) 10.8 H Eos % (Auto) 0.9 Baso % (Auto) 0.6 Lymph # (Auto) 1.34 Beadle # (Auto) 0.9 H Eos # (Auto) 0.1 Baso # (Auto) 0.1 Abs Immat Gran (auto) 0.03 Absolute Neuts (auto) 6.2 Absolute Nucleated RBC 0.000 Nucleated RBC % 0.0 Sodium 134 L Potassium 4.2 Chloride 101 Carbon Dioxide 28 Anion Gap 5 BUN 22 H Creatinine 1.00 Estim Creat Clear Calc 24 Estimated GFR 52 L Glucose 94 Calcium 8.3 L Total Bilirubin 0.4 AST 21 ALT 13 Alkaline Phosphatase 46 Total Protein 6.0 L Albumin 3.0 L Pleural Fluid Source Pleural fluid Pleural Color Yellow Pleural Appearance Clear Pleural RBC < 2000 Pleural Nuc Cells 415 Pleural Neutrophils 2 Pleural Lymphocytes 78 Pleural Monocytes 12 Pleural Macrophages 6 Pleural Other Cells 2 Preliminary micro results at discharge 01/05/24 00:33 Blood Culture - Preliminary Blood 01/05/24 00:33 Blood Culture - Preliminary Blood Procedures/Treatments: Thoracentesis
[2024-01-06] MEDS: FUROSEMIDE 20 MG TABLET PO (12:28)
[2024-01-06 14:00] VITALS: BP 109/49; PULSE 73; RESP 18; TEMP 36.8; O2SAT 100
[2024-01-09 06:53] LABS: Glucose Pleural Fluid 117 mg/dL
[2024-01-12 20:29] LABS: Albumin Pleural Fluid 1.4 g/dL; Amylase, Pleural Fluid 38 U/L; LDH Pleural Fluid 56 U/L; Total Protein Pleural Fluid <3.0 g/dL
== END 2024-01-06 17:38 | DRG 186 ==
LOC: ANHED 21:22 → ANH3MEDSUR 21:39
PROVIDERS: Emergency Medicine; Nurse Practitioner Family; Admitting Provider Internal Medicine; Emergency Provider Physician Assistant; PCP Internal Medicine; Visit Provider Nurse Practitioner Acute Care
DX: J90 Pleural effusion, not elsewhere classified (principal); J18.9 Pneumonia, unspecified organism; J96.01 Acute respiratory failure with hypoxia; J98.11 Atelectasis; I47.10 Supraventricular tachycardia, unspecified; F03.90 Unspecified dementia, unspecified severity, without behavioral disturbance, psychotic disturbance, mood disturbance, and anxiety; K21.9 Gastro-esophageal reflux disease without esophagitis; E78.5 Hyperlipidemia, unspecified; G62.9 Polyneuropathy, unspecified; I10 Essential (primary) hypertension; Z20.822 Contact with and (suspected) exposure to COVID-19; Z90.49 Acquired absence of other specified parts of digestive tract; Z98.42 Cataract extraction status, left eye; Z98.41 Cataract extraction status, right eye; Z90.710 Acquired absence of both cervix and uterus; Z85.3 Personal history of malignant neoplasm of breast
CPT/HCPCS: 32555; 36415; 71046; 71250; 80053; 82042; 82150; 82945; 83615; 83735; 83880; 83986; 84157; 84311; 84478; 84484; 85025; 85610; 85730; 87040; 87070; 87075; 87205; 87637; 87641; 88108; 88305; 89051; 93005; 94640; 96365; 96366; 96375; 97161; 99285; A9270; G0378; J0456; J0692; J1940; J3370

== ENCOUNTER 2024-02-23 16:10 | Emergency (ER) | payer MEDICARE, SELFPAY ==
--- NOTE | ~2024-02-23 | CT_ITS ---
CT chest abdomen pelvis wo con Ordering provider: Shalini Morel PA-C History: . swelling/mass to sides of abd . Comparison: None. Technique: CT chest without IV contrast. CT abdomen and pelvis without oral and IV contrast. FINDINGS: The study is limited due to lack of IV contrast. CHEST: --VISUALIZED THORACIC INLET: Normal as visualized. --MEDIASTINUM: Aorta/coronary arteries: Mild atheromatous disease. Heart/other: The heart is slightly enlarged. Trace of pericardial effusion. Lymph nodes: No mediastinal or hilar adenopathy. --LUNGS: Bilateral large pleural effusion more on the right side with atelectasis in the lower lobes. No pulmonary nodules or masses. No infiltrates. No pneumothorax. --MUSCULOSKELETAL: Soft tissues: Soft tissue density seen anterior to the cyst just lateral to the sternum. This area me asures 1.7 cm. The superficial soft tissues are normal. Bones: Age appropriate degenerative changes of the spine. ABDOMEN/PELVIS: --MUSCULOSKELETAL: Bones: Age appropriate degenerative changes of the spine. Myositis ossificans versus calcified hemato mas seen anterior to the femoral bones proximally. Minimal anterolisthesis at the level of L4-L5. Superficial soft tissues: Fat stranding in the subcutaneous tissues. Otherwise, The superficial soft tissues are normal. --UPPER ABDOMINAL ORGANS: Liver: Small hypodensity in the left lobe most likely a cyst measuring 0.9 cm. Ultrasound evaluation advised. Gallbladder: Not demonstrated most likely status post cholecystectomy. Spleen: Normal. Stomach/duodenum: Normal. Pancreas: Normal. Adrenals: Normal. Kidneys: Normal. --PELVIC ORGANS: The bladder is normal. No bladder stones. Vaginal prosthesis is noted. --BOWEL AND MESENTERY: Colon: Mild diverticulosis without diverticulitis. Appendix is not demonstrated. Small Bowel: Normal. No obstruction. Peritoneum/mesentery: No free air. Minimal free fluid is seen in the pelvis. No mesenteric lymphadeno lupe. --RETROPERITONEUM: Mild atheromatous disease of the abdominal aorta. No retroperitoneal lymphadenop athy. Small para-aortic lymph nodes are demonstrated. IMPRESSION: CHEST: 1. Bilateral large pleural effusion more on the right side with atelectasis in the lower lobes. 2. Trace of pericardial effusion and cardiomegaly. ABDOMEN/PELVIS: 1. No evidence of appendicitis, diverticulitis or intestinal obstruction. 2. Minimal free fluid in the pelvis. Clinical correlation and follow-up advised. 3. Small hypodensity in the liver most likely small cyst. Reviewed, dictated and finalized at location A. IMPRESSION: CHEST: 1. Bilateral large pleural effusion more on the right side with atelectasis in the lower lobes. 2. Trace of pericardial effusion and cardiomegaly. ABDOMEN/PELVIS: 1. No evidence of appendicitis, diverticulitis or intestinal obstruction. 2. Minimal free fluid in the pelvis. Clinical correlation and follow-up advise d. 3. Small hypodensity in the liver most likely small cyst.
[2024-02-23 16:11] VITALS: BP 157/72; PULSE 76; RESP 27; TEMP 36.7; O2SAT 97
[2024-02-23 16:15] VITALS: BP 157/72; PULSE 71; RESP 25; O2SAT 98
[2024-02-23 17:48] VITALS: BP 145/81; PULSE 79; RESP 22; O2SAT 96
[2024-02-23 19:02] LABS: Basophils Absolute Auto 0.1 K/mm3 (0.0-0.1); Basophils Percent Auto 0.7 % (0.2-1.2); Eosinophils Percent Auto 0.4 % (0-4.4); Hematocrit 38.6 % (37.0-47.0); Hemoglobin 12.4 g/dL (12.0-15.0); Immature Granulocyte Absolute 0.04 K/mm3 (0.00-0.031); Immature Granulocyte Percent A 0.4 % (0-0.5); Lymphocytes Absolute Auto 1.81 K/mm3 (0.9-3.2); Lymphocytes Percent Auto 17.3 % (18.3-44.2); Mean Corpuscular HGB Conc 32.1 g/dl (32-36); Mean Corpuscular Hemoglobin 27.4 pg (26-34); Mean Corpuscular Volume 85.2 fl (80-100); Mean Platelet Volume 8.7 fl (7.4-10.4); Monocytes Absolute Auto 0.7 K/mm3 (0.1-0.6); Monocytes Percent Auto 6.7 % (2.6-8.5); Neutrophils Absolute Auto 7.8 K/mm3 (1.3-6.7); Neutrophils Percent Auto 74.5 % (45.5-73.1); Platelet Count Result 471 k/mm3 (150-375); Red Blood Count 4.53 M/mm3 (4.2-5.4); Red Cell Distribution Width 16.2 % (11.5-14.5); White Blood Count 10.5 K/mm3 (4.5-10.0)
[2024-02-23 19:14] LABS: Alanine Aminotransferase 15 U/L (6-35); Alkaline Phosphatase 63 U/L (38-126); Anion Gap 7 mmol/L (4-12); Aspartate Amino Transferase 22 U/L (14-36); Bilirubin,Total 0.5 mg/dL (0.2-1.3); Blood Urea Nitrogen 28 mg/dL (7-17); Calcium 9.1 mg/dL (8.4-10.2); Carbon Dioxide 28 mmol/L (22-30); Chloride 103 mmol/L (98-107); Estimated CRCL calculation 31 ml/min; Estimated Glomerular Filt Rate 47; Glucose 104 mg/dL (65-110); Potassium 4.7 mmol/L (3.4-5.0); Sodium 138 mmol/L (137-145)
[2024-02-23 19:23] LABS: NT Pro B Type Natriuretic Pept 1810 pg/mL (19.9-100)
--- NOTE | 2024-02-23 20:01 | ED.GENADULT ---
HPI - General Adult General Chief complaint: Unspecified Stated complaint: lump Time Seen by Provider: 02/23/24 17:11 Source: EMS and old records reviewed Mode of arrival: EMS Limitations: dementia History of Present Illness HPI narrative: Patient is an 88-year-old female, with past medical history of dementia, who presents the ED with report of mass to her chest. Patient is a resident of [facility]. She is alert and oriented times 0-1 at baseline. Per senior living report, they have noticed a mass to patient's left-sided abdomen/chest wall over the last 1 month which they report has aggressively increased in size. Sent here for further evaluation. Per records, patient has had imaging of her chest within the last couple of months which did not show any evidence of a mass. Patient is unable to voice any complaints. Related Data Home Medications Medication Instructions Recorded Confirmed Advair HFA 115 mcg inhalation BID 01/04/24 02/23/24 Eucerin Intensive Repair 1 applic topical BID 01/04/24 02/23/24 Lac-Hydrin Five 1 applic topical BID 01/04/24 02/23/24 OptiChamber Bambi [facility] 01/04/24 01/04/24 citalopram 10 mg PO DAILY 01/04/24 02/23/24 iron aspgl and ps cmplx 150 mg-vit 1 cap PO BIDWMEAL 01/04/24 01/04/24 C 50 mg-succinic acid 50 mg capsule (Ferrex) albuterol sulfate 90 mcg/actuation 90 mcg inhalation Q4-8H 02/23/24 02/23/24 aerosol inhaler citalopram 10 mg tablet 10 mg PO DAILY 02/23/24 02/23/24 Allergies Allergy/AdvReac Type Severity Reaction Status Date / Time bacitracin Allergy Unknown Unknown Verified 02/23/24 18:32 grass pollen Allergy Unknown Unknown Verified 02/23/24 18:32 Iodinated Contrast Media Allergy Unknown Stopped Verified 02/23/24 18:32 Breathing meperidine Allergy Unknown Unknown Verified 02/23/24 18:32 mold Allergy Unknown Unknown Verified 02/23/24 18:32 morphine Allergy Unknown Unknown Verified 02/23/24 18:32 neomycin Allergy Unknown RASH Verified 02/23/24 18:32 polymyxin B Allergy Unknown Unknown Verified 02/23/24 18:32 propoxyphene Allergy Unknown Unknown Verified 02/23/24 18:32 fentanyl AdvReac Unknown Vomiting Verified 02/23/24 18:32 Opioids-Meperidine and AdvReac Unknown VOMITING Verified 02/23/24 18:32 Related Contrast Media Allergy Severe Anaphylactic Uncoded 02/23/24 18:32 Shock ENVIRONMENTAL Allergy Unknown Unknown Uncoded 02/23/24 18:32 Review of Systems Review of Systems: All systems reviewed & are unremarkable except as noted in HPI. All systems reviewed & are unremarkable except as noted in HPI and below [facility] Past Medical History Medical History Anxiety Asthma Dementia Gastroesophageal reflux disease History of left breast cancer History of shingles Hyperlipidemia Hypertension Peripheral neuropathy Pneumonia Prinzmetal's angina Seizures Surgical History Surgical History History of appendectomy (1950) History of bilateral cataract extraction History of cardiac catheterization History of conization of cervix History of hysterectomy (1977) History of lumpectomy of left breast History of removal of pigmented skin lesion History of tonsillectomy History of wisdom tooth extraction Family History Family History Sibling Family history of allergic disorder Family history of malignant neoplasm Family history of diabetes mellitus in first degree relative Diabetes mellitus Mother Breast cancer Father Cerebrovascular accident Grandparent Diabetes mellitus Son Hodgkins disease Social History Social History Social History: Surrogate medical decision maker: Domenic Julio, malissa. Code status: Full code. Smoking status: Never smoker Alcohol intake: current Drinks per week: 1 Substance use: never Substance use type: does not use Lack of Transportation: No Lack of Food: Never True Current Housing: I Have Housing Concerned About Future Housing: No Difficulty Paying Gas/Electric Bills: No Difficulty Paying for Meds: No Currently Unemployed: No Education: High School Diploma/GED Difficulty w/ Childcare or Family Care: No Additional living arrangements comments: Lives at [facility] facility. She had 3 sons, 1 has . Additional occupation/education comments: Retired nurse. Spiritual care concerns: No Exam Narrative: GENERAL: Elderly, frail, non-toxic, in no acute distress. HEAD: Normocephalic, atraumatic. RESPIRATORY: Airway patent, respirations nonlabored. Clear to auscultation bilaterally, no rales, rhonchi, wheezing. CARDIOVASCULAR: Regular rate and rhythm without murmurs, rubs, or gallops. MUSCULOSKELETAL: Moves all extremities. No gross deformities. SKIN: Warm, dry, normal color. No obvious masses along abdominal or chest wall. Patient does have some tense edema on lateral chest mcrae bilaterally, nontender, no rashes, wounds. No significant peripheral edema. NEURO: Alert, but unable to answer any questions appropriately, speaking in full sentences but not appropriate to conversation. Pleasantly confused. Speech clear. No ataxic movements. No gross focal deficits. PSYCHIATRIC: Appropriate mood and affect. Normal interaction. Course Vital Signs Vital signs: Vital Signs Temperature 98.1 F 02/23/24 16:11 Pulse Rate 76 02/23/24 16:11 Respiratory Rate 27 H 02/23/24 16:11 Blood Pressure 157/72 H 02/23/24 16:11 Pulse Oximetry 97 02/23/24 16:11 Oxygen Delivery Room Air 02/23/24 16:11 Temperature 98.1 F 02/23/24 16:11 Pulse Rate 73 02/23/24 20:41 Respiratory Rate 17 02/23/24 20:41 Blood Pressure 120/60 02/23/24 20:41 Pulse Oximetry 97 02/23/24 20:41 Oxygen Delivery Room Air 02/23/24 16:11 Medical Decision Making MDM Narrative Medical decision making narrative: Exam more consistent with swelling along chest wall. No obvious masses noted. Will obtain lab and imaging to further evaluate. Vital signs are stable. She is in no acute distress. Oxygen is stable on room air. She does not appear to be having any respiratory distress or difficulty breathing. She does have history of chronic pleural effusions which have required drainage in the past. History of CHF, on Lasix 20 mg daily. Basic laboratory studies are unremarkable. BNP is very mildly elevated. Patient otherwise did not appear acutely fluid overloaded in lower extremities. CT of chest/abdomen/pelvis was obtained and no evidence of masses. Does show bilateral pleural effusions, which has been seen on numerous recent imaging. Patient is not symptomatic with this. Again no respiratory issue or distress. Oxygen is stable on room air. Feel she is safe for discharge back to the senior living with potential for outpatient thoracentesis. Recommended close follow-up with PCP for further evaluation. Return precautions discussed on paperwork. Discharged in stable condition. Medical Records Medical records reviewed: Yes I reviewed the external patient's medical records. Vital Signs Vital Signs: Vital Signs Temperature 98.1 F 02/23/24 16:11 Pulse Rate 76 02/23/24 16:11 Respiratory Rate 27 H 02/23/24 16:11 Blood Pressure 157/72 H 02/23/24 16:11 Pulse Oximetry 97 02/23/24 16:11 Oxygen Delivery Room Air 02/23/24 16:11 Temperature 98.1 F 02/23/24 16:11 Pulse Rate 73 02/23/24 20:41 Respiratory Rate 17 02/23/24 20:41 Blood Pressure 120/60 02/23/24 20:41 Pulse Oximetry 97 02/23/24 20:41 Oxygen Delivery Room Air 02/23/24 16:11 Lab Data Lab results reviewed: Yes I reviewed the patient's lab results. 02/23/24 18:49 02/23/24 18:49 Labs: Lab Results 02/23/24 Range/Units 18:49 WBC 10.5 H (4.5-10.0) K/mm3 RBC 4.53 (4.2-5.4) M/mm3 Hgb 12.4 (12.0-15.0) g/dL Hct 38.6 (37.0-47.0) % MCV 85.2 (80-100) fl MCH 27.4 (26-34) pg MCHC 32.1 (32-36) g/dl RDW 16.2 H (11.5-14.5) % Plt Count 471 H (150-375) k/mm3 MPV 8.7 (7.4-10.4) fl Immature Gran % (Auto) 0.4 (0-0.5) % Neut % (Auto) 74.5 H (45.5-73.1) % Lymph % (Auto) 17.3 L (18.3-44.2) % [place] % (Auto) 6.7 (2.6-8.5) % Eos % (Auto) 0.4 (0-4.4) % Baso % (Auto) 0.7 (0.2-1.2) % Lymph # (Auto) 1.81 (0.9-3.2) K/mm3 [place] # (Auto) 0.7 H (0.1-0.6) K/mm3 Eos # (Auto) 0.0 (0-0.3) K/mm3 Baso # (Auto) 0.1 (0.0-0.1) K/mm3 Abs Immat Gran (auto) 0.04 H (0.00-0.031) K/mm3 Absolute Neuts (auto) 7.8 H (1.3-6.7) K/mm3 Absolute Nucleated RBC 0.000 (0.0-0.012) K/mm3 Nucleated RBC % 0.0 (0.0-0.2) % Sodium 138 (137-145) mmol/L Potassium 4.7 (3.4-5.0) mmol/L Chloride 103 (98-107) mmol/L Carbon Dioxide 28 (22-30) mmol/L Anion Gap 7 (4-12) mmol/L BUN 28 H (7-17) mg/dL Creatinine 1.10 H (0.7-1.0) mg/dL Estim Creat Clear Calc 31 ml/min Estimated GFR 47 L (59 - ) Glucose 104 (65-110) mg/dL Calcium 9.1 (8.4-10.2) mg/dL Total Bilirubin 0.5 (0.2-1.3) mg/dL AST 22 (14-36) U/L ALT 15 (6-35) U/L Alkaline Phosphatase 63 (38-126) U/L NT-Pro-B Natriuret Pep 1810 H (19.9-100) pg/mL Total Protein 8.0 (6.3-8.2) g/dL Albumin 4.0 (3.5-5.1) g/dL Imaging Data Attestation: I personally reviewed and interpreted this imaging study as follows: Radiologist's impression: ITS Impressions Chest/Abdomen/Pelvis CT 02/23/24 18:43 IMPRESSION: CHEST: 1. Bilateral large pleural effusion more on the right side with atelectasis in the lower lobes. 2. Trace of pericardial effusion and cardiomegaly. ABDOMEN/PELVIS: 1. No evidence of appendicitis, diverticulitis or intestinal obstruction. 2. Minimal free fluid in the pelvis. Clinical correlation and follow-up advised. 3. Small hypodensity in the liver most likely small cyst. Discharge Plan Discharge Clinical Impression: Localized superficial swelling of skin, Dementia, Pleural effusion Patient Disposition: [facility] Condition: Stable Instructions: Antibiotic Form, Edema (ED) Additional Instructions: Patient's imaging did not show any evidence of a mass. She does have superficial fat stranding and swelling throughout her chest. Continue her home Lasix. Follow-up with primary care doctor for further evaluation. Return to the ED if patient experiences difficulty breathing, unable to keep down food or drink, persistent fevers, chest pain, or any other symptoms of concern. Prescriptions: No Action Advair HFA 115 mcg inhalation BID Rx Instructions: 115-21 mcg inhale two puffs twice daily Eucerin Intensive Repair 1 applic topical BID Rx Instructions: APPLY TOPICALLY TO BLE TWICE DAILY Lac-Hydrin Five 1 applic topical BID Rx Instructions: APPLY TOPICALLY TWICE A DAY (DME) Kitty Lacy [facility] Rx Instructions: use as directed to administer advair inhaler citalopram 10 mg PO DAILY Ferrex 150 Plus 150-50-50 mg capsule 1 cap PO BIDWMEAL citalopram 10 mg Tablet 10 mg PO DAILY albuterol sulfate [ProAir HFA] 90 mcg/actuation HFA aerosol inhaler 90 mcg INHALATION Q4-8H multivitamin Tablet 1 tablet PO DAILY Qty: 30 0RF isosorbide mononitrate 60 mg Tablet Extended Release 24 Hr 60 mg PO DAILY Qty: 30 0RF montelukast 10 mg Tablet 10 mg PO DAILY Qty: 30 0RF magnesium 250 mg tablet 250 mg PO BID Qty: 30 0RF furosemide [Lasix] 20 mg tablet 20 mg PO DAILY Qty: 30 0RF fluticasone propionate 50 mcg/actuation spray,suspension 2 spray INTRANASAL QAM Qty: 30 0RF Rx Instructions: TWO SPRAYS IN EACH NOSTRIL acetaminophen 500 mg capsule 500 mg PO Q8H PRN (Reason: Pain (Scale Score 1-3)) Qty: 30 0RF tamoxifen 20 mg Tablet 20 mg PO DAILY Qty: 30 0RF coenzyme Q10 [Co Q-10] 200 mg capsule 200 mg PO DAILY Qty: 30 0RF calcium carbonate-vitamin D3 [Calcium 600 + D(3)] 600 mg-10 mcg (400 unit) Tablet 1 tablet PO DAILY Qty: 30 0RF omega 4-lov-ftq-fish oil [Fish Oil] 1,000 mg (120 mg-180 mg) capsule 1 cap PO DAILY Qty: 30 0RF cetirizine 10 mg Capsule 10 mg PO DAILY Qty: 30 0RF Follow-up/Referrals: Zhane,Hany Jenkins DO [Primary Care Provider] - Time of Disposition: 20:11
[2024-02-23 20:41] VITALS: BP 120/60; PULSE 73; RESP 17; O2SAT 97
== END 2024-02-23 20:43 ==
PROVIDERS: Emergency Provider Physician Assistant; PCP Internal Medicine
DX: R22.2 Localized swelling, mass and lump, trunk (principal); J90 Pleural effusion, not elsewhere classified; F03.90 Unspecified dementia, unspecified severity, without behavioral disturbance, psychotic disturbance, mood disturbance, and anxiety; J45.909 Unspecified asthma, uncomplicated; E78.5 Hyperlipidemia, unspecified; K21.9 Gastro-esophageal reflux disease without esophagitis; Z85.3 Personal history of malignant neoplasm of breast; I50.9 Heart failure, unspecified; I11.0 Hypertensive heart disease with heart failure
CPT/HCPCS: 36415; 71250; 74176; 80053; 83880; 85025; 99284

== ENCOUNTER 2024-03-02 12:41 | Inpatient (IN) | payer MEDICARE, SELFPAY ==
[2024-03-02] VITALS (29 sets, daily range): BP systolic 100–142; BP diastolic 45–87; PULSE 66–163; RESP 16–27; TEMP 36.1–36.7; O2SAT 89–99
--- NOTE | ~2024-03-02 | XR_ITS ---
XR chest 1V portable 03/02/2024 14:00 Indication: Shortness of breath Procedure: AP portable chest Comparison: Comparison to multiple prior studies sequentially, with oldest reviewed study dated 01/24. Findings: Cardiomegaly. Mild interstitial edema. Bilateral pneumonia less favored. There are bilatera l pleural effusions. Low lung volume in the right thorax with elevated right diaphragm. No pneumothor ax. Impression: 1: Cardiomegaly with mild interstitial edema. Pneumonia less favored. 2: Small pleural effusions with elevated right diaphragm. Reviewed, dictated and finalized at location B. TRICAL DESIGNER Impression: 1: Cardiomegaly with mild interstitial edema. Pneumonia less favored. 2: Small pleural effusions with elevated right diaphragm.
--- NOTE | 2024-03-02 12:48 | ECG_ITS ---
Test Date: 2024-03-02 12:52:41 Measurements Intervals [place] Rate: 161 P: 0 LA: 0 QRS: 60 QRSD: 81 T: 21 QT: 264 QTc: 433 Interpretive Statements SUPRAVENTRICULAR TACHYCARDIA ANTEROSEPTAL INFARCT, AGE INDETERMINATE ST DEPRESSION IN INF/LAT LEADS- CONSIDER ISCHEMIA OR RATE RELATED BASELINE ARTIFACT- III, AVL, AVF, V6 ABNORMAL ECG Compared to ECG 01/04/2024 15:32:25 SUPRAVENTRICULAR TACHYCARDIA NOW PRESENT ST (T wave) deviation now present Electronically Signed On 03-02-2024 13:06:37 WEIGH BOSS by Jovan Yang D.O.
--- NOTE | 2024-03-02 13:30 | ECG_ITS ---
Test Date: 2024-03-02 13:41:34 Measurements Intervals [place] Rate: 89 P: 15 MT: 119 QRS: 53 QRSD: 71 T: 50 QT: 329 QTc: 400 Interpretive Statements SINUS RHYTHM WITH SHORT MT INTERVAL WITH ATRIAL AND VENTRICULAR PREMATURE COMPLEXES LOW QRS VOLTAGE IN LIMB LEADS CONSIDER ANTERIOR INFARCT, AGE INDETERMINATE BORDERLINE ST-T WAVE ABNORMALITY- LATERAL LEADS BASELINE ARTIFACT- I, II, III, AVR, AVL, AVF, V1, V3-V6 ABNORMAL ECG Compared to ECG 03/02/2024 12:52:41 SUPRAVENTRICULAR TACHYCARDIA NO LONGER PRESENT POSSIBLE ISCHEMIA NO LONGER PRESENT Electronically Signed On 03-02-2024 13:48:08 DIGITAL MEDIA PRODUCER by Jovan Yang D.O.
[2024-03-02] MEDS: ADENOSINE IV SOLN 6 MG/2 ML VIAL IV PUSH (13:33)
--- NOTE | 2024-03-02 13:35 | ECG_ITS ---
Test Date: 2024-03-02 13:35:55 Measurements Intervals [place] Rate: 97 P: 12 NC: 121 QRS: 52 QRSD: 77 T: 42 QT: 322 QTc: 409 Interpretive Statements SINUS RHYTHM WITH OCCASIONAL SUPRAVENTRICULAR PREMATURE COMPLEXES LOW QRS VOLTAGE IN LIMB LEADS BORDERLINE R WAVE PROGRESSION, ANTERIOR LEADS BASELINE ARTIFACT- I, III, AVL, AVF, V1, V4, V6 BORDERLINE ECG Compared to ECG 03/02/2024 12:52:41 SUPRAVENTRICULAR TACHYCARDIA NO LONGER PRESENT Low QRS voltage now present POSSIBLE ISCHEMIA NO LONGER PRESENT Electronically Signed On 03-04-2024 18:16:55 COSMETIC CONSULTANT by Jovan Yang D.O.
[2024-03-02] MEDS: ADENOSINE IV SOLN 6 MG/2 ML VIAL 12 MG IV PUSH (13:40)
[2024-03-02 14:16] LABS: Lactic Acid Reflex 1.5 mmol/L (0.7-2.0); Lipase 57 U/L (23-300); Magnesium 2.6 mg/dL (1.6-2.3)
[2024-03-02 14:24] LABS: Basophils Absolute Auto 0.1 K/mm3 (0.0-0.1); Basophils Percent Auto 0.6 % (0.2-1.2); Eosinophils Absolute Auto 0.1 K/mm3 (0-0.3); Eosinophils Percent Auto 0.4 % (0-4.4); Hematocrit 34.7 % (37.0-47.0); Hemoglobin 10.9 g/dL (12.0-15.0); Immature Granulocyte Absolute 0.06 K/mm3 (0.00-0.031); Immature Granulocyte Percent A 0.4 % (0-0.5); Lymphocytes Percent Auto 11.9 % (18.3-44.2); Mean Corpuscular HGB Conc 31.4 g/dl (32-36); Mean Corpuscular Volume 86.1 fl (80-100); Mean Platelet Volume 9.5 fl (7.4-10.4); Monocytes Absolute Auto 1.3 K/mm3 (0.1-0.6); Monocytes Percent Auto 9.3 % (2.6-8.5); Neutrophils Percent Auto 77.4 % (45.5-73.1); Platelet Count Result 498 k/mm3 (150-375); Red Blood Count 4.03 M/mm3 (4.2-5.4); Red Cell Distribution Width 16.2 % (11.5-14.5); White Blood Count 14.3 K/mm3 (4.5-10.0)
[2024-03-02 14:28] LABS: INR 1.1; Partial Thromboplastin Time 27.9 Seconds (22.3-36.8); Prothrombin Time 14.7 Seconds (11.1-14.7)
[2024-03-02 14:32] LABS: Troponin I < 0.012 ng/mL (0.000-0.034)
[2024-03-02 14:35] LABS: Add Urine Microscopic? YES; Appearance Urine Clear (Clear); Bacteria Urine None Seen /hpf; Bilirubin Urine Negative (Negative); Blood Urine Non-Hemolyzed Trace (Negative); Color Urine Yellow (Yellow); Glucose Urine UA Negative (Negative); Ketones Urine Negative (Negative); Leukocyte Esterase Ur 2+ LEU/UL (Negative); Nitrate Urine Negative (Negative); Non Pathogenic Casts 0-2; Protein Urine Trace mg/dL (Negative); Specific Grav Ur 1.017 (1.001-1.035); Squamous Epithelial Cell Urine Occasional /hpf (Few); Urobilinogen Urine 0.2 mg/dL (<2.0); WBC Urine 51-100 /hpf (0-3); pH Urine 6.5 (5.0-9.0)
[2024-03-02 14:37] LABS: Alanine Aminotransferase 16 U/L (6-35); Albumin Level 3.6 g/dL (3.5-5.1); Alkaline Phosphatase 64 U/L (38-126); Anion Gap 7 mmol/L (4-12); Aspartate Amino Transferase 24 U/L (14-36); Bilirubin,Total 0.4 mg/dL (0.2-1.3); Blood Urea Nitrogen 30 mg/dL (7-17); Calcium 8.6 mg/dL (8.4-10.2); Carbon Dioxide 24 mmol/L (22-30); Chloride 105 mmol/L (98-107); Estimated CRCL calculation 27 ml/min; Estimated Glomerular Filt Rate 52; Glucose 135 mg/dL (65-110); Potassium 4.3 mmol/L (3.4-5.0); Sodium 136 mmol/L (137-145)
[2024-03-02 14:46] LABS: NT Pro B Type Natriuretic Pept 1760 pg/mL (19.9-100)
--- NOTE | 2024-03-02 14:58 | ED.GENADULT ---
HPI - General Adult General Chief complaint: Altered Mental Status Stated complaint: inc HR, ams Time Seen by Provider: 03/02/24 13:07 History of Present Illness HPI narrative: patient is a 88-year-old female who presents emergency department with chief complaint of increased heart rate and lethargy. The patient has history of being alert oriented x1 patient was recently treated for pneumonia the facility today noticed that her heart rate was very fast and called EMS. Related Data Home Medications Medication Instructions Recorded Confirmed citalopram 10 mg tablet 10 mg PO DAILY 02/23/24 03/02/24 acetaminophen 500 mg capsule 1,000 mg PO Q8H PRN Pain 03/02/24 03/02/24 albuterol sulfate 2.5 mg/3 mL 2.5 mg inhalation Q4H PRN 03/02/24 03/02/24 (0.083 %) solution for nebulization Shortness Of Breath ammonium lactate 5 % lotion 1 applic topical BID 03/02/24 03/02/24 (Lac-Hydrin Five) emollient combination no.110 1 ea topical BID 03/02/24 03/02/24 (Eucerin Intensive Repair lotion) ferrous sulfate 325 mg (65 mg 325 mg PO BIDWM 03/02/24 03/02/24 iron) tablet fluticasone propionate 115 2 puff inhalation BID 03/02/24 03/02/24 mcg-salmeterol 21 mcg/actuation HFA inhaler (Advair HFA) inhalational spacing device 03/02/24 03/02/24 ([facility] spacer) lisinopril 20 mg tablet 20 mg PO DAILY 03/02/24 03/02/24 multivitamin 1 tablet PO DAILY 03/02/24 03/02/24 omega-3 fatty acids-vitamin E 1 cap PO DAILY 03/02/24 03/02/24 1,000 mg capsule Allergies Allergy/AdvReac Type Severity Reaction Status Date / Time bacitracin Allergy Unknown Unknown Verified 03/02/24 17:02 grass pollen Allergy Unknown Unknown Verified 03/02/24 17:02 Iodinated Contrast Media Allergy Unknown Stopped Verified 03/02/24 17:02 Breathing meperidine Allergy Unknown Unknown Verified 03/02/24 17:02 mold Allergy Unknown Unknown Verified 03/02/24 17:02 morphine Allergy Unknown Unknown Verified 03/02/24 17:02 neomycin Allergy Unknown RASH Verified 03/02/24 17:02 polymyxin B Allergy Unknown Unknown Verified 03/02/24 17:02 propoxyphene Allergy Unknown Unknown Verified 03/02/24 17:02 fentanyl AdvReac Unknown Vomiting Verified 03/02/24 17:02 Opioids-Meperidine and AdvReac Unknown VOMITING Verified 02/23/24 18:32 Related Contrast Media Allergy Severe Anaphylactic Uncoded 02/23/24 18:32 Shock ENVIRONMENTAL Allergy Unknown Unknown Uncoded 02/23/24 18:32 Review of Systems Review of Systems: A 10 system review of systems was completed on the patient and is negative except for what is stated in the HPI. Nursing and ancillary documentation was reviewed. [facility] Past Medical History Medical History (Updated 03/03/24 @ 07:07 by Russ Bustos MD) Anxiety Asthma Dementia Diastolic dysfunction Gastroesophageal reflux disease History of left breast cancer History of shingles Hyperlipidemia Hypertension Iron deficiency anemia Peripheral neuropathy Pneumonia Prinzmetal's angina Seizures Surgical History Surgical History History of appendectomy (1950) History of bilateral cataract extraction History of cardiac catheterization History of conization of cervix History of hysterectomy (1977) History of lumpectomy of left breast History of removal of pigmented skin lesion History of tonsillectomy History of wisdom tooth extraction Family History Family History Sibling Family history of allergic disorder Family history of malignant neoplasm Family history of diabetes mellitus in first degree relative Diabetes mellitus Mother Breast cancer Father Cerebrovascular accident Grandparent Diabetes mellitus Son Hodgkins disease Social History Social History Social History: Surrogate medical decision maker: Domenic Julio, malissa. Code status: Full code. Smoking status: Never smoker Alcohol intake: current Drinks per week: 1 Substance use: never Substance use type: does not use Lack of Transportation: No Lack of Food: Never True Current Housing: I Have Housing Concerned About Future Housing: No Difficulty Paying Gas/Electric Bills: No Difficulty Paying for Meds: No Currently Unemployed: No Education: High School Diploma/GED Difficulty w/ Childcare or Family Care: No Additional living arrangements comments: Lives at [facility]. She had 3 sons, 1 has . Additional occupation/education comments: Retired nurse. Spiritual care concerns: No Exam Narrative: GENERAL: Well-appearing, well-nourished, and in no acute distress. HEAD: Normocephalic, atraumatic. EYES: PERRLA and EOMI. ENT: Nares clear, no rhinorrhea or epistaxis. Mucous membranes moist. NECK: Supple. CHEST: Clear to auscultation. No respiratory distress. HEART: Tachycardia rate and rhythm. No murmur heard. Normal peripheral pulses. ABDOMEN: Soft, nontender, nondistended, normal active bowel sounds. EXTREMITIES: Normal range of motion. No edema. SKIN: Warm, dry, no rash. NEURO: No focal deficits. Alert and oriented x1. PSYCH: Normal mood and affect. Course Vital Signs Vital signs: Vital Signs Temperature 36.2 C L 03/02/24 12:41 Pulse Rate 163 H 03/02/24 12:41 Respiratory Rate 18 03/02/24 12:41 Pulse Oximetry 97 03/02/24 12:41 Temperature 36.6 C 03/03/24 06:59 Pulse Rate 66 03/03/24 06:59 Respiratory Rate 16 03/03/24 06:59 Blood Pressure 132/53 L 03/03/24 06:59 Pulse Oximetry 96 03/03/24 06:59 Oxygen Delivery Room Air 03/02/24 20:00 Oxygen Flow Rate 2 03/02/24 14:01 Medical Decision Making [facility] Narrative Medical decision making narrative: differential diagnosis includes SVT, sepsis, pneumonia, UTI the patient is at her baseline neurological status patient had a narrow complex tachycardia with a rate of 163 patient was treated with 5 mg of adenosine and had brief conversion 12 mg of adenosine further converted the patient to a sinus rhythm with a rate of 79 blood cultures were obtained and the patient will be started on Rocephin . a initial troponin was negative CBC showed a white count of 14.3 electrolytes showed a creatinine of 1.0 lactate was 1.5 troponin is less than 0.012 BNP was 17 60 urinalysis shows 51-100 white blood cells in the urine chest x-ray showed no and evidence of pneumonia Vital Signs Vital Signs: Vital Signs Temperature 36.2 C L 03/02/24 12:41 Pulse Rate 163 H 03/02/24 12:41 Respiratory Rate 18 03/02/24 12:41 Pulse Oximetry 97 03/02/24 12:41 Temperature 36.6 C 03/03/24 06:59 Pulse Rate 66 03/03/24 06:59 Respiratory Rate 16 03/03/24 06:59 Blood Pressure 132/53 L 03/03/24 06:59 Pulse Oximetry 96 03/03/24 06:59 Oxygen Delivery Room Air 03/02/24 20:00 Oxygen Flow Rate 2 03/02/24 14:01 Lab Data 03/03/24 05:40 03/03/24 05:40 Labs: Lab Results 03/02/24 03/02/24 03/02/24 Range/Units 13:49 13:50 13:51 WBC 14.3 H (4.5-10.0) K/mm3 RBC 4.03 L (4.2-5.4) M/mm3 Hgb 10.9 L (12.0-15.0) g/dL Hct 34.7 L (37.0-47.0) % MCV 86.1 (80-100) fl MCH 27.0 (26-34) pg MCHC 31.4 L (32-36) g/dl RDW 16.2 H (11.5-14.5) % Plt Count 498 H (150-375) k/mm3 MPV 9.5 (7.4-10.4) fl Immature Gran % (Auto) 0.4 (0-0.5) % Neut % (Auto) 77.4 H (45.5-73.1) % Lymph % (Auto) 11.9 L (18.3-44.2) % [place] % (Auto) 9.3 H (2.6-8.5) % Eos % (Auto) 0.4 (0-4.4) % Baso % (Auto) 0.6 (0.2-1.2) % Lymph # (Auto) 1.70 (0.9-3.2) K/mm3 [place] # (Auto) 1.3 H (0.1-0.6) K/mm3 Eos # (Auto) 0.1 (0-0.3) K/mm3 Baso # (Auto) 0.1 (0.0-0.1) K/mm3 Abs Immat Gran (auto) 0.06 H (0.00-0.031) K/mm3 Absolute Neuts (auto) 11.0 H (1.3-6.7) K/mm3 Absolute Nucleated RBC 0.000 (0.0-0.012) K/mm3 Nucleated RBC % 0.0 (0.0-0.2) % PT 14.7 (11.1-14.7) Seconds INR 1.1 APTT 27.9 (22.3-36.8) Seconds Sodium 136 L (137-145) mmol/L Potassium 4.3 (3.4-5.0) mmol/L Chloride 105 (98-107) mmol/L Carbon Dioxide 24 (22-30) mmol/L Anion Gap 7 (4-12) mmol/L BUN 30 H (7-17) mg/dL Creatinine 1.00 (0.7-1.0) mg/dL Estim Creat Clear Calc 27 ml/min Estimated GFR 52 L (59 - ) Glucose 135 H (65-110) mg/dL Lactic Acid 1.5 (0.7-2.0) mmol/L Calcium 8.6 (8.4-10.2) mg/dL Magnesium 2.6 H (1.6-2.3) mg/dL Total Bilirubin 0.4 (0.2-1.3) mg/dL AST 24 (14-36) U/L ALT 16 (6-35) U/L Alkaline Phosphatase 64 (38-126) U/L Troponin I < 0.012 (0.000-0.034) ng/mL NT-Pro-B Natriuret Pep 1760 H (19.9-100) pg/mL Total Protein 7.0 (6.3-8.2) g/dL Albumin 3.6 (3.5-5.1) g/dL Lipase 57 (23-300) U/L Procalcitonin 0.1 ng/mL Urine Color (Yellow) Urine Appearance (Clear) Urine pH (5.0-9.0) Ur Specific [place] (1.001-1.035) Urine Protein (Negative) mg/dL Urine Glucose (UA) (Negative) mg/dL Urine Ketones (Negative) mg/dL Ur Blood (Man) (Negative) Urine Nitrate (Negative) Urine Bilirubin (Negative) Urine Urobilinogen (<2.0) mg/dL Leukocyte Esterase Rfl (Negative) HOSSEIN/UL Urine RBC (0-2) /hpf Urine WBC (0-3) /hpf Ur Squamous Epith Cells (Few) /hpf Urine Bacteria /hpf Urine Casts 03/02/24 Range/Units 14:10 WBC (4.5-10.0) K/mm3 RBC (4.2-5.4) M/mm3 Hgb (12.0-15.0) g/dL Hct (37.0-47.0) % MCV (80-100) fl MCH (26-34) pg MCHC (32-36) g/dl RDW (11.5-14.5) % Plt Count (150-375) k/mm3 MPV (7.4-10.4) fl Immature Gran % (Auto) (0-0.5) % Neut % (Auto) (45.5-73.1) % Lymph % (Auto) (18.3-44.2) % [place] % (Auto) (2.6-8.5) % Eos % (Auto) (0-4.4) % Baso % (Auto) (0.2-1.2) % Lymph # (Auto) (0.9-3.2) K/mm3 [place] # (Auto) (0.1-0.6) K/mm3 Eos # (Auto) (0-0.3) K/mm3 Baso # (Auto) (0.0-0.1) K/mm3 Abs Immat Gran (auto) (0.00-0.031) K/mm3 Absolute Neuts (auto) (1.3-6.7) K/mm3 Absolute Nucleated RBC (0.0-0.012) K/mm3 Nucleated RBC % (0.0-0.2) % PT (11.1-14.7) Seconds INR APTT (22.3-36.8) Seconds Sodium (137-145) mmol/L Potassium (3.4-5.0) mmol/L Chloride (98-107) mmol/L Carbon Dioxide (22-30) mmol/L Anion Gap (4-12) mmol/L BUN (7-17) mg/dL Creatinine (0.7-1.0) mg/dL Estim Creat Clear Calc ml/min Estimated GFR (59 - ) Glucose (65-110) mg/dL Lactic Acid (0.7-2.0) mmol/L Calcium (8.4-10.2) mg/dL Magnesium (1.6-2.3) mg/dL Total Bilirubin (0.2-1.3) mg/dL AST (14-36) U/L ALT (6-35) U/L Alkaline Phosphatase (38-126) U/L Troponin I (0.000-0.034) ng/mL NT-Pro-B Natriuret Pep (19.9-100) pg/mL Total Protein (6.3-8.2) g/dL Albumin (3.5-5.1) g/dL Lipase (23-300) U/L Procalcitonin ng/mL Urine Color Yellow (Yellow) Urine Appearance Clear (Clear) Urine pH 6.5 (5.0-9.0) Ur Specific [place] 1.017 (1.001-1.035) Urine Protein Trace (Negative) mg/dL Urine Glucose (UA) Negative (Negative) mg/dL Urine Ketones Negative (Negative) mg/dL Ur Blood (Man) Non-hemolyzed trace H (Negative) Urine Nitrate Negative (Negative) Urine Bilirubin Negative (Negative) Urine Urobilinogen 0.2 (<2.0) mg/dL Leukocyte Esterase Rfl 2+ H (Negative) HOSSEIN/UL Urine RBC 6-10 H (0-2) /hpf Urine WBC 51-100 H (0-3) /hpf Ur Squamous Epith Cells Occasional (Few) /hpf Urine Bacteria None seen /hpf Urine Casts 0-2 Discharge Plan Discharge Clinical Impression: Bradycardia Patient Disposition: Still a Patient Condition: Improved
[2024-03-02 15:13] LABS: Procalcitonin 0.1 ng/mL
--- NOTE | 2024-03-02 15:22 | PC.NURSE ---
Called care coordination to inform that pt needs verification of code status.
--- NOTE | 2024-03-02 15:45 | PC.NURSE ---
Archie with vascular access obtained 1 set of blood cultures and 1 green top. Phlebotomy called to see if they could collect 2nd set
[2024-03-02 16:14] LABS: Troponin I < 0.012 ng/mL (0.000-0.034)
--- NOTE | 2024-03-02 16:16 | PCCCNOTE ---
Call received requesting assistance with obtaining a POLST form that son states was signed this summer requesting DNR status and comfort measures only. POLST form found in electronic chart and printed along with HCPOA paperwork and was given to nursing staff. ZEESHAN Sheth and son, called and informed that the paperwork that confirmed DNR status was found and a copy placed on paper chart.
--- NOTE | 2024-03-02 16:26 | PC.NURSE ---
2nd blood culture obtained by lab phlebotomy at this time.
--- NOTE | 2024-03-02 16:35 | ADMGEN ---
This patient, Marina Bowling, was admitted to Medical Room 246-. Patient oriented to hospital policies and general routines including ID bracelet, bed and alarms, visiting hours, pain management, procedures, bathroom and other care routines, personal items, smoking policy, room service/diet, and visiting hours. Patient not oriented. Information on how to activate the Rapid Response Team has been discussed. Patient are encouraged to report perceived risks to care and to ask questions if they do not understand what they are told or what they should do.
--- NOTE | 2024-03-02 17:30 | P.HP_ITS ---
H&P: HPI History of Present Illness Date/Time: 03/02/24 17:00 Chief Complaint: Increased heart rate and confusion. Narrative: This is an 88-year-old female with history of dementia, paroxysmal supraventricular tachycardia, Prinzmetal's angina, diastolic dysfunction, hypertension, asthma, anxiety, and breast cancer who presented to the emergency department via EMS from [facility] for evaluation of increased heart rate and confusion. She has significant short-term memory loss and cannot provide an accurate history and as such a majority of the following is obtained via a review of her electronic medical records. According to her nursing facility, she is alert and oriented to self only at baseline however staff reports that she seemed more confused the last couple of days. Today on r outine vital check she was found to have an elevated heart rate and was sent in for evaluation. It should be noted that she was recently treated for pneumonia. At the time my evaluation the patient is pleasantly confused. She does not remember that she is in the hospital or why she was brought here. She has no complaints and denies headache, focal weakness, paresthesias, chest pain, shortness of breath, cough, sinus congestion, sore throat, abdominal pain, nausea, vomiting, diarrhea, and dysuria. In the ED: She was in S CT on arrival with a heart rate of 163. She was given adenosine x2 doses with evangelical of sinus rhythm. Her blood pressures have been stable and she has been afebrile. Labs are significant for WBC count of 14.3, hemoglobin 10.9, sodium 136, BUN 30, creatinine 1.00, glucose 135, lactic acid 1.5, troponin less than 0.012, proBNP 6 1760, procalcitonin 0.1. Urinalysis was positive for trace blood, 2+ leukocyte esterase, 6 to 10 RBC, 51 to 100 WBC, and occasional squamous cells; no bacteria were seen. Chest x-ray showed cardiomegaly with mild interstitial edema (pneumonia less favored) and small pleural effusions with elevated right diaphragm. She was given ceftriaxone 1 g for possible urinary tract infection is being admitted in this setting. Review of Systems Review of Systems: 12 systems were reviewed and are negativ e except for as per HPI. [facility] Past Medical History Medical History Anxiety Asthma Dementia Diastolic dysfunction Gastroesophageal reflux disease History of left breast cancer History of shingles Hyperlipidemia Hypertension Iron deficiency anemia Peripheral neuropathy Pneumonia Prinzmetal's angina Seizures Surgical History Surgical History History of appendectomy (1950) History of bilateral cataract extraction History of cardiac catheterization History of conization of cervix History of hysterectomy (1977) History of lumpectomy of left breast History of removal of pigmented skin lesion History of tonsillectomy History of wisdom tooth extraction Family History Family History Sibling Family history of allergic disorder Family history of malignant neoplasm Family history of diabetes mellitus in first degree relative Diabetes mellitus Mother Breast cancer Father Cerebrovascular accident Grandparent Diabetes mellitus Son Hodgkins disease Social History Social History Social History: Surrogate medical decision maker: Domenic Julio, malissa. Code status: Full code. Smoking status: Never smoker Alcohol intake: current Drinks per week: 1 Substance use: never Substance use type: does not use Lack of Transportation: No Lack of Food: Never True Current Housing: I Have Housing Concerned About Future Housing: No Difficulty Paying Gas/Electric Bills: No Difficulty Paying for Meds: No Currently Unemployed: No Education: High School Diploma/GED Difficulty w/ Childcare or Family Care: No Additional living arrangements comments: Lives at [facility]. She had 3 sons, 1 has . Additional occupation/education comments: Retired nurse. Spiritual care concerns: No Meds Home Medications and Allergies Home Medications Medication Instructions Recorded Confirmed Type calcium 600 mg (as 1 tablet PO DAILY #30 tabs 12/09/23 03/02/24 Rx carbonate)-vitamin D3 10 mcg (400 unit) tablet (Calcium 600 + D(3)) cetirizine 10 mg capsule 10 mg PO DAILY #30 caps 12/09/23 03/02/24 Rx coenzyme Q10 200 mg capsule (Co 200 mg PO DAILY #30 caps 12/09/23 03/02/24 Rx Q-10) fluticasone propionate 50 2 spray intranasal QAM #30 grams 12/09/23 03/02/24 Rx mcg/actuation nasal spray,suspension furosemide 20 mg tablet (Lasix) 20 mg PO DAILY #30 tabs 12/09/23 03/02/24 Rx isosorbide mononitrate 60 mg 60 mg PO DAILY #30 tabs 12/09/23 03/02/24 Rx tablet,extended release 24 hr magnesium 250 mg tablet 250 mg PO BID #30 tabs 12/09/23 03/02/24 Rx montelukast 10 mg tablet 10 mg PO DAILY #30 tabs 12/09/23 03/02/24 Rx tamoxifen 20 mg tablet 20 mg PO DAILY #30 tabs 12/09/23 03/02/24 Rx citalopram 10 mg tablet 10 mg PO DAILY 02/23/24 03/02/24 History acetaminophen 500 mg capsule 1,000 mg PO Q8H PRN Pain 03/02/24 03/02/24 History albuterol sulfate 2.5 mg/3 mL 2.5 mg inhalation Q4H PRN 03/02/24 03/02/24 History (0.083 %) solution for nebulization Shortness Of Breath ammonium lactate 5 % lotion 1 applic topical BID 03/02/24 03/02/24 History (Lac-Hydrin Five) emollient combination no.110 1 ea topical BID 03/02/24 03/02/24 History (Eucerin Intensive Repair lotion) ferrous sulfate 325 mg (65 mg 325 mg PO BIDWM 03/02/24 03/02/24 History iron) tablet fluticasone propionate 115 2 puff inhalation BID 03/02/24 03/02/24 History mcg-salmeterol 21 mcg/actuation HFA inhaler (Advair HFA) inhalational spacing device 03/02/24 03/02/24 History ([facility] spacer) lisinopril 20 mg tablet 20 mg PO DAILY 03/02/24 03/02/24 History multivitamin 1 tablet PO DAILY 03/02/24 03/02/24 History omega-3 fatty acids-vitamin E 1 cap PO DAILY 03/02/24 03/02/24 History 1,000 mg capsule Allergies Allergy/AdvReac Type Severity Reaction Status Date / Time bacitracin Allergy Unknown Unknown Verified 03/02/24 17:02 grass pollen Allergy Unknown Unknown Verified 03/02/24 17:02 Iodinated Contrast Media Allergy Unknown Stopped Verified 03/02/24 17:02 Breathing meperidine Allergy Unknown Unknown Verified 03/02/24 17:02 mold Allergy Unknown Unknown Verified 03/02/24 17:02 morphine Allergy Unknown Unknown Verified 03/02/24 17:02 neomycin Allergy Unknown RASH Verified 03/02/24 17:02 polymyxin B Allergy Unknown Unknown Verified 03/02/24 17:02 propoxyphene Allergy Unknown Unknown Verified 03/02/24 17:02 fentanyl AdvReac Unknown Vomiting Verified 03/02/24 17:02 Opioids-Meperidine and AdvReac Unknown VOMITING Verified 02/23/24 18:32 Related Contrast Media Allergy Severe Anaphylactic Uncoded 02/23/24 18:32 Shock ENVIRONMENTAL Allergy Unknown Unknown Uncoded 02/23/24 18:32 Vital Signs Vital Signs - 24 hr 03/02/24 12:41 03/02/24 13:11 03/02/24 13:34 Temperature 97.2 F L Pulse Rate 163 H 163 H Respiratory Rate 18 Blood Pressure 121/65 Pulse Oximetry 97 Oxygen Delivery Oxygen Flow Rate 03/02/24 13:42 03/02/24 14:01 03/02/24 12:49 Temperature Pulse Rate 92 163 H Respiratory Rate 23 H Blood Pressure 103/45 L Pulse Oximetry 94 Oxygen Delivery Nasal Cannula Oxygen Flow Rate 2 03/02/24 12:58 03/02/24 13:01 03/02/24 13:11 Temperature Pulse Rate 161 H 161 H 161 H Respiratory Rate 20 26 H 27 H Blood Pressure 108/78 100/87 120/83 Pulse Oximetry Oxygen Delivery Oxygen Flow Rate 03/02/24 13:15 03/02/24 13:33 03/02/24 13:43 Temperature Pulse Rate 160 H 162 H 86 Respiratory Rate 25 H 26 H 21 H Blood Pressure 121/65 142/75 H Pulse Oximetry 89 L 99 Oxygen Delivery Oxygen Flow Rate 03/02/24 13:46 03/02/24 14:01 03/02/24 14:16 Temperature 98.0 F Pulse Rate 87 88 84 Respiratory Rate 21 H 23 H 20 Blood Pressure 133/71 126/74 118/52 L Pulse Oximetry 94 95 91 Oxygen Delivery Oxygen Flow Rate 03/02/24 14:17 03/02/24 14:31 03/02/24 14:46 Temperature Pulse Rate 85 84 81 Respiratory Rate 22 H 21 H 20 Blood Pressure 114/60 108/49 L Pulse Oximetry Oxygen Delivery Oxygen Flow Rate 03/02/24 14:47 03/02/24 15:01 03/02/24 15:16 Temperature Pulse Rate 81 79 77 Respiratory Rate 19 20 20 Blood Pressure 126/61 117/59 L Pulse Oximetry 98 98 Oxygen Delivery Oxygen Flow Rate 03/02/24 15:30 03/02/24 15:31 03/02/24 15:46 Temperature Pulse Rate 77 79 77 Respiratory Rate 20 20 19 Blood Pressure 115/63 131/64 Pulse Oximetry Oxygen Delivery Oxygen Flow Rate 03/02/24 16:01 03/02/24 17:00 03/02/24 17:19 Temperature 97.0 F L 97.0 F L Pulse Rate 75 66 66 Respiratory Rate 19 16 16 Blood Pressure 119/64 132/58 L 132/58 L Pulse Oximetry 97 97 Oxygen Delivery Oxygen Flow Rate Exam Narrative: General: A well-developed, nontoxic-appearing elderly female in the semi-Maynard position in bed. Weight: 60.4 kg. BMI: 24.4. HEENT: PERRL, EOMI. Sclera anicteric. Moist mucous membranes. Neck: Supple. No obvious carotid bruits. Respiratory: Lungs are clear to auscultation bilaterally. Cardiovascular: Regular rate and rhythm with S1-S2. Gastrointestinal: Abdomen is soft, nontender, and nondistended with positive bowel sounds. Skin: Warm and dry. Extremities: No cyanosis, clubbing, or significant edema. Peripheral pulses intact. Neurological: Alert to self only. Cranial nerves 2-12 are grossly intact. Speech is clear. No facial asymmetry. No gross focal deficits a casual conversation. Psychiatric: Pleasantly confused and cooperative. H&P: Results Labs Labs: Short CBC 03/02/24 Range/Units 13:49 WBC 14.3 H (4.5-10.0) K/mm3 Hgb 10.9 L (12.0-15.0) g/dL Hct 34.7 L (37.0-47.0) % Plt Count 498 H (150-375) k/mm3 BMP 03/02/24 13:50 Sodium 136 L Potassium 4.3 Chloride 105 Carbon Dioxide 24 BUN 30 H Creatinine 1.00 Glucose 135 H Calcium 8.6 Cardiac Enzymes 03/02/24 03/02/24 Range/Units 13:51 15:42 Troponin I < 0.012 < 0.012 (0.000-0.034) ng/mL Liver Function 03/02/24 Range/Units 13:50 Total Bilirubin 0.4 (0.2-1.3) mg/dL AST 24 (14-36) U/L ALT 16 (6-35) U/L Alkaline Phosphatase 64 (38-126) U/L Albumin 3.6 (3.5-5.1) g/dL Urine 03/02/24 Range/Units 14:10 Urine Color Yellow (Yellow) Urine Appearance Clear (Clear) Urine pH 6.5 (5.0-9.0) Ur Specific [place] 1.017 (1.001-1.035) Urine Protein Trace (Negative) mg/dL Urine Glucose (UA) Negative (Negative) mg/dL Impressions Chest X-Ray 03/02/24 14:05 Impression: 1: Cardiomegaly with mild interstitial edema. Pneumonia less favored. 2: Small pleural effusions with elevated right diaphragm. Assessment and Plan Assessment and plan (1) Paroxysmal supraventricular tachycardia: Code(s): I47.10 - Supraventricular tachycardia, unspecified Status: Acute (2) Pyuria: Code(s): R82.81 - Pyuria Status: Acute (3) Diastolic dysfunction: Code(s): I51.89 - Other ill-defined heart diseases Status: Acute (4) Dementia: Qualifiers: Dementia behavioral or psychological symptom: unspecified whether behavioral, psychotic, or mood disturbance or anxiety Dementia severity: unspecified severity Dementia type: unspecified type Qualified Code(s): F03.90 - Unspecified dementia, unspecified severity, without behavioral disturbance, psychotic disturbance, mood disturbance, and anxiety Code(s): F03.90 - Unspecified dementia, unspecified severity, without behavioral disturbance, psychotic disturbance, mood disturbance, and anxiety Status: Acute (5) Hypertension: Qualifiers: Hypertension type: unspecified Qualified Code(s): I10 - Essential (primary) hypertension Code(s): I10 - Essential (primary) hypertension Status: Acute (6) Iron deficiency anemia: Code(s): D50.9 - Iron deficiency anemia, unspecified Status: Acute Plan The patient presented to the emergency department for evaluation of increased heart rate and confusion as detailed in HPI. Labs, imaging, EKG, and all reports were personally reviewed. She was reportedly in supraventricular tachycardia on arrival and converted to normal sinus rhythm post adenosine x2. It is noted that she was hospitalized in December 2023 with CHF and had PSVT at that time as well. She is not on any AV lolita blocking agents that I can see on her medication list. Cardiology has been consulted. She will be monitor on telemetry overnight. Her vital signs have been stable. WBC count is elevated however there is no evidence to suggest underlying infection at this time. She has pyuria but it is her urinalysis looks contaminated and no bacteria were seen on microscopy thus will hold on further antibiotics, pending culture. Anemia is stable on review of previous labs. She seems to be at her baseline which is reportedly alert and oriented to self only. Her home medications will be reviewed and resumed as appropriate. Findings and treatment plan were discussed with the patient. Questions were solicited and answered to satisfaction. The patient's medical management will be taken over by the hospitalist team in a.m. Quality VTE Prophylaxis VTE prophylaxis: pharmacologic ordered The patient has been admitted under observation status. Hospitalist MIPS Advance Care Plan I have confirmed that the patient's Advanced Care Plan is present, code status is documented, or surrogate decision maker is listed in patient medical record.: Yes Medication Reconciliation I have utilized all available resources to obtain, update and review the patients current medications (includes all prescriptions, OTC, herbals, cannabis, and nutritional supplements).: Yes
[2024-03-03] VITALS (10 sets, daily range): BP systolic 103–132; BP diastolic 49–78; PULSE 55–75; RESP 16; TEMP 36.4–36.6; O2SAT 91–96
[2024-03-03 05:58] LABS: Hematocrit 29.5 % (37.0-47.0); Hemoglobin 9.3 g/dL (12.0-15.0); Mean Corpuscular HGB Conc 31.5 g/dl (32-36); Mean Corpuscular Hemoglobin 26.6 pg (26-34); Mean Corpuscular Volume 84.3 fl (80-100); Mean Platelet Volume 8.8 fl (7.4-10.4); Platelet Count Result 415 k/mm3 (150-375); Red Cell Distribution Width 16.3 % (11.5-14.5); White Blood Count 7.3 K/mm3 (4.5-10.0)
[2024-03-03 06:06] LABS: Anion Gap 4 mmol/L (4-12); Blood Urea Nitrogen 27 mg/dL (7-17); Calcium 8.3 mg/dL (8.4-10.2); Carbon Dioxide 26 mmol/L (22-30); Chloride 107 mmol/L (98-107); Estimated CRCL calculation 33 ml/min; Estimated Glomerular Filt Rate > 60; Glucose 95 mg/dL (65-110); Magnesium 2.4 mg/dL (1.6-2.3); Potassium 4.1 mmol/L (3.4-5.0); Sodium 137 mmol/L (137-145)
[2024-03-03] MEDS: ENOXAPARIN 40 MG/0.4 ML SYRINGE SUB-Q (08:45)
[2024-03-03] MEDS: FLUTICASONE PROPIONATE 0.05% NA SPR 16 GM BTL (*BKC) 2 SPRAY NASAL (08:47)
[2024-03-03] MEDS: LACTIC ACID 12% LOTION 225 BTL 1 APPLIC TOPICAL ×2 (08:49→17:04)
--- NOTE | 2024-03-03 10:11 | PC.NURSE ---
Patient is refusing to open her mouth to eat, take any medications, and or fluids. Unable to follow any commands or state her name. Morning medications not administered. Provider informed of patient's condition.
--- NOTE | 2024-03-03 11:16 | P.CONCA_ITS ---
Assessment and Plan Assessment and plan (1) SVT (supraventricular tachycardia): Code(s): I47.10 - Supraventricular tachycardia, unspecified Status: Acute Plan Paroxysmal supraventricular tachycardia converted to sinus rhythm with adenosine no recurrent episodes since admission Dimension Hypertension Plan Add metoprolol 25 mg b.i.d. Continue observation in telemetry History of Present Illness History of Present Illness Consult date/time: 03/03/24 11:16 Reason For Visit: UTI, leukocytosis, supraventricular tachycardia Narrative: 88-year-old female patient with history of supraventricular tachycardia hypertension dementia presented to the hospital from nursing home facility because of of confusion elevated heart rate. Patient cannot give any history she is not having any complaint. Per chart review patient presented with tachycardia heart rate 160s received adenosine converted back to sinus rhythm. She was admitted to the hospital for observation overnight she has no significant arrhythmia and has been in sinus rhythm. Review of Systems Review of Systems: All systems reviewed & are unremarkable except as noted in HPI and below PMFSH Past Medical History Medical History (Updated 03/03/24 @ 11:23 by Bebo Chong MD) Anxiety Asthma Dementia Diastolic dysfunction Gastroesophageal reflux disease History of left breast cancer History of shingles Hyperlipidemia Hypertension Iron deficiency anemia Peripheral neuropathy Pneumonia Prinzmetal's angina Seizures Surgical History Surgical History History of appendectomy (1950) History of bilateral cataract extraction History of cardiac catheterization History of conization of cervix History of hysterectomy (1977) History of lumpectomy of left breast History of removal of pigmented skin lesion History of tonsillectomy History of wisdom tooth extraction Family History Family History Sibling Family history of allergic disorder Family history of malignant neoplasm Family history of diabetes mellitus in first degree relative Diabetes mellitus Mother Breast cancer Father Cerebrovascular accident Grandparent Diabetes mellitus Son Hodgkins disease Social History Social History Social History: Surrogate medical decision maker: Domenic Julio, malissa. Code status: Full code. Smoking status: Never smoker Alcohol intake: current Drinks per week: 1 Substance use: never Substance use type: does not use Lack of Transportation: No Lack of Food: Never True Current Housing: I Have Housing Concerned About Future Housing: No Difficulty Paying Gas/Electric Bills: No Difficulty Paying for Meds: No Currently Unemployed: No Education: High School Diploma/GED Difficulty w/ Childcare or Family Care: No Additional living arrangements comments: Lives at [facility]. She had 3 sons, 1 has . Additional occupation/education comments: Retired nurse. Spiritual care concerns: No Meds Home Medications and Allergies Home Medications Medication Instructions Recorded Confirmed Type calcium 600 mg (as 1 tablet PO DAILY #30 tabs 12/09/23 03/02/24 Rx carbonate)-vitamin D3 10 mcg (400 unit) tablet (Calcium 600 + D(3)) cetirizine 10 mg capsule 10 mg PO DAILY #30 caps 12/09/23 03/02/24 Rx coenzyme Q10 200 mg capsule (Co 200 mg PO DAILY #30 caps 12/09/23 03/02/24 Rx Q-10) fluticasone propionate 50 2 spray intranasal QAM #30 grams 12/09/23 03/02/24 Rx mcg/actuation nasal spray,suspension furosemide 20 mg tablet (Lasix) 20 mg PO DAILY #30 tabs 12/09/23 03/02/24 Rx isosorbide mononitrate 60 mg 60 mg PO DAILY #30 tabs 12/09/23 03/02/24 Rx tablet,extended release 24 hr magnesium 250 mg tablet 250 mg PO BID #30 tabs 12/09/23 03/02/24 Rx montelukast 10 mg tablet 10 mg PO DAILY #30 tabs 12/09/23 03/02/24 Rx tamoxifen 20 mg tablet 20 mg PO DAILY #30 tabs 12/09/23 03/02/24 Rx citalopram 10 mg tablet 10 mg PO DAILY 02/23/24 03/02/24 History acetaminophen 500 mg capsule 1,000 mg PO Q8H PRN Pain 03/02/24 03/02/24 History albuterol sulfate 2.5 mg/3 mL 2.5 mg inhalation Q4H PRN 03/02/24 03/02/24 History (0.083 %) solution for nebulization Shortness Of Breath ammonium lactate 5 % lotion 1 applic topical BID 03/02/24 03/02/24 History (Lac-Hydrin Five) emollient combination no.110 1 ea topical BID 03/02/24 03/02/24 History (Eucerin Intensive Repair lotion) ferrous sulfate 325 mg (65 mg 325 mg PO BIDWM 03/02/24 03/02/24 History iron) tablet fluticasone propionate 115 2 puff inhalation BID 03/02/24 03/02/24 History mcg-salmeterol 21 mcg/actuation HFA inhaler (Advair HFA) inhalational spacing device 03/02/24 03/02/24 History ([facility] spacer) lisinopril 20 mg tablet 20 mg PO DAILY 03/02/24 03/02/24 History multivitamin 1 tablet PO DAILY 03/02/24 03/02/24 History omega-3 fatty acids-vitamin E 1 cap PO DAILY 03/02/24 03/02/24 History 1,000 mg capsule Allergies Allergy/AdvReac Type Severity Reaction Status Date / Time bacitracin Allergy Unknown Unknown Verified 03/02/24 17:02 grass pollen Allergy Unknown Unknown Verified 03/02/24 17:02 Iodinated Contrast Media Allergy Unknown Stopped Verified 03/02/24 17:02 Breathing meperidine Allergy Unknown Unknown Verified 03/02/24 17:02 mold Allergy Unknown Unknown Verified 03/02/24 17:02 morphine Allergy Unknown Unknown Verified 03/02/24 17:02 neomycin Allergy Unknown RASH Verified 03/02/24 17:02 polymyxin B Allergy Unknown Unknown Verified 03/02/24 17:02 propoxyphene Allergy Unknown Unknown Verified 03/02/24 17:02 fentanyl AdvReac Unknown Vomiting Verified 03/02/24 17:02 Opioids-Meperidine and AdvReac Unknown VOMITING Verified 02/23/24 18:32 Related Contrast Media Allergy Severe Anaphylactic Uncoded 02/23/24 18:32 Shock ENVIRONMENTAL Allergy Unknown Unknown Uncoded 02/23/24 18:32 Vital Signs Vital Signs - 24 hr 03/02/24 12:41 03/02/24 13:11 03/02/24 13:34 Temperature 36.2 C L Pulse Rate 163 H 163 H Respiratory Rate 18 Blood Pressure 121/65 Pulse Oximetry 97 Oxygen Delivery Oxygen Flow Rate 03/02/24 13:42 03/02/24 14:01 03/02/24 12:49 Temperature Pulse Rate 92 163 H Respiratory Rate 23 H Blood Pressure 103/45 L Pulse Oximetry 94 Oxygen Delivery Nasal Cannula Oxygen Flow Rate 2 03/02/24 12:58 03/02/24 13:01 03/02/24 13:11 Temperature Pulse Rate 161 H 161 H 161 H Respiratory Rate 20 26 H 27 H Blood Pressure 108/78 100/87 120/83 Pulse Oximetry Oxygen Delivery Oxygen Flow Rate 03/02/24 13:15 03/02/24 13:33 03/02/24 13:43 Temperature Pulse Rate 160 H 162 H 86 Respiratory Rate 25 H 26 H 21 H Blood Pressure 121/65 142/75 H Pulse Oximetry 89 L 99 Oxygen Delivery Oxygen Flow Rate 03/02/24 13:46 03/02/24 14:01 03/02/24 14:16 Temperature 36.7 C Pulse Rate 87 88 84 Respiratory Rate 21 H 23 H 20 Blood Pressure 133/71 126/74 118/52 L Pulse Oximetry 94 95 91 Oxygen Delivery Oxygen Flow Rate 03/02/24 14:17 03/02/24 14:31 03/02/24 14:46 Temperature Pulse Rate 85 84 81 Respiratory Rate 22 H 21 H 20 Blood Pressure 114/60 108/49 L Pulse Oximetry Oxygen Delivery Oxygen Flow Rate 03/02/24 14:47 03/02/24 15:01 03/02/24 15:16 Temperature Pulse Rate 81 79 77 Respiratory Rate 19 20 20 Blood Pressure 126/61 117/59 L Pulse Oximetry 98 98 Oxygen Delivery Oxygen Flow Rate 03/02/24 15:30 03/02/24 15:31 03/02/24 15:46 Temperature Pulse Rate 77 79 77 Respiratory Rate 20 20 19 Blood Pressure 115/63 131/64 Pulse Oximetry Oxygen Delivery Oxygen Flow Rate 03/02/24 16:01 03/02/24 17:00 03/02/24 17:29 Temperature 36.1 C L Pulse Rate 75 66 Respiratory Rate 19 16 Blood Pressure 119/64 132/58 L Pulse Oximetry 97 91 Oxygen Delivery Room Air Oxygen Flow Rate 03/02/24 17:30 03/02/24 20:00 03/02/24 21:18 Temperature 36.4 C Pulse Rate 76 73 Respiratory Rate 18 Blood Pressure 100/61 Pulse Oximetry 98 Oxygen Delivery Room Air Oxygen Flow Rate 03/02/24 20:00 03/03/24 00:00 03/03/24 04:00 Temperature Pulse Rate 76 62 55 L Respiratory Rate Blood Pressure Pulse Oximetry Oxygen Delivery Oxygen Flow Rate 03/03/24 06:59 03/03/24 08:33 03/02/24 17:19 Temperature 36.6 C 36.1 C L Pulse Rate 66 66 Respiratory Rate 16 16 Blood Pressure 132/53 L 132/58 L Pulse Oximetry 96 95 97 Oxygen Delivery Room Air Oxygen Flow Rate Exam Const: General: comfortable and no acute distress Other: Able to lie flat HENMT: Face/Nose/Sinus: Normal nares present and no epistaxis Mouth: Yes moist mucous membranes Eyes: Sclera: sclerae normal Pupils: Equal, round and reactive pupils present Neck: Neck: supple and no JVD Carotids: no bruits Resp: Auscultation: clear to auscultation bilaterally and lung sounds not diminished Other: No chest wall tenderness Cardio: Rate: regular rate Rhythm: regular rhythm Heart sounds: no gallops, no murmurs and no rubs GI: GI Palp: Yes Soft to palpation and No Tenderness to palpation present (GI) Auscultation: normal bowel sounds Skin: General skin exam: normal color, rashes and/or lesions noted and no deidra thema Other: Warm Neuro: Cranial nerves: Yes Equal, round and reactive pupils present Speech: normal speech Other: No obvious focal deficit or facial asymmetry Extrem: General: no edema Other: Normal capillary refills Intact distal pulses. Results Labs and Meds 03/03/24 05:40 03/03/24 05:40 Lab results: Cardiac Enzymes 03/02/24 03/02/24 03/02/24 Range/Units 13:50 13:51 15:42 AST 24 (14-36) U/L Troponin I < 0.012 < 0.012 (0.000-0.034) ng/mL Coagulation 03/02/24 Range/Units 13:51 PT 14.7 (11.1-14.7) Seconds APTT 27.9 (22.3-36.8) Seconds CBC 03/02/24 03/03/24 Range/Units 13:49 05:40 WBC 14.3 H 7.3 (4.5-10.0) K/mm3 RBC 4.03 L 3.50 L (4.2-5.4) M/mm3 Hgb 10.9 L 9.3 L (12.0-15.0) g/dL Hct 34.7 L 29.5 L (37.0-47.0) % Plt Count 498 H 415 H (150-375) k/mm3 Lymph # (Auto) 1.70 (0.9-3.2) K/mm3 [place] # (Auto) 1.3 H (0.1-0.6) K/mm3 Eos # (Auto) 0.1 (0-0.3) K/mm3 Baso # (Auto) 0.1 (0.0-0.1) K/mm3 Comprehensive Metabolic Panel 03/02/24 03/03/24 Range/Units 13:50 05:40 Sodium 136 L 137 (137-145) mmol/L Potassium 4.3 4.1 (3.4-5.0) mmol/L Chloride 105 107 (98-107) mmol/L Carbon Dioxide 24 26 (22-30) mmol/L BUN 30 H 27 H (7-17) mg/dL Creatinine 1.00 0.80 (0.7-1.0) mg/dL Glucose 135 H 95 (65-110) mg/dL Calcium 8.6 8.3 L (8.4-10.2) mg/dL AST 24 (14-36) U/L ALT 16 (6-35) U/L Alkaline Phosphatase 64 (38-126) U/L Total Protein 7.0 (6.3-8.2) g/dL Albumin 3.6 (3.5-5.1) g/dL Intake and Output 03/02/24 03/03/24 03/03/24 23:59 07:59 15:59 Intake Total 240 50 Output Total 0 100 Balance 240 -50 Intake: Oral 240 50 Output: Urine 0 Catheter Urine 0 100 External/Condom 0 100 Other: # Urine Diapers 1 Patient Weight 03/03/24 23:59 Weight 57.8 kg
[2024-03-03] MEDS: TAMOXIFEN CITRATE (*CHEMO) 10 MG TABLET 20 MG PO (12:12)
[2024-03-03] MEDS: CITALOPRAM HYDROBROMIDE 10 MG TABLET PO (12:13)
[2024-03-03] MEDS: lisinopriL 20 MG TABLET PO (12:13)
[2024-03-03] MEDS: FUROSEMIDE 20 MG TABLET PO (12:13)
[2024-03-03] MEDS: MULTIVITAMINS THERAPEUTIC TAB (*BKC) 1 TABLET PO (12:14)
[2024-03-03] MEDS: FERROUS SULFATE 325 MG TABLET DR PO ×2 (12:14→17:03)
[2024-03-03] MEDS: MAGNESIUM OXIDE 200 MG TABLET PO ×2 (12:14→20:01)
[2024-03-03] MEDS: ISOSORBIDE MONONITRATE 60 MG TAB.ER.24H PO (12:14)
[2024-03-03] MEDS: LORATADINE 10 MG TABLET PO (12:14)
[2024-03-03] MEDS: EUCERIN CREAM 454 GM JAR 1 APPLIC TOPICAL ×2 (12:15→17:04)
[2024-03-03] MEDS: MONTELUKAST SODIUM 10 MG TABLET PO (12:15)
[2024-03-03] MEDS: OMEGA 3 POLYUNSAT FATTY ACIDS 1 GM CAP PO (12:30)
[2024-03-03] MEDS: CALCIUM/VITAMIN D 500 MG/5 MCG (200 I.U.) TABLET PO (12:30)
--- NOTE | 2024-03-03 16:00 | P.PNIM_ITS ---
Progress Note: A&P Assessment and Plan (1) Paroxysmal supraventricular tachycardia: Code(s): I47.10 - Supraventricular tachycardia, unspecified Status: Acute Assessment and Plan: * EKG showing SVT in the 160s POA * Adenosine x 2 given in the ED * NSR currently * cardiac monitoring * network consultant * TSH within WNL * possible UTI (2) Diastolic dysfunction: Code(s): I51.89 - Other ill-defined heart diseases Status: Acute Assessment and Plan: * Stable * CXR mild interstitial edema * On room air/Denies SOB * Last Echo: Diastolic heart failure grade 1 LVEF 60-65% (3) Dementia: Qualifiers: Dementia behavioral or psychological symptom: unspecified whether behavioral, psychotic, or mood disturbance or anxiety Dementia severity: unspecified severity Dementia type: unspecified type Qualified Code(s): F03.90 - Unspecified dementia, unspecified severity, without behavioral disturbance, psychotic disturbance, mood disturbance, and anxiety Code(s): F03.90 - Unspecified dementia, unspecified severity, without behavioral disturba nce, psychotic disturbance, mood disturbance, and anxiety Status: Acute Assessment and Plan: * Back to baseline * Pleasantly confused (4) Hypertension: Qualifiers: Hypertension type: unspecified Qualified Code(s): I10 - Essential (primary) hypertension Code(s): I10 - Essential (primary) hypertension Status: Acute Assessment and Plan: * Stable * resumed home medications (5) Iron deficiency anemia: Code(s): D50.9 - Iron deficiency anemia, unspecified Status: Acute Assessment and Plan: * HGb stable * Resumed ferrous sulfate * no signs of bleeding * monitor and transfuse if HGB <7 Plan Code status: DNR DVT prophylaxis: SCD's Stress ulcer prophylaxis: NA PT/OT notes: SNF Disposition: Patient continues admission after episode SVT and worsening confusion patient improving today will continue with cardiac monitoring overnight with no events [facility] Time Spent With Patient Time with patient: 15 - 25 minutes Subjective Date/time seen: 03/03/24 16:00 Interval history: Patient is an 88-year-old female who presented to the emergency department with increased confusion an SVT. 03/03/2024: Assumed Care Patient alert and oriented to self back to her baseline very pleasant happy due to progressive dementia unable to answer questions appropriately but eating food and taking her medications patient has remained in sinus rhythm will monitor overnight if no events can return back to [facility]. Review of Systems Review of Systems: Patient with severe dementia alert to self unable to answer questions appropriately ROS unobtainable: Yes unobtainable due to mental status Exam Narrative: * GENERAL: Alert and oriented to self pleasantly confused female. No acute distress. * EYES: EOMI. No scleral icterus. PERRLA. * HEENT: Moist mucous membranes. * LUNGS: Clear to auscultation bilaterally. No accessory muscle use. * CARDIOVASCULAR: Regular rate and rhythm. No murmur. No JVD. S1-S2 * ABDOMEN: Soft, non tenderness and non-distended. No palpable masses. * EXTREMITIES: No edema. Non-tender * SKIN: No rashes or lesions. Skin warm, dry. * NEUROLOGIC: No focal neurological deficits. CN II-XII grossly intact * PSYCHIATRIC: Confused mood and affect. Good judgement and insight. Objective Data Vital Signs Vital Signs: Vital Signs - 24 hr 03/02/24 16:01 03/02/24 17:00 03/02/24 17:29 Temperature 97.0 F L Pulse Rate 75 66 Respiratory Rate 19 16 Blood Pressure 119/64 132/58 L Pulse Oximetry 97 91 Oxygen Delivery Room Air 03/02/24 17:30 03/02/24 20:00 03/02/24 21:18 Temperature 97.6 F Pulse Rate 76 73 Respiratory Rate 18 Blood Pressure 100/61 Pulse Oximetry 98 Oxygen Delivery Room Air 03/02/24 20:00 03/03/24 00:00 03/03/24 04:00 Temperature Pulse Rate 76 62 55 L Respiratory Rate Blood Pressure Pulse Oximetry Oxygen Delivery 03/03/24 06:59 03/03/24 08:33 03/03/24 08:50 Temperature 97.8 F Pulse Rate 66 Respiratory Rate 16 Blood Pressure 132/53 L Pulse Oximetry 96 95 Oxygen Delivery Room Air Room Air 03/02/24 17:19 Temperature 97.0 F L Pulse Rate 66 Respiratory Rate 16 Blood Pressure 132/58 L Pulse Oximetry 97 Oxygen Delivery Intake/Output Intake/Output: Intake & Output 02/29/24 03/01/24 03/02/24 03/03/24 23:59 23:59 23:59 23:59 Intake Total 240 290 Output Total 250 100 Balance -10 190 Meds/Results Medications: Active Medications Generic Name Dose Route Start Last Admin Trade Name Freq PRN Reason Stop Dose Admin Acetaminophen 650 mg 03/02/24 15:06 Acetaminophen 325 Mg Tablet PO Q4H PRN Mild Pain (1-3) or Fever Albuterol 2.5 mg 03/03/24 00:00 Albuterol Sulfate Neb 2.5 Mg/3 Ml Inh INHALATION Q4HRT PRN Shortness Of Breath Calcium Carbonate 500 mg 03/03/24 12:00 03/03/24 12:30 Calcium/Vitamin D 500 Mg/5 Mcg (200 I.U.) Tablet PO 500 mg DAILY@1200 FRANKO Administration Citalopram Hydrobromide 10 mg 03/03/24 09:00 03/03/24 12:13 Citalopram Hydrobromide 10 Mg Tablet PO 10 mg DAILY FRANKO Administration Enoxaparin Sodium 40 mg 03/03/24 09:00 03/03/24 08:45 Enoxaparin 40 Mg/0.4 Ml Syringe SUB-Q 40 mg DAILY FRANKO Administration Ferrous Sulfate 325 mg 03/03/24 08:00 03/03/24 12:14 Ferrous Sulfate [address] PO 04/02/24 07:59 325 mg BIDWM FRANKO Administration Fish Oil 1 gm 03/03/24 12:00 03/03/24 12:30 [place] 3 Polyunsat Fatty Acids 1 Gm Cap PO 1 gm DAILY@1200 FRANKO Administration Fluticasone Propionate 2 spray 03/03/24 09:00 03/03/24 08:47 Fluticasone Propionate 0.05% Na Spr 16 Gm Btl (*Bkc) NASAL 2 spray QAM FRANKO Administration Furosemide 20 mg 03/03/24 09:00 03/03/24 12:13 Furosemide 20 Mg Tablet PO 20 mg DAILY FRANKO Administration Ceftriaxone Sodium 1 gm in 50 mls @ 100 mls/hr 03/03/24 12:00 03/03/24 12:29 Rocephin 1 Gm/Ns 50 Ml IVPB 100 mls/hr Q24H FRANKO Administration Isosorbide Mononitrate 60 mg 03/03/24 09:00 03/03/24 12:14 Isosorbide Mononitrate 60 Mg Tab.Er.24h PO 60 mg DAILY FRANKO Administration Lactic Acid 1 applic 03/03/24 09:00 03/03/24 08:49 Lactic Acid 12% Lotion 225 Btl TOPICAL 1 applic BID FRANKO Administration Lisinopril 20 mg 03/03/24 09:00 03/03/24 12:13 Lisinopril 20 Mg Tablet PO 20 mg DAILY FRANKO Administration Loratadine 10 mg 03/03/24 09:00 03/03/24 12:14 Loratadine 10 Mg Tablet PO 04/02/24 08:59 10 mg DAILY FRANKO Administration Magnesium Oxide 200 mg 03/03/24 09:00 03/03/24 12:14 Magnesium Oxide 200 Mg Tablet PO 200 mg Q12HR FRANKO Administration Miscellaneous Information 0 each 03/03/24 00:01 Lachydrin Add Site Of Use XX 04/02/24 00:00 CLARIFY FRANKO Montelukast Sodium 10 mg 03/03/24 09:00 03/03/24 12:15 Montelukast Sodium 10 Mg Tablet PO 10 mg DAILY FRANKO Administration Multi-Ingred Cream/Lotion/Oil/Oint 1 applic 03/03/24 09:00 03/03/24 12:15 Eucerin Cream 454 Gm Jar TOPICAL 1 applic BID FRANKO Administration Multivitamins Therapeutic 1 tablet 03/03/24 09:00 03/03/24 12:14 Multivitamins Therapeutic Tab (*Bkc) PO 1 tablet DAILY FRANKO Administration Non-Formulary Medication 200 mg 03/03/24 09:00 Coenzyme Q10 [Co Q-10] PO 04/02/24 08:59 DAILY FRANKO Fluticasone/Salmeterol 2 puff 03/03/24 08:00 03/03/24 08:38 Fluticasone/Salmeterol 115-21 Mcg Inhaler 1 Puff INHALATION Not Given Q12HRT FRANKO Tamoxifen Citrate 20 mg 03/03/24 09:00 03/03/24 12:12 Tamoxifen Citrate (*Chemo) 10 Mg Tablet PO 20 mg DAILY FRANKO Administration Radiology Results: ITS Impressions Chest X-Ray 03/02/24 14:05 Impression: 1: Cardiomegaly with mild interstitial edema. Pneumonia less favored. 2: Small pleural effusions with elevated right diaphragm. Labs Labs: Laboratory Results - last 24 hr 03/02/24 03/03/24 15:42 05:40 WBC 7.3 RBC 3.50 L Hgb 9.3 L Hct 29.5 L MCV 84.3 MCH 26.6 MCHC 31.5 L RDW 16.3 H Plt Count 415 H MPV 8.8 Sodium 137 Potassium 4.1 Chloride 107 Carbon Dioxide 26 Anion Gap 4 BUN 27 H Creatinine 0.80 Estim Creat Clear Calc 33 Estimated GFR > 60 Glucose 95 Calcium 8.3 L Magnesium 2.4 H Troponin I < 0.012 TSH (Reflex) 3.360 Quality VTE Prophylaxis VTE prophylaxis: pharmacologic ordered -Patient's previous records reviewed on admission -ER notes reviewed in detail on admission -discussed all findings and current treatment plan with patient/Family/POA -Consultations reviewed for recommendations -Patient's disposition for safe discharge discussed with caser in Dictation performed by [email or web address] direct speech recognition software, therefore urogynaecologist variants and typographical errors may occur. Hospitalist MIPS Advance Care Plan I have confirmed that the patient's Advanced Care Plan is present, code status is documented, or surrogate decision maker is listed in patient medical record.: Yes Medication Reconciliation I have utilized all available resources to obtain, update and review the patients current medications (includes all prescriptions, OTC, herbals, cannabis, and nutritional supplements).: Yes The patient is not eligible for med reconciliation; the patient is in a emergent medical situation where delaying treatment would jeopardize the patients health.: No
[2024-03-04] VITALS (12 sets, daily range): BP systolic 114–142; BP diastolic 56–62; PULSE 62–83; RESP 16–18; TEMP 36.6–36.7; O2SAT 94–98
[2024-03-04 05:52] LABS: Hematocrit 41.8 % (37.0-47.0); Hemoglobin 12.7 g/dL (12.0-15.0); Mean Corpuscular HGB Conc 30.4 g/dl (32-36); Mean Corpuscular Volume 88.7 fl (80-100); Mean Platelet Volume 8.7 fl (7.4-10.4); Platelet Count Result 469 k/mm3 (150-375); Red Blood Count 4.71 M/mm3 (4.2-5.4); Red Cell Distribution Width 16.5 % (11.5-14.5)
[2024-03-04 06:13] LABS: Alanine Aminotransferase 14 U/L (6-35); Albumin Level 3.9 g/dL (3.5-5.1); Alkaline Phosphatase 62 U/L (38-126); Anion Gap 7 mmol/L (4-12); Aspartate Amino Transferase 21 U/L (14-36); Bilirubin,Total 0.5 mg/dL (0.2-1.3); Blood Urea Nitrogen 28 mg/dL (7-17); Calcium 8.8 mg/dL (8.4-10.2); Carbon Dioxide 23 mmol/L (22-30); Chloride 107 mmol/L (98-107); Estimated CRCL calculation 27 ml/min; Estimated Glomerular Filt Rate 52; Glucose 87 mg/dL (65-110); Potassium 4.4 mmol/L (3.4-5.0); Sodium 137 mmol/L (137-145)
[2024-03-04] MEDS: FLUTICASONE/SALMETEROL 115-21 MCG INHALER 1 PUFF 2 PUFF INHALATION ×2 (07:14→20:03)
[2024-03-04] MEDS: FLUTICASONE PROPIONATE 0.05% NA SPR 16 GM BTL (*BKC) 2 SPRAY NASAL (08:05)
[2024-03-04] MEDS: ENOXAPARIN 40 MG/0.4 ML SYRINGE SUB-Q (08:05)
[2024-03-04] MEDS: FERROUS SULFATE 325 MG TABLET DR PO ×2 (08:05→16:21)
[2024-03-04] MEDS: MULTIVITAMINS THERAPEUTIC TAB (*BKC) 1 TABLET PO (08:05)
[2024-03-04] MEDS: CITALOPRAM HYDROBROMIDE 10 MG TABLET PO (08:05)
[2024-03-04] MEDS: lisinopriL 20 MG TABLET PO (08:06)
[2024-03-04] MEDS: ISOSORBIDE MONONITRATE 60 MG TAB.ER.24H PO (08:06)
[2024-03-04] MEDS: MAGNESIUM OXIDE 200 MG TABLET PO ×2 (08:06→21:18)
[2024-03-04] MEDS: LORATADINE 10 MG TABLET PO (08:06)
[2024-03-04] MEDS: FUROSEMIDE 20 MG TABLET PO (08:06)
[2024-03-04] MEDS: MONTELUKAST SODIUM 10 MG TABLET PO (08:07)
[2024-03-04] MEDS: METOPROLOL TARTRATE 12.5 MG TABLET PO (08:07)
[2024-03-04] MEDS: TAMOXIFEN CITRATE (*CHEMO) 10 MG TABLET 20 MG PO (08:07)
[2024-03-04] MEDS: LACTIC ACID 12% LOTION 225 BTL 1 APPLIC TOPICAL ×2 (08:12→16:21)
[2024-03-04] MEDS: EUCERIN CREAM 454 GM JAR 1 APPLIC TOPICAL ×2 (08:12→16:21)
--- NOTE | 2024-03-04 11:24 | P.PNIM_ITS ---
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 per Cardiology reduced due to patient's current heart rate (2) Diastolic dysfunction: Code(s): I51.89 - Other ill-defined heart diseases Status: Acute Assessment and Plan: * Stable * CXR mild interstitial edema * On room air/Denies SOB * Last Echo: Diastolic heart failure grade 1 LVEF 60-65% (3) Dementia: Qualifiers: Dementia behavioral or psychological symptom: unspecified whether behavioral, psychotic, or mood disturbance or anxiety Dementia severity: unspecified severity Dementia type: unspecified type Qualified Code(s): F03.90 - Unspecified dementia, unspecified severity, without behavioral disturbance, psychotic disturbance, mood disturbance, and anxiety Code(s): F03.90 - Unspecified dementia, unspecified severity, without behavioral disturbance, psychotic disturbance, mood disturbance, and anxiety Status: Acute Assessment and Plan: * Back to baseline * Pleasantly confused (4) Hypertension: Qualifiers: Hypertension type: unspecified Qualified Code(s): I10 - Essential (primary) hypertension Code(s): I10 - Essential (primary) hypertension Status: Acute Assessment and Plan: * Stable * resumed home medications (5) Iron deficiency anemia: Code(s): D50.9 - Iron deficiency anemia, unspecified Status: Acute Assessment and Plan: * HGb stable * Resumed ferrous sulfate * no signs of bleeding * monitor and transfuse if HGB <7 Plan Code status: DNR DVT prophylaxis: SCD's Stress ulcer prophylaxis: NA PT/OT notes: SNF Disposition: Patient continues admission after episode SVT and worsening confus ion patient improving today will continue with cardiac monitoring overnight with no events can discharge once free set up for retirement facility and authorization received. Time Spent With Patient Time with patient: 15 - 25 minutes Subjective Date/time seen: 03/04/24 11:24 Interval history: Patient is an 88-year-old female who presented to the emergency department with increased confusion an SVT. 03/04/2024: Patient is pleasantly confused answering questions she reports no pain and states she has been eating well. patient was evaluated by PT OT and they recommend retirement facility. CC initiating placement. patient's urinalysis came back negative with no growth. Review of Systems Review of Systems: Patient with severe dementia alert to self unable to answer questions appropriately ROS unobtainable: Yes unobtainable due to mental status Exam Narrative: * GENERAL: Alert and oriented to self pleasantly confused female. No acute distress. * EYES: EOMI. No scleral icterus. PERRLA. * HEENT: Moist mucous membranes. * LUNGS: Clear to auscultation bilaterally. No accessory muscle use. * CARDIOVASCULAR: Regular rate and rhythm. No murmur. No JVD. S1-S2 * ABDOMEN: Soft, non tenderness and non-distended. No palpable masses. * EXTREMITIES: No edema. Non-tender * SKIN: No rashes or lesions. Skin warm, dry. * NEUROLOGIC: No focal neurological deficits. CN II-XII grossly intact * PSYCHIATRIC: Confused mood and affect. Good judgement and insight. Objective Data Vital Signs Vital Signs: Vital Signs - 24 hr 03/03/24 15:34 03/03/24 12:00 03/03/24 16:00 Temperature 97.6 F Pulse Rate 73 60 64 Respiratory Rate 16 Blood Pressure 123/49 L Pulse Oximetry 96 Oxygen Delivery 03/03/24 20:00 03/03/24 20:00 03/03/24 20:52 Temperature 97.8 F Pulse Rate 75 66 Respiratory Rate 16 Blood Pressure 103/78 Pulse Oximetry 91 Oxygen Delivery Room Air 03/04/24 00:00 03/04/24 04:00 03/04/24 06:37 Temperature 98.0 F Pulse Rate 69 64 83 Respiratory Rate 16 Blood Pressure 142/62 H Pulse Oximetry 94 Oxygen Delivery 03/04/24 07:15 03/04/24 07:15 03/04/24 08:07 Temperature Pulse Rate 80 80 64 Respiratory Rate 18 18 Blood Pressure Pulse Oximetry 94 Oxygen Delivery Room Air 03/04/24 08:15 03/04/24 09:57 03/04/24 10:06 Temperature Pulse Rate 72 Respiratory Rate Blood Pressure Pulse Oximetry Oxygen Delivery Room Air Room Air Intake/Output Intake/Output: Intake & Output 03/01/24 03/02/24 03/03/24 03/04/24 23:59 23:59 23:59 23:59 Intake Total 240 610 100 Output Total 250 450 100 Balance -10 160 0 Meds/Results Medications: Active Medications Generic Name Dose Route Start Last Admin Trade Name Freq PRN Reason Stop Dose Admin Acetaminophen 650 mg 03/02/24 15:06 Acetaminophen 325 Mg Tablet PO Q4H PRN Mild Pain (1-3) or Fever Albuterol 2.5 mg 03/03/24 00:00 Albuterol Sulfate Neb 2.5 Mg/3 Ml Inh INHALATION Q4HRT PRN Shortness Of Breath Calcium Carbonate 500 mg 03/03/24 12:00 03/03/24 12:30 Calcium/Vitamin D 500 Mg/5 Mcg (200 I.U.) Tablet PO 500 mg DAILY@1200 FRANKO Administration Citalopram Hydrobromide 10 mg 03/03/24 09:00 03/04/24 08:05 Citalopram Hydrobromide 10 Mg Tablet PO 10 mg DAILY [facility]ANKO Administration Enoxaparin Sodium 40 mg 03/03/24 09:00 03/04/24 08:05 Enoxaparin 40 Mg/0.4 Ml Syringe SUB-Q 40 mg DAILY FRANKO Administration Ferrous Sulfate 325 mg 03/03/24 08:00 03/04/24 08:05 Ferrous Sulfate [address] PO 04/02/24 07:59 325 mg BIDWM FRANKO Administration Fish Oil 1 gm 03/03/24 12:00 03/03/24 12:30 [place] 3 Polyunsat Fatty Acids 1 Gm Cap PO 1 gm DAILY@1200 FRANKO Administration Fluticasone Propionate 2 spray 03/03/24 09:00 03/04/24 08:05 Fluticasone Propionate 0.05% Na Spr 16 Gm Btl (*Bkc) NASAL 2 spray QAM FRANKO Administration Furosemide 20 mg 03/03/24 09:00 03/04/24 08:06 Furosemide 20 Mg Tablet PO 20 mg DAILY [facility]ANKO Administration Isosorbide Mononitrate 60 mg 03/03/24 09:00 03/04/24 08:06 Isosorbide Mononitrate 60 Mg Tab.Er.24h PO 60 mg DAILY [facility]ANKO Administration Lactic Acid 1 applic 03/03/24 09:00 03/04/24 08:12 Lactic Acid 12% Lotion 225 Btl TOPICAL 1 applic BID FRANKO Administration Lisinopril 20 mg 03/03/24 09:00 03/04/24 08:06 Lisinopril 20 Mg Tablet PO 20 mg DAILY [facility]KO Administration Loratadine 10 mg 03/03/24 09:00 03/04/24 08:06 Loratadine 10 Mg Tablet PO 04/02/24 08:59 10 mg DAILY [facility]ANKO Administration Magnesium Oxide 200 mg 03/03/24 09:00 03/04/24 08:06 Magnesium Oxide 200 Mg Tablet PO 200 mg Q12HR FRANKO Administration Metoprolol Tartrate 12.5 mg 03/04/24 09:00 03/04/24 08:07 Metoprolol Tartrate 12.5 Mg Tablet PO 12.5 mg Q12HR FRANKO Administration Miscellaneous Information 0 each 03/03/24 00:01 Lachydrin Add Site Of Use XX 04/02/24 00:00 CLARIFY FRANKO Montelukast Sodium 10 mg 03/03/24 09:00 03/04/24 08:07 Montelukast Sodium 10 Mg Tablet PO 10 mg DAILY [facility]KO Administration Multi-Ingred Cream/Lotion/Oil/Oint 1 applic 03/03/24 09:00 03/04/24 08:12 Eucerin Cream 454 Gm Jar TOPICAL 1 applic BID FRANKO Administration Multivitamins Therapeutic 1 tablet 03/03/24 09:00 03/04/24 08:05 Multivitamins Therapeutic Tab (*Bkc) PO 1 tablet DAILY FRANKO Administration Non-Formulary Medication 200 mg 03/03/24 09:00 Coenzyme Q10 [Co Q-10] PO 04/02/24 08:59 DAILY [facility]KO Fluticasone/Salmeterol 2 puff 03/03/24 08:00 03/04/24 07:14 Fluticasone/Salmeterol 115-21 Mcg Inhaler 1 Puff INHALATION 2 puff Q12HRT FRANKO Administration Tamoxifen Citrate 20 mg 03/03/24 09:00 03/04/24 08:07 Tamoxifen Citrate (*Chemo) 10 Mg Tablet PO 20 mg DAILY FRANKO Administration Radiology Results: ITS Impressions Chest X-Ray 03/02/24 14:05 Impression: 1: Cardiomegaly with mild interstitial edema. Pneumonia less favored. 2: Small pleural effusions with elevated right diaphragm. Labs Labs: Laboratory Results - last 24 hr 03/04/24 05:42 WBC 12.0 H RBC 4.71 Hgb 12.7 D Hct 41.8 MCV 88.7 D MCH 27.0 MCHC 30.4 L RDW 16.5 H Plt Count 469 H MPV 8.7 Sodium 137 Potassium 4.4 Chloride 107 Carbon Dioxide 23 Anion Gap 7 BUN 28 H Creatinine 1.00 Estim Creat Clear Calc 27 Estimated GFR 52 L Glucose 87 Calcium 8.8 Total Bilirubin 0.5 AST 21 ALT 14 Alkaline Phosphatase 62 Total Protein 8.0 Albumin 3.9 Quality VTE Prophylaxis VTE prophylaxis: pharmacologic ordered -Patient's previous records reviewed on admission -ER notes reviewed in detail on admission -discussed all findings and current treatment plan with patient/Family/POA -Consultations reviewed for recommendations -Patient's disposition for safe discharge discussed with patient case coordinator Dictation performed by [email or web address] direct speech recognition software, therefore catering server variants and typographical errors may occur. Hospitalist MIPS Advance Care Plan I have confirmed that the patient's Advanced Care Plan is present, code status is documented, or surrogate decision maker is listed in patient medical record.: Yes Medication Reconciliation I have utilized all available resources to obtain, update and review the patients current medications (includes all prescriptions, OTC, herbals, cannabis, and nutritional supplements).: Yes The patient is not eligible for med reconciliation; the patient is in a emergent medical situation where delaying treatment would jeopardize the patients health.: No
[2024-03-04] MEDS: CALCIUM/VITAMIN D 500 MG/5 MCG (200 I.U.) TABLET PO (12:09)
[2024-03-04] MEDS: OMEGA 3 POLYUNSAT FATTY ACIDS 1 GM CAP PO (12:09)
--- NOTE | 2024-03-04 12:46 | PM.PNCARD ---
Progress Note: A&P Assessment and Plan (1) SVT (supraventricular tachycardia): Code(s): I47.10 - Supraventricular tachycardia, unspecified Status: Acute Plan Paroxysmal SVT Chronic diastolic heart failure currently compensated Dementia Hypertension Plan Metoprolol 25 mg b.i.d. Subjective Date/time seen: 03/04/24 12:46 Interval history: No acute events Telemetry short episode of SVT Review of Systems Review of Systems: All systems reviewed & are unremarkable except as noted in HPI and below Exam Const: General: comfortable and no acute distress Other: Able to lie flat HENMT: Face/Nose/Sinus: Normal nares present and no epistaxis Mouth: Yes moist mucous membranes Eyes: Sclera: sclerae normal Pupils: Equal, round and reactive pupils present Neck: Neck: supple and no JVD Carotids: no bruits Resp: Auscultation: clear to auscultation bilaterally and lung sounds not diminished Other: No chest wall tenderness Cardio: Rate: regular rate Rhythm: regular rhythm Heart sounds: no gallops, no murmurs and no rubs GI: GI Palp: Yes Soft to palpation and No Tenderness to palpation present (GI) Auscultation: normal bowel sounds Skin: General skin exam: normal color, rashes and/or lesions noted and no erythema Other: Warm Neuro: Cranial nerves: Yes Equal, round and reactive pupils present Speech: normal speech Other: No obvious focal deficit or facial asymmetry Extrem: General: no edema Other: Normal capillary refills Intact distal pulses. Objective Data Vital Signs Vital Signs: Vital Signs - 24 hr 03/03/24 15:34 03/03/24 16:00 03/03/24 20:00 Temperature 36.4 C Pulse Rate 73 64 Respiratory Rate 16 Blood Pressure 123/49 L Pulse Oximetry 96 Oxygen Delivery Room Air 03/03/24 20:00 03/03/24 20:52 03/04/24 00:00 Temperature 36.6 C Pulse Rate 75 66 69 Respiratory Rate 16 Blood Pressure 103/78 Pulse Oximetry 91 Oxygen Delivery 03/04/24 04:00 03/04/24 06:37 03/04/24 07:15 Temperature 36.7 C Pulse Rate 64 83 80 Respiratory Rate 16 18 Blood Pressure 142/62 H Pulse Oximetry 94 94 Oxygen Delivery Room Air 03/04/24 07:15 03/04/24 08:07 03/04/24 08:15 Temperature Pulse Rate 80 64 72 Respiratory Rate 18 Blood Pressure Pulse Oximetry Oxygen Delivery 03/04/24 09:57 03/04/24 10:06 03/04/24 12:00 Temperature Pulse Rate 62 Respiratory Rate Blood Pressure Pulse Oximetry Oxygen Delivery Room Air Room Air Intake/Output Intake/Output: Intake & Output 03/01/24 03/02/24 03/03/24 03/04/24 23:59 23:59 23:59 23:59 Intake Total 240 610 100 Output Total 250 450 100 Balance -10 160 0 Meds/Results Medications: Active Medications Generic Name Dose Route Start Last Admin Trade Name Freq PRN Reason Stop Dose Admin Acetaminophen 650 mg 03/02/24 15:06 Acetaminophen 325 Mg Tablet PO Q4H PRN Mild Pain (1-3) or Fever Albuterol 2.5 mg 03/03/24 00:00 Albuterol Sulfate Neb 2.5 Mg/3 Ml Inh INHALATION Q4HRT PRN Shortness Of Breath Calcium Carbonate 500 mg 03/03/24 12:00 03/04/24 12:09 Calcium/Vitamin D 500 Mg/5 Mcg (200 I.U.) Tablet PO 500 mg DAILY@1200 FRANKO Administration Citalopram Hydrobromide 10 mg 03/03/24 09:00 03/04/24 08:05 Citalopram Hydrobromide 10 Mg Tablet PO 10 mg DAILY FRANKO Administration Enoxaparin Sodium 40 mg 03/05/24 09:00 Enoxaparin 40 Mg/0.4 Ml Syringe SUB-Q DAILY [facility] Ferrous Sulfate 325 mg 03/03/24 08:00 03/04/24 08:05 Ferrous Sulfate [address] PO 04/02/24 07:59 325 mg BIDWM FRANKO Administration Fish Oil 1 gm 03/03/24 12:00 03/04/24 12:09 [place] 3 Polyunsat Fatty Acids 1 Gm Cap PO 1 gm DAILY@1200 FRANKO Administration Fluticasone Propionate 2 spray 03/03/24 09:00 03/04/24 08:05 Fluticasone Propionate 0.05% Na Spr 16 Gm Btl (*Bkc) NASAL 2 spray QAM FRANKO Administration Furosemide 20 mg 03/03/24 09:00 03/04/24 08:06 Furosemide 20 Mg Tablet PO 20 mg DAILY FRANKO Administration Isosorbide Mononitrate 60 mg 03/03/24 09:00 03/04/24 08:06 Isosorbide Mononitrate 60 Mg Tab.Er.24h PO 60 mg DAILY FRANKO Administration Lactic Acid 1 applic 03/03/24 09:00 03/04/24 08:12 Lactic Acid 12% Lotion 225 Btl TOPICAL 1 applic BID FRANKO Administration Lisinopril 20 mg 03/03/24 09:00 03/04/24 08:06 Lisinopril 20 Mg Tablet PO 20 mg DAILY FRANKO Administration Loratadine 10 mg 03/03/24 09:00 03/04/24 08:06 Loratadine 10 Mg Tablet PO 04/02/24 08:59 10 mg DAILY FRANKO Administration Magnesium Oxide 200 mg 03/03/24 09:00 03/04/24 08:06 Magnesium Oxide 200 Mg Tablet PO 200 mg Q12HR FRANKO Administration Metoprolol Tartrate 12.5 mg 03/04/24 09:00 03/04/24 08:07 Metoprolol Tartrate 12.5 Mg Tablet PO 12.5 mg Q12HR FRANKO Administration Miscellaneous Information 0 each 03/03/24 00:01 Lachydrin Add Site Of Use XX 04/02/24 00:00 CLARIFY FRANKO Montelukast Sodium 10 mg 03/03/24 09:00 03/04/24 08:07 Montelukast Sodium 10 Mg Tablet PO 10 mg DAILY FRANKO Administration Multi-Ingred Cream/Lotion/Oil/Oint 1 applic 03/03/24 09:00 03/04/24 08:12 Eucerin Cream 454 Gm Jar TOPICAL 1 applic BID FRANKO Administration Multivitamins Therapeutic 1 tablet 03/03/24 09:00 03/04/24 08:05 Multivitamins Therapeutic Tab (*Bkc) PO 1 tablet DAILY FRANKO Administration Non-Formulary Medication 200 mg 03/03/24 09:00 Coenzyme Q10 [Co Q-10] PO 04/02/24 08:59 DAILY [facility] Fluticasone/Salmeterol 2 puff 03/03/24 08:00 03/04/24 07:14 Fluticasone/Salmeterol 115-21 Mcg Inhaler 1 Puff INHALATION 2 puff Q12HRT FRANKO Administration Tamoxifen Citrate 20 mg 03/03/24 09:00 03/04/24 08:07 Tamoxifen Citrate (*Chemo) 10 Mg Tablet PO 20 mg DAILY FRANKO Administration Radiology Results: ITS Impressions Chest X-Ray 03/02/24 14:05 Impression: 1: Cardiomegaly with mild interstitial edema. Pneumonia less favored. 2: Small pleural effusions with elevated right diaphragm. Labs Labs: Laboratory Results - last 24 hr 03/04/24 05:42 WBC 12.0 H RBC 4.71 Hgb 12.7 D Hct 41.8 MCV 88.7 D MCH 27.0 MCHC 30.4 L RDW 16.5 H Plt Count 469 H MPV 8.7 Sodium 137 Potassium 4.4 Chloride 107 Carbon Dioxide 23 Anion Gap 7 BUN 28 H Creatinine 1.00 Estim Creat Clear Calc 27 Estimated GFR 52 L Glucose 87 Calcium 8.8 Total Bilirubin 0.5 AST 21 ALT 14 Alkaline Phosphatase 62 Total Protein 8.0 Albumin 3.9
[2024-03-04] MEDS: METOPROLOL TARTRATE 25 MG TABLET PO (21:18)
[2024-03-05] VITALS (15 sets, daily range): BP systolic 102–138; BP diastolic 44–86; PULSE 58–83; RESP 13–20; TEMP 36.7–36.8; O2SAT 87–100
[2024-03-05 05:30] LABS: Hematocrit 36.2 % (37.0-47.0); Hemoglobin 11.1 g/dL (12.0-15.0); Mean Corpuscular HGB Conc 30.7 g/dl (32-36); Mean Corpuscular Hemoglobin 27.2 pg (26-34); Mean Corpuscular Volume 88.7 fl (80-100); Mean Platelet Volume 8.8 fl (7.4-10.4); Platelet Count Result 421 k/mm3 (150-375); Red Blood Count 4.08 M/mm3 (4.2-5.4); Red Cell Distribution Width 16.3 % (11.5-14.5); White Blood Count 13.3 K/mm3 (4.5-10.0)
[2024-03-05 05:45] LABS: Alanine Aminotransferase 12 U/L (6-35); Albumin Level 3.4 g/dL (3.5-5.1); Alkaline Phosphatase 53 U/L (38-126); Anion Gap 7 mmol/L (4-12); Aspartate Amino Transferase 17 U/L (14-36); Bilirubin,Total 0.4 mg/dL (0.2-1.3); Blood Urea Nitrogen 28 mg/dL (7-17); Calcium 8.5 mg/dL (8.4-10.2); Carbon Dioxide 24 mmol/L (22-30); Chloride 106 mmol/L (98-107); Estimated CRCL calculation 29 ml/min; Estimated Glomerular Filt Rate 59; Glucose 103 mg/dL (65-110); Potassium 4.5 mmol/L (3.4-5.0); Sodium 137 mmol/L (137-145)
[2024-03-05] MEDS: FLUTICASONE/SALMETEROL 115-21 MCG INHALER 1 PUFF 2 PUFF INHALATION ×2 (07:50→19:30)
[2024-03-05] MEDS: FERROUS SULFATE 325 MG TABLET DR PO ×2 (08:12→17:13)
[2024-03-05] MEDS: FUROSEMIDE 20 MG TABLET PO (08:12)
[2024-03-05] MEDS: MULTIVITAMINS THERAPEUTIC TAB (*BKC) 1 TABLET PO (08:12)
[2024-03-05] MEDS: CITALOPRAM HYDROBROMIDE 10 MG TABLET PO (08:12)
[2024-03-05] MEDS: LORATADINE 10 MG TABLET PO (08:12)
[2024-03-05] MEDS: ISOSORBIDE MONONITRATE 60 MG TAB.ER.24H PO (08:12)
[2024-03-05] MEDS: METOPROLOL TARTRATE 25 MG TABLET PO ×2 (08:12→20:08)
[2024-03-05] MEDS: MAGNESIUM OXIDE 200 MG TABLET PO ×2 (08:13→20:08)
[2024-03-05] MEDS: FLUTICASONE PROPIONATE 0.05% NA SPR 16 GM BTL (*BKC) 2 SPRAY NASAL (08:13)
[2024-03-05] MEDS: TAMOXIFEN CITRATE (*CHEMO) 10 MG TABLET 20 MG PO (08:13)
[2024-03-05] MEDS: ENOXAPARIN 40 MG/0.4 ML SYRINGE SUB-Q (08:13)
[2024-03-05] MEDS: lisinopriL 20 MG TABLET PO (08:13)
[2024-03-05] MEDS: MONTELUKAST SODIUM 10 MG TABLET PO (08:13)
[2024-03-05] MEDS: LACTIC ACID 12% LOTION 225 BTL 1 APPLIC TOPICAL ×2 (08:14→17:13)
[2024-03-05] MEDS: EUCERIN CREAM 454 GM JAR 1 APPLIC TOPICAL ×2 (08:14→17:13)
--- NOTE | 2024-03-05 11:45 | P.PNIM_ITS ---
Progress Note: A&P Assessment and Plan (1) Paroxysmal supraventricular tachycardia: Code(s): I47.10 - Supraventricular tachycardia, unspecified Status: Acute Assessment and Plan: * EKG showing SVT in the 160s POA * Adenosine x 2 given in the ED * NSR currently * cardiac monitoring * community health consultant * TSH within WNL * possible UTI 03/04/24 * No further events * Metoprolol 12.5 b.i.d. per Cardiology reduced due to patient's current heart rate 03/05/24: * Patient had 2 runs of SVT overnight * Continue Metoprolol as previous (2) Diastolic dysfunction: Code(s): I51.89 - Other ill-defined heart diseases Status: Acute Assessment and Plan: * Stable * CXR mild interstitial edema * On room air/Denies SOB * Last Echo: Diastolic heart failure grade 1 LVEF 60-65% (3) Dementia: Qualifiers: Dementia behavioral or psychological symptom: unspecified whether behavioral, psychotic, or mood disturbance or anxiety Dementia severity: unspecified severity Dementia type: unspecified type Qualified Code(s): F03.90 - Unspecified dementia, unspecified severity, without behavioral disturbance, psychotic disturbance, mood disturbance, and anxiety Code(s): F03.90 - Unspecified dementia, unspecified severity, without behavioral disturbance, psychotic disturbance, mood disturbance, and anxiety Status: Acute Assessment and Plan: * Back to baseline * Pleasantly confused (4) Hypertension: Qualifiers: Hypertension type: unspecified Qualified Code(s): I10 - Essential (primary) hypertension Code(s): I10 - Essential (primary) hypertension Status: Acute Assessment and Plan: * Stable * resumed home medications (5) Iron deficiency anemia: Code(s): D50.9 - Iron deficiency anemia, unspecified Status: Acute Assessment and Plan: * HGb stable * Resumed ferrous sulfate * no signs of bleeding * monitor and transfuse if HGB <7 (6) Physical deconditioning: Code(s): R53.81 - Other malaise Status: Acute Assessment and Plan: * PT and OT ordered and recommending SNF placement * Case coordination working on outpatient rehab needs Time Spent With Patient Time with patient: 25 - 35 minutes Subjective Date/time seen: 03/05/24 11:45 Interval history: Patient had 2 runs of SVT overnight otherwise no new events. Labs reviewed. Review of Systems Review of Systems: Patient with severe dementia alert to self unable to answer questions appropriately ROS unobtainable: Yes unobtainable due to mental status Exam Narrative: General: In no acute distress, well nourished Head: atraumatic, no encephalopathy Eyes: PERRLA, sclera clear ENT: moist mucous membranes, nasal passages clear Neck: supple, no JVD, no adenopathy, trachea midline Cardiac: Normal S1 and S2. No murmur, gallops or friction rubs, peripheral pulses intact. Respiratory: Lungs clear to auscultation, no adventitious lung sounds, currently on room air Gastrointestinal: soft, non-distended, non-tender, normoactive bowel sounds. : voiding without difficulty. Extremities: moves all extremities well, no edema Skin: clean, dry, intact. No wounds or lesions. Neuro: Alert and oriented x4, cranial nerves intact, no neuro deficits. Psych: normal mood, normal affect, interactive Objective Data Vital Signs Vital Signs: Vital Signs - 24 hr 03/04/24 12:00 03/04/24 13:46 03/04/24 16:03 Temperature 97.8 F Pulse Rate 62 68 68 Respiratory Rate 18 Blood Pressure 114/56 L Pulse Oximetry 96 Oxygen Delivery 03/04/24 19:39 03/04/24 21:41 03/04/24 20:00 Temperature 97.8 F Pulse Rate 68 74 75 Respiratory Rate 18 18 Blood Pressure 124/58 L Pulse Oximetry 96 98 Oxygen Delivery Room Air 03/05/24 00:00 03/05/24 04:00 03/05/24 05:43 Temperature 98.1 F Pulse Rate 64 70 70 Respiratory Rate 20 Blood Pressure 126/47 L Pulse Oximetry 95 Oxygen Delivery 03/05/24 07:52 03/05/24 07:52 03/05/24 08:12 Temperature Pulse Rate 82 82 71 Respiratory Rate 18 18 Blood Pressure Pulse Oximetry 94 Oxygen Delivery Room Air 03/05/24 08:17 03/05/24 08:00 03/05/24 08:00 Temperature Pulse Rate 66 Respiratory Rate Blood Pressure 107/86 Pulse Oximetry Oxygen Delivery Room Air Intake/Output Intake/Output: Intake & Output 03/02/24 03/03/24 03/04/24 03/05/24 23:59 23:59 23:59 23:59 Intake Total 240 610 320 118 Output Total 250 450 200 100 Balance -10 160 120 18 Meds/Results Medications: Active Medications Generic Name Dose Route Start Last Admin Trade Name Freq PRN Reason Stop Dose Admin Acetaminophen 650 mg 03/02/24 15:06 Acetaminophen 325 Mg Tablet PO Q4H PRN Mild Pain (1-3) or Fever Albuterol 2.5 mg 03/03/24 00:00 Albuterol Sulfate Neb 2.5 Mg/3 Ml Inh INHALATION Q4HRT PRN Shortness Of Breath Calcium Carbonate 500 mg 03/03/24 12:00 03/04/24 12:09 Calcium/Vitamin D 500 Mg/5 Mcg (200 I.U.) Tablet PO 500 mg DAILY@1200 FRANKO Administration Citalopram Hydrobromide 10 mg 03/03/24 09:00 03/05/24 08:12 Citalopram Hydrobromide 10 Mg Tablet PO 10 mg DAILY FRANKO Administration Enoxaparin Sodium 40 mg 03/05/24 09:00 03/05/24 08:13 Enoxaparin 40 Mg/0.4 Ml Syringe SUB-Q 40 mg DAILY FRANKO Administration Ferrous Sulfate 325 mg 03/03/24 08:00 03/05/24 08:12 Ferrous Sulfate [address] PO 04/02/24 07:59 325 mg BIDWM FRANKO Administration Fish Oil 1 gm 03/03/24 12:00 03/04/24 12:09 [place] 3 Polyunsat Fatty Acids 1 Gm Cap PO 1 gm DAILY@1200 [facility] Administration Fluticasone Propionate 2 spray 03/03/24 09:00 03/05/24 08:13 Fluticasone Propionate 0.05% Na Spr 16 Gm Btl (*Bkc) NASAL 2 spray QAM [facility] Administration Furosemide 20 mg 03/03/24 09:00 03/05/24 08:12 Furosemide 20 Mg Tablet PO 20 mg DAILY FRANKO Administration Isosorbide Mononitrate 60 mg 03/03/24 09:00 03/05/24 08:12 Isosorbide Mononitrate 60 Mg Tab.Er.24h PO 60 mg DAILY [facility] Administration Lactic Acid 1 applic 03/03/24 09:00 03/05/24 08:14 Lactic Acid 12% Lotion 225 Btl TOPICAL 1 applic BID FRANKO Administration Lisinopril 20 mg 03/03/24 09:00 03/05/24 08:13 Lisinopril 20 Mg Tablet PO 20 mg DAILY FRANKO Administration Loratadine 10 mg 03/03/24 09:00 03/05/24 08:12 Loratadine 10 Mg Tablet PO 04/02/24 08:59 10 mg DAILY FRANKO Administration Magnesium Oxide 200 mg 03/03/24 09:00 03/05/24 08:13 Magnesium Oxide 200 Mg Tablet PO 200 mg Q12HR FRANKO Administration Metoprolol Tartrate 25 mg 03/04/24 21:00 03/05/24 08:12 Metoprolol Tartrate 25 Mg Tablet PO 25 mg Q12HR [facility]KO Administration Montelukast Sodium 10 mg 03/03/24 09:00 03/05/24 08:13 Montelukast Sodium 10 Mg Tablet PO 10 mg DAILY [facility]ANKO Administration Multi-Ingred Cream/Lotion/Oil/Oint 1 applic 03/03/24 09:00 03/05/24 08:14 Eucerin Cream 454 Gm Jar TOPICAL 1 applic BID FRANKO Administration Multivitamins Therapeutic 1 tablet 03/03/24 09:00 03/05/24 08:12 Multivitamins Therapeutic Tab (*Bkc) PO 1 tablet DAILY FRANKO Administration Non-Formulary Medication 200 mg 03/03/24 09:00 Coenzyme Q10 [Co Q-10] PO 04/02/24 08:59 DAILY [facility] Fluticasone/Salmeterol 2 puff 03/03/24 08:00 03/05/24 07:50 Fluticasone/Salmeterol 115-21 Mcg Inhaler 1 Puff INHALATION 2 puff Q12HRT FRANKO Administration Tamoxifen Citrate 20 mg 03/03/24 09:00 03/05/24 08:13 Tamoxifen Citrate (*Chemo) 10 Mg Tablet PO 20 mg DAILY FRANKO Administration Radiology Results: ITS Impressions Chest X-Ray 03/02/24 14:05 Impression: 1: Cardiomegaly with mild interstitial edema. Pneumonia less favored. 2: Small pleural effusions with elevated right diaphragm. Labs Labs: Laboratory Results - last 24 hr 03/05/24 05:23 WBC 13.3 H RBC 4.08 L Hgb 11.1 L Hct 36.2 L MCV 88.7 MCH 27.2 MCHC 30.7 L RDW 16.3 H Plt Count 421 H MPV 8.8 Sodium 137 Potassium 4.5 Chloride 106 Carbon Dioxide 24 Anion Gap 7 BUN 28 H Creatinine 0.90 Estim Creat Clear Calc 29 Estimated GFR 59 Glucose 103 Calcium 8.5 Total Bilirubin 0.4 AST 17 ALT 12 Alkaline Phosphatase 53 Total Protein 7.0 Albumin 3.4 L Quality VTE Prophylaxis VTE prophylaxis: pharmacologic ordered
[2024-03-05] MEDS: CALCIUM/VITAMIN D 500 MG/5 MCG (200 I.U.) TABLET PO (11:52)
[2024-03-05] MEDS: OMEGA 3 POLYUNSAT FATTY ACIDS 1 GM CAP PO (11:52)
[2024-03-06] VITALS: PULSE 62
[2024-03-06 04:00] VITALS: PULSE 52
[2024-03-06 05:48] VITALS: BP 121/45; PULSE 55; RESP 16; TEMP 36.5; O2SAT 98
[2024-03-06 06:12] LABS: Hematocrit 31.5 % (37.0-47.0); Hemoglobin 9.6 g/dL (12.0-15.0); Mean Corpuscular HGB Conc 30.5 g/dl (32-36); Mean Corpuscular Hemoglobin 26.5 pg (26-34); Mean Platelet Volume 9.2 fl (7.4-10.4); Platelet Count Result 390 k/mm3 (150-375); Red Blood Count 3.62 M/mm3 (4.2-5.4); Red Cell Distribution Width 16.5 % (11.5-14.5); White Blood Count 9.7 K/mm3 (4.5-10.0)
[2024-03-06 06:27] LABS: Alanine Aminotransferase 11 U/L (6-35); Albumin Level 3.2 g/dL (3.5-5.1); Alkaline Phosphatase 60 U/L (38-126); Anion Gap 7 mmol/L (4-12); Aspartate Amino Transferase 18 U/L (14-36); Bilirubin,Total 0.6 mg/dL (0.2-1.3); Blood Urea Nitrogen 28 mg/dL (7-17); Calcium 8.3 mg/dL (8.4-10.2); Carbon Dioxide 21 mmol/L (22-30); Chloride 108 mmol/L (98-107); Estimated CRCL calculation 27 ml/min; Estimated Glomerular Filt Rate 52; Glucose 105 mg/dL (65-110); Potassium 3.9 mmol/L (3.4-5.0); Sodium 136 mmol/L (137-145)
[2024-03-06 08:00] VITALS: PULSE 50
[2024-03-06] MEDS: FLUTICASONE/SALMETEROL 115-21 MCG INHALER 1 PUFF 2 PUFF INHALATION (08:15)
[2024-03-06] MEDS: CITALOPRAM HYDROBROMIDE 10 MG TABLET PO (09:11)
[2024-03-06] MEDS: MULTIVITAMINS THERAPEUTIC TAB (*BKC) 1 TABLET PO (09:11)
[2024-03-06] MEDS: TAMOXIFEN CITRATE (*CHEMO) 10 MG TABLET 20 MG PO (09:11)
[2024-03-06] MEDS: FUROSEMIDE 20 MG TABLET PO (09:11)
[2024-03-06] MEDS: MONTELUKAST SODIUM 10 MG TABLET PO (09:11)
[2024-03-06] MEDS: ISOSORBIDE MONONITRATE 60 MG TAB.ER.24H PO (09:12)
[2024-03-06] MEDS: LORATADINE 10 MG TABLET PO (09:13)
[2024-03-06] MEDS: FERROUS SULFATE 325 MG TABLET DR PO (09:13)
[2024-03-06] MEDS: ENOXAPARIN 40 MG/0.4 ML SYRINGE SUB-Q (09:13)
[2024-03-06] MEDS: EUCERIN CREAM 454 GM JAR 1 APPLIC TOPICAL (09:13)
[2024-03-06] MEDS: MAGNESIUM OXIDE 200 MG TABLET PO (09:13)
[2024-03-06 09:14] VITALS: BP 104/42; PULSE 59; O2SAT 98
[2024-03-06] MEDS: LACTIC ACID 12% LOTION 225 BTL 1 APPLIC TOPICAL (09:14)
[2024-03-06] MEDS: FLUTICASONE PROPIONATE 0.05% NA SPR 16 GM BTL (*BKC) 2 SPRAY NASAL (09:14)
--- NOTE | 2024-03-06 10:00 | P.DS_ITS ---
DS: Admitting Diagnosis Discharge Date 03/06/2024 Admitting Diagnosis SVT/confusion DS: Discharge Diagnosis Discharge Diagnosis (1) Paroxysmal supraventricular tachycardia: Code(s): I47.10 - Supraventricular tachycardia, unspecified Status: Acute (2) Diastolic dysfunction: Code(s): I51.89 - Other ill-defined heart diseases Status: Acute (3) Dementia: Qualifiers: Dementia behavioral or psychological symptom: unspecified whether behavioral, psychotic, or mood disturbance or anxiety Dementia severity: unspecified severity Dementia type: unspecified type Qualified Code(s): F03.90 - Unspecified dementia, unspecified severity, without behavioral disturbance, psychotic disturbance, mood disturbance, and anxiety Code(s): F03.90 - Unspecified dementia, unspecified severity, without behavioral disturbance, psychotic disturbance, mood disturbance, and anxiety Status: Acute (4) Hypertension: Qualifiers: Hypertension type: unspecified Qualified Code(s): I10 - Essential (primary) hypertension Code(s): I10 - Essential (primary) hypertension Status: Acute (5) Iron deficiency anemia: Code(s): D50.9 - Iron deficiency anemia, unspecified Status: Acute (6) Physical deconditioning: Code(s): R53.81 - Other malaise Status: Acute Plan Disposition: Discharged to Assisted Living facility DS: Summary Hospital Course Reason for hospitalization: SVT/Confusion Hospital Course: Patient is an 88-year-old female with who presented to the emergency department from assisted living facility with reports of confusion worse than baseline. Initially patient had no complaints in the emergency department with unsure why she was brought denied any headache, weakness, paresthesias, chest pain, shortness a breath consult cough enema has abdominal pain, nausea, vomiting. Initial labs unremarkable being, UA with no bacteria seen, and chest x-ray showing cardiomegaly with mild interstitial edema. However upon arrival patient was found to be in SVT she was administered 2 rounds of adenosine IV push and converted back to normal sinus rhythm. Patient was then admitted to the medical unit on telemetry with consult to Cardiology for any further recommendations an observation. Cardiology started patient on metoprolol b.i.d. a consult to PT/OT was ordered they initially recommended [facility] facility however she was except to go back to her assisted living with PT/OT. Patient had to separate short episodes of SVT and converted back to NSR with no intervention. Cardiology cleared patient for discharge with no further intervention. The there were no signs of underlying infectious process, normal TSH but does have history of CHF but did not appear to be in exacerbation. Patient was alert and oriented x1 pleasantly confused which is patient's baseline she had no complaints or acute issues at time of discharge. Patient was discharged back to assisted living facility via ambulance Status at Discharge Functional status at discharge: uses cane/walker Overall status at discharge: patient is progressing back to baseline Time Spent with Patient Time attestation: Total time spent providing and/or coordinating discharge services: Exam Narrative: General: In no acute distress, well nourished Head: atraumatic, no encephalopathy Eyes: PERRLA, sclera clear ENT: moist mucous membranes, nasal passages clear Neck: supple, no JVD, no adenopathy, trachea midline Cardiac: Normal S1 and S2. No murmur, gallops or friction rubs, peripheral pulses intact. Respiratory: Lungs clear to auscultation, no adventitious lung sounds, currently on room air Gastrointestinal: soft, non-distended, non-tender, normoactive bowel sounds. : voiding without difficulty. Extremities: moves all extremities well, no edema Skin: clean, dry, intact. No wounds or lesions. Neuro: Alert and oriented x4, cranial nerves intact, no neuro deficits. Psych: normal mood, normal affect, interactive DS: Data Data Completed and Pending Labs on day of discharge: Labs from last 24 hours 03/06/24 05:38 WBC 9.7 RBC 3.62 L Hgb 9.6 L Hct 31.5 L MCV 87.0 MCH 26.5 MCHC 30.5 L RDW 16.5 H Plt Count 390 H MPV 9.2 Sodium 136 L Potassium 3.9 Chloride 108 H Carbon Dioxide 21 L Anion Gap 7 BUN 28 H Creatinine 1.00 Estim Creat Clear Calc 27 Estimated GFR 52 L Glucose 105 Calcium 8.3 L Total Bilirubin 0.6 AST 18 ALT 11 Alkaline Phosphatase 60 Total Protein 7.0 Albumin 3.2 L Preliminary micro results at discharge 03/02/24 16:24 Blood Culture - Preliminary Blood 03/02/24 15:42 Blood Culture - Preliminary Blood Imaging Radiologist's impression: XR chest 1V portable 03/02/2024 14:00 Indication: Shortness of breath Procedure: AP portable chest Comparison: Comparison to multiple prior studies sequentially, with oldest reviewed study dated 02/15/2023. Findings: Cardiomegaly. Mild interstitial edema. Bilateral pneumonia less favored. There are bilateral pleural effusions. Low lung volume in the right thorax with elevated right diaphragm. No pneumothorax. Impression: 1: Cardiomegaly with mild interstitial edema. Pneumonia less favored. 2: Small pleural effusions with elevated right diaphragm. Discharge Plan Discharge Attending physician on discharge: Todd Lynn Consulting providers: Bebo Chong; Shanti Valenzuela Discharging Clinician: Betzy Samuel Anticipated Discharge Date/Time: 03/05/24 08:14 Patient Disposition: NH [facility]pc/Asst Living Activity: as tolerated Diet: as tolerated and heart healthy Discharge Instructions: * You were started on Metoprolol 25 mg twice a day dosing for your Supraventricular Tachycardai (SVT). Please review information attached about SVT. I encourage activity as tolerated * Follow up with Cardiology in 2 weeks How can you care for yourself at home? ? Keep track of any new symptoms or changes in your symptoms. ? Rest until you feel better. ? Be safe with medicines. Take your medicines exactly as prescribed. Call your doctor if you think you are having a problem with your medicine. ? Do not drive after taking a prescription pain medicine. ? Ensure to follow-up with primary care physician as indicated and provide updated medication list provided to you at discharge. When should you call for help? Call 911 anytime you think you may need emergency care. For example, call if: ? You passed out (lost consciousness). Call your doctor now or seek immediate medical care if: ? You have new symptoms like fever, difficulty breathing, Chest pain, vomiting, or rash. ? You have new or different pain. ? You are confused and are having trouble thinking clearly. ? Your symptoms are getting worse. Watch closely for changes in your health, and be sure to contact your doctor if: ? You do not get better as expected. Patient Instructions: Supraventricular Tachycardia (DC) Patient Language: Nigerien Stand Alone Forms: General Discharge Information, Detention Discharge Follow-up/Referrals: Bebo Chong MD [Physician] - 2 Weeks Flick,Hany Jenkins DO [Primary Care Provider] - 1 Week Discharge Medications: New metoprolol tartrate 25 mg Tablet 25 mg PO Q12HR Qty: 60 0RF Continued citalopram 10 mg Tablet 10 mg PO DAILY isosorbide mononitrate 60 mg Tablet Extended Release 24 Hr 60 mg PO DAILY Qty: 30 0RF montelukast 10 mg Tablet 10 mg PO DAILY Qty: 30 0RF Rx Instructions: patient takes at noon magnesium 250 mg tablet 250 mg PO BID Qty: 30 0RF furosemide [Lasix] 20 mg tablet 20 mg PO DAILY Qty: 30 0RF fluticasone propionate 50 mcg/actuation spray,suspension 2 spray INTRANASAL QAM Qty: 30 0RF Rx Instructions: TWO SPRAYS IN EACH NOSTRIL tamoxifen 20 mg Tablet 20 mg PO DAILY Qty: 30 0RF coenzyme Q10 [Co Q-10] 200 mg capsule 200 mg PO DAILY Qty: 30 0RF Rx Instructions: patient takes at noon calcium carbonate-vitamin D3 [Calcium 600 + D(3)] 600 mg-10 mcg (400 unit) Tablet 1 tablet PO DAILY Qty: 30 0RF Rx Instructions: patient takes at noon cetirizine 10 mg Capsule 10 mg PO DAILY Qty: 30 0RF Rx Instructions: patient takes at noon multivitamin Tablet 1 tablet PO DAILY Rx Instructions: patient takes at noon albuterol sulfate 2.5 mg /3 mL (0.083 %) Solution For Nebulization 2.5 mg INHALATION Q4H PRN (Reason: Shortness Of Breath) Rx Instructions: every 4-6 hours ferrous sulfate 325 mg (65 mg iron) Tablet 325 mg PO BIDWM Lac-Hydrin Five 5 % Lotion 1 applic TOPICAL BID omega-3 fatty acids-vitamin E 1,000 mg Capsule 1 cap PO DAILY Rx Instructions: patient takes at noon (DME) Kitty Lacy [facility] Spacer MISCELLANEOUS fluticasone propion-salmeterol [Advair HFA] 115-21 mcg/actuation Hfa Aerosol Inhaler 2 puff INHALATION BID Eucerin Intensive Repair Lotion 1 ea TOPICAL BID Rx Instructions: apply to BLE acetaminophen 500 mg capsule 1,000 mg PO Q8H PRN (Reason: Pain) Discontinued lisinopril 20 mg Tablet 20 mg PO DAILY Rx Instructions: currently on hold Date of admission: 03/03/24 16:13 Primary Care Provider: Zhane,Hany Jenkins Admitting Provider: Todd Lynn Attending physician on admission: Shanti Valenzuela Condition: Improved Quality VTE Prophylaxis VTE prophylaxis: pharmacologic ordered -Patient's previous records reviewed on admission -ER notes reviewed in detail on admission -discussed all findings and current treatment plan with patient/Family/POA -Consultations reviewed for recommendations -Patient's disposition for safe discharge discussed with case monitor Dictation performed by [employer] direct speech recognition software, therefore black mill operator variants and typographical errors may occur. Hospitalist MIPS Heart Failure (Exclusion) Patient has history of Heart Transplant or Left Ventricular Assistive Device?: No IF YES, STOP HERE Heart Failure (Qualifier) Patient has current or prior documentation of LVEF less than or equal to 40%, or mod/servere depressed LVSF?: No IF NO, STOP HERE
[2024-03-06 10:12] VITALS: PULSE 63
[2024-03-06] MEDS: METOPROLOL TARTRATE 25 MG TABLET PO (10:12)
[2024-03-06] MEDS: OMEGA 3 POLYUNSAT FATTY ACIDS 1 GM CAP PO (12:14)
[2024-03-06] MEDS: CALCIUM/VITAMIN D 500 MG/5 MCG (200 I.U.) TABLET PO (12:14)
== END 2024-03-06 14:35 | DRG 309 ==
LOC: ANHED 15:55 → ANH2MED 15:56
PROVIDERS: Physician Assistant; Admitting Provider General Practice; Emergency Provider Emergency Medicine; PCP Internal Medicine; Visit Provider Nurse Practitioner Family
DX: I47.10 Supraventricular tachycardia, unspecified (principal); I50.32 Chronic diastolic (congestive) heart failure; I11.0 Hypertensive heart disease with heart failure; J45.909 Unspecified asthma, uncomplicated; D50.9 Iron deficiency anemia, unspecified; K21.9 Gastro-esophageal reflux disease without esophagitis; E78.5 Hyperlipidemia, unspecified; G62.9 Polyneuropathy, unspecified; F41.9 Anxiety disorder, unspecified; F03.90 Unspecified dementia, unspecified severity, without behavioral disturbance, psychotic disturbance, mood disturbance, and anxiety; Z85.3 Personal history of malignant neoplasm of breast
CPT/HCPCS: 36415; 71045; 80048; 80053; 81001; 83605; 83690; 83735; 83880; 84145; 84443; 84484; 85025; 85027; 85610; 85730; 87040; 87086; 93005; 94640; 96372; 96374; 96375; 96376; 97110; 97162; 97165; 97530; 99285; A9270; G0378; J0153; J0696; J1650

== ENCOUNTER 2024-03-27 20:26 | Emergency (ER) | payer MEDICARE, SELFPAY ==
--- NOTE | ~2024-03-27 | CT_ITS ---
Him CT cervical spine wo con Ordering provider: Russ Bustos MD History: . Trauma . Comparison: November 20, 2023 Technique: CT of the cervical spine was performed without contrast. Sagittal and coronal reformatted images were also obtained and reviewed. Automated exposure control and iterative reconstruction saúl hnique were employed. The dose-length product was 101.24 mGy-cm. FINDINGS: VERTEBRAE: No subluxation or acute fracture. The occipital condyles are intact. DISC SPACES: Severe narrowing of the disc C5-C6 and C6-C7. Multilevel facet joint disease. Multilevel uncovertebral joint osteoarthritic changes. Bilateral narrowing of the foramina at the level of C3-C4, C4-C5, C5-C6 and C6-C7. PARASPINOUS SOFT TISSUES: Normal. Bilateral pleural effusion more on the right side. IMPRESSION: No acute osseous abnormality cervical spine. Bilateral pleural effusion more on the right side. Multilevel degenerative disc disease. Reviewed, dictated and finalized at location A. SALES CONSULTANT
--- NOTE | ~2024-03-27 | CT_ITS ---
CT brain wo con Ordering provider: Russ Bustos MD History: 88 years Female with . Trauma . Comparison: March 14, 2023 Technique: CT of the head without contrast. Radiation reduction technique utilized. The dose-length p roduct was 605.33 mGy-cm. FINDINGS: BRAIN PARENCHYMA AND CSF SPACES: Mild leukoaraiosis and diffuse cortical atrophy. Mild atheromatous d isease. Widening of the subdural spaces is seen bilaterally more on the left side which may indicate CSF hygromas. No midline shift, mass effect or hemorrhage. The brain parenchyma and CSF spaces are o therwise normal. VISUALIZED PARANASAL SINUSES: Well aerated. MASTOIDS: Well aerated. BONES: The bones appear intact. SOFT TISSUES: Visualized nasopharynx is normal. Superficial soft tissues are normal. IMPRESSION: No acute intracranial findings. Reviewed, dictated and finalized at location A. E OPERATOR
--- NOTE | ~2024-03-27 | XR_ITS ---
3 VIEWS LUMBAR SPINE Ordering provider: Russ Bustos MD History: . pain s/p fall . Comparison: None. FINDINGS: VERTEBRAL BODIES:Anterolisthesis at the level of L4-L5. Dextroscoliosis. No visible fracture or sublu xation. Degenerative changes of the spine. DISK SPACES: Severe narrowing of the disc L4-L5 and L5-S1. Mild narrowing of the disc L1-L2, L2-L3 and L3-L4. Multilevel facet joint disease. SOFT TISSUES: Atherosclerotic changes of the aorta. IMPRESSION: No acute osseous abnormality lumbar spine. Spondylolisthesis at the level of L4-L5. Multilevel degenerative disc disease. Reviewed, dictated and finalized at location A. GER CODING
[2024-03-27 20:35] VITALS: BP 129/56; PULSE 72; RESP 14; TEMP 36.4; O2SAT 96
--- NOTE | 2024-03-27 21:09 | PC.NURSE ---
while waiting for ER room, pt sits with industrial specialist to prevent falling out of wheelchair.
--- NOTE | 2024-03-27 22:13 | ED_ITS ---
HPI - General Adult General Chief complaint: Fall Stated complaint: GLF today, contusion to head Time Seen by Provider: 03/27/24 22:00 History of Present Illness HPI narrative: Patient 88-year-old female who presents emergency department with chief complaint of ground level fall. The patient is resident of a local nursing facility and fell the patient is unable to provide any history patient currently has no complaints. Related Data Home Medications Medication Instructions Recorded Confirmed citalopram 10 mg tablet 10 mg PO DAILY 02/23/24 03/02/24 acetaminophen 500 mg capsule 1,000 mg PO Q8H PRN Pain 03/02/24 03/02/24 albuterol sulfate 2.5 mg/3 mL 2.5 mg inhalation Q4H PRN 03/02/24 03/02/24 (0.083 %) solution for nebulization Shortness Of Breath ammonium lactate 5 % lotion 1 applic topical BID 03/02/24 03/02/24 (Lac-Hydrin Five) emollient combination no.110 1 ea topical BID 03/02/24 03/02/24 (Eucerin Intensive Repair lotion) ferrous sulfate 325 mg (65 mg 325 mg PO BIDWM 03/02/24 03/02/24 iron) tablet fluticasone propionate 115 2 puff inhalation BID 03/02/24 03/02/24 mcg-salmeterol 21 mcg/actuation HFA inhaler (Advair HFA) inhalational spacing device 03/02/24 03/02/24 (Kitty Bambi [facility] spacer) multivitamin 1 tablet PO DAILY 03/02/24 03/02/24 omega-3 fatty acids-vitamin E 1 cap PO DAILY 03/02/24 03/02/24 1,000 mg capsule Allergies Allergy/AdvReac Type Severity Reaction Status Date / Time bacitracin Allergy Unknown Unknown Verified 03/02/24 17:02 grass pollen Allergy Unknown Unknown Verified 03/02/24 17:02 Iodinated Contrast Media Allergy Unknown Stopped Verified 03/02/24 17:02 Breathing meperidine Allergy Unknown Unknown Verified 03/02/24 17:02 mold Allergy Unknown Unknown Verified 03/02/24 17:02 morphine Allergy Unknown Unknown Verified 03/02/24 17:02 neomycin Allergy Unknown RASH Verified 03/02/24 17:02 polymyxin B Allergy Unknown Unknown Verified 03/02/24 17:02 propoxyphene Allergy Unknown Unknown Verified 03/02/24 17:02 fentanyl AdvReac Unknown Vomiting Verified 03/02/24 17:02 Opioids-Meperidine and AdvReac Unknown VOMITING Verified 02/23/24 18:32 Related Contrast Media Allergy Severe Anaphylactic Uncoded 02/23/24 18:32 Shock ENVIRONMENTAL Allergy Unknown Unknown Uncoded 02/23/24 18:32 Review of Systems Review of Systems: A 10 system review of systems was completed on the patient and is negative except for what is stated in the HPI. Nursing and ancillary documentation was reviewed. [facility] Past Medical History Medical History Anxiety Asthma Dementia Diastolic dysfunction Gastroesophageal reflux disease History of left breast cancer History of shingles Hyperlipidemia Hypertension Iron deficiency anemia Peripheral neuropathy Pneumonia Prinzmetal's angina Seizures Surgical History Surgical History History of appendectomy (1950) History of bilateral cataract extraction History of cardiac catheterization History of conization of cervix History of hysterectomy (1977) History of lumpectomy of left breast History of removal of pigmented skin lesion History of tonsillectomy History of wisdom tooth extraction Family History Family History Sibling Family history of allergic disorder Family history of malignant neoplasm Family history of diabetes mellitus in first degree relative Diabetes mellitus Mother Breast cancer Father Cerebrovascular accident Grandparent Diabetes mellitus Son Hodgkins disease Social History Social History Social History: Surrogate medical decision maker: Domenic Julio, son. Code status: Full code. Smoking status: Never smoker Alcohol intake: current Drinks per week: 1 Substance use: never Substance use type: does not use Lack of Transportation: No Lack of Food: Never True Current Housing: I Have Housing Concerned About Future Housing: No Difficulty Paying Gas/Electric Bills: No Difficulty Paying for Meds: No Currently Unemployed: No Education: High School Diploma/GED Difficulty w/ Childcare or Family Care: No Additional living arrangements comments: Lives at [facility]. She had 3 sons, 1 has . Additional occupation/education comments: Retired nurse. Spiritual care concerns: No Exam Narrative: GENERAL: Well-appearing, well-nourished, and in no acute distress. HEAD: Normocephalic, atraumatic. EYES: PERRLA and EOMI. ENT: Nares clear, no rhinorrhea or epistaxis. Mucous membranes moist. NECK: Supple. CHEST: Clear to auscultation. No respiratory distress. HEART: Regular rate and rhythm. No murmur heard. Normal peripheral pulses. ABDOMEN: Soft, nontender, nondistended, normal active bowel sounds. EXTREMITIES: Normal range of motion. No edema. SKIN: Warm, dry, no rash. NEURO: No focal deficits. Alert and oriented x1. PSYCH: Normal mood and affect. Course Vital Signs Vital signs: Vital Signs Temperature 36.4 C 03/27/24 20:35 Pulse Rate 72 03/27/24 20:35 Respiratory Rate 14 03/27/24 20:35 Blood Pressure 129/56 L 03/27/24 20:35 Pulse Oximetry 96 03/27/24 20:35 Temperature 36.4 C 03/27/24 20:35 Pulse Rate 72 03/27/24 20:35 Respiratory Rate 14 03/27/24 20:35 Blood Pressure 129/56 L 03/27/24 20:35 Pulse Oximetry 96 03/27/24 20:35 Medical Decision Making MDM Narrative Medical decision making narrative: Patient currently has no complaints the emergency department. Given the advanced dementia in unreliability of exam and history CT head CT C-spine and lumbar spine x-rays were ordered. CT head showed no acute abnormality CT C-spine showed no evidence of fracture. Plain film x-rays of lumbar spine showed no evidence of fracture. Patient will be discharged back to nursing facility Vital Signs Vital Signs: Vital Signs Temperature 36.4 C 03/27/24 20:35 Pulse Rate 72 03/27/24 20:35 Respiratory Rate 14 03/27/24 20:35 Blood Pressure 129/56 L 03/27/24 20:35 Pulse Oximetry 96 03/27/24 20:35 Temperature 36.4 C 03/27/24 20:35 Pulse Rate 72 03/27/24 20:35 Respiratory Rate 14 03/27/24 20:35 Blood Pressure 129/56 L 03/27/24 20:35 Pulse Oximetry 96 03/27/24 20:35 Discharge Plan Discharge Clinical Impression: Ground-level fall, Head injury Patient Disposition: NH Residential/Asst Living Condition: Stable Instructions: Antibiotic Form, Head Injury (ED) Prescriptions: No Action citalopram 10 mg Tablet 10 mg PO DAILY isosorbide mononitrate 60 mg Tablet Extended Release 24 Hr 60 mg PO DAILY Qty: 30 0RF montelukast 10 mg Tablet 10 mg PO DAILY Qty: 30 0RF Rx Instructions: patient takes at noon magnesium 250 mg tablet 250 mg PO BID Qty: 30 0RF furosemide [Lasix] 20 mg tablet 20 mg PO DAILY Qty: 30 0RF fluticasone propionate 50 mcg/actuation spray,suspension 2 spray INTRANASAL QAM Qty: 30 0RF Rx Instructions: TWO SPRAYS IN EACH NOSTRIL tamoxifen 20 mg Tablet 20 mg PO DAILY Qty: 30 0RF coenzyme Q10 [Co Q-10] 200 mg capsule 200 mg PO DAILY Qty: 30 0RF Rx Instructions: patient takes at noon calcium carbonate-vitamin D3 [Calcium 600 + D(3)] 600 mg-10 mcg (400 unit) Tablet 1 tablet PO DAILY Qty: 30 0RF Rx Instructions: patient takes at noon cetirizine 10 mg Capsule 10 mg PO DAILY Qty: 30 0RF Rx Instructions: patient takes at noon multivitamin Tablet 1 tablet PO DAILY Rx Instructions: patient takes at noon albuterol sulfate 2.5 mg /3 mL (0.083 %) Solution For Nebulization 2.5 mg INHALATION Q4H PRN (Reason: Shortness Of Breath) Rx Instructions: every 4-6 hours ferrous sulfate 325 mg (65 mg iron) Tablet 325 mg PO BIDWM Lac-Hydrin Five 5 % Lotion 1 applic TOPICAL BID omega-3 fatty acids-vitamin E 1,000 mg Capsule 1 cap PO DAILY Rx Instructions: patient takes at noon (DME) Kitty Bambi [facility] Spacer MISCELLANEOUS fluticasone propion-salmeterol [Advair HFA] 115-21 mcg/actuation Hfa Aerosol Inhaler 2 puff INHALATION BID Eucerin Intensive Repair Lotion 1 ea TOPICAL BID Rx Instructions: apply to BLE acetaminophen 500 mg capsule 1,000 mg PO Q8H PRN (Reason: Pain) metoprolol tartrate 25 mg Tablet 25 mg PO Q12HR Qty: 60 0RF Follow-up/Referrals: Zhane,Hany Jenkins DO [Primary Care Provider] - Time of Disposition: 23:55
--- NOTE | 2024-03-28 | PC.NURSE ---
report called to heather at [facility] regarding pt dc plan. pt to be dc back to facility via ems.
[2024-03-28 04:03] VITALS: BP 134/68; PULSE 64; RESP 16; O2SAT 98
== END 2024-03-28 04:04 ==
PROVIDERS: Emergency Provider Emergency Medicine; PCP Internal Medicine
DX: S09.90XA Unspecified injury of head, initial encounter (principal); W18.30XA Fall on same level, unspecified, initial encounter; J45.909 Unspecified asthma, uncomplicated; F03.90 Unspecified dementia, unspecified severity, without behavioral disturbance, psychotic disturbance, mood disturbance, and anxiety; E78.5 Hyperlipidemia, unspecified; I10 Essential (primary) hypertension; K21.9 Gastro-esophageal reflux disease without esophagitis
CPT/HCPCS: 70450; 72100; 72125; 99284

== ENCOUNTER 2024-03-30 11:45 | Inpatient (IN) | payer MEDICARE, SELFPAY ==
[2024-03-30] VITALS (24 sets, daily range): BP systolic 122–159; BP diastolic 56–85; PULSE 60–88; RESP 14–21; TEMP 36.4–36.6; O2SAT 94–100; BMI 25.0
--- NOTE | ~2024-03-30 | XR_ITS ---
Clinical Indication: Shortness of breath PA and lateral views of the chest: Comparison: 03/02/2024 Findings: Large right pleural effusion and [id number] left pleural effusion are present. There is probable moderate pulmonary edema and bibasilar atelectasis.. Cardiomediastinal silhouette is wi thin normal limits. Bones and soft tissues are unremarkable. Impression: Large right pleural effusion and [id number] left pleural effusion. Moderate pulmonary edema and bibasilar atelectasis. Reviewed, dictated and finalized at location M. MASKER Impression: Large right pleural effusion and [id number] left pleural effusion. Moderate pulmonary edema and bibasilar atelectasis.
--- NOTE | ~2024-03-30 | XR_ITS ---
Portable chest x-ray Comparison: 04/02/2024 Clinical History: Pneumothorax Findings: Probable moderate to large right pleural effusion with patchy right lung airspace consolid ation. Questionable small right apical pneumothorax. Probable focal retrocardiac airspace disease. C ardiomediastinal silhouette is stable. Bones and soft tissues are unremarkable. Impression: Moderate to large right pleural effusion with possible small pneumothorax component at the apex. Underlying patchy right lung airspace disease could reflect atelectasis/edema versus pneumonia. Probable focal retrocardiac airspace disease, unchanged. Reviewed, dictated and finalized at location . ORICAL SITE GUIDE Impression: Moderate to large right pleural effusion with possible small pneumothorax compo nent at the apex. Underlying patchy right lung airspace disease could reflect atelectasis/edema v ersus pneumonia. Probable focal retrocardiac airspace disease, unchanged.
--- NOTE | ~2024-03-30 | CT_ITS ---
EXAMINATION:CT diagnostic chest wo con DATE: 03/30/2024 14:12 INDICATION: Pleural effusions. TECHNIQUE: Computed tomography (CT) of the chest was performed without intravenous contrast. Automate d exposure control and iterative reconstruction technique were employed. The dose-length product (DLP ) was 184.71 mGy-cm. COMPARISON: Chest CT 02/23/2024 FINDINGS: There are large right and moderate-sized left pleural effusions. There is atelectasis bilat erally with a dependent predominance. Cardiomegaly is noted. No pericardial effusion. There is thorac ic kyphosis. There is severe cervical and thoracic spondylosis. IMPRESSION: 1. Large right and moderate-sized left pleural effusions. Reviewed, dictated and finalized at location A. /BAKERY ASSOCIATE
--- NOTE | ~2024-03-30 | XR_ITS ---
EXAMINATION: XR chest 1V portable DATE: 04/01/2024 08:32 INDICATION: Pneumothorax. TECHNIQUE: A single frontal view of the chest was obtained. COMPARISON: Chest view 03/31/2024 FINDINGS: The patient is rotated to her right. There are small pleural effusions. There are airspace opacities in right mid and lower lung zones and left lower lung zone. There is a small right pneumoth orax. Cardiomegaly is noted. There are old healed left rib fractures. IMPRESSION: 1. Small right hydropneumothorax with worsened fluid component. 2. Stable small left pleural effusion. 3. Airspace opacities in right mid and lower lung zones and left lower lung zone, consistent with ate lectasis versus pneumonia. 4. Cardiomegaly. Reviewed, dictated and finalized at location A. E MIXING OPERATOR IMPRESSION: 1. Small right hydropneumothorax with worsened fluid component. 2. Stable small left pleural effusion. 3. Airspace opacities in right mid and lower lung zones and left lower lung zon e, consistent with atelectasis versus pneumonia. 4. Cardiomegaly.
--- NOTE | ~2024-03-30 | US_ITS ---
EXAMINATION: US thoracentesis DATE: 03/31/2024 10:04 INDICATION: pleural effusion TECHNIQUE: The procedure and its risks, benefits, and alternatives were discussed with Domenic Julio . Potential risks discussed included bleeding, infection, and pneumothorax. He understood the risks a nd agreed to proceed. The skin was prepped and draped in sterile fashion. 1% lidocaine was used for l ocal anesthesia. Under ultrasound guidance, a 5 Fr catheter with trochar was advanced into the right pleural effusion. Fluid was aspirated. The catheter was removed, and a dressing was applied. There we re no immediate complications. FINDINGS: Ultrasound images demonstrate a right pleural effusion and the catheter within the fluid. IMPRESSION: 1. Successful ultrasound-guided thoracentesis yielding 1000 mL of clear, yellow fluid. Reviewed, dictated and finalized at location A. GLOSSER IMPRESSION: 1. Successful ultrasound-guided thoracentesis yielding 1000 mL of clear, yello w fluid.
--- NOTE | ~2024-03-30 | XR_ITS ---
XR chest 1V portable Ordering provider: Morelia Ji APRN History: 88 years Female with . re eval pneumothorax . Comparison: April 01, 2024 FINDINGS: MEDIASTINUM: The cardiac silhouette is moderately enlarged. LUNGS: A lucency seen in the right apical area is unchanged. Opacification in the right mid and lower zones is noted suggestive of atelectasis versus pneumonia with pleural effusion. Bilateral interstit ial changes. Opacification the left lung base suggestive of atelectasis versus pneumonia. OTHER: No free air under the diaphragm. IMPRESSION: Right mid and lower zone pneumonia with pleural effusion. Underlying pulmonary edema is not excluded. Left basilar atelectasis versus pneumonia. Unchanged lucency in the right apical area. Reviewed, dictated and finalized at location A. ER LABELS
--- NOTE | ~2024-03-30 | XR_ITS ---
EXAMINATION: [id number] DATE: 03/31/2024 09:57 INDICATION: Right pleural effusion status post thoracentesis. TECHNIQUE: A single frontal view of the chest was obtained. COMPARISON: Chest 2 views 03/30/24 FINDINGS: There are airspace opacities in the lower lung zones. There are small pleural effusions. Th ere is a small right pneumothorax. Cardiomegaly is noted. IMPRESSION: 1. Small right hydropneumothorax. I called this result to Morelia Ji. 2. Small left pleural effusion. 3. Airspace opacities in the lower lung zones with interval improvement, likely atelectasis. 4. Cardiomegaly. Reviewed, dictated and finalized at location A. MACY TECHNOLOGY INSTRUCTOR
--- NOTE | 2024-03-30 12:11 | ECG_ITS ---
Test Date: 2024-03-30 12:21:57 Measurements Intervals Rison Rate: 73 P: 8 VA: 125 QRS: 13 QRSD: 86 T: 23 QT: 371 QTc: 409 Interpretive Statements SINUS RHYTHM POSSIBLE ANTERIOR MYOCARDIAL INFARCTION , OF INDETERMINATE AGE [30 ms Q WAVE IN V3/V4, OR R < 0.2 mV IN V4] Compared to ECG 03/02/2024 13:41:34 NO SIGNIFICANT CHANGES Electronically Signed On 03-30-2024 13:02:50 PERSONAL LINES SALES EXECUTIVE by Joelle Pollard M.D.
[2024-03-30 12:42] LABS: Basophils Percent Auto 0.4 % (0.2-1.2); Eosinophils Percent Auto 0.5 % (0-4.4); Hematocrit 32.8 % (37.0-47.0); Hemoglobin 10.4 g/dL (12.0-15.0); Immature Granulocyte Absolute 0.03 K/mm3 (0.00-0.031); Immature Granulocyte Percent A 0.4 % (0-0.5); Lymphocytes Percent Auto 18.3 % (18.3-44.2); Mean Corpuscular HGB Conc 31.7 g/dl (32-36); Mean Corpuscular Hemoglobin 27.2 pg (26-34); Mean Corpuscular Volume 85.9 fl (80-100); Mean Platelet Volume 9.1 fl (7.4-10.4); Monocytes Percent Auto 12.5 % (2.6-8.5); Neutrophils Absolute Auto 5.2 K/mm3 (1.3-6.7); Neutrophils Percent Auto 67.9 % (45.5-73.1); Platelet Count Result 399 k/mm3 (150-375); Red Blood Count 3.82 M/mm3 (4.2-5.4); Red Cell Distribution Width 17.7 % (11.5-14.5); White Blood Count 7.7 K/mm3 (4.5-10.0)
[2024-03-30 12:50] LABS: Alanine Aminotransferase 14 U/L (6-35); Albumin Level 4.1 g/dL (3.5-5.1); Alkaline Phosphatase 57 U/L (38-126); Anion Gap 3 mmol/L (4-12); Aspartate Amino Transferase 24 U/L (14-36); Bilirubin,Total 0.5 mg/dL (0.2-1.3); Blood Urea Nitrogen 30 mg/dL (7-17); Calcium 9.1 mg/dL (8.4-10.2); Carbon Dioxide 27 mmol/L (22-30); Chloride 107 mmol/L (98-107); Estimated Glomerular Filt Rate 52; Glucose 109 mg/dL (65-110); Potassium 4.3 mmol/L (3.4-5.0); Sodium 137 mmol/L (137-145)
--- NOTE | 2024-03-30 13:40 | ED.SOB ---
HPI - SOB/Dyspnea General Chief Complaint: Shortness of Breath/Dyspnea Stated Complaint: sob Time Seen by Provider: 03/30/24 12:49 Source: patient and family Mode of arrival: ambulatory (By family) Limitations: physical limitation ( hard of hearing) and dementia History of Present Illness HPI Narrative: Patient presents with complaint of shortness of breath starting yesterday. Facility have been giving her nebulized treatments As she has difficulty understanding of the used an inhaler. Not on oxygen at baseline. History of heart failure and asthma. Documentation from custodial facility notes that her last SpO2 was 94% and before prednisone it was 89%. They note that she has a history of CHF and the in-house doctor/nurse practitioner said she was in respiratory distress. There was concern about fluid on the lung and possible pneumonia based x-ray obtained yesterday and the request is for a CT of the chest with possible drainage of fluid. patient is alert oriented to self at baseline. Family transported patient and noted that she had been quite weak while in route and has been fatiguing easily but they did not appreciate that she has been coughing today. Medication list includes Advair, albuterol. Patient was prescribed azithromycin from 03/29/2024 until 04/03/2024. She is on furosemide 20 mg daily as well as isosorbide mononitrate and lisinopril. Montelukast also appears of does prednisone the lateral which is dated 03/29/2024 until 04/03/2024. Related Data Home Medications ?Medication ?Instructions ?Recorded ?Confirmed ?Last Taken ?Type citalopram 10 mg tablet 10 mg PO DAILY 02/23/24 03/30/24 Unknown History acetaminophen 500 mg capsule 500 mg PO Q8H PRN Pain 03/02/24 03/30/24 Unknown History albuterol sulfate 2.5 mg/3 mL 2.5 mg inhalation Q8H PRN 03/02/24 03/30/24 Unknown History (0.083 %) solution for nebulization Shortness Of Breath ammonium lactate 5 % lotion 1 applic topical BID 03/02/24 03/30/24 Unknown History (Lac-Hydrin Five) fluticasone propionate 115 2 puff inhalation BID 03/02/24 03/30/24 Unknown History mcg-salmeterol 21 mcg/actuation HFA inhaler (Advair HFA) multivitamin 1 tablet PO DAILY 03/02/24 03/30/24 Unknown History omega-3 fatty acids-vitamin E 1 cap PO DAILY 03/02/24 03/30/24 Unknown History 1,000 mg capsule lisinopril 20 mg tablet 20 mg PO QAM 03/30/24 03/30/24 Unknown History polysaccharide iron complex 150 mg 150 mg PO BID 03/30/24 03/30/24 Unknown History iron capsule (Ferrex) Allergies Allergy/AdvReac Type Severity Reaction Status Date / Time bacitracin Allergy Unknown Unknown Verified 03/02/24 17:02 grass pollen Allergy Unknown Unknown Verified 03/02/24 17:02 Iodinated Contrast Media Allergy Unknown Stopped Verified 03/02/24 17:02 Breathing meperidine Allergy Unknown Unknown Verified 03/02/24 17:02 mold Allergy Unknown Unknown Verified 03/02/24 17:02 morphine Allergy Unknown Unknown Verified 03/02/24 17:02 neomycin Allergy Unknown RASH Verified 03/02/24 17:02 polymyxin B Allergy Unknown Unknown Verified 03/02/24 17:02 propoxyphene Allergy Unknown Unknown Verified 03/02/24 17:02 fentanyl AdvReac Unknown Vomiting Verified 03/02/24 17:02 Opioids-Meperidine and AdvReac Unknown VOMITING Verified 02/23/24 18:32 Related Contrast Media Allergy Severe Anaphylactic Uncoded 02/23/24 18:32 Shock ENVIRONMENTAL Allergy Unknown Unknown Uncoded 02/23/24 18:32 [facility] Past Medical History Medical History (Updated 04/03/24 @ 17:36 by Marti Kenyon MD) Hard of hearing Other Alzheimer's disease Malignant neoplasm of breast Iron deficiency anemia Diastolic dysfunction History of left breast cancer Gastroesophageal reflux disease Dementia History of shingles Prinzmetal's angina Anxiety Hyperlipidemia Pneumonia Asthma Hypertension Peripheral neuropathy Seizures Surgical History Surgical History History of hysterectomy (1977) History of wisdom tooth extraction History of tonsillectomy History of bilateral cataract extraction History of lumpectomy of left breast History of cardiac catheterization History of removal of pigmented skin lesion History of conization of cervix History of appendectomy (1950) Family History Family History Sibling Family history of allergic disorder Family history of malignant neoplasm Family history of diabetes mellitus in first degree relative Diabetes mellitus Mother Breast cancer Father Cerebrovascular accident Grandparent Diabetes mellitus Son Hodgkins disease Social History Social History (Updated 03/30/24 @ 15:43 by Marti Kenyon MD) Social History: Surrogate medical decision maker: Domenic Julio, malissa. Code status: DNR per custodial documentation. POLST dated 12/08/23 and signed by Domenic Julio also lists No Cpr and comfort focus treatment. Smoking status: Never smoker Alcohol intake: never Drinks per week: 1 Substance use: never Substance use type: does not use Lack of Transportation: No Lack of Food: Never True Current Housing: I Have Housing Concerned About Future Housing: No Difficulty Paying Gas/Electric Bills: No Difficulty Paying for Meds: No Currently Unemployed: No Education: High School Diploma/GED Difficulty w/ Childcare or Family Care: No Living arrangements: assisted living Additional living arrangements comments: Lives at [facility]. She had 3 sons, 1 has . Additional occupation/education comments: Retired nurse. Spiritual care concerns: No Exam Narrative: GENERAL: Well-appearing, well-nourished, and in no acute distress. HEAD: Normocephalic, atraumatic. EYES: Non injected, non icteric ENT: Nares clear, no rhinorrhea or epistaxis. Hard of hearing. NECK: Supple. CHEST: Nonlabored. No respiratory distress. Not tripoding or using accessory muscle usage. Diminished bilaterally. HEART: Regular rate and rhythm. . ABDOMEN: Soft, nondistended. EXTREMITIES: Normal range of motion. 2+ bilateral lower extremity edema. SKIN: Warm, dry, no rash. NEURO: No focal deficits. Alert but not oriented. PSYCH: Normal mood and affect. Course Vital Signs Vital signs: Vital Signs Temperature 97.5 F L 03/30/24 11:46 Pulse Rate 70 03/30/24 11:46 Respiratory Rate 18 03/30/24 11:46 Blood Pressure 124/56 L 03/30/24 11:46 Pulse Oximetry 96 03/30/24 11:46 Oxygen Delivery Room Air 03/30/24 11:46 Temperature 98.0 F 04/03/24 14:00 Pulse Rate 71 04/03/24 14:00 Respiratory Rate 12 04/03/24 14:00 Blood Pressure 95/46 L 04/03/24 14:00 Pulse Oximetry 94 04/03/24 14:00 Oxygen Delivery Room Air 04/02/24 20:00 Oxygen Flow Rate 2 04/02/24 08:53 Fraction of Inspired Oxygen 21 04/02/24 20:00 MDM - SOB/Dyspnea MDM Narrative Medical decision making narrative: Patient presents with report of shortness of breath. The facility had noted that she was in respiratory distress and told provider in report that she had been tripoding and yet was otherwise stable for the family to bring her. In the emergency department she is afebrile with vital signs notable for a slightly low diastolic blood pressure although improved/normal on repeat. patient is resting comfortably and not in respiratory distress at the time arrival and the time of my exam. Imaging does show bilateral pleural effusions. Family does note that she has previously undergone thoracentesis for this last 1 being many months ago with improvement in her symptoms and without quick decompensation. they do want to keep her comfortable and are not pursuing aggressive measures however do believe that she improved after previous thoracentesis. She has otherwise been compensating appropriately and not hypoxic. Order placed for an ultrasound-guided thoracentesis by Radiology and I did talk with Radiology Department to confirm that there is a radiologist credentialed for this procedure either tonight or tomorrow. Patient discussed with community action worker hospitalist Dr Yates who accepts admission. Will be obs admit to a med [facility] hospital bed with telemetry (indication = pulmonary edema). Differential Diagnosis Differential diagnosis: Likely congestive heart failure and community acquired pneumonia Medical Records Attestation: I reviewed the patient's medical records. Medical records narrative: You chest x-ray obtained 03/29/2024 is reviewed which showed bilateral pleural effusions right greater than left with associated consolidative changes likely atelectasis or infiltrate. Lab Data Attestation: I reviewed the patient's lab results. Lab results narrative: Azotemia is chronic. Normocytic anemia and thrombocytosis also previously seen and stable. 04/02/24 04:42 04/02/24 04:42 Labs: Lab Results 03/30/24 03/30/24 03/30/24 Range/Units 12:31 14:31 16:31 WBC 7.7 (4.5-10.0) K/mm3 RBC 3.82 L (4.2-5.4) M/mm3 Hgb 10.4 L (12.0-15.0) g/dL Hct 32.8 L (37.0-47.0) % MCV 85.9 (80-100) fl MCH 27.2 (26-34) pg MCHC 31.7 L (32-36) g/dl RDW 17.7 H (11.5-14.5) % Plt Count 399 H (150-375) k/mm3 MPV 9.1 (7.4-10.4) fl Immature Gran % (Auto) 0.4 (0-0.5) % Neut % (Auto) 67.9 (45.5-73.1) % Lymph % (Auto) 18.3 (18.3-44.2) % Mills % (Auto) 12.5 H (2.6-8.5) % Eos % (Auto) 0.5 (0-4.4) % Baso % (Auto) 0.4 (0.2-1.2) % Lymph # (Auto) 1.40 (0.9-3.2) K/mm3 Mills # (Auto) 1.0 H (0.1-0.6) K/mm3 Eos # (Auto) 0.0 (0-0.3) K/mm3 Baso # (Auto) 0.0 (0.0-0.1) K/mm3 Abs Immat Gran (auto) 0.03 (0.00-0.031) K/mm3 Absolute Neuts (auto) 5.2 (1.3-6.7) K/mm3 Absolute Nucleated RBC 0.000 (0.0-0.012) K/mm3 Nucleated RBC % 0.0 (0.0-0.2) % PT 14.4 (11.1-14.7) Seconds INR 1.1 APTT 28.4 (22.3-36.8) Seconds Sodium 137 (137-145) mmol/L Potassium 4.3 (3.4-5.0) mmol/L Chloride 107 (98-107) mmol/L Carbon Dioxide 27 (22-30) mmol/L Anion Gap 3 L (4-12) mmol/L BUN 30 H (7-17) mg/dL Creatinine 1.00 (0.7-1.0) mg/dL Estim Creat Clear Calc Not Reportable Estimated GFR 52 L (59 - ) Glucose 109 (65-110) mg/dL Calcium 9.1 (8.4-10.2) mg/dL Total Bilirubin 0.5 (0.2-1.3) mg/dL AST 24 (14-36) U/L ALT 14 (6-35) U/L Alkaline Phosphatase 57 (38-126) U/L Lactate Dehydrogenase 241 (120-246) U/L Troponin I < 0.012 (0.000-0.034) ng/mL NT-Pro-B Natriuret Pep 2060 H (19.9-100) pg/mL Total Protein 8.0 (6.3-8.2) g/dL Albumin 4.1 (3.5-5.1) g/dL Pleural Fluid Source Pleural Color (Colorless) Pleural Appearance (Clear) Pleural RBC (0-40081) /uL Pleural Nuc Cells (0-1000) /uL Pleural Neutrophils (0-25) % Pleural Lymphocytes % Pleural Monocytes % Pleural Macrophages % Pleural Mesothelial % Pleural Albumin Pleural LDH Pleural Triglycerides Influenza A (RT-PCR) Negative (Negative) Influenza B (RT-PCR) Negative (Negative) RSV (RT-PCR) Negative (Negative) SARS-CoV-2 RNA (RT-PCR) Negative (Negative) 03/31/24 03/31/24 03/31/24 Range/Units 05:19 09:19 09:20 WBC (4.5-10.0) K/mm3 RBC (4.2-5.4) M/mm3 Hgb (12.0-15.0) g/dL Hct (37.0-47.0) % MCV (80-100) fl MCH (26-34) pg MCHC (32-36) g/dl RDW (11.5-14.5) % Plt Count (150-375) k/mm3 MPV (7.4-10.4) fl Immature Gran % (Auto) (0-0.5) % Neut % (Auto) (45.5-73.1) % Lymph % (Auto) (18.3-44.2) % Mills % (Auto) (2.6-8.5) % Eos % (Auto) (0-4.4) % Baso % (Auto) (0.2-1.2) % Lymph # (Auto) (0.9-3.2) K/mm3 Mills # (Auto) (0.1-0.6) K/mm3 Eos # (Auto) (0-0.3) K/mm3 Baso # (Auto) (0.0-0.1) K/mm3 Abs Immat Gran (auto) (0.00-0.031) K/mm3 Absolute Neuts (auto) (1.3-6.7) K/mm3 Absolute Nucleated RBC (0.0-0.012) K/mm3 Nucleated RBC % (0.0-0.2) % PT 15.1 H (11.1-14.7) Seconds INR 1.1 APTT 31.2 (22.3-36.8) Seconds Sodium (137-145) mmol/L Potassium (3.4-5.0) mmol/L Chloride (98-107) mmol/L Carbon Dioxide (22-30) mmol/L Anion Gap (4-12) mmol/L BUN (7-17) mg/dL Creatinine (0.7-1.0) mg/dL Estim Creat Clear Calc Estimated GFR (59 - ) Glucose (65-110) mg/dL Calcium (8.4-10.2) mg/dL Total Bilirubin (0.2-1.3) mg/dL AST (14-36) U/L ALT (6-35) U/L Alkaline Phosphatase (38-126) U/L Lactate Dehydrogenase (120-246) U/L Troponin I (0.000-0.034) ng/mL NT-Pro-B Natriuret Pep (19.9-100) pg/mL Total Protein (6.3-8.2) g/dL Albumin (3.5-5.1) g/dL Pleural Fluid Source Pleural fluid Pleural Color Yellow (Colorless) Pleural Appearance Clear (Clear) Pleural RBC < 2000 (0-95983) /uL Pleural Nuc Cells 230 (0-1000) /uL Pleural Neutrophils 3 (0-25) % Pleural Lymphocytes 72 % Pleural Monocytes 6 % Pleural Macrophages 7 % Pleural Mesothelial 12 % Pleural Albumin Pending Pleural LDH Pending Pleural Triglycerides Pending Influenza A (RT-PCR) (Negative) Influenza B (RT-PCR) (Negative) RSV (RT-PCR) (Negative) SARS-CoV-2 RNA (RT-PCR) (Negative) Imaging Data Radiologist's impression: Impressions Chest X-Ray 03/30/24 13:14 Impression: Large right pleural effusion and [id number] left pleural effusion. Moderate pulmonary edema and bibasilar atelectasis. Chest CT 03/30/24 14:20 IMPRESSION: 1. Large right and moderate-sized left pleural effusions. ECG Data EKG #1: Attestation: I personally reviewed and interpreted this ECG as follows: ECG completion date: 03/30/24 ECG completion time: 12:21 Interpretation: Normal sinus rhythm at a rate of 73 beats per minute. AK interval 125. QRS 86. QT/QTC 371/396. Good R-wave progression across the precordial leads. Flat T-waves in 3 and AVF but otherwise upright in contiguous inferior lead 2. T-wave inversion in V2 is likely a normal or due to lead placement. No other T-wave inversions in precordial leads. Discharge Plan Discharge Clinical Impression: Shortness of breath, Normocytic anemia, Thrombocytosis, Bilateral pleural effusion Patient Disposition: Still a Patient Condition: Stable
[2024-03-30 15:17] LABS: Influenza A QL RT-PCR Negative (Negative); Influenza B QL RT-PCR Negative (Negative); RSV RNA, RT-PCR Negative (Negative); SARS-CoV-2 RNA PCR Negative (Negative)
[2024-03-30 16:08] LABS: NT Pro B Type Natriuretic Pept 2060 pg/mL (19.9-100); Troponin I < 0.012 ng/mL (0.000-0.034)
[2024-03-30 16:45] LABS: INR 1.1; Prothrombin Time 14.4 Seconds (11.1-14.7)
[2024-03-30 16:46] LABS: Partial Thromboplastin Time 28.4 Seconds (22.3-36.8)
[2024-03-30] MEDS: FUROSEMIDE INJ 40 MG/4 ML VIAL IV PUSH (16:48)
--- NOTE | 2024-03-30 17:13 | PC.NURSE ---
female external catheter placed on patient
--- NOTE | 2024-03-30 17:40 | PM.IMHP ---
H&P: HPI History of Present Illness Date/Time: 03/30/24 17:40 Chief Complaint: Recent fall Narrative: Patient 88-year-old female with a history of dementia, paroxysmal supraventricular tachycardia, diastolic dysfunction, hypertension, anxiety, asthma, breast cancer, patient has been having difficulty breathing. Patient brought in by the family members stating that she has been more confused and also having difficulty breathing even though patient is DNR DNI she has been admitted before that for pleural effusion and therapeutic thoracentesis. Patient is pleasant on bedside no complaints of headache chest pain cough sinus problem no sore throat no nausea vomiting or dysuria. EGD evaluation shows patient has a large pleural effusion but patient's oxygenation is normal patient has been admitted for possible thoracentesis in the morning by IR Review of Systems Review of Systems: No fevers chills nausea vomiting. No double vision no blurry vision. No difficulty hearing or sinus complaints. No chest pain shortness of breath fever palpitation dizziness ankle swelling. No coughing wheezing chills. No nausea constipation diarrhea abdominal pain reflux. No urgency frequency of urination. No hematuria. No skin rash eczema. No anxiety depression difficulty sleeping. No bleeding gums enlarged glands. No muscle ache back pain joint stiffness. No loss of strength numbness headache tremor or loss of memory. [facility] Past Medical History Medical History (Updated 03/30/24 @ 15:46 by Marti Kenyon MD) Anxiety Asthma Dementia Diastolic dysfunction Gastroesophageal reflux disease History of left breast cancer History of shingles Hyperlipidemia Hypertension Iron deficiency anemia Malignant neoplasm of breast Other Alzheimer's disease Peripheral neuropathy Pneumonia Prinzmetal's angina Seizures Surgical History Surgical History History of appendectomy (1950) History of bilateral cataract extraction History of cardiac catheterization History of conization of cervix History of hysterectomy (1977) History of lumpectomy of left breast History of removal of pigmented skin lesion History of tonsillectomy History of wisdom tooth extraction Family History Family History Sibling Family history of allergic disorder Family history of malignant neoplasm Family history of diabetes mellitus in first degree relative Diabetes mellitus Mother Breast cancer Father Cerebrovascular accident Grandparent Diabetes mellitus Son Hodgkins disease Social History Social History (Updated 03/30/24 @ 15:43 by Marti Kenyon MD) Social History: Surrogate medical decision maker: Domenic Julio, son. Code status: DNR per group home documentation. POLST dated 12/08/23 and signed by Domenic Sumanth also lists No Cpr and comfort focus treatment. Smoking status: Never smoker Alcohol intake: current Drinks per week: 1 Substance use: never Substance use type: does not use Lack of Transportation: No Lack of Food: Never True Current Housing: I Have Housing Concerned About Future Housing: No Difficulty Paying Gas/Electric Bills: No Difficulty Paying for Meds: No Currently Unemployed: No Education: High School Diploma/GED Difficulty w/ Childcare or Family Care: No Living arrangements: assisted living Additional living arrangements comments: Lives at [facility]. She had 3 sons, 1 has . Additional occupation/education comments: Retired nurse. Spiritual care concerns: No Meds Home Medications and Allergies Home Medications Medication Instructions Recorded Confirmed Type calcium 600 mg (as 1 tablet PO DAILY #30 tabs 12/09/23 03/02/24 Rx carbonate)-vitamin D3 10 mcg (400 unit) tablet (Calcium 600 + D(3)) cetirizine 10 mg capsule 10 mg PO DAILY #30 caps 12/09/23 03/02/24 Rx coenzyme Q10 200 mg capsule (Co 200 mg PO DAILY #30 caps 12/09/23 03/02/24 Rx Q-10) fluticasone propionate 50 2 spray intranasal QAM #30 grams 12/09/23 03/02/24 Rx mcg/actuation nasal spray,suspension furosemide 20 mg tablet (Lasix) 20 mg PO DAILY #30 tabs 12/09/23 03/02/24 Rx isosorbide mononitrate 60 mg 60 mg PO DAILY #30 tabs 12/09/23 03/02/24 Rx tablet,extended release 24 hr magnesium 250 mg tablet 250 mg PO BID #30 tabs 12/09/23 03/02/24 Rx montelukast 10 mg tablet 10 mg PO DAILY #30 tabs 12/09/23 03/02/24 Rx tamoxifen 20 mg tablet 20 mg PO DAILY #30 tabs 12/09/23 03/02/24 Rx citalopram 10 mg tablet 10 mg PO DAILY 02/23/24 03/02/24 History acetaminophen 500 mg capsule 1,000 mg PO Q8H PRN Pain 03/02/24 03/02/24 History albuterol sulfate 2.5 mg/3 mL 2.5 mg inhalation Q4H PRN 03/02/24 03/02/24 History (0.083 %) solution for nebulization Shortness Of Breath ammonium lactate 5 % lotion 1 applic topical BID 03/02/24 03/02/24 History (Lac-Hydrin Five) emollient combination no.110 1 ea topical BID 03/02/24 03/02/24 History (Eucerin Intensive Repair lotion) ferrous sulfate 325 mg (65 mg 325 mg PO BIDWM 03/02/24 03/02/24 History iron) tablet fluticasone propionate 115 2 puff inhalation BID 03/02/24 03/02/24 History mcg-salmeterol 21 mcg/actuation HFA inhaler (Advair HFA) inhalational spacing device 03/02/24 03/02/24 History ([facility] spacer) multivitamin 1 tablet PO DAILY 03/02/24 03/02/24 History omega-3 fatty acids-vitamin E 1 cap PO DAILY 03/02/24 03/02/24 History 1,000 mg capsule metoprolol tartrate 25 mg tablet 25 mg PO Q12HR #60 tabs 03/05/24 Rx Allergies Allergy/AdvReac Type Severity Reaction Status Date / Time bacitracin Allergy Unknown Unknown Verified 03/02/24 17:02 grass pollen Allergy Unknown Unknown Verified 03/02/24 17:02 Iodinated Contrast Media Allergy Unknown Stopped Verified 03/02/24 17:02 Breathing meperidine Allergy Unknown Unknown Verified 03/02/24 17:02 mold Allergy Unknown Unknown Verified 03/02/24 17:02 morphine Allergy Unknown Unknown Verified 03/02/24 17:02 neomycin Allergy Unknown RASH Verified 03/02/24 17:02 polymyxin B Allergy Unknown Unknown Verified 03/02/24 17:02 propoxyphene Allergy Unknown Unknown Verified 03/02/24 17:02 fentanyl AdvReac Unknown Vomiting Verified 03/02/24 17:02 Opioids-Meperidine and AdvReac Unknown VOMITING Verified 02/23/24 18:32 Related Contrast Media Allergy Severe Anaphylactic Uncoded 02/23/24 18:32 Shock ENVIRONMENTAL Allergy Unknown Unknown Uncoded 02/23/24 18:32 Vital Signs Vital Signs - 24 hr 03/30/24 11:46 03/30/24 12:17 03/30/24 12:33 Temperature 36.4 C L Pulse Rate 70 72 Respiratory Rate 18 21 H Blood Pressure 124/56 L 129/63 Pulse Oximetry 96 99 Oxygen Delivery Room Air Room Air 03/30/24 12:35 03/30/24 15:22 03/30/24 12:30 Temperature Pulse Rate 68 88 74 Respiratory Rate 14 18 Blood Pressure 129/72 Pulse Oximetry 98 Oxygen Delivery 03/30/24 12:31 03/30/24 12:45 03/30/24 12:46 Temperature Pulse Rate 70 64 65 Respiratory Rate 19 16 17 Blood Pressure 129/63 122/58 L Pulse Oximetry 97 98 97 Oxygen Delivery 03/30/24 13:01 03/30/24 15:36 03/30/24 16:01 Temperature Pulse Rate 69 74 69 Respiratory Rate 17 18 20 Blood Pressure 135/66 149/80 H Pulse Oximetry 98 97 Oxygen Delivery 03/30/24 16:15 03/30/24 16:16 03/30/24 16:47 Temperature Pulse Rate 72 74 70 Respiratory Rate 17 16 18 Blood Pressure 150/70 H 145/70 H Pulse Oximetry 98 100 99 Oxygen Delivery Exam Narrative: GENERAL: Well appearing, no acute distress. HEAD: Normocephalic, atraumatic. NECK: Supple. No adenopathy, no masses. RESPIRATORY: respirations nonlabored. Diminished air entry bilaterally lung bases CARDIOVASCULAR: Regular rate and rhythm without murmurs, . Peripheral pulses 2+ and equal bilaterally. ABDOMINAL: Soft, nontender, nondistended, no hepatosplenomegaly. Normoactive BS. MUSCULOSKELETAL: no Epigastric and no hypochondrial tenderness SKIN: Warm, dry, NEURO: A&O X3. Moves all extremities H&P: Results Labs Labs: Short CBC 03/30/24 Range/Units 12:31 WBC 7.7 (4.5-10.0) K/mm3 Hgb 10.4 L (12.0-15.0) g/dL Hct 32.8 L (37.0-47.0) % Plt Count 399 H (150-375) k/mm3 BMP 03/30/24 12:31 Sodium 137 Potassium 4.3 Chloride 107 Carbon Dioxide 27 BUN 30 H Creatinine 1.00 Glucose 109 Calcium 9.1 Cardiac Enzymes 03/30/24 Range/Units 12:31 Troponin I < 0.012 (0.000-0.034) ng/mL Liver Function 03/30/24 Range/Units 12:31 Total Bilirubin 0.5 (0.2-1.3) mg/dL AST 24 (14-36) U/L ALT 14 (6-35) U/L Alkaline Phosphatase 57 (38-126) U/L Albumin 4.1 (3.5-5.1) g/dL Assessment and Plan Assessment and plan (1) Shortness of breath: Code(s): R06.02 - Shortness of breath Status: Acute (2) Bilateral pleural effusion: Code(s): J90 - Pleural effusion, not elsewhere classified Status: Acute (3) Physical deconditioning: Code(s): R53.81 - Other malaise Status: Acute (4) SVT (supraventricular tachycardia): Code(s): I47.10 - Supraventricular tachycardia, unspecified Status: Acute (5) Acute hypoxic respiratory failure: Code(s): J96.01 - Acute respiratory failure with hypoxia Status: Acute (6) Diastolic dysfunction: Code(s): I51.89 - Other ill-defined heart diseases Status: Acute Plan Heart failure with reduced preserved Chest x-ray bilateral pleural effusion May benefit from thoracentesis therapeutic Optimize Rinku inhibitors and beta-blockers Daily weights Continue albuterol p.r.n. Loop diuretics as indicate Patient educated about titrating diuretics at home based on weight blood pressure and symptoms. Optimize blood pressure < 130/80 Fall risk assessment Pneumonia and flu vaccine advised Routine follow-up with the primary care physician and distribution transformer assembler recommended HTN Optimize BP meds continue lisinopril antiplatelet therapy as advised Keeping BMI less than 25 Advised low-salt Routine Exercise Gait Instability Service to Physical Therapy Service to Home Care (PT) Home exercise program Instruction in assistive device Reduction in Polypharmacy, Minimize the use of high-risk medications, and Sedatives, Diuretics, Antidepressants, Narcotics, Anti-hypertensives, and Anti-anxiety Patient is at risk. Counseled accordingly on risk reduction.as above ANEMIA/iron deficiency the Hgb POA No reports of bleeding Hgb f/U daily H&H Tranfuse if hemoglobin less than 7 History of dementia. History of anxiety History of asthma continue inhalers DVT prophylaxis. SCDs/Lovenox GI prophylaxis. Ppi All records reviewed Discussed plan of care with the nursing staff and with the patient in detail. Answered all questions and concerns from the patient. All labs have been reviewed. Code status updated DNR/DNI dictation may have been done utilizing a voice recognition system. Attempts have been made to correct errors. However, there may be uncorrected grammatical, spelling, and recognition errors present. Hospitalist MIPS Advance Care Plan I have confirmed that the patient's Advanced Care Plan is present, code status is documented, or surrogate decision maker is listed in patient medical record.: Yes Medication Reconciliation I have utilized all available resources to obtain, update and review the patients current medications (includes all prescriptions, OTC, herbals, cannabis, and nutritional supplements).: Yes
[2024-03-30 18:24] LABS: Lactate Dehydrogenase 241 U/L (120-246)
--- NOTE | 2024-03-30 18:28 | PC.NURSE ---
Patient sleeping peacefully at this time
--- NOTE | 2024-03-30 20:09 | ADMGEN ---
This patient, Marina Bowling, was admitted to 2 Medical Room 240-01 at 1950. Patient/family oriented to hospital policies and general routines including ID bracelet, bed and alarms, visiting hours, pain management, procedures, bathroom and other care routines, personal items, smoking policy, room service/diet, and visiting hours. Information on how to activate the Rapid Response Team has been discussed. Patient/Family are encouraged to report perceived risks to care and to ask questions if they do not understand what they are told or what they should do. Report received from ANDREAS Lara in ED.
--- NOTE | 2024-03-30 22:03 | PC.NURSE ---
ADMISSION COMPLETED WITH PAPERWORK FROM FACILITY AND PHONE CALL TO ZEESHAN CHOW. ZEESHAN GAVE CONSENT OVER THE PHONE TO PERFORM THORACENTESIS ON PATIENT
[2024-03-31] VITALS (10 sets, daily range): BP systolic 104–159; BP diastolic 42–61; PULSE 56–92; RESP 14–18; TEMP 35.9–36.6; O2SAT 92–100
[2024-03-31 06:26] LABS: INR 1.1; Prothrombin Time 15.1 Seconds (11.1-14.7)
[2024-03-31 06:27] LABS: Partial Thromboplastin Time 31.2 Seconds (22.3-36.8)
--- NOTE | 2024-03-31 07:37 | P.PNIM_ITS ---
Progress Note: A&P Assessment and Plan (1) Shortness of breath: Code(s): R06.02 - Shortness of breath Status: Acute (2) Bilateral pleural effusion: Code(s): J90 - Pleural effusion, not elsewhere classified Status: Acute Assessment and Plan: few wbc seen on thoracentesis-will culture start antibiotics for now while awaiting for culture-rocephin, azithromycin-03/31 (3) Physical deconditioning: Code(s): R53.81 - Other malaise Status: Acute (4) SVT (supraventricular tachycardia): Code(s): I47.10 - Supraventricular tachycardia, unspecified Status: Acute Assessment and Plan: was started on metoprolol 25 bid last month (from chart review) but it is not on her med lsit -will start at a lower rate and monitor (5) Acute hypoxic respiratory failure: Code(s): J96.01 - Acute respiratory failure with hypoxia Status: Acute (6) Diastolic dysfunction: Code(s): I51.89 - Other ill-defined heart diseases Status: Acute (7) Postprocedural pneumothorax: Code(s): J95.811 - Postprocedural pneumothorax Status: Acute Assessment and Plan: developed post procedural small pneumothorax- reported per radiologist DR Jean placed on oxygen - IS ordered -Monitor resp status repeat chest ray daily-ordered Plan # Heart failure with reduced preserved Chest x-ray bilateral pleural effusion thoracentesis therapeutic- ordered for today, 03/31 Optimize Rinku inhibitors and beta-blockers Daily weights Continue albuterol p.r.n. Loop diuretics as indicated Optimize blood pressure < 130/80 Pt is fall risk Pneumonia and flu vaccine advised Routine follow-up with the primary care physician and hr administrative assistant recommended HTN Optimize BP meds antiplatelet therapy as advised Keeping BMI less than 25 Advised low-salt Routine Exercise # Gait Instability -pt/ot ordered Home exercise program Instruction in assistive device Reduction in Polypharmacy, Minimize the use of high-risk medications, and Sedatives, Diuretics, Antidepressants, Narcotics, Anti-hypertensives, and Anti-anxiety # ANEMIA/iron deficiency Hgb POA No reports of bleeding Hgb f/U daily H&H Tranfuse if hemoglobin less than 7 History of dementia. History of anxiety History of asthma continue inhalers DVT prophylaxis. SCDs/Lovenox GI prophylaxis. Ppi Code status updated DNR/DNI Time Spent With Patient Time with patient: Greater than 35 minutes Subjective Date/time seen: 03/31/24 07:37 Interval history: Patient 88-year-old female with a history of dementia, paroxysmal supraventricular tachycardia, diastolic dysfunction, hypertension, anxiety, asthma, breast cancer, patient has been having difficulty breathing. Patient brought in by the family members stating that she has been more confused and also having difficulty breathing even though patient is DNR DNI she has been admitted before that for pleural effusion and therapeutic thoracentesis. EGD evaluation shows patient has a large pleural effusion but patient's oxygenation is normal patient has been admitted for possible thoracentesis in the morning by IR . 03/31-pt is seen and examined. she was started on prednisolone- only got couple of doses from long-term ofr sob/copd. Upon review discharge summary - her lisinopril was stopp ed and she was started on metoprolol for SVT. she is calm and pleasant but very confused. alert and oriented to self intermittently. Review of Systems Review of Systems: unable to get a good history due to pt being confused Exam Narrative: GENERAL: Well appearing, no acute distress. HEAD: Normocephalic, atraumatic. NECK: Supple. No adenopathy, no masses. RESPIRATORY: respirations nonlabored. Diminished air entry bilaterally lung bases CARDIOVASCULAR: Regular rate and rhythm without murmurs, . Peripheral pulses 2+ and equal bilater ally. ABDOMINAL: Soft, nontender, nondistended, no hepatosplenomegaly. Normoactive BS. MUSCULOSKELETAL: no Epigastric and no hypochondrial tenderness SKIN: Warm, dry, NEURO: A&O X1. Moves all extremities Objective Data Vital Signs Vital Signs: Vital Signs - 24 hr 03/30/24 11:46 03/30/24 12:17 03/30/24 12:33 Temperature 97.5 F L Pulse Rate 70 72 Respiratory Rate 18 21 H Blood Pressure 124/56 L 129/63 Pulse Oximetry 96 99 Oxygen Delivery Room Air Room Air 03/30/24 12:35 03/30/24 15:22 03/30/24 12:30 Temperature Pulse Rate 68 88 74 Respiratory Rate 14 18 Blood Pressure 129/72 Pulse Oximetry 98 Oxygen Delivery 03/30/24 12:31 03/30/24 12:45 03/30/24 12:46 Temperature Pulse Rate 70 64 65 Respiratory Rate 19 16 17 Blood Pressure 129/63 122/58 L Pulse Oximetry 97 98 97 Oxygen Delivery 03/30/24 13:01 03/30/24 15:36 03/30/24 16:01 Temperature Pulse Rate 69 74 69 Respiratory Rate 17 18 20 Blood Pressure 135/66 149/80 H Pulse Oximetry 98 97 Oxygen Delivery 03/30/24 16:15 03/30/24 16:16 03/30/24 16:47 Temperature Pulse Rate 72 74 70 Respiratory Rate 17 16 18 Blood Pressure 150/70 H 145/70 H Pulse Oximetry 98 100 99 Oxygen Delivery 03/30/24 16:17 03/30/24 16:45 03/30/24 17:07 Temperature Pulse Rate 71 70 71 Respiratory Rate 20 16 19 Blood Pressure 145/70 H Pulse Oximetry 97 98 96 Oxygen Delivery 03/30/24 17:15 03/30/24 17:16 03/30/24 17:35 Temperature Pulse Rate 76 81 67 Respiratory Rate 19 17 18 Blood Pressure 159/85 H Pulse Oximetry 97 97 Oxygen Delivery 03/30/24 17:46 03/30/24 19:21 03/30/24 20:21 Temperature Pulse Rate 69 70 Respiratory Rate 17 20 Blood Pressure 125/68 Pulse Oximetry 98 97 Oxygen Delivery Room Air 03/30/24 22:00 03/31/24 00:00 03/30/24 20:20 Temperature 97.9 F Pulse Rate 60 58 L 74 Respiratory Rate 18 Blood Pressure 149/67 H Pulse Oximetry 94 Oxygen Delivery 03/31/24 04:00 03/31/24 05:58 Temperature 97.8 F Pulse Rate 62 60 Respiratory Rate 18 Blood Pressure 104/42 L Pulse Oximetry 95 Oxygen Delivery Intake/Output Intake/Output: Intake & Output 03/28/24 03/29/24 03/30/24 03/31/24 23:59 23:59 23:59 23:59 Output Total 610 Balance -610 Meds/Results Medications: Active Medications Generic Name Dose Route Start Last Admin Trade Name Freq PRN Reason Stop Dose Admin Acetaminophen 650 mg 03/30/24 17:07 Acetaminophen 325 Mg Tablet PO Q4H PRN Mild Pain (1-3) or Fever Ondansetron HCl 4 mg 03/30/24 17:07 Ondansetron Inj 4 Mg/2 Ml Vial IV PUSH Q4H PRN Nausea Radiology Results: ITS Impressions Chest X-Ray 03/30/24 13:14 Impression: Large right pleural effusion and [id number] left pleural effusion. Moderate pulmonary edema and bibasilar atelectasis. Chest CT 03/30/24 14:20 IMPRESSION: 1. Large right and moderate-sized left pleural effusions. Labs Labs: Laboratory Results - last 24 hr 03/30/24 03/30/24 03/30/24 12:31 14:31 16:31 WBC 7.7 RBC 3.82 L Hgb 10.4 L Hct 32.8 L MCV 85.9 MCH 27.2 MCHC 31.7 L RDW 17.7 H Plt Count 399 H MPV 9.1 Immature Gran % (Auto) 0.4 Neut % (Auto) 67.9 Lymph % (Auto) 18.3 [place] % (Auto) 12.5 H Eos % (Auto) 0.5 Baso % (Auto) 0.4 Lymph # (Auto) 1.40 [place] # (Auto) 1.0 H Eos # (Auto) 0.0 Baso # (Auto) 0.0 Abs Immat Gran (auto) 0.03 Absolute Neuts (auto) 5.2 Absolute Nucleated RBC 0.000 Nucleated RBC % 0.0 PT 14.4 INR 1.1 APTT 28.4 Sodium 137 Potassium 4.3 Chloride 107 Carbon Dioxide 27 Anion Gap 3 L BUN 30 H Creatinine 1.00 Estim Creat Clear Calc Not Reportable Estimated GFR 52 L Glucose 109 Calcium 9.1 Total Bilirubin 0.5 AST 24 ALT 14 Alkaline Phosphatase 57 Lactate Dehydrogenase 241 Troponin I < 0.012 NT-Pro-B Natriuret Pep 2060 H Total Protein 8.0 Albumin 4.1 Influenza A (RT-PCR) Negative Influenza B (RT-PCR) Negative RSV (RT-PCR) Negative SARS-CoV-2 RNA (RT-PCR) Negative 03/31/24 05:19 WBC RBC Hgb Hct MCV MCH MCHC RDW Plt Count MPV Immature Gran % (Auto) Neut % (Auto) Lymph % (Auto) [place] % (Auto) Eos % (Auto) Baso % (Auto) Lymph # (Auto) [place] # (Auto) Eos # (Auto) Baso # (Auto) Abs Immat Gran (auto) Absolute Neuts (auto) Absolute Nucleated RBC Nucleated RBC % PT 15.1 H INR 1.1 APTT 31.2 Sodium Potassium Chloride Carbon Dioxide Anion Gap BUN Creatinine Estim Creat Clear Calc Estimated GFR Glucose Calcium Total Bilirubin AST ALT Alkaline Phosphatase Lactate Dehydrogenase Troponin I NT-Pro-B Natriuret Pep Total Protein Albumin Influenza A (RT-PCR) Influenza B (RT-PCR) RSV (RT-PCR) SARS-CoV-2 RNA (RT-PCR)
[2024-03-31 11:40] LABS: Pleural fluid source Pleural fluid
[2024-03-31 11:41] LABS: Appearance Pleural Fluid Clear (Clear); Color Pleural Fluid Yellow (Colorless); Lymphocytes Pleural Fluid 72 %; Macrophages Pleural Fluid 7 %; Monocytes Pleural Fluid 6 %; Neutrophils Pleural Fluid 3 % (0-25); Nucleated Cell Pleural Fluid 230 /uL (0-1000); RBC Pleural Fluid < 2000 /uL (0-10000)
[2024-03-31 11:42] LABS: Mesothelial Cells Pleural Flui 12 %
[2024-03-31] MEDS: MULTIVITAMINS THERAPEUTIC TAB (*BKC) 1 TABLET PO (14:02)
[2024-03-31] MEDS: POLYSACCHARIDE IRON COMPLEX 150 MG CAPSULE PO ×2 (14:02→17:13)
[2024-03-31] MEDS: TAMOXIFEN CITRATE (*CHEMO) 10 MG TABLET 20 MG PO (14:02)
[2024-03-31] MEDS: MONTELUKAST SODIUM 10 MG TABLET PO (14:02)
[2024-03-31] MEDS: OMEGA 3 POLYUNSAT FATTY ACIDS 1 GM CAP PO (14:02)
[2024-03-31] MEDS: CITALOPRAM HYDROBROMIDE 10 MG TABLET PO (14:02)
[2024-03-31] MEDS: LORATADINE 10 MG TABLET PO (14:03)
[2024-03-31] MEDS: CALCIUM/VITAMIN D 500 MG/5 MCG (200 I.U.) TABLET PO (14:03)
[2024-03-31] MEDS: ISOSORBIDE MONONITRATE 60 MG TAB.ER.24H PO (14:03)
[2024-03-31] MEDS: FUROSEMIDE 20 MG TABLET PO (14:03)
[2024-03-31] MEDS: AZITHROMYCIN 500 MG/NS 250 ML 500 MG/250 ML BAG 250 MG IVPB (14:10)
[2024-03-31] MEDS: MAGNESIUM 13.5 MG TABLET (250 MG MAG GLUCONATE) PO (17:13)
[2024-03-31] MEDS: METOPROLOL TARTRATE 6.25 MG TABLET PO (20:28)
[2024-04-01] VITALS (10 sets, daily range): BP systolic 108–119; BP diastolic 50–58; PULSE 47–70; RESP 14–16; TEMP 35.9–37; O2SAT 100
--- NOTE | 2024-04-01 07:17 | P.PNIM_ITS ---
Progress Note: A&P Assessment and Plan (1) Shortness of breath: Code(s): R06.02 - Shortness of breath Status: Acute (2) Bilateral pleural effusion: Code(s): J90 - Pleural effusion, not elsewhere classified Status: Acute Assessment and Plan: few wbc seen on thoracentesis-will culture start antibiotics for now while awaiting for culture-rocephin, azithromycin-03/31 (3) Physical deconditioning: Code(s): R53.81 - Other malaise Status: Acute (4) SVT (supraventricular tachycardia): Code(s): I47.10 - Supraventricular tachycardia, unspecified Status: Acute Assessment and Plan: was started on metoprolol 25 bid last month (from chart review) but it is not on her med lsit -will start at a lower rate and monitor (5) Acute hypoxic respiratory failure: Code(s): J96.01 - Acute respiratory failure with hypoxia Status: Acute (6) Diastolic dysfunction: Code(s): I51.89 - Other ill-defined heart diseases Status: Acute (7) Postprocedural pneumothorax: Code(s): J95.811 - Postprocedural pneumothorax Status: Acute Assessment and Plan: developed post procedural small pneumothorax- reported per radiologist DR Jean placed on oxygen - IS ordered -Monitor resp status repeat chest xray today- already ordered-continue [id number] continue oxygen daily chest xray IS, ambulation-up to the chair tid Plan # Heart failure with reduced preserved Chest x-ray bilateral pleural effusion thoracentesis therapeutic- ordered for today, 03/31 Daily weights Continue albuterol p.r.n. Loop diuretics as indicated Optimize blood pressure < 130/80 Pt is fall risk Pneumonia and flu vaccine advised Routine follow-up with the primary care physician and fabrication mig welder recommended HTN antiplatelet therapy as advised Keeping BMI less than 25 Advised low-salt -based on chart review from last month- lisinopril was stopped and metoprolol was started for svt. hr had been low- so we will hold metoprolol for now and lisinopril and monitor pt # Gait Instability -pt/ot ordered Home exercise program Instruction in assistive device Reduction in Polypharmacy, Minimize the use of high-risk medications, and Sedatives, Diuretics, Antidepres sants, Narcotics, Anti-hypertensives, and Anti-anxiety # ANEMIA/iron deficiency Hgb POA No reports of bleeding Hgb f/U daily H&H Tranfuse if hemoglobin less than 7 History of dementia. History of anxiety History of asthma continue inhalers DVT prophylaxis. SCDs/Lovenox GI prophylaxis. Ppi Code status updated DNR/DNI Time Spent With Patient Time with patient: Greater than 35 minutes Subjective Date/time seen: 04/01/24 07:17 Interval history: Patient 88-year-old female with a history of dementia, paroxysmal supraventricular tachycardia, diastolic dysfunction, hypertension, anxiety, asthma, breast cancer, patient has been having difficulty breathing. Patient brought in by the family members stating that she has been more confused and also having difficulty breathing even though patient is DNR DNI she has been admitted before that for pleural effusion and therapeutic thoracentesis. EGD evaluation shows patient has a large pleural effusion but patient's oxygenation is normal patient has been admitted for possible thoracentesis in the morning by IR . 03/31-pt is seen and examined. she was started on prednisolone- only [facility]. Upon review discharge summary - her lisinopril was stopp ed and she was started on metoprolol for SVT. she is calm and pleasant but very confused. alert and oriented to self intermittently. 04/01- meds were reviewed and metoprolol restarted but hr had been low- so will hold it for now. BP soft as well so ok to hold lisinopril. Pt is to have repeat rosalind xray today. continue to be on o2 Review of Systems Review of Systems: unable to get a good history due to pt being confused Exam Narrative: GENERAL: Well appearing, no acute distress. HEAD: Normocephalic, atraumatic. NECK: Supple. No adenopathy, no masses. RESPIRATORY: respirations nonlabored. Diminished air entry bilaterally lung bases CARDIOVASCULAR: Regular rate and rhythm without murmurs, . Peripheral pulses 2+ and equal bilater ally. ABDOMINAL: Soft, nontender, nondistended, no hepatosplenomegaly. Normoactive BS. MUSCULOSKELETAL: no Epigastric and no hypochondrial tenderness SKIN: Warm, dry, NEURO: A&O X1. Moves all extremities Objective Data Vital Signs Vital Signs: Vital Signs - 24 hr 03/31/24 08:14 03/31/24 14:00 03/31/24 08:00 Temperature 97.4 F L Pulse Rate 58 L 76 Respiratory Rate 14 16 Blood Pressure 159/61 H Pulse Oximetry 94 100 100 Oxygen Delivery Room Air Nasal Cannula Oxygen Flow Rate 2 Fraction of Inspired Oxygen 21 21 03/31/24 08:00 03/31/24 12:00 03/31/24 16:00 Temperature Pulse Rate 56 L 75 67 Respiratory Rate Blood Pressure Pulse Oximetry Oxygen Delivery Oxygen Flow Rate Fraction of Inspired Oxygen 03/31/24 20:52 03/31/24 20:00 04/01/24 00:00 Temperature 96.7 F L Pulse Rate 92 92 47 L Respiratory Rate 16 16 Blood Pressure 121/53 L Pulse Oximetry 92 92 Oxygen Delivery Room Air Oxygen Flow Rate Fraction of Inspired Oxygen 21 04/01/24 04:00 04/01/24 06:00 Temperature 96.7 F L Pulse Rate 56 L 53 L Respiratory Rate 16 Blood Pressure 119/58 L Pulse Oximetry 100 Oxygen Delivery Oxygen Flow Rate Fraction of Inspired Oxygen Intake/Output Intake/Output: Intake & Output 03/29/24 03/30/24 03/31/24 04/01/24 23:59 23:59 23:59 23:59 Intake Total 420 240 Output Total 1960 300 Balance -1540 -60 Meds/Results Medications: Active Medications Generic Name Dose Route Start Last Admin Trade Name Freq PRN Reason Stop Dose Admin Acetaminophen 650 mg 03/30/24 17:07 Acetaminophen 325 Mg Tablet PO Q4H PRN Mild Pain (1-3) or Fever Albuterol 2.5 mg 03/31/24 07:42 Albuterol Sulfate Neb 2.5 Mg/3 Ml Inh INHALATION Q8HRT PRN Shortness Of Breath Azithromycin 250 mg 04/01/24 09:00 Azithromycin 250 Mg Tablet PO 04/04/24 09:01 DAILY FRANKO Calcium Carbonate 500 mg 03/31/24 09:00 03/31/24 14:03 Calcium/Vitamin D 500 Mg/5 Mcg (200 I.U.) Tablet PO 04/30/24 08:59 500 mg DAILY FRANKO Administration Citalopram Hydrobromide 10 mg 03/31/24 09:00 03/31/24 14:02 Citalopram Hydrobromide 10 Mg Tablet PO 10 mg DAILY FRANKO Administration Fish Oil 1 gm 03/31/24 09:00 03/31/24 14:02 [place] 3 Polyunsat Fatty Acids 1 Gm Cap PO 04/30/24 08:59 1 gm DAILY FRANKO Administration Fluticasone Propionate 2 spray 04/01/24 09:00 Fluticasone Propionate 0.05% Na Spr 16 Gm Btl (*Bkc) NASAL QAM FRANKO Furosemide 20 mg 03/31/24 09:00 03/31/24 14:03 Furosemide 20 Mg Tablet PO 20 mg DAILY FRANKO Administration Ceftriaxone Sodium 1 gm in 50 mls @ 100 mls/hr 03/31/24 13:15 03/31/24 14:45 Rocephin 1 Gm/Ns 50 Ml IVPB Infused DAILY FRANKO Infusion Isosorbide Mononitrate 60 mg 03/31/24 09:00 03/31/24 14:03 Isosorbide Mononitrate 60 Mg Tab.Er.24h PO 60 mg DAILY FRANKO Administration Loratadine 10 mg 03/31/24 09:00 03/31/24 14:03 Loratadine 10 Mg Tablet PO 04/30/24 08:59 10 mg DAILY FRANKO Administration Magnesium Gluconate 13.5 mg 03/31/24 17:00 03/31/24 17:13 Magnesium 13.5 Mg Tablet (250 Mg Mag Gluconate) PO 13.5 mg BID FRANKO Administration Montelukast Sodium 10 mg 03/31/24 12:00 03/31/24 14:02 Montelukast Sodium 10 Mg Tablet PO 10 mg DAILY@1200 FRANKO Administration Multivitamins Therapeutic 1 tablet 03/31/24 12:00 03/31/24 14:02 Multivitamins Therapeutic Tab (*Bkc) PO 1 tablet DAILY@1200 FRANKO Administration Ondansetron HCl 4 mg 03/30/24 17:07 Ondansetron Inj 4 Mg/2 Ml Vial IV PUSH Q4H PRN Nausea Polysaccharide Iron Complex 150 mg 03/31/24 09:00 03/31/24 17:13 Polysaccharide Iron Complex 150 Mg Capsule PO 150 mg BID FRANKO Administration Tamoxifen Citrate 20 mg 03/31/24 09:00 03/31/24 14:02 Tamoxifen Citrate (*Chemo) 10 Mg Tablet PO 04/30/24 08:59 20 mg DAILY FRANKO Administration Radiology Results: ITS Impressions Chest CT 03/30/24 14:20 IMPRESSION: 1. Large right and moderate-sized left pleural effusions. Chest X-Ray 03/31/24 09:59 IMPRESSION: 1. Small right hydropneumothorax. I called this result to Morelia Ji. 2. Small left pleural effusion. 3. Airspace opacities in the lower lung zones with interval improvement, likely atelectasis. 4. Cardiomegaly. Thoracentesis Ultrasound 03/31/24 10:08 IMPRESSION: 1. Successful ultrasound-guided thoracentesis yielding 1000 mL of clear, yellow fluid. Labs Labs: Laboratory Results - last 24 hr 03/31/24 09:19 Pleural Fluid Source Pleural fluid Pleural Color Yellow Pleural Appearance Clear Pleural RBC < 2000 Pleural Nuc Cells 230 Pleural Neutrophils 3 Pleural Lymphocytes 72 Pleural Monocytes 6 Pleural Macrophages 7 Pleural Mesothelial 12
[2024-04-01] MEDS: CALCIUM/VITAMIN D 500 MG/5 MCG (200 I.U.) TABLET PO (08:42)
[2024-04-01] MEDS: CITALOPRAM HYDROBROMIDE 10 MG TABLET PO (08:43)
[2024-04-01] MEDS: LORATADINE 10 MG TABLET PO (08:43)
[2024-04-01] MEDS: OMEGA 3 POLYUNSAT FATTY ACIDS 1 GM CAP PO (08:43)
[2024-04-01] MEDS: TAMOXIFEN CITRATE (*CHEMO) 10 MG TABLET 20 MG PO (08:43)
[2024-04-01] MEDS: POLYSACCHARIDE IRON COMPLEX 150 MG CAPSULE PO ×2 (08:43→17:44)
[2024-04-01] MEDS: MAGNESIUM 13.5 MG TABLET (250 MG MAG GLUCONATE) PO ×2 (08:43→17:44)
[2024-04-01] MEDS: ISOSORBIDE MONONITRATE 60 MG TAB.ER.24H PO (08:43)
[2024-04-01] MEDS: FUROSEMIDE 20 MG TABLET PO (08:44)
[2024-04-01] MEDS: AZITHROMYCIN 250 MG TABLET PO (08:45)
[2024-04-01] MEDS: FLUTICASONE PROPIONATE 0.05% NA SPR 16 GM BTL (*BKC) 2 SPRAY NASAL (08:47)
--- NOTE | 2024-04-01 11:45 | PCPTNOTE ---
Attempted to see for physical therapy evaluation, pt unable to follow 1 step command when attempted evaluation. Will continue to follow.
--- NOTE | 2024-04-01 11:54 | PCOTNOTE ---
Attempted OT evaluation. Pt. unable to follow commands at this time. Will continue to follow.
[2024-04-01] MEDS: MULTIVITAMINS THERAPEUTIC TAB (*BKC) 1 TABLET PO (12:30)
[2024-04-01] MEDS: MONTELUKAST SODIUM 10 MG TABLET PO (12:37)
[2024-04-02] VITALS (9 sets, daily range): BP systolic 105–123; BP diastolic 49–79; PULSE 50–78; RESP 14–18; TEMP 36.6–37.1; O2SAT 92–100
[2024-04-02 05:20] LABS: Hematocrit 29.4 % (37.0-47.0); Hemoglobin 8.9 g/dL (12.0-15.0); Mean Corpuscular HGB Conc 30.3 g/dl (32-36); Mean Corpuscular Hemoglobin 26.3 pg (26-34); Mean Platelet Volume 9.1 fl (7.4-10.4); Platelet Count Result 365 k/mm3 (150-375); Red Blood Count 3.38 M/mm3 (4.2-5.4); Red Cell Distribution Width 17.7 % (11.5-14.5)
[2024-04-02 05:45] LABS: Anion Gap 3 mmol/L (4-12); Blood Urea Nitrogen 27 mg/dL (7-17); Calcium 7.9 mg/dL (8.4-10.2); Carbon Dioxide 25 mmol/L (22-30); Chloride 109 mmol/L (98-107); Estimated CRCL calculation 22 ml/min; Estimated Glomerular Filt Rate 47; Glucose 84 mg/dL (65-110); Potassium 3.9 mmol/L (3.4-5.0); Sodium 137 mmol/L (137-145)
[2024-04-02] MEDS: AZITHROMYCIN 250 MG TABLET PO (09:25)
[2024-04-02] MEDS: CITALOPRAM HYDROBROMIDE 10 MG TABLET PO (09:25)
[2024-04-02] MEDS: FUROSEMIDE 20 MG TABLET PO (09:25)
[2024-04-02] MEDS: POLYSACCHARIDE IRON COMPLEX 150 MG CAPSULE PO ×2 (09:25→17:37)
[2024-04-02] MEDS: ISOSORBIDE MONONITRATE 60 MG TAB.ER.24H PO (09:25)
[2024-04-02] MEDS: LORATADINE 10 MG TABLET PO (09:26)
[2024-04-02] MEDS: CALCIUM/VITAMIN D 500 MG/5 MCG (200 I.U.) TABLET PO (09:26)
[2024-04-02] MEDS: TAMOXIFEN CITRATE (*CHEMO) 10 MG TABLET 20 MG PO (09:26)
[2024-04-02] MEDS: MAGNESIUM 13.5 MG TABLET (250 MG MAG GLUCONATE) PO ×2 (09:26→17:37)
[2024-04-02] MEDS: OMEGA 3 POLYUNSAT FATTY ACIDS 1 GM CAP PO (09:26)
[2024-04-02] MEDS: FLUTICASONE PROPIONATE 0.05% NA SPR 16 GM BTL (*BKC) 2 SPRAY NASAL (09:27)
--- NOTE | 2024-04-02 09:54 | P.PNIM_ITS ---
Progress Note: A&P Assessment and Plan (1) Shortness of breath: Code(s): R06.02 - Shortness of breath Status: Acute (2) Bilateral pleural effusion: Code(s): J90 - Pleural effusion, not elsewhere classified Status: Acute Assessment and Plan: few wbc seen on thoracentesis-will culture start antibiotics for now while awaiting for culture-rocephin, azithromycin-03/31 (3) Physical deconditioning: Code(s): R53.81 - Other malaise Status: Acute (4) SVT (supraventricular tachycardia): Code(s): I47.10 - Supraventricular tachycardia, unspecified Status: Acute Assessment and Plan: was started on metoprolol 25 bid last month (from chart review) but it is not on her med lsit -hold for now as HR at 50's for the most part (5) Acute hypoxic respiratory failure: Code(s): J96.01 - Acute respiratory failure with hypoxia Status: Acute (6) Diastolic dysfunction: Code(s): I51.89 - Other ill-defined heart diseases Status: Acute (7) Postprocedural pneumothorax: Code(s): J95.811 - Postprocedural pneumothorax Status: Acute Assessment and Plan: developed post procedural small pneumothorax- reported per radiologist DR Jean placed on oxygen - IS ordered -Monitor resp status repeat chest xray daily- already ordered-continue [id number] continue oxygen daily chest xray IS, ambulation-up to the chair tid Plan # Heart failure with reduced preserved Chest x-ray bilateral pleural effusion thoracentesis therapeutic- ordered for today, 03/31 Daily weights Continue albuterol p.r.n. Loop diuretics as indicated Optimize blood pressure < 130/80 Pt is fall risk Pneumonia and flu vaccine advised Routine follow-up with the primary care physician and lieutenant ballistics recommended HTN antiplatelet therapy as advised Keeping BMI less than 25 Advised low-salt -based on chart review from last month- lisinopril was stopped and metoprolol was started for svt. hr had been low- so we will hold metoprolol for now and lisinopril and monitor pt # Gait Instability -pt/ot ordered Home exercise program Instruction in assistive device Reduction in Polypharmacy, Minimize the use of high-risk medications, and Sedatives, Diuretics, Anti depressants, Narcotics, Anti-hypertensives, and Anti-anxiety # ANEMIA/iron deficiency Hgb POA No reports of bleeding Hgb f/U daily H&H Tranfuse if hemoglobin less than 7 History of dementia. History of anxiety History of asthma continue inhalers DVT prophylaxis. SCDs/Lovenox GI prophylaxis. Ppi Code status updated DNR/DNI Time Spent With Patient Time with patient: Greater than 35 minutes Subjective Date/time seen: 04/02/24 09:54 Interval history: Patient 88-year-old female with a history of dementia, paroxysmal supraventricular tachycardia, diastolic dysfunction, hypertension, anxiety, asthma, breast cancer, patient has been having difficulty breathing. Patient brought in by the family members stating that she has been more confused and also having difficulty breathing even though patient is DNR DNI she has been admitted before that for pleural effusion and therapeutic thoracentesis. EGD evaluation shows patient has a large pleural effusion but patient's oxygenation is normal patient has been admitted for possible thoracentesis in the morning by IR . 03/31-pt is seen and examined. she was started on prednisolone- only got couple of doses from skilled nursing ofr sob/copd. Upon review discharge summary - her lisinopril was stopped and she was started on metoprolol for SVT. she is calm and pleasant but very confused. alert and oriented to self intermittently. 04/01- meds were reviewed and metoprolol restarted but hr had been low- so will hold it for now. BP soft as well so ok to hold lisinopril. Pt is to have repeat chest xray today. continue to be on o2 04/02 - seen and examined. She is up in the chair- in good spirit- denies any pain. Still confused but her baseline. Remains on oxygen for now Review of Systems Review of Systems: able to answer some questions but confused at baseline Cardiovascular: Cardiovascular: Denies chest pain Respiratory: Respiratory: Denies chest congestion Gastrointestinal: Gastrointestinal: Denies abdominal pain Musculoskeletal: Musculoskeletal: Denies back pain Exam Narrative: GENERAL: Well appearing, no acute distress. HEAD: Normocephalic, atraumatic. NECK: Supple. No adenopathy, no masses. RESPIRATORY: respirations nonlabored. Diminished air entry bilaterally lung bases. on supplemental o2 CARDIOVASCULAR: Regular rate and rhythm without murmurs, . Peripheral pulses 2+ and equal bilater ally. ABDOMINAL: Soft, nontender, nondistended, no hepatosplenomegaly. Normoactive BS. MUSCULOSKELETAL: no Epigastric and no hypochondrial tenderness SKIN: Warm, dry, NEURO: A&O X1. Moves all extremities Const: General: comfortable Objective Data Vital Signs Vital Signs: Vital Signs - 24 hr 04/01/24 12:00 04/01/24 15:48 04/01/24 16:04 Temperature 98.6 F Pulse Rate 63 67 Respiratory Rate 16 Blood Pressure 108/50 L Pulse Oximetry 100 Oxygen Delivery Oxygen Flow Rate Fraction of Inspired Oxygen 04/01/24 16:00 04/01/24 20:35 04/01/24 20:00 Temperature 98.3 F Pulse Rate 65 70 70 Respiratory Rate 14 14 Blood Pressure 110/58 L Pulse Oximetry 100 100 Oxygen Delivery Room Air Oxygen Flow Rate Fraction of Inspired Oxygen 21 04/01/24 20:00 04/02/24 00:00 04/02/24 04:00 Temperature Pulse Rate 69 61 53 L Respiratory Rate Blood Pressure Pulse Oximetry Oxygen Delivery Oxygen Flow Rate Fraction of Inspired Oxygen 04/02/24 06:00 04/02/24 08:42 04/02/24 08:53 Temperature 97.9 F Pulse Rate 72 Respiratory Rate 14 Blood Pressure 111/79 Pulse Oximetry 92 Oxygen Delivery Nasal Cannula Nasal Cannula Oxygen Flow Rate 2 2 Fraction of Inspired Oxygen Intake/Output Intake/Output: Intake & Output 03/30/24 03/31/24 04/01/24 04/02/24 23:59 23:59 23:59 23:59 Intake Total 420 820 480 Output Total 1960 600 300 Balance -1540 220 180 Meds/Results Medications: Active Medications Generic Name Dose Route Start Last Admin Trade Name Freq PRN Reason Stop Dose Admin Acetaminophen 650 mg 03/30/24 17:07 Acetaminophen 325 Mg Tablet PO Q4H PRN Mild Pain (1-3) or Fever Albuterol 2.5 mg 03/31/24 07:42 Albuterol Sulfate Neb 2.5 Mg/3 Ml Inh INHALATION Q8HRT PRN Shortness Of Breath Azithromycin 250 mg 04/01/24 09:00 04/02/24 09:25 Azithromycin 250 Mg Tablet PO 04/04/24 09:01 250 mg DAILY FRANKO Administration Calcium Carbonate 500 mg 03/31/24 09:00 12/09/24 09:26 Calcium/Vitamin D 500 Mg/5 Mcg (200 I.U.) Tablet PO 04/30/24 08:59 500 mg DAILY FRANKO Administration Citalopram Hydrobromide 10 mg 03/31/24 09:00 04/02/24 09:25 Citalopram Hydrobromide 10 Mg Tablet PO 10 mg DAILY FRANKO Administration Fish Oil 1 gm 03/31/24 09:00 04/02/24 09:26 [place] 3 Polyunsat Fatty Acids 1 Gm Cap PO 04/30/24 08:59 1 gm DAILY FRANKO Administration Fluticasone Propionate 2 spray 04/01/24 09:00 04/02/24 09:27 Fluticasone Propionate 0.05% Na Spr 16 Gm Btl (*Bkc) NASAL 2 spray QAM FRANKO Administration Furosemide 20 mg 03/31/24 09:00 04/02/24 09:25 Furosemide 20 Mg Tablet PO 20 mg DAILY FRANKO Administration Ceftriaxone Sodium 1 gm in 50 mls @ 100 mls/hr 03/31/24 13:15 04/01/24 09:12 Rocephin 1 Gm/Ns 50 Ml IVPB Infused DAILY FRANKO Infusion Isosorbide Mononitrate 60 mg 03/31/24 09:00 04/02/24 09:25 Isosorbide Mononitrate 60 Mg Tab.Er.24h PO 60 mg DAILY FRANKO Administration Loratadine 10 mg 03/31/24 09:00 04/02/24 09:26 Loratadine 10 Mg Tablet PO 04/30/24 08:59 10 mg DAILY FRANKO Administration Magnesium Gluconate 13.5 mg 03/31/24 17:00 04/02/24 09:26 Magnesium 13.5 Mg Tablet (250 Mg Mag Gluconate) PO 13.5 mg BID FRANKO Administration Montelukast Sodium 10 mg 03/31/24 12:00 04/01/24 12:37 Montelukast Sodium 10 Mg Tablet PO 10 mg DAILY@1200 FRANKO Administration Multivitamins Therapeutic 1 tablet 03/31/24 12:00 04/01/24 12:30 Multivitamins Therapeutic Tab (*Bkc) PO 1 tablet DAILY@1200 FRANKO Administration Ondansetron HCl 4 mg 03/30/24 17:07 Ondansetron Inj 4 Mg/2 Ml Vial IV PUSH Q4H PRN Nausea Polysaccharide Iron Complex 150 mg 03/31/24 09:00 04/02/24 09:25 Polysaccharide Iron Complex 150 Mg Capsule PO 150 mg BID FRANKO Administration Tamoxifen Citrate 20 mg 03/31/24 09:00 04/02/24 09:26 Tamoxifen Citrate (*Chemo) 10 Mg Tablet PO 04/30/24 08:59 20 mg DAILY FRANKO Administration Radiology Results: ITS Impressions Chest CT 03/30/24 14:20 IMPRESSION: 1. Large right and moderate-sized left pleural effusions. Thoracentesis Ultrasound 03/31/24 10:08 IMPRESSION: 1. Successful ultrasound-guided thoracentesis yielding 1000 mL of clear, yellow fluid. Chest X-Ray 04/02/24 08:20 IMPRESSION: Right mid and lower zone pneumonia with pleural effusion. Underlying pulmonary edema is not excluded. Left basilar atelectasis versus pneumonia. Unchanged lucency in the right apical area. Labs Labs: Laboratory Results - last 24 hr 04/02/24 04:42 WBC 8.0 RBC 3.38 L Hgb 8.9 L Hct 29.4 L MCV 87.0 MCH 26.3 MCHC 30.3 L RDW 17.7 H Plt Count 365 MPV 9.1 Sodium 137 Potassium 3.9 Chloride 109 H Carbon Dioxide 25 Anion Gap 3 L BUN 27 H Creatinine 1.10 H Estim Creat Clear Calc 22 Estimated GFR 47 L Glucose 84 Calcium 7.9 L
[2024-04-02] MEDS: MONTELUKAST SODIUM 10 MG TABLET PO (12:19)
[2024-04-02] MEDS: MULTIVITAMINS THERAPEUTIC TAB (*BKC) 1 TABLET PO (12:19)
[2024-04-03] VITALS: PULSE 66
[2024-04-03 04:00] VITALS: PULSE 64
[2024-04-03 06:00] VITALS: BP 111/72; PULSE 68; RESP 18; TEMP 37.1; O2SAT 100
--- NOTE | 2024-04-03 08:05 | P.PNIM_ITS ---
Progress Note: A&P Assessment and Plan (1) Shortness of breath: Code(s): R06.02 - Shortness of breath Status: Acute (2) Bilateral pleural effusion: Code(s): J90 - Pleural effusion, not elsewhere classified Status: Acute Assessment and Plan: few wbc seen on thoracentesis-will culture start antibiotics for now while awaiting for culture-rocephin, azithromycin-03/31 (3) Physical deconditioning: Code(s): R53.81 - Other malaise Status: Acute (4) SVT (supraventricular tachycardia): Code(s): I47.10 - Supraventricular tachycardia, unspecified Status: Acute Assessment and Plan: was started on metoprolol 25 bid last month (from chart review) but it is not on her med lsit -hold for now as HR at 50's for the most part (5) Acute hypoxic respiratory failure: Code(s): J96.01 - Acute respiratory failure with hypoxia Status: Acute (6) Diastolic dysfunction: Code(s): I51.89 - Other ill-defined heart diseases Status: Acute (7) Postprocedural pneumothorax: Code(s): J95.811 - Postprocedural pneumothorax Status: Acute Assessment and Plan: developed post procedural small pneumothorax- reported per radiologist DR Jean placed on oxygen - IS ordered -Monitor resp status repeat chest xray daily- already ordered-continue [id number] continue oxygen daily chest xray IS, ambulation-up to the chair tid Plan # Heart failure with reduced preserved Chest x-ray bilateral pleural effusion thoracentesis therapeutic- ordered for today, 03/31 Daily weights Continue albuterol p.r.n. Loop diuretics as indicated Optimize blood pressure < 130/80 Pt is fall risk Pneumonia and flu vaccine advised Routine follow-up with the primary care physician and pressure testing technician recommended # HTN antiplatelet therapy as advised Keeping BMI less than 25 Advised low-salt -based on chart review from last month- lisinopril was stopped and metoprolol was started for svt. hr had been low- so we will hold metoprolol for now and lisinopril and monitor pt # Gait Instability -pt/ot ordered Home exercise program Instruction in assistive device Reduction in Polypharmacy, Minimize the use of high-risk medications, and Sedatives, Diuretics, An tidepressants, Narcotics, Anti-hypertensives, and Anti-anxiety # ANEMIA/iron deficiency Hgb POA No reports of bleeding Hgb f/U daily H&H Tranfuse if hemoglobin less than 7 History of dementia. History of anxiety History of asthma continue inhalers DVT prophylaxis. SCDs/Lovenox GI prophylaxis. Ppi Code status updated DNR/DNI Time Spent With Patient Time with patient: Greater than 35 minutes Subjective Date/time seen: 04/03/24 08:05 Interval history: Patient 88-year-old female with a history of dementia, paroxysmal supraventricular tachycardia, diastolic dysfunction, hypertension, anxiety, asthma, breast cancer, patient has been having difficulty breathing. Patient brought in by the family members stating that she has been more confused and also having difficulty breathing even though patient is DNR DNI she has been admitted before that for pleural effusion and therapeutic thoracentesis. EGD evaluation shows patient has a large pleural effusion but patient's oxygenation is normal patient has been admitted for possible thoracentesis in the morning by IR . 03/31-pt is seen and examined. she was started on prednisolone- only got couple of doses from assisted ofr sob/copd. Upon review discharge summary - her lisinopril was stopped and she was started on metoprolol for SVT. she is calm and pleasant but very confused. alert and oriented to self intermittently. 04/01- meds were reviewed and metoprolol restarted but hr had been low- so will hold it for now. BP soft as well so ok to hold lisinopril. Pt is to have repeat chest xray today. continue to be on o2 04/02 - seen and examined. She is up in the chair- in good spirit- denies any pain. Still confused but her baseline. Remains on oxygen for now 04/03 seen and examined Review of Systems Review of Systems: able to answer some questions but confused at baseline Cardiovascular: Cardiovascular: Denies chest pain Respiratory: Respiratory: Denies chest congestion Gastrointestinal: Gastrointestinal: Denies abdominal pain Musculoskeletal: Musculoskeletal: Denies back pain Exam Narrative: GENERAL: Well appearing, no acute distress. HEAD: Normocephalic, atraumatic. NECK: Supple. No adenopathy, no masses. RESPIRATORY: respirations nonlabored. Diminished air entry bilaterally lung bases. on supplemental o2 CARDIOVASCULAR: Regular rate and rhythm without murmurs, . Peripheral pulses 2+ and equal bilater ally. ABDOMINAL: Soft, nontender, nondistended, no hepatosplenomegaly. Normoactive BS. MUSCULOSKELETAL: no Epigastric and no hypochondrial tenderness SKIN: Warm, dry, NEURO: A&O X1. Moves all extremities Const: General: comfortable Objective Data Vital Signs Vital Signs: Vital Signs - 24 hr 04/02/24 08:42 04/02/24 08:53 04/02/24 09:25 Temperature Pulse Rate Respiratory Rate Blood Pressure Pulse Oximetry Oxygen Delivery Nasal Cannula Nasal Cannula Room Air Oxygen Flow Rate 2 2 Fraction of Inspired Oxygen 04/02/24 09:25 04/02/24 12:00 04/02/24 14:00 Temperature 97.9 F Pulse Rate 50 L 59 L 68 Respiratory Rate 18 Blood Pressure 105/49 L Pulse Oximetry 97 Oxygen Delivery Oxygen Flow Rate Fraction of Inspired Oxygen 04/02/24 16:00 04/02/24 20:00 04/02/24 20:00 Temperature Pulse Rate 68 78 71 Respiratory Rate 14 Blood Pressure Pulse Oximetry 100 Oxygen Delivery Room Air Oxygen Flow Rate Fraction of Inspired Oxygen 21 04/02/24 20:52 04/03/24 00:00 04/03/24 04:00 Temperature 98.8 F Pulse Rate 78 66 64 Respiratory Rate 14 Blood Pressure 123/57 L Pulse Oximetry 100 Oxygen Delivery Oxygen Flow Rate Fraction of Inspired Oxygen 04/03/24 06:00 Temperature 98.7 F Pulse Rate 68 Respiratory Rate 18 Blood Pressure 111/72 Pulse Oximetry 100 Oxygen Delivery Oxygen Flow Rate Fraction of Inspired Oxygen Intake/Output Intake/Output: Intake & Output 03/31/24 04/01/24 04/02/24 04/03/24 23:59 23:59 23:59 23:59 Intake Total 420 820 960 240 Output Total 1960 600 300 300 Balance -1540 220 660 -60 Meds/Results Medications: Active Medications Generic Name Dose Route Start Last Admin Trade Name Freq PRN Reason Stop Dose Admin Acetaminophen 650 mg 03/30/24 17:07 Acetaminophen 325 Mg Tablet PO Q4H PRN Mild Pain (1-3) or Fever Albuterol 2.5 mg 03/31/24 07:42 Albuterol Sulfate Neb 2.5 Mg/3 Ml Inh INHALATION Q8HRT PRN Shortness Of Breath Amoxicillin/Clavulanate Potassium 1 tablet 04/03/24 09:00 Amoxicillin/Clavulanate K 500-125 Mg Tab PO 04/06/24 21:01 Q12HR FRANKO Azithromycin 250 mg 04/01/24 09:00 04/02/24 09:25 Azithromycin 250 Mg Tablet PO 04/04/24 09:01 250 mg DAILY FRANKO Administration Calcium Carbonate 500 mg 03/31/24 09:00 04/02/24 09:26 Calcium/Vitamin D 500 Mg/5 Mcg (200 I.U.) Tablet PO 04/30/24 08:59 500 mg DAILY FRANKO Administration Citalopram Hydrobromide 10 mg 03/31/24 09:00 04/02/24 09:25 Citalopram Hydrobromide 10 Mg Tablet PO 10 mg DAILY FRANKO Administration Fish Oil 1 gm 03/31/24 09:00 04/02/24 09:26 [place] 3 Polyunsat Fatty Acids 1 Gm Cap PO 04/30/24 08:59 1 gm DAILY FRANKO Administration Fluticasone Propionate 2 spray 04/01/24 09:00 04/02/24 09:27 Fluticasone Propionate 0.05% Na Spr 16 Gm Btl (*Bkc) NASAL 2 spray QAM FRANKO Administration Furosemide 20 mg 03/31/24 09:00 04/02/24 09:25 Furosemide 20 Mg Tablet PO 20 mg DAILY FRANKO Administration Isosorbide Mononitrate 60 mg 03/31/24 09:00 04/02/24 09:25 Isosorbide Mononitrate 60 Mg Tab.Er.24h PO 60 mg DAILY FRANKO Administration Loratadine 10 mg 03/31/24 09:00 04/02/24 09:26 Loratadine 10 Mg Tablet PO 04/30/24 08:59 10 mg DAILY FRANKO Administration Magnesium Gluconate 13.5 mg 03/31/24 17:00 04/02/24 17:37 Magnesium 13.5 Mg Tablet (250 Mg Mag Gluconate) PO 13.5 mg BID FRANKO Administration Montelukast Sodium 10 mg 03/31/24 12:00 04/02/24 12:19 Montelukast Sodium 10 Mg Tablet PO 10 mg DAILY@1200 FRANKO Administration Multivitamins Therapeutic 1 tablet 03/31/24 12:00 04/02/24 12:19 Multivitamins Therapeutic Tab (*Bkc) PO 1 tablet DAILY@1200 FRANKO Administration Ondansetron HCl 4 mg 03/30/24 17:07 Ondansetron Inj 4 Mg/2 Ml Vial IV PUSH Q4H PRN Nausea Polysaccharide Iron Complex 150 mg 03/31/24 09:00 04/02/24 17:37 Polysaccharide Iron Complex 150 Mg Capsule PO 150 mg BID FRANKO Administration Tamoxifen Citrate 20 mg 03/31/24 09:00 04/02/24 09:26 Tamoxifen Citrate (*Chemo) 10 Mg Tablet PO 04/30/24 08:59 20 mg DAILY FRANKO Administration Radiology Results: ITS Impressions Chest CT 03/30/24 14:20 IMPRESSION: 1. Large right and moderate-sized left pleural effusions. Thoracentesis Ultrasound 03/31/24 10:08 IMPRESSION: 1. Successful ultrasound-guided thoracentesis yielding 1000 mL of clear, yellow fluid. Chest X-Ray 04/03/24 07:17 Impression: Moderate to large right pleural effusion with possible small pneumothorax component at the apex. Underlying patchy right lung airspace disease could reflect atelectasis/edema versus pneumonia. Probable focal retrocardiac airspace disease, unchanged.
[2024-04-03] MEDS: AMOXICILLIN/CLAVULANATE K 500-125 MG TAB 1 TABLET PO (08:23)
[2024-04-03] MEDS: AZITHROMYCIN 250 MG TABLET PO (08:23)
[2024-04-03] MEDS: CALCIUM/VITAMIN D 500 MG/5 MCG (200 I.U.) TABLET PO (08:23)
[2024-04-03] MEDS: CITALOPRAM HYDROBROMIDE 10 MG TABLET PO (08:23)
[2024-04-03] MEDS: MAGNESIUM 13.5 MG TABLET (250 MG MAG GLUCONATE) PO (08:24)
[2024-04-03] MEDS: FUROSEMIDE 20 MG TABLET PO (08:24)
[2024-04-03] MEDS: OMEGA 3 POLYUNSAT FATTY ACIDS 1 GM CAP PO (08:24)
[2024-04-03] MEDS: LORATADINE 10 MG TABLET PO (08:24)
[2024-04-03] MEDS: TAMOXIFEN CITRATE (*CHEMO) 10 MG TABLET 20 MG PO (08:24)
[2024-04-03] MEDS: ISOSORBIDE MONONITRATE 60 MG TAB.ER.24H PO (08:24)
[2024-04-03] MEDS: FLUTICASONE PROPIONATE 0.05% NA SPR 16 GM BTL (*BKC) 2 SPRAY NASAL (08:24)
[2024-04-03] MEDS: POLYSACCHARIDE IRON COMPLEX 150 MG CAPSULE PO (08:24)
[2024-04-03 08:25] VITALS: PULSE 54
[2024-04-03 12:00] VITALS: PULSE 63
[2024-04-03] MEDS: MONTELUKAST SODIUM 10 MG TABLET PO (12:23)
[2024-04-03] MEDS: MULTIVITAMINS THERAPEUTIC TAB (*BKC) 1 TABLET PO (12:23)
--- NOTE | 2024-04-03 12:48 | P.DS_ITS ---
DS: Admitting Diagnosis Discharge Date 04/03 Admitting Diagnosis sob DS: Discharge Diagnosis Discharge Diagnosis (1) Shortness of breath: Code(s): R06.02 - Shortness of breath Status: Acute (2) Bilateral pleural effusion: Code(s): J90 - Pleural effusion, not elsewhere classified Status: Acute (3) Physical deconditioning: Code(s): R53.81 - Other malaise Status: Acute (4) SVT (supraventricular tachycardia): Code(s): I47.10 - Supraventricular tachycardia, unspecified Status: Acute (5) Acute hypoxic respiratory failure: Code(s): J96.01 - Acute respiratory failure with hypoxia Status: Acute (6) Postprocedural pneumothorax: Code(s): J95.811 - Postprocedural pneumothorax Status: Acute Plan DS: Summary Hospital Course Hospital Course: Patient 88-year-old female with a history of dementia, paroxysmal supraventricular tachycardia, diastolic dysfunction, hypertension, anxiety, asthma, breast cancer, patient has been having difficulty breathing. Patient brought in by the family members stating that she has been more confused and also having difficulty breathing even though patient is DNR DNI she has been admitted before that for pleural effusion and therapeutic thoracentesis. Patient is pleasant on bedside no complaints of headache chest pain cough sinus problem no sore throat no nausea vomiting or dysuria. EGD evaluation shows patient has a large pleural effusion but patient's oxygenation is normal patient has been admitted for possible thoracentesis in the morning by IR 03/31- had thoracentesis. culture was obtained- unremarkable. PT developed post procedural pneumo- chest xrays had been done daily for monitoring, pt was placed on oxygen and encouraged to do IS. pt was placed on antibiotics. she was up TID with meals. 04/03- Questionable small right apical pneumothorax. . with film review- it is def.improved- pt is not sob, lung sounds present, in no distress. Stable enough for discharge to finish antibiotics outpt. She will need to do IS every hour, up to chair TID for meals and continue to work with PT/OT pt is to finish her antibiotics- Augmentin 500/125 7 more doses, azithromycin 1 more dose. # h/o SVT was started on metoprolol 25 bid last month (from chart review) but it is not on her med list -bp reviewed- stable- 111/72, hr 68's - pt does have CHF- so should be on beta luiz and/or coco- but with her low HR and BP all over- her pcp or deputy district customs director needs to review all of her medication and start her on regimen that is deemed appropriate for her and could be monitored. # Heart failure with preserved ef Chest x-ray bilateral pleural effusion thoracentesis therapeutic Daily weights Continue albuterol p.r.n. Loop diuretics as indicated Optimize blood pressure < 130/80 Pt is fall risk Pneumonia and flu vaccine advised Routine follow-up with the primary care physician and deputy district customs director recommended # HTN antiplatelet therapy as advised Keeping BMI less than 25 Advised low-salt -based on chart review from last month- lisinopril was stopped and metoprolol was started for svt. hr had been low- so we will hold metoprolol for now and lisinopril and monitor pt # Gait Instability -pt/ot ordered Home exercise program Instruction in assistive device Reduction in Polypharmacy, Minimize the use of high-risk medications, and Sedatives, Diuretics, Antidepres sants, Narcotics, Anti-hypertensives, and Anti-anxiety # ANEMIA/iron deficiency Hgb POA No reports of bleeding Hgb f/U daily H&H Tranfuse if hemoglobin less than 7 Status at Discharge Functional status at discharge: uses cane/walker Overall status at discharge: patient is progressing back to baseline Time Spent with Patient Time attestation: Total time spent providing and/or coordinating discharge services: Time spent: Greater than 30 minutes Exam Narrative: GENERAL: Well appearing, no acute distress. HEAD: Normocephalic, atraumatic. NECK: Supple. No adenopathy, no masses. RESPIRATORY: respirations nonlabored. Diminished air entry bilaterally lung bases. on supplemental o2 CARDIOVASCULAR: Regular rate and rhythm without murmurs, . Peripheral pulses 2+ and equal bilater ally. ABDOMINAL: Soft, nontender, nondistended, no hepatosplenomegaly. Normoactive BS. MUSCULOSKELETAL: no Epigastric and no hypochondrial tenderness SKIN: Warm, dry, NEURO: A&O X1. Moves all extremities Const: General: comfortable DS: Data Data Completed and Pending Labs on day of discharge: Preliminary micro results at discharge 03/31/24 09:19 Anaerobic Culture - Preliminary Chest Discharge Plan Discharge Attending physician on discharge: Russ Adrian Discharging Clinician: Morelia Ji Patient Disposition: NH Skilled Nursing/Asst Living Activity: may shower Diet: as tolerated and heart healthy Discharge Instructions: Care Coordination: Patient to participate with PT/OT once return to her Assisted Living Facility. Patient Instructions: Antibiotic Form Patient Language: Urdu Stand Alone Forms: General Discharge Information Discharge Medications: New amoxicillin-pot clavulanate [Augmentin] 500-125 mg tablet 1 tablet PO Q12H Qty: 7 0RF Continued citalopram 10 mg Tablet 10 mg PO DAILY isosorbide mononitrate 60 mg Tablet Extended Release 24 Hr 60 mg PO DAILY Qty: 30 0RF montelukast 10 mg Tablet 10 mg PO DAILY Qty: 30 0RF Rx Instructions: patient takes at noon magnesium 250 mg tablet 250 mg PO BID Qty: 30 0RF furosemide [Lasix] 20 mg tablet 20 mg PO DAILY Qty: 30 0RF fluticasone propionate 50 mcg/actuation spray,suspension 2 spray INTRANASAL QAM Qty: 30 0RF Rx Instructions: TWO SPRAYS IN EACH NOSTRIL tamoxifen 20 mg Tablet 20 mg PO DAILY Qty: 30 0RF coenzyme Q10 [Co Q-10] 200 mg capsule 200 mg PO DAILY Qty: 30 0RF Rx Instructions: patient takes at noon calcium carbonate-vitamin D3 [Calcium 600 + D(3)] 600 mg-10 mcg (400 unit) Tablet 1 tablet PO DAILY Qty: 30 0RF Rx Instructions: patient takes at noon cetirizine 10 mg Capsule 10 mg PO DAILY Qty: 30 0RF Rx Instructions: patient takes at noon multivitamin Tablet 1 tablet PO DAILY Rx Instructions: patient takes at noon albuterol sulfate 2.5 mg /3 mL (0.083 %) Solution For Nebulization 2.5 mg INHALATION Q8H PRN (Reason: Shortness Of Breath) Lac-Hydrin Five 5 % Lotion 1 applic TOPICAL BID Rx Instructions: APPLY TO BLE FOR DRY SKIN omega-3 fatty acids-vitamin E 1,000 mg Capsule 1 cap PO DAILY Rx Instructions: patient takes at noon fluticasone propion-salmeterol [Advair HFA] 115-21 mcg/actuation Hfa Aerosol Inhaler 2 puff INHALATION BID acetaminophen 500 mg capsule 500 mg PO Q8H PRN (Reason: Pain) polysaccharide iron complex [Ferrex 150] 150 mg iron Capsule 150 mg PO BID azithromycin 250 mg Tablet 250 mg PO DAILY Qty: 1 0RF Rx Instructions: LAST DOSE 04-03-24 Held lisinopril 20 mg Tablet 20 mg PO QAM Hold Instructions: Resume on 04/24/24. hold until med regimen is reviewed per pcp or deputy district customs director. Discontinued prednisolone 5 mg Tablet 20 mg PO DAILY Rx Instructions: 5 DAYS, LAST DAY 04-03-24 Date of admission: 03/31/24 13:55 Primary Care Provider: UNKNOWN,DOCTOR Admitting Provider: Arnoldo Yates Attending physician on admission: Arnoldo Yates Condition: Stable Hospitalist MIPS Heart Failure (Exclusion) Patient has history of Heart Transplant or Left Ventricular Assistive Device?: No IF YES, STOP HERE Heart Failure (Qualifier) Patient has current or prior documentation of LVEF less than or equal to 40%, or mod/servere depressed LVSF?: No IF NO, STOP HERE
[2024-04-03 14:00] VITALS: BP 95/46; PULSE 71; RESP 12; TEMP 36.7; O2SAT 94
[2024-04-06 08:27] LABS: Albumin Pleural Fluid 1.4 g/dL; LDH Pleural Fluid 42 U/L
== END 2024-04-03 15:45 | DRG 187 ==
LOC: ANHED 13:33 → ANH2MED 19:29
PROVIDERS: Admitting Provider Internal Medicine; Emergency Provider Student in an Organized Health Care Education/Training Program; Visit Provider Nurse Practitioner
DX: J90 Pleural effusion, not elsewhere classified (principal); I47.10 Supraventricular tachycardia, unspecified; J95.811 Postprocedural pneumothorax; R53.81 Other malaise; I11.0 Hypertensive heart disease with heart failure; I50.9 Heart failure, unspecified; F41.9 Anxiety disorder, unspecified; J45.909 Unspecified asthma, uncomplicated; R26.89 Other abnormalities of gait and mobility; D50.9 Iron deficiency anemia, unspecified; E78.5 Hyperlipidemia, unspecified; K21.9 Gastro-esophageal reflux disease without esophagitis; G62.9 Polyneuropathy, unspecified; Z66 Do not resuscitate; G30.9 Alzheimer's disease, unspecified; F02.80 Dementia in other diseases classified elsewhere, unspecified severity, without behavioral disturbance, psychotic disturbance, mood disturbance, and anxiety; Z85.3 Personal history of malignant neoplasm of breast; Z90.49 Acquired absence of other specified parts of digestive tract; Z98.42 Cataract extraction status, left eye; Z98.41 Cataract extraction status, right eye; Z90.710 Acquired absence of both cervix and uterus
CPT/HCPCS: 32555; 36415; 71045; 71046; 71250; 80048; 80053; 82042; 83615; 83880; 84478; 84484; 85025; 85027; 85610; 85730; 87070; 87075; 87205; 87637; 89051; 93005; 96365; 96375; 97161; 97165; 99285; A9270; G0378; J0456; J0696; J1940

== ENCOUNTER 2024-06-20 10:52 | Outpatient (CLI) | payer MEDICARE, SELFPAY ==
[2024-06-06 15:10] VITALS: BMI 23.2
--- NOTE | 2024-06-08 09:58 | PC.NURSE ---
Pre Radiology instructions Report to the outpatient randall lee on date __06/20/24___ at time ___11:00AM____ for procedure Time: __1:00PM__ YOU MAY BE MONITORED AT HOSPITAL FOR UP TO 4 HOURS AFTER YOUR PROCEDURE. A visitor will be allowed to accompany the patient into the hospital. You and your visitor will be asked to self-screen and do not enter if you have any COVID symptoms. A mask is OPTIONAL within the hospital. Patients are to have no food or drink 6 hours prior to procedure time Driving will be restricted after the procedure, you must have a person to drive you home. Labs will be drawn in preop area and once reviewed, you will be taken to radiology area for procedure. When the procedure is completed, you will be taken to outpatient where you will be monitored for several hours. You may have one visitor in this area. Other than holding anti-coagulants, patient may take other medication(s) as scheduled. Prior to your appointment date patients are instructed to hold anti-coagulants after discussing with ordering provider to stop. If unable to discontinue anti-coagulants please notify radiologist. ? No aspirin or warfarin (Coumadin) for 7 days prior to the procedure. ? No clopidogrel (Plavix), ticagrelor (Brilinta), prasugrel (Effient) or dabigatran (Pradaxa) for 5 days prior to the procedure. ? No rivaroxaban (Xarelto), apixaban (Eliquis), dipyridamole (Aggrenox or Persantine) or cilostazol (Pletal) for 2 days prior to the procedure. Medications to discontinue per physician: ____NONE____ Date to take last dose: Please leave all valuables, including medications, at home the day of procedure. The hospital will not accept responsibility for valuables. Wear comfortable, loose fitting clothing.? Follow any additional instructions given to you from ordering provider. Telephone instructions given to ___NURSING HOME STAFF and asked if any additional questions and then verbalized understanding. Patient advised to call scheduling provider office or registration scheduling [phone] if any additional questions.
[2024-06-20] VITALS (8 sets, daily range): BP systolic 121–155; BP diastolic 50–63; PULSE 63–68; RESP 16–18; TEMP 36.3; O2SAT 98–100
--- NOTE | ~2024-06-20 | US_ITS ---
EXAMINATION: US thoracentesis DATE: 06/20/2024 13:42 INDICATION: pleural effusion TECHNIQUE: Consent was provided by a family member. The skin was prepped and draped in sterile fashio n. 1% lidocaine was used for local anesthesia. Under ultrasound guidance, a 5 Fr catheter with trocha r was advanced into the right pleural effusion. Fluid was aspirated. The catheter was removed, and a dressing was applied. There were no immediate complications. FINDINGS: Ultrasound images demonstrate a right pleural effusion and the catheter within the fluid. IMPRESSION: 1. Successful ultrasound-guided thoracentesis yielding 1000 mL of yellow fluid. Reviewed, dictated and finalized at location A. P FARM MANAGER IMPRESSION: 1. Successful ultrasound-guided thoracentesis yielding 1000 mL of yellow fluid .
--- NOTE | ~2024-06-20 | XR_ITS ---
EXAMINATION: [id number] DATE: 06/20/2024 13:32 INDICATION: Right pleural effusion status post thoracentesis. TECHNIQUE: A single frontal view of the chest was obtained. COMPARISON: Chest single view 04/03/2024 FINDINGS: There is a large right pleural effusion. There is a small left pleural effusion. There are airspace opacities at the lung bases. No pneumothorax. Cardiomegaly is noted. IMPRESSION: 1. Large right and small left pleural effusions. 2. Airspace opacities at the lung bases, consistent with atelectasis or less likely pneumonia. 3. Cardiomegaly. Reviewed, dictated and finalized at location A. HEONETTE MANAGER IMPRESSION: 1. Large right and small left pleural effusions. 2. Airspace opacities at the lung bases, consistent with atelectasis or less li cammy pneumonia. 3. Cardiomegaly.
[2024-06-20 12:15] LABS: Mean Platelet Volume 9.1 fl (7.4-10.4); Platelet Count Result 333 k/mm3 (150-375)
--- OUTSIDE RECORDS SUMMARY | 2024-06-20 12:30 | XMS_ITS | Clinical Summary ---
Author Organization [facility] [address] Address [address] [place] [address] Care Team Providers Care Plumber Gasfitter Name Role Phone Aniket Garrett MD Primary Care Provider [phone] Allergies Active Allergy Reactions Criticality Noted Date Comments Adhesive Tape-Silicones Itching Low 11/08/2016 Fentanyl Vomiting,Nausea & Vomiting Low 4 Eyes red Iodinated Contrast Media Anaphylaxis High 01/04/2014 Iodine Anaphylaxis High 01/27/2016 Meperidine Vomiting,Nausea & Vomiting Low 4 Eyes red Morphine Vomiting,Nausea & Vomiting Low 4 Eyes red Neomycin-Polymyxin B Gu Rash,Redness Medium 12/06/2015 Propoxyphene Nausea & Vomiting,Vomiting Low 016 Eyes red Propoxyphene Hcl Vomiting Low 01/04/2014 Medications EPINEPHrine 0.3 mg/0.3 mL auto-injection syringe Inject into the muscle as instructed as needed Active albuterol HFA (PROVENTIL HFA,VENTOLIN HFA,PROAIR HFA) 90 mcg/actuation inhaler Inhale 2 puffs every 4 (four) hours as needed Active tamoxifen (NOLVADEX) 20 mg tablet Take by mouth daily Active aspirin 81 mg enteric coated tabletIndication s:Prinzmetal angina (CMS/HCC) (HCC) Take 1 tablet (81 mg total) by mouth daily 30 tablet 11 9 Active Additional Information Patient not taking.Reported on 05/31/2024 nitroglycerin (NITROSTAT) 0.[address] 1 tablet (0.4 mg total) under the tongue every 5 (five) minutes as needed for chest pain 25 tablet 11 0 Active fluticasone propion-salmeter oL (ADVAIR HFA) 115-21 mcg/actuation inhaler Inhale 2 puffs 2 (two) times a day Rinse mouth with water after use. Do not swallow. Active montelukast (SINGULAIR) 10 mg tablet Take 1 tablet (10 mg total) by mouth nightly 1 Active LORazepam (ATIVAN) 0.5 mg tablet 1 TAB BY MOUTH EVERY 8 HOURS PRN FOR ANXIETY 2 Active furosemide (LASIX) 20 mg tablet Take 1 tablet (20 mg total) by mouth daily 2 Active potassium chloride ER (KLOR-CON) 20 mEq CR tablet 1 TAB BY MOUTH TWICE DAILY (DO NOT CRUSH) (EDEMA) 2 Active calcium carbonate-vitami n D3 1,500 mg (600 mg elemental)-400 unit tablet,chewable Take 1 tablet by mouth daily 3 Active fluticasone propionate (FLONASE) 50 mcg/actuation nasal spray 2 Active lisinopriL (PRINIVIL,ZESTRI L) 20 mg tablet 2 Active buPROPion XL (WELLBUTRIN XL) 300 mg 24 hr tablet 2 Active magnesium oxide (MAG-OX) 250 mg (150.8 mg elemental) tabletIndication s:hypomagnesemia 1 tablet (250 mg total) daily Active coenzyme Q10 200 mg capsule Take 1 capsule (200 mg total) by mouth daily Active omega-3 fatty acids 1,000 mg capsule Take by mouth Active cetirizine (ZyrTEC) 10 mg tablet Take 1 tablet (10 mg total) by mouth daily Active isosorbide mononitrate ER (IMDUR) 60 mg 24 hr tabletIndication s:Prinzmetal angina (CMS/HCC) (HCC) TAKE ONE TABLET BY MOUTH EVERY MORNING 30 tablet 11 3 Active citalopram (CeleXA) 10 mg tablet Take 1 tablet (10 mg total) by mouth daily Active Active Problems Problem Noted Date Diagnosed Date Pleural effusion on right 05/31/2024 Bilateral lower extremity edema 01/14/2022 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 Hyperlipidemia LDL goal <70 04/11/2019 Palpitations 04/11/2019 Benign essential HTN 04/11/2019 Encounters Date Type Department Care Team Description 06/04/2024 Telephone [facility] Cardiology [address] [place] [address] Jay Medina MD 05/31/2024 12:15 PM INSTALLATION COORDINATOR Ancillary Procedure [facility] Imaging at [address] [id number] Bilateral lower extremity edema; Pleural effusion on right 05/31/2024 11:30 AM INSTALLATION COORDINATOR Office Visit [facility] Cardiology at [address] [place] [address] Jay Medina MD Bilateral lower extremity edema (Primary Dx); Pleural effusion on right; Prinzmetal angina (CMS/HCC) (HCC); Palpitations; Hyperlipidemia LDL goal <70; Benign essential HTN from Last 3 Months Surgical History Surgery Date Site/Laterality Comments APPENDECTOMY HYSTERECTOMY OOPHORECTOMY Medical History Medical History Date Comments Skin cancer Hyperlipidemia Acid indigestion Breast cancer (HCC) Cataracts, bilateral Asthma History of Prinzmetal angina Arthritis Family History Medical History Relation Name Comments Diabetes Brother Diabetes Maternal Grandmother Diabetes Mother Glaucoma Neg Hx Macular degeneration Neg Hx Retinal detachment Neg Hx Strabismus Neg Hx Thyroid disease Neg Hx Relation Name Status Comments Brother Alive Father (Age 93) Maternal Grandmother Mother (Age 93) Social History Tobacco Use Types Packs/Day Years Used Date Smoking Tobacco: Never Smokeless Tobacco: Never Tobacco Cessation:Counseling Given: Not Answered Alcohol Use Standard Drinks/Week Comments Yes 7 (1 standard drink = 0.6 oz pur e alcohol) Comments Unknown Sex and Gender Information Value Date Recorded Sex Assigned at Not on file Legal Sex Female 1:41 PM CDT Gender Identity Not on file Sexual Orientation Not on file Obstetrics History Last Filed Vital Signs Vital Sign Reading Time Taken Comments Blood Pressure 116/60 05/31/2024 11:35 AM INSTALLATION COORDINATOR Pulse 72 05/31/2024 11:35 AM INSTALLATION COORDINATOR Temperature - - Respiratory Rate 16 05/31/2024 11:35 AM INSTALLATION COORDINATOR Oxygen Saturation 99% 09/01/2022 2:34 PM CDT Inhaled Oxygen Concentration - - Weight 54 kg (119 lb) 05/31/2024 11:35 AM INSTALLATION COORDINATOR Height 157.5 cm (5' 2 ) 05/31/2024 11:35 AM INSTALLATION COORDINATOR Body Mass Index 21.77 05/31/2024 11:35 AM INSTALLATION COORDINATOR Plan of Treatment Health Maintenance Due Date Last Done Comments Depression Screening 1934 Fall Risk Assessment 1934 Hepatitis B Screening 1952 Well Visit 65+ 07/23/1999 Covid-19 Vaccine (2023-2 5 season) 2023 02/03/2021, 07/11/2020, 06/19/2020 Influenza Vaccine (#1) 2023 0, 02/02/2019, 01/31/2018, Additional history exists DTaP/Tdap/Td Vaccine (3 - Td or Tdap) 03/04/2031 03/04/2021, 08/22/2015 Pneumococcal vaccine 65+ Completed 03/13/2015, 04/25 Zoster Vaccine Completed 11/02/2018, 03/15/2018 Procedures Procedure Name Priority Date/Time Associated Diagnosis Comments XR CHEST PA LATERAL 2 VIEWS Schedule Routine, Read Routine (OP Routine) 05/31/2024 12:17 PM INSTALLATION COORDINATOR Bilateral lower extremity edema Pleural effusion on right from Last 3 Months Results * XR Chest Pa Lateral 2 Views (05/31/2024 12:17 PM INSTALLATION COORDINATOR) Anatomical Region Laterality Modality Body, Chest N/A Digital Radiogra phy 06/04/2024 11:0 0 AM INSTALLATION COORDINATOR Narrative 06/04/2024 11:03 AM INSTALLATION COORDINATOR EXAM DESCRIPTION: XR CHEST PA LATERAL 2 VIEWS REASON FOR STUDY: Pt complains of bilateral lower extremity edema for six months. History of asthma. Non-smoker. TECHNIQUE: PA and lateral radiographic view(s) of the chest. COMPARISON: None FINDINGS: LUNGS: There is moderate to large right-sided pleural effusion opacifying the inferior half of the right hemithorax. There is a small left effusion. Opacity at the left base could reflect atelectasis or pneumonia. There is no appreciable pneumothorax. HEART/MEDIASTINUM: Cardiac silhouette is partially obscured. Atherosclerotic calcification of the thoracic aorta. The left hilum is unremarkable. Right hilum obscured. LINES/TUBES: None. BONES: There is osteoarthritis of the shoulders. Thoracic spondylosis and degenerative disc disease. IMPRESSION: 1. Moderate to large right-sided effusion opacifying the inferior half of the right hemithorax. 2. Small left effusion with associated atelectasis or pneumonia. Comparison with prior chest radiographs if available would be of significant benefit. If there are none available, or if these findings are new compared to prior radiographs, CT chest with contrast would be recommended for further evaluation. THIS IS AN ELECTRONICALLY VERIFIED FINAL REPORT 06/04/2024 11:03 AM - Electronically signed by Avani Rodriguez M.D. TW T: Report ID: [id number] Reading Location: [id number] Procedure Note Avani Rodriguez MD - 06/04/2024 EXAM DESCRIPTION: XR CHEST PA LATERAL 2 VIEWS REASON FOR STUDY: Pt complains of bilateral lower extremity edema for six months. History of asthma. Non-smoker. TECHNIQUE: PA and lateral radiographic view(s) of the chest. COMPARISON: None FINDINGS: LUNGS: There is moderate to large right-sided pleural effusion opacifying the inferior half of the right hemithorax. There is a smallleft effusion. Opacity at the left base could reflect atelectasis orpneumonia. There is no appreciable pneumothorax. HEART/MEDIASTINUM: Cardiac silhouette is partially obscured.Atherosclerotic calcification of the thoracic aorta. The left hilum is unremarkable.Right hilum obscured. LINES/TUBES: None. BONES: There is osteoarthritis of the shoulders. Thoracic spondylosisand degenerative disc disease. IMPRESSION: 1. Moderate to large right-sided effusion opacifying the inferior halfof the right hemithorax. 2. Small left effusion with associated atelectasis or pneumonia. Comparison with prior chest radiographs if available would be ofsignificant benefit. If there are none available, or if these findings are newcompared to prior radiographs, CT chest with contrast would be recommended forfurther evaluation. THIS IS AN ELECTRONICALLY VERIFIED FINAL REPORT 06/04/2024 11:03 AM - Electronically signed by Avani Rodriguez M.D. TW T: Report ID: [id number] Reading Location: [id number] Jay Medina MD IMG XR PROCEDURES Final R esult from Last 3 Months Insurance MEDICARE [facility] MEDICARE [facility] [place] [address] [facility] Care Teams Plumber Gasfitter Relationship Specialty Start Date End Date Aniket Garrett MD [address] [place] [address] PCP - General Internal Medicine 12/26/18
--- OUTSIDE RECORDS SUMMARY | 2024-06-20 12:30 | XMS_ITS | Referral Summary ---
Author Organization [facility] [address] [place] [address] Care Team Providers Care Bee Worker Name Role Phone Aniket Garrett MD Primary Care Provider [phone] Encounters Date Type Department Care Team Description 06/04/2024 Telephone [facility] Cardiology [address] [place] [address] Jay Medina MD 05/31/2024 12:15 PM INTEGRATED CIRCUITS INSPECTOR Ancillary Procedure [facility] Imaging at [address] [address] Bilateral lower extremity edema; Pleural effusion on right 05/31/2024 11:30 AM INTEGRATED CIRCUITS INSPECTOR Office Visit [facility] Cardiology at [address] [place] [address] Jay Medina MD Bilateral lower extremity edema (Primary Dx); Pleural effusion on right; Prinzmetal angina (CMS/HCC) (HCC); Palpitations; Hyperlipidemia LDL goal <70; Benign essential HTN from Last 3 Months Allergies Active Allergy Reactions Criticality Noted Date [...] 04/11/2019 Palpitations 04/11/2019 Benign essential HTN 04/11/2019 Social History Tobacco Use Types Packs/Day Years [...] on file Sexual Orientation Not on file Last Filed Vital Signs Vital Sign Reading Time Taken Comments Blood Pressure 116/60 05/31/2024 11:35 AM INTEGRATED CIRCUITS INSPECTOR Pulse 72 05/31/2024 11:35 AM INTEGRATED CIRCUITS INSPECTOR Temperature - - Respiratory Rate 16 05/31/2024 11:35 AM INTEGRATED CIRCUITS INSPECTOR Oxygen Saturation 99% 09/01/2022 2:34 PM CDT Inhaled Oxygen Concentration - - Weight 54 kg (119 lb) 05/31/2024 11:35 AM INTEGRATED CIRCUITS INSPECTOR Height 157.5 cm (5' 2 ) 05/31/2024 11:35 AM INTEGRATED CIRCUITS INSPECTOR Body Mass Index 21.77 05/31/2024 11:35 AM INTEGRATED CIRCUITS INSPECTOR Plan of Treatment Not on file Procedures Procedure Name Priority Date/Time Associated Diagnosis Comments XR CHEST PA LATERAL 2 VIEWS Schedule Routine, Read Routine (OP Routine) 05/31/2024 12:17 PM INTEGRATED CIRCUITS INSPECTOR Bilateral lower extremity edema Pleural effusion on right from Last 3 Months Results * XR Chest Pa Lateral 2 Views (05/31/2024 12:17 PM INTEGRATED CIRCUITS INSPECTOR) Anatomical Region Laterality Modality Body, Chest N/A Digital Radiogra phy 06/04/2024 11:0 0 AM INTEGRATED CIRCUITS INSPECTOR Narrative 06/04/2024 11:03 AM INTEGRATED CIRCUITS INSPECTOR EXAM DESCRIPTION: XR CHEST PA LATERAL 2 [...] Avani Rodriguez M.D. TW T: Report ID: [id number] Reading Location: [id number] Procedure Note Avani Rodriguez MD - 06/04/2024 [...] - Electronically signed by Avani Rodriguez M.D. T: Report ID: [id number] Reading Location: [place] [id number] Jay Medina MD IMG XR PROCEDURES Final R esult from Last 3 Months [place] [address] [facility] MEDICARE [facility] MEDICARE [facility] Care Teams Bee Worker Relationship Specialty Start Date End Date Aniket Garrett MD [address] [place] [address] PCP - General Internal Medicine 12/26/18
--- OUTSIDE RECORDS SUMMARY | 2024-06-20 12:30 | XMS_ITS | Continuity of Care Document ---
Author Organization [facility] Address [address] [place] [address] Phone Care Team Providers Care Director Industrial Relations Name Role Phone Araya OD, César Unavailable Unavailable Procedures Procedure Date Eye Exam & Treatment No Script Refraction Eye Exam & Treatment Refraction Frames Deluxe Progressive Lens, Plastic Anti-reflective Coating Tax - Medical Eye Exam, New Patient Refraction Visual Functional Status Assessed Advance Directives Directive Yes / No Effective Date File Name No Information Encounters Encounter Description Practice Location Reason(s) For Visit Diagnoses Date Provider Providers Copied on Encounter [facility], [address] [place] [address] [address], [place], [place], [id number], [place] tel:[phone] [facility] No Information 1-200 9 Araya OD César. [address] , [address], [place], [place], [facility], [place]. tel:[phone] [facility], [address], [place], [place], [id number], [place] tel:[phone] [facility] No Information 8-200 8 Araya OD César. [address], [place], [address], [place]. tel:[phone] [facility], [address] [place] [address] [address], [place], [place], [id number], tel:[phone] [facility] No Information Sep-0 7-200 7 [facility] . [address], [address], [place], [place], [id number], [place]. tel:[phone] Referring Provider: César Araya OD Papo, [address], [place], [address]. tel:[phone] sulting Provider: Lulu Rodríguez, [address] [place], [address]. tel:[phone] [facility], [address], [place], [place], [id number], tel:[phone] [facility] No Information Sep-0 6-200 7 Araya OD César. [address] , [address], [place], [address], [place]. tel:[phone] Family History Family Member Type Diagnosis Age At Onset No Information Payers Payer name Insurance type Covered alliance party ID Authoriza tion(s) Medicare [facility] [id number] AARP Medicare Supp [place] [id number] Social History Type Description Quantity Date Captured Comments Sex Female Smoking Status No Information Chief Complaint And Reason For Visit No Information Reason For Referral Reason For Referral No Information History Of Present Illness Encounter Date Complaint History Of Prese nt Illness No Information Functional Status Date Functional Assessmen t No Information Instructions Date Instruction Additional Infor mation No Information Assessments Type Assessment Date No Information Patient Care Teams Name Effective Dates (start - stop) Status Members No Information
== END 2024-06-20 15:35 | disposition home or self-care (01) ==
PROVIDERS: Referring Provider Internal Medicine Cardiovascular Disease; Visit Provider Radiology Diagnostic Radiology
DX: Z01.818 Encounter for other preprocedural examination (principal); J90 Pleural effusion, not elsewhere classified; R91.8 Other nonspecific abnormal finding of lung field; I51.7 Cardiomegaly
CPT/HCPCS: 32555; 36415; 85049; 85610